=== PATIENT | male | born 1970 | race American Indian/Alaskan Native ===

== ENCOUNTER 2017-11-16 00:04 | Inpatient (IN) | payer OTHER ==
[2017-11-16 00:04] VITALS: BMI 21.4
[2017-11-16] MEDS ORDERED: Sodium Chloride 0.9% 1,000 ML IV STA ×2 (00:45→05:22)
--- NOTE | 2017-11-16 00:50 | ED PDOC ---
HPI: Abdomen Time Seen by Provider: 11/16/17 00:30 Chief Complaint (Nursing): Abdominal Pain Chief Complaint (Provider): Abdominal pain History Per: Patient History/Exam Limitations: no limitations Onset/Duration Of Symptoms: Hrs Outside of [place] travel?: No Current Symptoms Are (Timing): Still Present Location Of Pain/Discomfort: RLQ Quality Of Discomfort: "Pain" Associated Symptoms: Chills, Nausea, Vomiting. denies: Fever Additional History Per: Patient Additional Complaint(s): 47yo male with history of HIV, last CD4 count reported to be low, currently not on any HAART, presents to ED for evaluation of right lower quadrant abdominal pain, with associated nausea, vomiting and chills. Patient states pain started around 1800 last night and was initially testicular pain radiating to his abdomen. He states the testicular pain has now resolved and only the abdominal pain is present. Patient states he has not taken his HIV medications for the past couple months. He denies any other medical complaints. Past Medical History Reviewed: Historical Data, Nursing Documentation, Vital Signs Vital Signs: Last Vital Signs Temp 97.8 F 11/16/17 06:33 Pulse 83 11/16/17 06:33 Resp 16 11/16/17 06:33 BP 133/71 11/16/17 06:33 Pulse Ox 96 11/16/17 05:39 - Medical History PMH: Hepatitis, HIV, Migraine Denies: Chronic Kidney Disease - Surgical History Surgical History: No Surg Hx - Family History Family History: States: Unknown Family Hx - Home Medications Home Medications: Ambulatory Orders Medication Instructions Recorded No Known Home Med 11/16/17 - Allergies Allergies/Adverse Reactions: Allergies Allergy/AdvReac Type Severity Reaction Status Date / Time Sulfa (Sulfonamide Allergy NAUSEA Verified 12/02/15 20:35 Antibiotics) sulfamethoxazole Allergy NAUSEA Verified 12/02/15 20:35 [From Bactrim] trimethoprim [From Bactrim] Allergy NAUSEA Verified 12/02/15 20:35 Review of Systems ROS Statement: Except As Marked, All Systems Reviewed And Found Negative Constitutional: Positive for: Chills. Negative for: Fever Gastrointestinal: Positive for: Nausea, Vomiting, Abdominal Pain Physical Exam - Reviewed Nursing Documentation Reviewed: Yes Vital Signs Reviewed: Yes - Physical Exam Appears: Positive for: Uncomfortable Head Exam: Positive for: ATRAUMATIC, NORMAL INSPECTION, NORMOCEPHALIC Skin: Positive for: Normal Color Eye Exam: Positive for: Normal appearance Neck: Positive for: Supple Cardiovascular/Chest: Positive for: Regular Rate, Rhythm Respiratory: Positive for: Normal Breath Sounds. Negative for: Respiratory Distress Gastrointestinal/Abdominal: Positive for: Soft, Tenderness (right lower qadrant tenderness) Male Genital Exam: Positive for: normal genitalia. Negative for: testicular tenderness (R), testicular tenderness (L) Neurologic/Psych: Positive for: Alert, Oriented. Negative for: Motor/Sensory Deficits - Laboratory Results Result Diagrams: 11/16/17 01:39 11/16/17 01:39 - ECG O2 Sat by Pulse Oximetry: 96 (RA) Pulse Ox Interpretation: Normal Medical Decision Making Medical Decision Making: Impression: Appendicitis vs. colitis vs. diverticulitis Plan: -- Labs -- IV Fluids -- MOrphine 4mg IV -- Zofran 4mg IV -- CT AP w/ IV contrast Time: 0435 CT AP ABDOMEN: Liver: Unremarkable. No solid masses. Gallbladder and bile ducts: Unremarkable. No calcified stones. No ductal dilatation. Pancreas: Unremarkable. No mass. No ductal dilatation. Spleen: Unremarkable. No splenomegaly. Adrenals: Unremarkable. No mass. Kidneys and ureters: Moderate right hydronephrosis. 3 small stones (each 2-3.5 mm size) in the proximal right ureter (coronal image #45) (sag. image #68). Additional non-obstructing stones in each kidney. Stomach and bowel: Unremarkable. No bowel obstruction. No mucosal thickening. Appendix: No findings to suggest acute appendicitis. PELVIS: Bladder: Unremarkable. No mass nor stones. Reproductive: Unremarkable as visualized. ABDOMEN and PELVIS: Intraperitoneal space: Unremarkable. No free air. No significant fluid collection. Bones/joints: No acute fracture nor dislocation. Soft tissues: Unremarkable. Vasculature: Unremarkable. No abdominal aortic aneurysm. Lymph nodes: Unremarkable. No enlarged lymph nodes. IMPRESSION: Moderate right hydronephrosis. 3 small stones (each 2-3.5 mm size) in the proximal right ureter. Additional non-obstructing stones in each kidney. Time: 0525 Patient to be admitted to Med/Surg under Dr. Simmons due to infected kidney stone given that patient has poor compliance and last CD4 was <20. Patient at high risk of becoming septic. Scribe Attestation: Documented by Belkis Priest, acting as a scribe for Catrachito Morgan MD Provider Scribe Attestation: All medical record entries made by the Scribe were at my direction and personally dictated by me. I have reviewed the chart and agree that the record accurately reflects my personal performance of the history, physical exam, medical decision making, and the department course for this patient. I have also personally directed, reviewed, and agree with the discharge instructions and disposition. Disposition - Clinical Impression Clinical Impression: Kidney stone - Disposition Disposition Time: 06:48 Condition: STABLE
[2017-11-16] MEDS ORDERED: Morphine 4 MG/ML VIAL ONE ×2 (00:56→03:33)
[2017-11-16 01:42] LABS: EOS % 0.1 % (0.0-4.0); HEMOGLOBIN 9.3 g/dL (12.0-18.0); LYMPH # 0.7 K/uL (1.0-4.3); LYMPH % 5.1 % (20.0-40.0); MEAN CELL VOLUME 81.5 fl (80.0-94.0); MEAN CORPUSCULAR HEMOGLOBIN 27.1 pg (27.0-31.0); MEAN CORPUSCULAR HGB CONC 33.2 g/dL (33.0-37.0); MEAN PLATELET VOLUME 8.5 fl (7.2-11.7); MONO # 0.7 K/uL (0.0-0.8); MONO % 4.6 % (0.0-10.0); NEUT # 13.1 K/uL (1.8-7.0); NEUT % 90.2 % (50.0-75.0); PLATELET COUNT 337 K/uL (130-400); RBC 3.43 Mil/uL (4.40-5.90); RED CELL DISTRIBUTION WIDTH 14.8 % (11.5-14.5); WHITE BLOOD COUNT 14.5 K/uL (4.8-10.8)
[2017-11-16 01:51] LABS: ALB/GLOB RATIO 0.9 (1.0-2.1); ALBUMIN 4.6 g/dL (3.5-5.0); CALCIUM 9.1 mg/dL (8.4-10.2); GFR AFRICAN-AMERICAN > 60; GFR NON-AFRICAN AMERICAN 50; LIPASE 53 U/L (23-300)
[2017-11-16 02:01] LABS: ALT/SGPT 24 U/L (21-72); AST/SGOT 39 U/L (17-59); BLOOD UREA NITROGEN 14 mg/dl (9-20)
[2017-11-16] MEDS ORDERED: Iohexol 300 100 ML IJ ONE ×2 (02:50→20:57)
[2017-11-16] MEDS ORDERED: Sodium Chloride 0.9% 50 ML IV ONE (02:50)
[2017-11-16 04:44] LABS: BANDS 1 % (0-2); LYMPHOCYTE 6 % (20-50); MONOCYTE 8 % (0-10); NEUTROPHIL 85 % (42-75); PLATELET ESTIMATE NORMAL (NORMAL); TOTAL CELLS COUNTED 100
[2017-11-16 04:45] LABS: ANISOCYTOSIS SLIGHT; HYPOCHROMIC SLIGHT
[2017-11-16 04:51] LABS: SQUAMOUS EPITHIAL 1 /hpf (0-5); URINE BACTERIA MANY (<OCC); URINE BILIRUBIN NEGATIVE (NEGATIVE); URINE BLOOD NEGATIVE (NEGATIVE); URINE CALCIUM OXALATE CRYSTALS RARE /hpf (<OCC); URINE CLARITY CLOUDY (Clear); URINE COLOR YELLOW (YELLOW); URINE GLUCOSE (UA) NEG (Normal); URINE LEUKOCYTE ESTERASE TRACE Leu/uL (Negative); URINE NITRATE POSITIVE (NEGATIVE); URINE PROTEIN 30 mg/dL (NEGATIVE)
[2017-11-16] MEDS ORDERED: levoFLOXacin 750 mg in D5W 150 ML BAG IVPB STA (05:17)
[2017-11-16] MEDS ORDERED: levoFLOXacin 750 mg in D5W 750 MG/150 ML BAG IVPB ONE (05:38)
[2017-11-16] MEDS ORDERED: cefTRIAXone 2 GM in Sodium Chloride 0.9% 100 ML IVPB ONE (07:33)
--- NOTE | 2017-11-16 08:54 | CP.PCM.HP ---
History of Present Illness - History of Present Illness History of Present Illness: CC: RLQ and RIGHT testicular pain 47M p/w one day of sharp, constant pain that started in RIGHT testicle and then "moved up into my RL abdomen". Patient reports he was unable to get comfortable with position change. He says the pain has remained primarily in right lower abdomen. This was associated with subjective fevers/chills and needing to "push to urinate", but he denies any nausea, vomiting, diarrhea, rashes, neurological deficits, and no penile discharge/lesions. He also reports viral URI symptoms 1 week prior with dry cough and rhinitis. PMH: HIV/AIDS (CD4:25 not taking HAART or prophylaxis), Syphilis/Prostatitis treated SHx: Denies smoking or drugs, socially alcohol ALL: Bactrim ER COURSE EKG: Rate- 83, SR, borderline LVH CXR: No definitive acute cardiopulmonary disease or significant interval change identified compared to 12/02/2016. CT abd/pelvis: Rt-sided obstructive uropathy by 3 small stones with mild hydroureteronephrosis with perinephric reaction identified CBC: 14.5>9.3/28<337 CMP: WNL Lactate: 1.3 Urinalysis: Nitrates-positive, RBCs-36, Bacteria-Many 2L Saline bolus, Zofran, Flomax, Morphine, Levoquin, Toradol Present on Admission - Present on Admission Any Indicators Present on Admission: No Review of Systems - Review of Systems All systems: reviewed and no additional remarkable complaints except - Constitutional Constitutional: Chills, Fever (Subjective) - Genitourinary Genitourinary: Difficulty Urinating, Flank Pain, Hx Renal/Bladder Calculi Past Patient History - Past Medical History & Family History Past Medical History?: Yes - Past Social History Smoking Status: Never Smoked - CARDIAC Hx Cardiac Disorders: No - PULMONARY Hx Respiratory Disorders: No Other/Comment: hiv positive - NEUROLOGICAL Hx Migraine: Yes - HEENT Other/Comment: wear glasses - RENAL Hx Chronic Kidney Disease: No - ENDOCRINE/METABOLIC Hx Endocrine Disorders: No - HEMATOLOGICAL/ONCOLOGICAL Hx Human Immunodeficiency Virus (HIV): Yes - INTEGUMENTARY Hx Dermatological Problems: Yes (acne) - MUSCULOSKELETAL/RHEUMATOLOGICAL Hx Musculoskeletal Disorders: No Hx Falls: No - GASTROINTESTINAL Hx Gastrointestinal Disorders: No - GENITOURINARY/GYNECOLOGICAL Hx Genitourinary Disorders: No - PSYCHIATRIC Hx Psychophysiologic Disorder: No Hx Substance Use: No - SURGICAL HISTORY Hx Surgeries: No - ANESTHESIA Hx Anesthesia: Yes Hx Anesthesia Reactions: No Hx Malignant Hyperthermia: No Meds Allergies/Adverse Reactions: Allergies Allergy/AdvReac Type Severity Reaction Status Date / Time Sulfa (Sulfonamide Allergy NAUSEA Verified 12/02/15 20:35 Antibiotics) sulfamethoxazole Allergy NAUSEA Verified 12/02/15 20:35 [From Bactrim] trimethoprim [From Bactrim] Allergy NAUSEA Verified 12/02/15 20:35 Physical Exam - Constitutional Appears: Non-toxic, No Acute Distress - Head Exam Head Exam: ATRAUMATIC, NORMAL INSPECTION - Eye Exam Eye Exam: EOMI, Normal appearance - ENT Exam ENT Exam: Mucous Membranes Dry, Normal External Ear Exam - Neck Exam Neck exam: Positive for: Full Rom, Normal Inspection - Respiratory Exam Respiratory Exam: Clear to Auscultation Bilateral, Respiratory Distress, NORMAL BREATHING PATTERN. absent: Rales, Rhonchi, Wheezes - Cardiovascular Exam Cardiovascular Exam: REGULAR RHYTHM, +S1 - GI/Abdominal Exam GI & Abdominal Exam: Normal Bowel Sounds, Soft, Tenderness (very mild ttp at RLQ w/o rebound, NO hernia noted) - Rectal Exam Rectal Exam: Deferred - Exam Exam: NORMAL INSPECTION, Testicular Tenderness (RIGHT testicel only, along epididymis, no nodules noted, no hernia noted) - Extremities Exam Extremities exam: Positive for: full ROM, normal capillary refill, pedal pulses present - Back Exam Back exam: rash noted (Entire back: non-erythematous, papular with central dimpling, various stages of healing and some with pustules) - Neurological Exam Neurological exam: Alert, CN II-XII Intact, Oriented x3 - Psychiatric Exam Psychiatric exam: Normal Affect - Skin Skin Exam: Dry, Warm Results - Vital Signs Recent Vital Signs: Last Vital Signs Temp 36.8 C 11/16/17 07:56 Pulse 74 11/16/17 07:56 Resp 19 11/16/17 07:56 BP 103/62 11/16/17 07:56 Pulse Ox 99 11/16/17 07:56 - Labs Result Diagrams: 11/16/17 17:42 11/16/17 17:42 Labs: Laboratory Results - last 24 hr 11/16/17 11/16/17 11/16/17 01:39 01:39 04:19 WBC 14.5 H D RBC 3.43 L Hgb 9.3 L Hct 28.0 L MCV 81.5 D MCH 27.1 MCHC 33.2 RDW 14.8 H Plt Count 337 MPV 8.5 Neut % (Auto) 90.2 H Lymph % (Auto) 5.1 L [place] % (Auto) 4.6 Eos % (Auto) 0.1 Baso % (Auto) 0.0 Neut # 13.1 H Lymph # 0.7 L [place] # 0.7 Eos # 0.0 Baso # 0.0 Neutrophils % (Manual) 85 H Band Neutrophils % 1 Lymphocytes % (Manual) 6 L Monocytes % (Manual) 8 Platelet Estimate Normal Hypochromasia (manual) Slight Anisocytosis (manual) Slight Sodium 142 Potassium 4.5 Chloride 102 Carbon Dioxide 22 Anion Gap 23 H BUN 14 Creatinine 1.5 Est GFR ( Amer) > 60 Est GFR (Non-Af Amer) 50 Random Glucose 173 H Lactic Acid 1.3 Calcium 9.1 Total Bilirubin 0.9 AST 39 ALT 24 Alkaline Phosphatase 119 Total Protein 9.6 H Albumin 4.6 Globulin 5.0 H Albumin/Globulin Ratio 0.9 L Lipase 53 Urine Color Urine Clarity Urine pH Ur Specific [place] Urine Protein Urine Glucose (UA) Urine Ketones Urine Blood Urine Nitrate Urine Bilirubin Urine Urobilinogen Ur Leukocyte Esterase Urine RBC (Auto) Urine Microscopic WBC Ur Squamous Epith Cells Calcium Oxalate Crystal Urine Bacteria 11/16/17 04:20 WBC RBC Hgb Hct MCV MCH MCHC RDW Plt Count MPV Neut % (Auto) Lymph % (Auto) [place] % (Auto) Eos % (Auto) Baso % (Auto) Neut # Lymph # [place] # Eos # Baso # Neutrophils % (Manual) Band Neutrophils % Lymphocytes % (Manual) Monocytes % (Manual) Platelet Estimate Hypochromasia (manual) Anisocytosis (manual) Sodium Potassium Chloride Carbon Dioxide Anion Gap BUN Creatinine Est GFR ( Amer) Est GFR (Non-Af Amer) Random Glucose Lactic Acid Calcium Total Bilirubin AST ALT Alkaline Phosphatase Total Protein Albumin Globulin Albumin/Globulin Ratio Lipase Urine Color Yellow Urine Clarity Cloudy Urine pH 7.0 Ur Specific [place] 1.038 H Urine Protein 30 Urine Glucose (UA) Neg Urine Ketones Trace Urine Blood Negative Urine Nitrate Positive H Urine Bilirubin Negative Urine Urobilinogen 4.0 Ur Leukocyte Esterase Trace Urine RBC (Auto) 36 H Urine Microscopic WBC 7 H Ur Squamous Epith Cells 1 Calcium Oxalate Crystal Rare Urine Bacteria Many H Assessment & Plan (1) Kidney stone Assessment and Plan: Obstructive Uropathy noted with possibility of corresponding pyelonephritis. - Urology Consult (Dr Thao) appreciated: Plan for stent 11/17/17, NPO after 0700 , KUB to evaluate progression - Rocephin 2g then 1g Daily - NS 200cc/hr - FloMax - Strain urine - f/u UCx, BCx Status: Acute (2) AIDS Assessment and Plan: 47M with HIV, CD-4: 25, not taking medication or prophylaxis. - Started Mepron - Started Azithromycin - Repeat CD4/CD8, VL, Genotype - RPR, FT-ABS, GC/Chlamydia Status: Acute (3) Rash of back Assessment and Plan: Appears to be a molluscum species and according to literature common in AIDS patients and typically resolve with rise in CD4 count. - Symptomatic relief Status: Chronic (4) DVT prophylaxis Assessment and Plan: Lovenox 40mg, SC, HS Status: Acute
[2017-11-16] MEDS: Sodium Chloride 0.9% 1,000 ML IV SCH ×3 (09:21→19:45)
--- NOTE | 2017-11-16 09:42 | RAD ---
HISTORY: abd pain COMPARISON: Portable chest 12/02/2016. FINDINGS: Patient is rotated toward the left limit evaluation of the left hilar region. LUNGS: No active pulmonary disease. PLEURA: No significant pleural effusion identified, no pneumothorax apparent. CARDIOVASCULAR: Normal. OSSEOUS STRUCTURES: No significant abnormalities. VISUALIZED UPPER ABDOMEN: Normal. OTHER FINDINGS: None. IMPRESSION: No definitive acute cardiopulmonary disease or significant interval change identified compared to 12/02/2016 prior chest radiograph.
[2017-11-16] MEDS: Atovaquone 750 mg/5 ml Susp UD PO SCH (11:03)
[2017-11-16] MEDS: Enoxaparin 40 mg Syringe SC SCH (11:03)
--- NOTE | 2017-11-16 11:19 | CT ---
PROCEDURE: CT Abdomen and Pelvis with contrast HISTORY: hx of HIV, RLQ pain COMPARISON: None. TECHNIQUE: Contrast dose: Omnipaque 300, 90 cc Radiation dose: Total exam DLP = 355.47 mGy-cm. This CT exam was performed using one or more of the following dose reduction techniques: Automated exposure control, adjustment of the mA and/or kV according to patient size, and/or use of iterative reconstruction technique. FINDINGS: LOWER THORAX: Small hiatal hernia is identified. No pleural pericardial effusion noted. LIVER: Unremarkable. No gross lesion or ductal dilatation. GALLBLADDER AND BILE DUCTS: Unremarkable. PANCREAS: Unremarkable. No gross lesion or ductal dilatation. SPLEEN: Unremarkable. ADRENALS: Unremarkable. No mass. KIDNEYS AND URETERS: Multifocal punctate intrarenal calculi identified bilaterally with a few intrarenal calculi identified 6- 7 mm size including at the lower pole right kidney and midpole left kidney. Moderate right obstructive uropathy is appreciated including delayed right nephrogram and mild right hydroureteronephrosis. This is the result of 3 intraureteral calculi obstructing the mid right ureter at the L3-4 disc interspace level with the 3 calculi varying in size from 3-3.5 mm greatest dimension. The ureter distal to this finding is collapsed in the urinary bladder is unremarkable. No left-sided obstructive uropathy. No definite cyst or solid renal parenchymal mass bilaterally or perinephric fluid collection. A right perinephric reaction is appreciated as a function of obstructive uropathy. VASCULATURE: Unremarkable. No aortic aneurysm. BOWEL: Prior right cecal and terminal ileal ileal colitis appears to have resolved with remainder of the bowel unremarkable. The stomach is collapsed in general. Trace residual fluid is seen in the lumen. APPENDIX: Normal appendix. PERITONEUM: Unremarkable. No free fluid. No free air. LYMPH NODES: Unremarkable. No enlarged lymph nodes. BLADDER: Unremarkable. REPRODUCTIVE: Unremarkable. BONES: No acute fracture. OTHER FINDINGS: None. IMPRESSION: Right-sided obstructive uropathy is identified caused by 3 small intraureteral calculi obstructing the mid right ureter with mild right hydroureteronephrosis and limited right perinephric reaction identified. Mild delayed right nephrogram. Multiple small intrarenal calculi are nonobstructive at the bilateral kidneys varying in size from punctate size up to 7 mm. Please see details above. Concordant preliminary report from [facility], 11/16/2017
--- NOTE | 2017-11-16 11:58 | CP.PCM.PN ---
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 Suggest continue present mgmt strain all urine keep on ffull liquid diet and npo after breakfast. KUB now and at 7am to asses stone progression. Keesha Objective - Vital Signs/Intake and Output Vital Signs (last 24 hours): Temp Pulse Resp BP Pulse Ox 98.3 F 74 19 103/62 99 11/16/17 07:56 11/16/17 07:56 11/16/17 07:56 11/16/17 07:56 11/16/17 07:56 - Medications Medications: Current Medications Acetaminophen (Tylenol 325mg Tab) 650 mg PO Q6 PRN PRN Reason: Fever >100.4 F Atovaquone (Mepron) 1,500 mg PO DAILYWM [facility] Last Admin: 11/16/17 11:03 Dose: 1,500 mg Azithromycin (Zithromax) 1,200 mg PO QWK [facility] PRN Reason: Protocol Enoxaparin Sodium (Lovenox) 40 mg SC DAILY [facility] PRN Reason: Protocol Last Admin: 11/16/17 11:03 Dose: 40 mg Sodium Chloride (Sodium Chloride 0.9%) 1,000 mls @ 200 mls/hr IV .Q5H [facility] Stop: 11/17/17 08:55 Last Admin: 11/16/17 09:21 Dose: Not Given Ceftriaxone Sodium 1 gm/ (Sodium Chloride) 100 mls @ 100 mls/hr IVPB DAILY [facility] PRN Reason: Protocol Ketorolac Tromethamine (Toradol) 15 mg IVP Q6 PRN PRN Reason: Pain, moderate (4-7) Ondansetron HCl (Zofran Inj) 4 mg IVP Q6 PRN PRN Reason: Nausea/Vomiting Tamsulosin HCl (Flomax) 0.4 mg PO HS [facility] - Labs Labs: 11/16/17 01:39 11/16/17 01:39
--- NOTE | 2017-11-16 17:17 | CARD ---
APPROVED REPORT EKG Measurement Heart [id number] <Conclusion> Normal sinus rhythm Minimal voltage criteria for LVH, may be normal variant Nonspecific T wave abnormality Abnormal ECG
[2017-11-16] MEDS ORDERED: Lactated Ringer's 1,000 ML IV SCH ×4 (17:45→18:00)
[2017-11-16 17:47] LABS: BASO % 0.1 % (0.0-2.0); LYMPH # 0.4 K/uL (1.0-4.3); LYMPH % 1.9 % (20.0-40.0); MEAN CORPUSCULAR HEMOGLOBIN 27.2 pg (27.0-31.0); MEAN CORPUSCULAR HGB CONC 33.5 g/dL (33.0-37.0); MEAN PLATELET VOLUME 7.6 fl (7.2-11.7); MONO # 0.8 K/uL (0.0-0.8); MONO % 4.2 % (0.0-10.0); NEUT % 93.8 % (50.0-75.0); NRBC % 0.1 % (0.0-0.0); RBC 2.72 Mil/uL (4.40-5.90); RED CELL DISTRIBUTION WIDTH 14.4 % (11.5-14.5); WHITE BLOOD COUNT 19.2 K/uL (4.8-10.8)
[2017-11-16 18:00] LABS: MAGNESIUM 1.3 MG/DL (1.6-2.3)
[2017-11-16 18:04] LABS: ALB/GLOB RATIO 0.8 (1.0-2.1); ALBUMIN 3.1 g/dL (3.5-5.0); INR 1.5 (0.9-1.2); PARTIAL THROMBOPLASTIN TIME 37.5 Seconds (25.6-37.1); PROTHROMBIN TIME 17.3 Seconds (9.8-13.1)
[2017-11-16 18:09] LABS: HEMOGLOBIN 7.4 g/dL (12.0-18.0); PLATELET COUNT 233 K/uL (130-400)
--- NOTE | 2017-11-16 18:25 | PCM.RRT ---
<Mark Busch - Last Filed: 11/16/17 18:23> MARKER MACHINE ATTENDANT Nurse Assessment - Situation MARKER MACHINE ATTENDANT Responder Arrival Time: 17:55 Location: 6th Floor Room Number: [id number] MARKER MACHINE ATTENDANT Reason for Call: Hypotension MARKER MACHINE ATTENDANT Called By: RN - IV IV Inserted during MARKER MACHINE ATTENDANT?: Yes IV Fluids Initiated During MARKER MACHINE ATTENDANT?: Yes New IV Insertion Tolerance:: Good - Respiratory Oxygen Delivery Method: Room Air Received Nebulizer Treatments: No Was the Patient Ventilated with Bag/Mask 100% O2?: No - Diagnostic Test Ordered EKG: Yes Chest X-Ray: Yes - Stat Labs Ordered MARKER MACHINE ATTENDANT Stat Labs Ordered: CBC, BMP, PT/PTT, LACTIC ACID CPR started during MARKER MACHINE ATTENDANT?: No I.Reason for MARKER MACHINE ATTENDANT - A) Acute Change in Patient: (Select all that apply): Acute change in SBP below (80) Subjective: MARKER MACHINE ATTENDANT was called due to Hypotension (80/47) for 47 y/o male with PMH of HIV-AIDS ( Not on HAART), who is admitted to the floor for evaluation and treatment of Kidney stones. Upon arrival, patient is alert, awake, orientated and denies any pain or issues. Initial VS: 80/47, PP 99, Spo2 98% RA, RR 21, Tm 100.5. PE: CV, respiratory and neuroexam unremarkable. During MARKER MACHINE ATTENDANT, second IV inserted and second bag of LR started, Patient was given one dose of Vancomycin. CBC, CMP, Bcx, Ucx, Lactic acid, Coag, EKG and CXR ordered (Lactic acid 1.9, CXR negative for any changes). Blood pressure after 15 mins was noted to be 89/50, PP 99 with Tm of 100.5. Patient was transferred to the telemetry unit and ID will be informed for further evaluation and treatment. Case discussed with Dr. Ramirez - Neurological Status (Select all that apply): Alert, Responsive, Oriented, Verbal, Follows Commands - Respiratory Oxygen Delivery Method: Room Air - Constitutional Appears: No Acute Distress - Head Head Exam: ATRAUMATIC, NORMAL INSPECTION, NORMOCEPHALIC - Eyes Eye Exam: EOMI, Normal appearance - Respiratory Exam Respiratory Exam: Clear to Ausculation Bilateral, NORMAL BREATHING PATTERN - Cardiovascular Exam Cardiovascular Exam: REGULAR RHYTHM - GI/Abdominal Exam GI & Abdominal Exam: Soft, Normal Bowel Sounds - Neurological Exam Neurological Exam: Alert, Awake, Oriented x3 - Extremities Exam Extremities Exam: Full ROM, Normal Capillary Refill Plan - Assessment of Findings&Treatment Plan 47 y/o male with hypotension, Tm of 100.5 and kidney stones - Follow up Labs - Monitor BP - Continue IV Fluids - Transfer to telemetry unit - Call ID --- Mark Busch, PGY-1 <Perlita Ramirez - Last Filed: 11/16/17 19:08> MARKER MACHINE ATTENDANT Nurse Assessment - Vital Signs Vital Signs: Rapid Response Vital Sign Blood Pressure 80/47 Pulse Rate 98 Respiratory Rate 12 Temperature 100.5 F Oxygen Saturation 100 - Vital Signs at end of MARKER MACHINE ATTENDANT Vital Signs at end of MARKER MACHINE ATTENDANT: Rapid Response End Vital Sign Blood Pressure 88/49 Pulse Rate 93 Respiratory Rate 18 Temperature 100.5 F O2 Sat by Pulse Oximetry 99 Attending/Attestation - Attestation I have personally seen and examined this patient.: Yes I have fully participated in the care of the patient.: Yes I have reviewed all pertinent clinical information, including history, physical exam and plan: Yes Notes (Text): Hypotension prob sec to Sepsis sec to UTI in an immunocompromised pt Obstructive Uropathy Anemia , likely chronic , drop likely dilutional HIV MARILYNN Hypomagnesemia Hypophosphatemia - IVF bolus NS x 1 liter stat, cont IVF hydration -Pt received IV Ceftriaxone 2g and a dose of IV Levaquin in ED - Transfer pt to Telemetry for close monitoring - rpt labs CBC,CMP, Lactic acid - panculture - Discussed with resident - consult ID - pt may need a more broad spectrum abx given immunocompromised state - replace electrolytes, transfuse 1 unit PRBC
[2017-11-16 18:33] LABS: BANDS 20 % (0-2); LYMPHOCYTE 2 % (20-50); MONOCYTE 1 % (0-10); NEUTROPHIL 77 % (42-75); PLATELET ESTIMATE NORMAL (NORMAL); TOTAL CELLS COUNTED 100
[2017-11-16 18:34] LABS: ANISOCYTOSIS SLIGHT; HYPOCHROMIC SLIGHT; LARGE PLATELETS PRESENT; POIKILOCYTOSIS SLIGHT; TARGET CELLS SLIGHT; TEARDROP CELLS SLIGHT
--- NOTE | 2017-11-16 19:32 | CP.PCM.PN ---
Subjective - Date & Time of Evaluation Date of Evaluation: 11/16/17 Time of Evaluation: 19:29 - Subjective Subjective: Recieved call from resident pt spiked temp and dropped his pressure. 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.Keesha Objective - Vital Signs/Intake and Output Vital Signs (last 24 hours): Temp Pulse Resp BP Pulse Ox 99.3 F 93 H 18 97/59 L 100 11/16/17 19:24 11/16/17 19:24 11/16/17 19:24 11/16/17 19:24 11/16/17 19:24 - Medications Medications: Current Medications Acetaminophen (Tylenol 325mg Tab) 650 mg PO Q6 PRN PRN Reason: Fever >100.4 F Last Admin: 11/16/17 16:07 Dose: 650 mg Atovaquone (Mepron) 1,500 mg PO DAILYWM [facility] Last Admin: 11/16/17 11:03 Dose: 1,500 mg Azithromycin (Zithromax) 1,200 mg PO QWK [facility] PRN Reason: Protocol Last Admin: 11/16/17 15:21 Dose: 1,200 mg Enoxaparin Sodium (Lovenox) 40 mg SC DAILY [facility] PRN Reason: Protocol Last Admin: 11/16/17 11:03 Dose: 40 mg Sodium Chloride (Sodium Chloride 0.9%) 1,000 mls @ 200 mls/hr IV .Q5H [facility] Stop: 11/17/17 08:55 Last Admin: 11/16/17 14:06 Dose: 200 mls/hr Ceftriaxone Sodium 1 gm/ (Sodium Chloride) 100 mls @ 100 mls/hr IVPB DAILY [facility] PRN Reason: Protocol Ketorolac Tromethamine (Toradol) 15 mg IVP Q6 PRN PRN Reason: Pain, moderate (4-7) Ondansetron HCl (Zofran Inj) 4 mg IVP Q6 PRN PRN Reason: Nausea/Vomiting Tamsulosin HCl (Flomax) 0.4 mg PO HS [facility] - Labs Labs: 11/16/17 17:42 11/16/17 17:42 PT 17.3 Seconds (9.8-13.1) H 11/16/17 17:42 INR 1.5 (0.9-1.2) H 11/16/17 17:42 APTT 37.5 Seconds (25.6-37.1) H 11/16/17 17:42
[2017-11-16] MEDS ORDERED: Meropenem 1 GM in Sodium Chloride 0.9% 100 ML IVPB ONE (19:43)
[2017-11-16 19:47] LABS: RAPID PLASMA REAGIN REACTIVE (NONREACTIVE)
[2017-11-16] MEDS ORDERED: Lidocaine 2% Jelly (Uro-Jet) ONE (20:56)
[2017-11-16] MEDS ORDERED: Meropenem 1 GM in Sodium Chloride 0.9% 100 ML IVPB SCH (21:00)
[2017-11-16] MEDS ORDERED: Gentamicin 80mg/50ml NS 160 MG/100 ML BAG IVPB ONE (21:04)
[2017-11-16] MEDS ORDERED: ePHEDrine 50 mg/ml Inj ONE (21:09)
[2017-11-16] MEDS ORDERED: Phenylephrine 10 mg/ml Inj ONE (21:09)
[2017-11-16] MEDS ORDERED: Etomidate 20 mg/10ml Inj IV ONE (21:10)
[2017-11-16] MEDS ORDERED: Ketamine 50 mg/ml Inj (10 ml) ONE (21:10)
[2017-11-16] MEDS ORDERED: Lactated Ringer's 1,000 ML IV ONE (21:18)
[2017-11-16] MEDS ORDERED: Gentamicin IV 80mg/50ml NS(PREMIX) IVPB ONE (21:20)
[2017-11-16] MEDS ORDERED: Midazolam 2 MG/2 ML VIAL ONE (21:25)
[2017-11-16] MEDS ORDERED: Lidocaine 2% Jelly (Uro-Jet) TOP ONE (21:25)
--- NOTE | 2017-11-16 21:49 | PCM.SURG1 ---
Surgeon's Initial Post Op Note - Surgeon's Notes Surgeon: Keesha Make Up Arranger: BARBI Type of Anesthesia: IV Sedation Anesthesia Administered By: Dr Gonzalez Pre-Operative Diagnosis: UROSEPSIS Right HYDRO Right ureteral calculi Operative Findings: stone/hydro Post-Operative Diagnosis: ureteral calculi/hydro /sepsis Operation Performed: cysto insert stent right Specimen/Specimens Removed: na Estimated Blood Loss: EBL {In ML}: 0 Blood Products Given: N/A Drains Used: No Drains Post-Op Condition: Good Date of Surgery/Procedure: 11/16/17 Time of Surgery/Procedure: 21:50
[2017-11-16] MEDS ORDERED: Sodium Chloride 0.9% 1,000 ML IV ONE ×2 (21:55)
[2017-11-16] MEDS ORDERED: Potassium & Sodium Phosphate PO ONE (22:00)
[2017-11-16] MEDS ORDERED: Sodium Chloride 0.9% 500 ML IV SCH (22:00)
[2017-11-16] MEDS ORDERED: Lactated Ringer's 500 ML IV SCH (22:15)
--- NOTE | 2017-11-17 00:21 | CP.PCM.CON ---
History of Present Illness - History of Present Illness History of Present Illness: Infectious Disease Consultation Note- Asked to see this patient at the request of family practice team for fever, UTI , hydro in a HIV/AIDS male . HPI- Patient is a 47 year old amle with HIV/AIDS not complaint with HAART follows at [facility] ( last CD4-25) who was admitted with c/o pain and difficulty urinating and lower abd/pelvic pain and fever and in ED was found to have fever, high wbc and hypotensive and high lactate and positve UA and On imaging was found to have obstructive uropathy secondary to 3 stones in ureter and is s/p emergency stent placement by last night case was d/w family practice resident at length last night and advised to start pt. on IV meropenem (shelli ose) , and he had received 1 gram of IV vancomycin in ED as well. advised to check blood and urine cx as well. This morning patient is resting comfortably in bed and he states he feels much better compared to last night. He states he is able to urinate using the urinal but still has pressure and pain although much less than last night. denies any NORMAN , states he also has v=been having cough for past few days, no sob , denies any diarrhea, denies any n/v. denies any recent travel. He also states he has been having these boil/blister like lesions on his back chronically that occasionally open up on their own and fluid is discharged because he scartches it. PMH: HIV/AIDS (CD4:25 not taking HAART or prophylaxis), Syphilis/Prostatitis treated SHx: Denies smoking or drugs, socially alcohol ALL: Bactrim Review of Systems - Review of Systems Review of Systems: ROS- had fever and chills yesterday but no chills today, denies any NORMAN, + cough but not productive, denies any sob, denies any chest pain, had lower abd. pain but not now, dysurea still present but less than before, denies any diarrhea, denies any N/V. Past Patient History - Past Medical History & Family History Past Medical History?: Yes - Past Social History Smoking Status: Never Smoked Alcohol: None Drugs: Denies - CARDIAC Hx Cardiac Disorders: No - PULMONARY Hx Respiratory Disorders: No Other/Comment: hiv positive - NEUROLOGICAL Hx Migraine: Yes - HEENT Other/Comment: wear glasses - RENAL Hx Chronic Kidney Disease: No - ENDOCRINE/METABOLIC Hx Endocrine Disorders: No - HEMATOLOGICAL/ONCOLOGICAL Hx AIDS: Yes Hx Human Immunodeficiency Virus (HIV): Yes - INTEGUMENTARY Hx Dermatological Problems: Yes (acne) - MUSCULOSKELETAL/RHEUMATOLOGICAL Hx Musculoskeletal Disorders: No Hx Falls: No - GASTROINTESTINAL Hx Gastrointestinal Disorders: No - GENITOURINARY/GYNECOLOGICAL Hx Genitourinary Disorders: No - PSYCHIATRIC Hx Psychophysiologic Disorder: No Hx Substance Use: No - SURGICAL HISTORY Hx Surgeries: No - ANESTHESIA Hx Anesthesia: Yes Hx Anesthesia Reactions: No Hx Malignant Hyperthermia: No Meds Allergies/Adverse Reactions: Allergies Allergy/AdvReac Type Severity Reaction Status Date / Time Sulfa (Sulfonamide Allergy NAUSEA Verified 12/02/15 20:35 Antibiotics) sulfamethoxazole Allergy NAUSEA Verified 12/02/15 20:35 [From Bactrim] trimethoprim [From Bactrim] Allergy NAUSEA Verified 12/02/15 20:35 - Medications Medications: Current Medications Acetaminophen (Tylenol 325mg Tab) 650 mg PO Q6 PRN PRN Reason: Fever >100.4 F Last Admin: 11/16/17 16:07 Dose: 650 mg Atovaquone (Mepron) 1,500 mg PO DAILYWM [facility] Last Admin: 11/16/17 11:03 Dose: 1,500 mg Azithromycin (Zithromax) 1,200 mg PO QWK [facility] PRN Reason: Protocol Last Admin: 11/16/17 15:21 Dose: 1,200 mg Enoxaparin Sodium (Lovenox) 40 mg SC DAILY [facility] PRN Reason: Protocol Last Admin: 11/16/17 11:03 Dose: 40 mg Sodium Chloride (Sodium Chloride 0.9%) 1,000 mls @ 200 mls/hr IV .Q5H [facility] Stop: 11/17/17 08:55 Last Admin: 11/16/17 19:45 Dose: 200 mls/hr Ceftriaxone Sodium 1 gm/ (Sodium Chloride) 100 mls @ 100 mls/hr IVPB DAILY [facility] PRN Reason: Protocol Meropenem 1 gm/ Sodium (Chloride) 100 mls @ 100 mls/hr IVPB Q12@0800,2000 [facility] PRN Reason: Protocol Sodium Chloride (Sodium Chloride 0.9%) 500 mls @ 999 mls/hr IV .Q31M [facility] Lactated Ringer's (Lactated Ringer's) 500 mls @ 999 mls/hr IV .Q31M [facility] Ketorolac Tromethamine (Toradol) 15 mg IVP Q6 PRN PRN Reason: Pain, moderate (4-7) Magnesium Oxide (Mag-Ox) 400 mg PO BID [facility] Ondansetron HCl (Zofran Inj) 4 mg IVP Q6 PRN PRN Reason: Nausea/Vomiting Tamsulosin HCl (Flomax) 0.4 mg PO [facility] Last Admin: 11/16/17 23:15 Dose: 0.4 mg Physical Exam - Constitutional Appears: No Acute Distress - Head Exam Head Exam: ATRAUMATIC - Eye Exam Eye Exam: EOMI, PERRL - Neck Exam Neck exam: Positive for: Full Rom Additional comments: supple - Respiratory Exam Respiratory Exam: NORMAL BREATHING PATTERN Additional comments: No wheezing slightly decreased breath sounds at right base - Cardiovascular Exam Cardiovascular Exam: RRR, +S1, +S2 - GI/Abdominal Exam GI & Abdominal Exam: Normal Bowel Sounds, Soft Additional comments: NT, ND No guarding, no rebound No CVA tenderness B/l - Extremities Exam Extremities exam: Positive for: normal inspection - Neurological Exam Neurological exam: Alert, Oriented x3 - Skin Additional comments: multiple superficial open round wounds about 2 x 2 cm without any active dishcarge, no malodor no surrounding erythema Results - Vital Signs Recent Vital Signs: Last Vital Signs Temp 99 F 11/16/17 22:50 Pulse 85 11/16/17 22:50 Resp 18 11/16/17 22:50 BP 98/56 L 11/16/17 22:50 Pulse Ox 100 11/16/17 22:50 - Labs Result Diagrams: 11/17/17 05:35 11/17/17 05:35 Labs: Laboratory Results - last 24 hr 11/16/17 11/16/17 11/16/17 01:39 01:39 04:19 WBC 14.5 H D RBC 3.43 L Hgb 9.3 L Hct 28.0 L MCV 81.5 D MCH 27.1 MCHC 33.2 RDW 14.8 H Plt Count 337 MPV 8.5 Neut % (Auto) 90.2 H Lymph % (Auto) 5.1 L [place] % (Auto) 4.6 Eos % (Auto) 0.1 Baso % (Auto) 0.0 Neut # 13.1 H Lymph # 0.7 L [place] # 0.7 Eos # 0.0 Baso # 0.0 Neutrophils % (Manual) 85 H Band Neutrophils % 1 Lymphocytes % (Manual) 6 L Monocytes % (Manual) 8 Platelet Estimate Normal Large Platelets Hypochromasia (manual) Slight Poikilocytosis (manual Anisocytosis (manual) Slight Target Cells Tear Drop Cells PT INR APTT Sodium 142 Potassium 4.5 Chloride 102 Carbon Dioxide 22 Anion Gap 23 H BUN 14 Creatinine 1.5 Est GFR ( Amer) > 60 Est GFR (Non-Af Amer) 50 POC Glucose (mg/dL) Random Glucose 173 H Lactic Acid 1.3 Calcium 9.1 Phosphorus Magnesium Total Bilirubin 0.9 AST 39 ALT 24 Alkaline Phosphatase 119 Total Protein 9.6 H Albumin 4.6 Globulin 5.0 H Albumin/Globulin Ratio 0.9 L Lipase 53 Urine Color Urine Clarity Urine pH Ur Specific [place] Urine Protein Urine Glucose (UA) Urine Ketones Urine Blood Urine Nitrate Urine Bilirubin Urine Urobilinogen Ur Leukocyte Esterase Urine RBC (Auto) Urine Microscopic WBC Ur Squamous Epith Cells Calcium Oxalate Crystal Urine Bacteria RPR Titer RPR Blood Type Blood Type Confirm Antibody Screen Crossmatch BBK History Checked 11/16/17 11/16/17 11/16/17 04:20 07:45 17:42 WBC 19.2 H RBC 2.72 L Hgb 7.4 L Hct 22.0 L MCV 81.0 MCH 27.2 MCHC 33.5 RDW 14.4 Plt Count 233 D MPV 7.6 Neut % (Auto) 93.8 H Lymph % (Auto) 1.9 L [place] % (Auto) 4.2 Eos % (Auto) 0.0 Baso % (Auto) 0.1 Neut # 18.0 H Lymph # 0.4 L [place] # 0.8 Eos # 0.0 Baso # 0.0 Neutrophils % (Manual) 77 H Band Neutrophils % 20 H* Lymphocytes % (Manual) 2 L Monocytes % (Manual) 1 Platelet Estimate Normal Large Platelets Present Hypochromasia (manual) Slight Poikilocytosis (manual Slight Anisocytosis (manual) Slight Target Cells Slight Tear Drop Cells Slight PT INR APTT Sodium Potassium Chloride Carbon Dioxide Anion Gap BUN Creatinine Est GFR ( Amer) Est GFR (Non-Af Amer) POC Glucose (mg/dL) Random Glucose Lactic Acid Calcium Phosphorus Magnesium Total Bilirubin AST ALT Alkaline Phosphatase Total Protein Albumin Globulin Albumin/Globulin Ratio Lipase Urine Color Yellow Urine Clarity Cloudy Urine pH 7.0 Ur Specific [place] 1.038 H Urine Protein 30 Urine Glucose (UA) Neg Urine Ketones Trace Urine Blood Negative Urine Nitrate Positive H Urine Bilirubin Negative Urine Urobilinogen 4.0 Ur Leukocyte Esterase Trace Urine RBC (Auto) 36 H Urine Microscopic WBC 7 H Ur Squamous Epith Cells 1 Calcium Oxalate Crystal Rare Urine Bacteria Many H RPR Titer 1:4 H RPR Reactive H Blood Type Blood Type Confirm Antibody Screen Crossmatch BBK History Checked 11/16/17 11/16/17 11/16/17 17:42 17:42 17:42 WBC RBC Hgb Hct MCV MCH MCHC RDW Plt Count MPV Neut % (Auto) Lymph % (Auto) [place] % (Auto) Eos % (Auto) Baso % (Auto) Neut # Lymph # [place] # Eos # Baso # Neutrophils % (Manual) Band Neutrophils % Lymphocytes % (Manual) Monocytes % (Manual) Platelet Estimate Large Platelets Hypochromasia (manual) Poikilocytosis (manual Anisocytosis (manual) Target Cells Tear Drop Cells PT 17.3 H INR 1.5 H APTT 37.5 H Sodium 141 Potassium 3.7 Chloride 108 H Carbon Dioxide 20 L Anion Gap 17 BUN 16 Creatinine 2.3 H Est GFR ( Amer) 37 Est GFR (Non-Af Amer) 31 POC Glucose (mg/dL) Random Glucose 142 H Lactic Acid 1.9 Calcium 8.0 L Phosphorus Magnesium Total Bilirubin 0.7 AST 27 ALT 30 Alkaline Phosphatase 76 Total Protein 7.1 Albumin 3.1 L D Globulin 4.0 H Albumin/Globulin Ratio 0.8 L Lipase Urine Color Urine Clarity Urine pH Ur Specific [place] Urine Protein Urine Glucose (UA) Urine Ketones Urine Blood Urine Nitrate Urine Bilirubin Urine Urobilinogen Ur Leukocyte Esterase Urine RBC (Auto) Urine Microscopic WBC Ur Squamous Epith Cells Calcium Oxalate Crystal Urine Bacteria RPR Titer RPR Blood Type Blood Type Confirm Antibody Screen Crossmatch BBK History Checked 11/16/17 11/16/17 11/16/17 17:42 17:57 18:56 WBC RBC Hgb Hct MCV MCH MCHC RDW Plt Count MPV Neut % (Auto) Lymph % (Auto) [place] % (Auto) Eos % (Auto) Baso % (Auto) Neut # Lymph # [place] # Eos # Baso # Neutrophils % (Manual) Band Neutrophils % Lymphocytes % (Manual) Monocytes % (Manual) Platelet Estimate Large Platelets Hypochromasia (manual) Poikilocytosis (manual Anisocytosis (manual) Target Cells Tear Drop Cells PT INR APTT Sodium Potassium Chloride Carbon Dioxide Anion Gap BUN Creatinine Est GFR ( Amer) Est GFR (Non-Af Amer) POC Glucose (mg/dL) 143 H Random Glucose Lactic Acid Calcium Phosphorus 1.5 L Magnesium 1.3 L Total Bilirubin AST ALT Alkaline Phosphatase Total Protein Albumin Globulin Albumin/Globulin Ratio Lipase Urine Color Urine Clarity Urine pH Ur Specific [place] Urine Protein Urine Glucose (UA) Urine Ketones Urine Blood Urine Nitrate Urine Bilirubin Urine Urobilinogen Ur Leukocyte Esterase Urine RBC (Auto) Urine Microscopic WBC Ur Squamous Epith Cells Calcium Oxalate Crystal Urine Bacteria RPR Titer RPR Blood Type O POSITIVE Blood Type Confirm Antibody Screen Negative Crossmatch See Detail BBK History Checked No verified bt 11/16/17 20:30 WBC RBC Hgb Hct MCV MCH MCHC RDW Plt Count MPV Neut % (Auto) Lymph % (Auto) [place] % (Auto) Eos % (Auto) Baso % (Auto) Neut # Lymph # [place] # Eos # Baso # Neutrophils % (Manual) Band Neutrophils % Lymphocytes % (Manual) Monocytes % (Manual) Platelet Estimate Large Platelets Hypochromasia (manual) Poikilocytosis (manual Anisocytosis (manual) Target Cells Tear Drop Cells PT INR APTT Sodium Potassium Chloride Carbon Dioxide Anion Gap BUN Creatinine Est GFR ( Amer) Est GFR (Non-Af Amer) POC Glucose (mg/dL) Random Glucose Lactic Acid Calcium Phosphorus Magnesium Total Bilirubin AST ALT Alkaline Phosphatase Total Protein Albumin Globulin Albumin/Globulin Ratio Lipase Urine Color Urine Clarity Urine pH Ur Specific [place] Urine Protein Urine Glucose (UA) Urine Ketones Urine Blood Urine Nitrate Urine Bilirubin Urine Urobilinogen Ur Leukocyte Esterase Urine RBC (Auto) Urine Microscopic WBC Ur Squamous Epith Cells Calcium Oxalate Crystal Urine Bacteria RPR Titer RPR Blood Type Blood Type Confirm O POSITIVE Antibody Screen Crossmatch BBK History Checked Laboratory Results - last 72 hr 11/16/17 11/16/17 11/16/17 01:39 01:39 04:19 WBC 14.5 H D RBC 3.43 L Hgb 9.3 L Hct 28.0 L MCV 81.5 D MCH 27.1 MCHC 33.2 RDW 14.8 H Plt Count 337 MPV 8.5 Neut % (Auto) 90.2 H Lymph % (Auto) 5.1 L [place] % (Auto) 4.6 Eos % (Auto) 0.1 Baso % (Auto) 0.0 Neut # 13.1 H Lymph # 0.7 L [place] # 0.7 Eos # 0.0 Baso # 0.0 Neutrophils % (Manual) 85 H Band Neutrophils % 1 Lymphocytes % (Manual) 6 L Monocytes % (Manual) 8 Platelet Estimate Normal Large Platelets Hypochromasia (manual) Slight Poikilocytosis (manual Anisocytosis (manual) Slight Target Cells Tear Drop Cells PT INR APTT Sodium 142 Potassium 4.5 Chloride 102 Carbon Dioxide 22 Anion Gap 23 H BUN 14 Creatinine 1.5 Est GFR ( Amer) > 60 Est GFR (Non-Af Amer) 50 POC Glucose (mg/dL) Random Glucose 173 H Lactic Acid 1.3 Calcium 9.1 Phosphorus Magnesium Total Bilirubin 0.9 AST 39 ALT 24 Alkaline Phosphatase 119 Total Protein 9.6 H Albumin 4.6 Globulin 5.0 H Albumin/Globulin Ratio 0.9 L Lipase 53 Urine Color Urine Clarity Urine pH Ur Specific [place] Urine Protein Urine Glucose (UA) Urine Ketones Urine Blood Urine Nitrate Urine Bilirubin Urine Urobilinogen Ur Leukocyte Esterase Urine RBC (Auto) Urine Microscopic WBC Ur Squamous Epith Cells Calcium Oxalate Crystal Urine Bacteria RPR Titer RPR Blood Type Blood Type Confirm Antibody Screen Crossmatch BBK History Checked 11/16/17 11/16/17 11/16/17 04:20 05:35 07:45 WBC RBC Hgb Hct MCV MCH MCHC RDW Plt Count MPV Neut % (Auto) Lymph % (Auto) [place] % (Auto) Eos % (Auto) Baso % (Auto) Neut # Lymph # [place] # Eos # Baso # Neutrophils % (Manual) Band Neutrophils % Lymphocytes % (Manual) Monocytes % (Manual) Platelet Estimate Large Platelets Hypochromasia (manual) Poikilocytosis (manual Anisocytosis (manual) Target Cells Tear Drop Cells PT INR APTT Sodium Potassium Chloride Carbon Dioxide Anion Gap BUN Creatinine Est GFR ( Amer) Est GFR (Non-Af Amer) POC Glucose (mg/dL) Random Glucose Lactic Acid 0.8 Calcium Phosphorus Magnesium Total Bilirubin AST ALT Alkaline Phosphatase Total Protein Albumin Globulin Albumin/Globulin Ratio Lipase Urine Color Yellow Urine Clarity Cloudy Urine pH 7.0 Ur Specific [place] 1.038 H Urine Protein 30 Urine Glucose (UA) Neg Urine Ketones Trace Urine Blood Negative Urine Nitrate Positive H Urine Bilirubin Negative Urine Urobilinogen 4.0 Ur Leukocyte Esterase Trace Urine RBC (Auto) 36 H Urine Microscopic WBC 7 H Ur Squamous Epith Cells 1 Calcium Oxalate Crystal Rare Urine Bacteria Many H RPR Titer 1:4 H RPR Reactive H Blood Type Blood Type Confirm Antibody Screen Crossmatch BBK History Checked 11/16/17 11/16/17 11/16/17 17:42 17:42 17:42 WBC 19.2 H RBC 2.72 L Hgb 7.4 L Hct 22.0 L MCV 81.0 MCH 27.2 MCHC 33.5 RDW 14.4 Plt Count 233 D MPV 7.6 Neut % (Auto) 93.8 H Lymph % (Auto) 1.9 L [place] % (Auto) 4.2 Eos % (Auto) 0.0 Baso % (Auto) 0.1 Neut # 18.0 H Lymph # 0.4 L [place] # 0.8 Eos # 0.0 Baso # 0.0 Neutrophils % (Manual) 77 H Band Neutrophils % 20 H* Lymphocytes % (Manual) 2 L Monocytes % (Manual) 1 Platelet Estimate Normal Large Platelets Present Hypochromasia (manual) Slight Poikilocytosis (manual Slight Anisocytosis (manual) Slight Target Cells Slight Tear Drop Cells Slight PT INR APTT Sodium 141 Potassium 3.7 Chloride 108 H Carbon Dioxide 20 L Anion Gap 17 BUN 16 Creatinine 2.3 H Est GFR ( Amer) 37 Est GFR (Non-Af Amer) 31 POC Glucose (mg/dL) Random Glucose 142 H Lactic Acid 1.9 Calcium 8.0 L Phosphorus Magnesium Total Bilirubin 0.7 AST 27 ALT 30 Alkaline Phosphatase 76 Total Protein 7.1 Albumin 3.1 L D Globulin 4.0 H Albumin/Globulin Ratio 0.8 L Lipase Urine Color Urine Clarity Urine pH Ur Specific [place] Urine Protein Urine Glucose (UA) Urine Ketones Urine Blood Urine Nitrate Urine Bilirubin Urine Urobilinogen Ur Leukocyte Esterase Urine RBC (Auto) Urine Microscopic WBC Ur Squamous Epith Cells Calcium Oxalate Crystal Urine Bacteria RPR Titer RPR Blood Type Blood Type Confirm Antibody Screen Crossmatch BBK History Checked 11/16/17 11/16/17 11/16/17 17:42 17:42 17:57 WBC RBC Hgb Hct MCV MCH MCHC RDW Plt Count MPV Neut % (Auto) Lymph % (Auto) [place] % (Auto) Eos % (Auto) Baso % (Auto) Neut # Lymph # [place] # Eos # Baso # Neutrophils % (Manual) Band Neutrophils % Lymphocytes % (Manual) Monocytes % (Manual) Platelet Estimate Large Platelets Hypochromasia (manual) Poikilocytosis (manual Anisocytosis (manual) Target Cells Tear Drop Cells PT 17.3 H INR 1.5 H APTT 37.5 H Sodium Potassium Chloride Carbon Dioxide Anion Gap BUN Creatinine Est GFR ( Amer) Est GFR (Non-Af Amer) POC Glucose (mg/dL) 143 H Random Glucose Lactic Acid Calcium Phosphorus 1.5 L Magnesium 1.3 L Total Bilirubin AST ALT Alkaline Phosphatase Total Protein Albumin Globulin Albumin/Globulin Ratio Lipase Urine Color Urine Clarity Urine pH Ur Specific [place] Urine Protein Urine Glucose (UA) Urine Ketones Urine Blood Urine Nitrate Urine Bilirubin Urine Urobilinogen Ur Leukocyte Esterase Urine RBC (Auto) Urine Microscopic WBC Ur Squamous Epith Cells Calcium Oxalate Crystal Urine Bacteria RPR Titer RPR Blood Type Blood Type Confirm Antibody Screen Crossmatch BBK History Checked 11/16/17 11/16/17 11/17/17 18:56 20:30 00:54 WBC RBC Hgb Hct MCV MCH MCHC RDW Plt Count MPV Neut % (Auto) Lymph % (Auto) [place] % (Auto) Eos % (Auto) Baso % (Auto) Neut # Lymph # [place] # Eos # Baso # Neutrophils % (Manual) Band Neutrophils % Lymphocytes % (Manual) Monocytes % (Manual) Platelet Estimate Large Platelets Hypochromasia (manual) Poikilocytosis (manual Anisocytosis (manual) Target Cells Tear Drop Cells PT INR APTT Sodium Potassium Chloride Carbon Dioxide Anion Gap BUN Creatinine Est GFR ( Amer) Est GFR (Non-Af Amer) POC Glucose (mg/dL) 76 Random Glucose Lactic Acid Calcium Phosphorus Magnesium Total Bilirubin AST ALT Alkaline Phosphatase Total Protein Albumin Globulin Albumin/Globulin Ratio Lipase Urine Color Urine Clarity Urine pH Ur Specific [place] Urine Protein Urine Glucose (UA) Urine Ketones Urine Blood Urine Nitrate Urine Bilirubin Urine Urobilinogen Ur Leukocyte Esterase Urine RBC (Auto) Urine Microscopic WBC Ur Squamous Epith Cells Calcium Oxalate Crystal Urine Bacteria RPR Titer RPR Blood Type O POSITIVE Blood Type Confirm O POSITIVE Antibody Screen Negative Crossmatch See Detail BBK History Checked No verified bt 11/17/17 11/17/17 11/17/17 05:35 05:35 05:35 WBC 19.0 H RBC 3.24 L Hgb 8.9 L Hct 26.9 L MCV 83.0 D MCH 27.3 MCHC 32.9 L RDW 14.6 H Plt Count 212 MPV Neut % (Auto) Lymph % (Auto) [place] % (Auto) Eos % (Auto) Baso % (Auto) Neut # Lymph # [place] # Eos # Baso # Neutrophils % (Manual) Band Neutrophils % Lymphocytes % (Manual) Monocytes % (Manual) Platelet Estimate Large Platelets Hypochromasia (manual) Poikilocytosis (manual Anisocytosis (manual) Target Cells Tear Drop Cells PT 18.0 H INR 1.6 H APTT 36.7 Sodium 142 Potassium 3.7 Chloride 110 H Carbon Dioxide 21 L Anion Gap 15 BUN 15 Creatinine 1.8 H Est GFR ( Amer) 49 Est GFR (Non-Af Amer) 41 POC Glucose (mg/dL) Random Glucose 100 Lactic Acid Calcium 7.6 L Phosphorus Magnesium Total Bilirubin AST ALT Alkaline Phosphatase Total Protein Albumin Globulin Albumin/Globulin Ratio Lipase Urine Color Urine Clarity Urine pH Ur Specific [place] Urine Protein Urine Glucose (UA) Urine Ketones Urine Blood Urine Nitrate Urine Bilirubin Urine Urobilinogen Ur Leukocyte Esterase Urine RBC (Auto) Urine Microscopic WBC Ur Squamous Epith Cells Calcium Oxalate Crystal Urine Bacteria RPR Titer RPR Blood Type Blood Type Confirm Antibody Screen Crossmatch BBK History Checked Microbiology 11/16/17 01:35 Blood-Venous S.aureus & Coag-Neg Staph PNA FISH - Final 11/16/17 01:35 Blood-Venous Blood Culture - Preliminary Gram Positive Cocci 11/16/17 01:35 Blood-Venous Gram Stain - Final 11/16/17 04:20 Urine,Clean Catch Urine Culture - Preliminary Gram Positive Cocci Accession No. : [id number] Patient Name / ID : KING MARTY / [id number] Exam Date : 11/16/2017 02:50:13 ( Approved ) Study Comment : Sex / Age : M / 47Y Creator : Bi Prieto MD Dictator : Bi Prieto MD Air Sampling And Monitoring : Odd Job Worker : iB Prieto MD Approver2 : Report Date : 11/16/2017 11:16:46 My Comment : PROCEDURE: CT Abdomen and Pelvis with contrast HISTORY: hx of HIV, RLQ pain COMPARISON: None. TECHNIQUE: Contrast dose: Omnipaque 300, 90 cc Radiation dose: Total exam DLP = 355.47 mGy-cm. This CT exam was performed using one or more of the following dose reduction techniques: Automated exposure control, adjustment of the mA and/or kV according to patient size, and/or use of iterative reconstruction technique. FINDINGS: LOWER THORAX: Small hiatal hernia is identified. No pleural pericardial effusion noted. LIVER: Unremarkable. No gross lesion or ductal dilatation. GALLBLADDER AND BILE DUCTS: Unremarkable. PANCREAS: Unremarkable. No gross lesion or ductal dilatation. SPLEEN: Unremarkable. ADRENALS: Unremarkable. No mass. KIDNEYS AND URETERS: Multifocal punctate intrarenal calculi identified bilaterally with a few intrarenal calculi identified 6- 7 mm size including at the lower pole right kidney and midpole left kidney. Moderate right obstructive uropathy is appreciated including delayed right nephrogram and mild right hydroureteronephrosis. This is the result of 3 intraureteral calculi obstructing the mid right ureter at the L3-4 disc interspace level with the 3 calculi varying in size from 3-3.5 mm greatest dimension. The ureter distal to this finding is collapsed in the urinary bladder is unremarkable. No left-sided obstructive uropathy. No definite cyst or solid renal parenchymal mass bilaterally or perinephric fluid collection. A right perinephric reaction is appreciated as a function of obstructive uropathy. VASCULATURE: Unremarkable. No aortic aneurysm. BOWEL: Prior right cecal and terminal ileal ileal colitis appears to have resolved with remainder of the bowel unremarkable. The stomach is collapsed in general. Trace residual fluid is seen in the lumen. APPENDIX: Normal appendix. PERITONEUM: Unremarkable. No free fluid. No free air. LYMPH NODES: Unremarkable. No enlarged lymph nodes. BLADDER: Unremarkable. REPRODUCTIVE: Unremarkable. BONES: No acute fracture. OTHER FINDINGS: None. IMPRESSION: Right-sided obstructive uropathy is identified caused by 3 small intraureteral calculi obstructing the mid right ureter with mild right hydroureteronephrosis and limited right perinephric reaction identified. Mild delayed right nephrogram. Multiple small intrarenal calculi are nonobstructive at the bilateral kidneys varying in size from punctate size up to 7 mm. Please see details above. Concordant preliminary report from [facility], 11/16/2017 Accession No. : [id number] Patient Name / ID : KING MARTY / [id number] Exam Date : 11/16/2017 02:05:37 ( Approved ) Study Comment : Sex / Age : M / 47Y Creator : Bi Prieto MD Dictator : Bi Prieto MD Air Sampling And Monitoring : Odd Job Worker : Bi Prieto MD Approver2 : Report Date : 11/16/2017 09:41:13 My Comment : HISTORY: abd pain COMPARISON: Portable chest 12/02/2016. FINDINGS: Patient is rotated toward the left limit evaluation of the left hilar region. LUNGS: No active pulmonary disease. PLEURA: No significant pleural effusion identified, no pneumothorax apparent. CARDIOVASCULAR: Normal. OSSEOUS STRUCTURES: No significant abnormalities. VISUALIZED UPPER ABDOMEN: Normal. OTHER FINDINGS: None. IMPRESSION: No definitive acute cardiopulmonary disease or significant interval change identified compared to 12/02/2016 prior chest radiograph. Assessment & Plan (1) Kidney stone Status: Acute (2) Rash of back Status: Chronic (3) AIDS Status: Acute (4) Fever Status: Acute (5) Septic shock Status: Acute (6) Obstructive uropathy Status: Acute - Assessment and Plan (Free Text) Assessment: A/P- 47 year old male with hIV/AIDS admitted with lower abd pain and dysurea and difficulty urinating found to have obstructive uropathy due to ureteral stones . s/p emergent ureteral stent placement by last night. fevers are trending down. + UA. prelim urine cx- GPC prelim Blood cx- GPC abd Ct report noted. plan- advise to continue with IV meropenem ( renal dose) day #2 . f/u final urine and bloodcx results and sensitivities. advise to start vancomycin 750 mg daily for GPC bacteremia. check 2 more blood cx. check TTE r/o vegetations. keep vanco trough <20. source of bacteremia most likely the open lesions on upper back . advise to keep them clean and ry and apply mupiricin ointment to the open wounds. HAART meds to be decided upon as outpatient. 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 pt. should also be on PCP prophylaxis with mepron since he is sulfa allergic. All above d/w patient and the family practice team. Patient verbalizes full understanding of all above and agrees with above plan of care. Thank you for allowing me to take part in the care of this patient.
[2017-11-17] MEDS: Sodium Chloride 0.9% 1,000 ML IV SCH (00:54)
[2017-11-17 06:13] LABS: HEMOGLOBIN 8.9 g/dL (12.0-18.0); MEAN CORPUSCULAR HEMOGLOBIN 27.3 pg (27.0-31.0); MEAN CORPUSCULAR HGB CONC 32.9 g/dL (33.0-37.0); RBC 3.24 Mil/uL (4.40-5.90); RED CELL DISTRIBUTION WIDTH 14.6 % (11.5-14.5)
[2017-11-17 06:20] LABS: CALCIUM 7.6 mg/dL (8.4-10.2)
[2017-11-17 06:40] LABS: INR 1.6 (0.9-1.2); PARTIAL THROMBOPLASTIN TIME 36.7 Seconds (25.6-37.1)
--- NOTE | 2017-11-17 08:18 | RAD ---
HISTORY: Sepsis Patient COMPARISON: Portable chest radiograph 11/16/2017. FINDINGS: LUNGS: No active pulmonary disease. PLEURA: No significant pleural effusion identified, no pneumothorax apparent. CARDIOVASCULAR: Normal. OSSEOUS STRUCTURES: No significant abnormalities. VISUALIZED UPPER ABDOMEN: Normal. OTHER FINDINGS: None. IMPRESSION: No interval acute cardiopulmonary disease appreciated.
[2017-11-17] MEDS: Lactated Ringer's 1,000 ML IV SCH ×2 (08:45→19:03)
[2017-11-17] MEDS: Meropenem 1 GM in Sodium Chloride 0.9% 100 ML IVPB SCH ×2 (08:48→20:34)
[2017-11-17] MEDS: Atovaquone 750 mg/5 ml Susp UD PO SCH (08:49)
[2017-11-17] MEDS: Magnesium Oxide 400 mg Tab UD PO SCH ×2 (08:49→18:01)
--- NOTE | 2017-11-17 09:27 | CP.PCM.PN ---
Subjective - Date & Time of Evaluation Date of Evaluation: 11/17/17 Time of Evaluation: 07:10 - Subjective Subjective: Patient seen and examined bedside, reports feeling pain during urination, but denies burning. He reports has been urinating frequent and more clear. Urine dark yellow color. Febrile in the morning. He denies abdominal pain, n,v , chest pain, SOB, headache, dizziness. Patient has MANAGING PRINCIPAL yesterday for low BP. Iv fluids given. BP and HR normal today. s /p 1 unit RBC transfusion. Hgb8.9 today Objective - Vital Signs/Intake and Output Vital Signs (last 24 hours): Temp Pulse Resp BP Pulse Ox 98.7 F 86 18 114/70 100 11/17/17 08:18 11/17/17 08:18 11/17/17 08:18 11/17/17 08:18 11/17/17 08:18 Intake and Output: 11/17/17 11/17/17 06:59 18:59 Intake Total 950 Output Total 300 Balance 650 - Medications Medications: Current Medications Acetaminophen (Tylenol 325mg Tab) 650 mg PO Q6 PRN PRN Reason: Fever >100.4 F Last Admin: 11/17/17 05:14 Dose: 650 mg Atovaquone (Mepron) 1,500 mg PO DAILYWM [facility] Last Admin: 11/17/17 08:49 Dose: 1,500 mg Azithromycin (Zithromax) 1,200 mg PO QWK [facility] PRN Reason: Protocol Last Admin: 11/16/17 15:21 Dose: 1,200 mg Enoxaparin Sodium (Lovenox) 40 mg SC DAILY [facility] PRN Reason: Protocol Last Admin: 11/16/17 11:03 Dose: 40 mg Ceftriaxone Sodium 1 gm/ (Sodium Chloride) 100 mls @ 100 mls/hr IVPB DAILY [facility] PRN Reason: Protocol Last Admin: 11/17/17 08:47 Dose: 100 mls/hr Meropenem 1 gm/ Sodium (Chloride) 100 mls @ 100 mls/hr IVPB Q12@0800,2000 [facility] PRN Reason: Protocol Last Admin: 11/17/17 08:48 Dose: 100 mls/hr Sodium Chloride (Sodium Chloride 0.9%) 500 mls @ 999 mls/hr IV .Q31M [facility] Lactated Ringer's (Lactated Ringer's) 500 mls @ 999 mls/hr IV .Q31M [facility] Lactated Ringer's (Lactated Ringer's) 1,000 mls @ 200 mls/hr IV .Q5H [facility] Last Admin: 11/17/17 08:45 Dose: 200 mls/hr Ketorolac Tromethamine (Toradol) 15 mg IVP Q6 PRN PRN Reason: Pain, moderate (4-7) Last Admin: 11/17/17 08:58 Dose: 15 mg Magnesium Oxide (Mag-Ox) 400 mg PO BID [facility] Last Admin: 11/17/17 08:49 Dose: 400 mg Ondansetron HCl (Zofran Inj) 4 mg IVP Q6 PRN PRN Reason: Nausea/Vomiting Tamsulosin HCl (Flomax) 0.4 mg PO HS [facility] Last Admin: 11/16/17 23:15 Dose: 0.4 mg - Labs Labs: 11/17/17 05:35 11/17/17 05:35 PT 18.0 Seconds (9.8-13.1) H 11/17/17 05:35 INR 1.6 (0.9-1.2) H 11/17/17 05:35 APTT 36.7 Seconds (25.6-37.1) 11/17/17 05:35 - Constitutional Appears: No Acute Distress - Head Exam Head Exam: ATRAUMATIC, NORMOCEPHALIC - Eye Exam Eye Exam: Normal appearance - ENT Exam ENT Exam: Mucous Membranes Moist - Neck Exam Neck Exam: Normal Inspection - Respiratory Exam Respiratory Exam: Clear to Ausculation Bilateral. absent: Rales, Rhonchi, Wheezes - Cardiovascular Exam Cardiovascular Exam: REGULAR RHYTHM, +S1, +S2 - GI/Abdominal Exam GI & Abdominal Exam: Soft, Normal Bowel Sounds. absent: Tenderness - Extremities Exam Extremities Exam: Full ROM, Normal Inspection. absent: Pedal Edema - Back Exam Back Exam: NORMAL INSPECTION - Neurological Exam Neurological Exam: Alert, Awake, Oriented x3 - Psychiatric Exam Psychiatric exam: Normal Mood - Skin Skin Exam: Rash Additional comments: multiple scratch lesion over back, and 2 abrasion lesion 1cm secondary to scratch over upper back Assessment and Plan - Assessment and Plan (Free Text) Plan: 47 yo ,m, PMhx/o HIV/AIDS CD4:25 not taking HAART, Syphilis, Prostatitis, admitted for infected kidney stone Assessment & Plan (1) Kidney stone with associated Obstructive Uropathy - Urology Consult (Dr Thao) appreciated: s/p stent yesterday - s/p Rocephin 2g Ed and 1gtoday - s/p NS 200cc/hr -RL 200ml/h - FloMax 2) Sepsis -secondary to UTI and bacteremia -SIRS leukocytosis, fever, plus Urx gram+ cocci -s/p MANAGING PRINCIPAL yesterday for hypotension that is resolved. BP,HR normal today -IV fluids RL 200ml/h -f/u Echo 3) Complicated UTI -on HIV pt and with renal stone and hydroneprhosis -Urine cx gram + cocci -s/p levaquin, rocephin ED -c/w Meropenen, vanco -f/u final urine cx (4) AIDS - no compliance pt CD-4: 25, not taking medication or prophylaxis. - Mepron - Azithromycin q/week. last dose yesterday - f/ut CD4/CD8, VL, Genotype - RPR, FT-ABS, GC/Chlamydia Status: Acute 5) Anemia -secondary to HIV -s/p 1 unit transfusion -Hgb: 8.9 today 6) Hx/o Syphilis -s/p PCN benzathinic 2 dose 06/16 and 06/26/2017 RPR reactive RPR titer 1:4 (7) Rash of back Appears to be a molluscum species and according to literature common in AIDS patients and typically resolve with rise in CD4 count. (8) DVT prophylaxis Lovenox 40mg, SC
[2017-11-17] MEDS: Enoxaparin 40 mg Syringe SC SCH (12:05)
--- NOTE | 2017-11-17 12:47 | CP.PCM.PN ---
Subjective - Date & Time of Evaluation Date of Evaluation: 11/17/17 Time of Evaluation: 12:40 - Subjective Subjective: Pt has no pain afibrile now temp this am KUB confirms srent in good position. THE urine and blood c&s positive for Gram + cocci ID and sensitivites pending ( Enterococci ?) wbc and creatine trending downward. Suggest agressive Rx of sepsis with sensitive antibiotics, continued support with IV fluids, stent should remain in place and pt should re eval of stoneburden when med condition maximally improved. Keesha Objective - Vital Signs/Intake and Output Vital Signs (last 24 hours): Temp Pulse Resp BP Pulse Ox 98.7 F 75 18 114/70 100 11/17/17 08:18 11/17/17 10:00 11/17/17 08:18 11/17/17 08:18 11/17/17 08:18 Intake and Output: 11/17/17 11/17/17 06:59 18:59 Intake Total 950 Output Total 300 Balance 650 - Medications Medications: Current Medications Acetaminophen (Tylenol 325mg Tab) 650 mg PO Q6 PRN PRN Reason: Fever >100.4 F Last Admin: 11/17/17 05:14 Dose: 650 mg Atovaquone (Mepron) 1,500 mg PO DAILYWM [facility] Last Admin: 11/17/17 08:49 Dose: 1,500 mg Azithromycin (Zithromax) 1,200 mg PO QWK [facility] PRN Reason: Protocol Last Admin: 11/16/17 15:21 Dose: 1,200 mg Enoxaparin Sodium (Lovenox) 40 mg SC DAILY [facility] PRN Reason: Protocol Last Admin: 11/16/17 11:03 Dose: 40 mg Meropenem 1 gm/ Sodium (Chloride) 100 mls @ 100 mls/hr IVPB Q12@0800,2000 [facility] PRN Reason: Protocol Last Admin: 11/17/17 08:48 Dose: 100 mls/hr Lactated Ringer's (Lactated Ringer's) 500 mls @ 999 mls/hr IV .Q31M [facility] Lactated Ringer's (Lactated Ringer's) 1,000 mls @ 200 mls/hr IV .Q5H [facility] Last Admin: 11/17/17 08:45 Dose: 200 mls/hr Vancomycin HCl 750 mg/ Sodium (Chloride) 250 mls @ 166.667 mls/hr IVPB DAILY [facility] PRN Reason: Protocol Ketorolac Tromethamine (Toradol) 15 mg IVP Q6 PRN PRN Reason: Pain, moderate (4-7) Last Admin: 11/17/17 08:58 Dose: 15 mg Magnesium Oxide (Mag-Ox) 400 mg PO BID [facility] Last Admin: 11/17/17 08:49 Dose: 400 mg Ondansetron HCl (Zofran Inj) 4 mg IVP Q6 PRN PRN Reason: Nausea/Vomiting Tamsulosin HCl (Flomax) 0.4 mg PO HS [facility] Last Admin: 11/16/17 23:15 Dose: 0.4 mg - Labs Labs: 11/17/17 05:35 11/17/17 05:35 PT 18.0 Seconds (9.8-13.1) H 11/17/17 05:35 INR 1.6 (0.9-1.2) H 11/17/17 05:35 APTT 36.7 Seconds (25.6-37.1) 11/17/17 05:35
--- NOTE | 2017-11-17 16:49 | RAD ---
HISTORY: renal stone progression COMPARISON: November 16, 2017. CT abdomen and pelvis FINDINGS: BOWEL: Normal. No obstruction. No free air. BONES: Normal. OTHER FINDINGS: Right renal calculus identified on the CT scan not apparent on the current study. Contrast noted in the bladder related to prior administration of intravenous contrast. IMPRESSION: No acute findings related to/accounting for the clinical presentation.
--- NOTE | 2017-11-17 16:50 | RAD ---
PROCEDURE: Intraoperative Fluoroscopy. HISTORY: CYSTO FINDINGS: Fluoroscopic assistance was provided for retrograde and stent placement. Please refer to the operative report from
--- NOTE | 2017-11-17 16:53 | RAD ---
HISTORY: Right renal stone progression COMPARISON: November 16, 2017. FINDINGS: BOWEL: Normal. No obstruction. No free air. BONES: Normal. OTHER FINDINGS: Multi stent identified on the right. Renal calculi are not identified. IMPRESSION: No visible renal calculus disease. Position of the double J stent catheter(s): Satisfactory
--- NOTE | 2017-11-17 18:27 | CARD ---
APPROVED REPORT EKG Measurement Heart [id number] PA [id number] [id number] <Conclusion> Normal sinus rhythm Nonspecific T wave abnormality Abnormal ECG
[2017-11-18] MEDS: Lactated Ringer's 1,000 ML IV SCH ×4 (00:02→14:03)
[2017-11-18 06:20] LABS: ALB/GLOB RATIO 0.7 (1.0-2.1); ALBUMIN 2.7 g/dL (3.5-5.0); ALT/SGPT 23 U/L (21-72); AST/SGOT 29 U/L (17-59); BLOOD UREA NITROGEN 15 mg/dl (9-20); CALCIUM 7.9 mg/dL (8.4-10.2); GFR AFRICAN-AMERICAN > 60; GFR NON-AFRICAN AMERICAN 55
[2017-11-18 06:25] LABS: BASO # 0.1 K/uL (0.0-0.2); BASO % 0.6 % (0.0-2.0); EOS # 0.3 K/uL (0.0-0.7); EOS % 1.8 % (0.0-4.0); HEMOGLOBIN 9.1 g/dL (12.0-18.0); LYMPH # 1.8 K/uL (1.0-4.3); LYMPH % 12.1 % (20.0-40.0); MEAN CELL VOLUME 82.8 fl (80.0-94.0); MEAN CORPUSCULAR HGB CONC 33.9 g/dL (33.0-37.0); MEAN PLATELET VOLUME 8.9 fl (7.2-11.7); MONO # 0.3 K/uL (0.0-0.8); MONO % 2.3 % (0.0-10.0); NEUT # 12.2 K/uL (1.8-7.0); NEUT % 83.2 % (50.0-75.0); RBC 3.24 Mil/uL (4.40-5.90); RED CELL DISTRIBUTION WIDTH 14.8 % (11.5-14.5); WHITE BLOOD COUNT 14.7 K/uL (4.8-10.8)
--- NOTE | 2017-11-18 08:18 | CP.PCM.PN ---
Subjective - Date & Time of Evaluation Date of Evaluation: 11/18/17 Time of Evaluation: 07:15 - Subjective Subjective: Patient seen and examined bedside. Reports still in pain during urination, but not dysuria, low appetite but able to tolerated liquids and solids. Urine color more clear compared with yesterday. He denies n,v,abd pain, chest pain, SOB. Patient reports feeling sad, quilty about not taking his medications, anhedonia, sleep problems. Patient agree to have psyq consult. will contact manager case of his clinic to evaluate pt. Objective - Vital Signs/Intake and Output Vital Signs (last 24 hours): Temp Pulse Resp BP Pulse Ox 97.6 F 92 H 18 130/77 98 11/18/17 07:45 11/18/17 07:45 11/18/17 07:45 11/18/17 07:45 11/18/17 07:45 - Medications Medications: Current Medications Acetaminophen (Tylenol 325mg Tab) 650 mg PO Q6 PRN PRN Reason: Fever >100.4 F Last Admin: 11/17/17 05:14 Dose: 650 mg Atovaquone (Mepron) 1,500 mg PO DAILYWM [facility] Last Admin: 11/17/17 08:49 Dose: 1,500 mg Azithromycin (Zithromax) 1,200 mg PO QWK [facility] PRN Reason: Protocol Last Admin: 11/16/17 15:21 Dose: 1,200 mg Enoxaparin Sodium (Lovenox) 40 mg SC DAILY [facility] PRN Reason: Protocol Last Admin: 11/17/17 12:05 Dose: 40 mg Meropenem 1 gm/ Sodium (Chloride) 100 mls @ 100 mls/hr IVPB Q12@0800,2000 [facility] PRN Reason: Protocol Last Admin: 11/17/17 20:34 Dose: 100 mls/hr Lactated Ringer's (Lactated Ringer's) 500 mls @ 999 mls/hr IV .Q31M [facility] Lactated Ringer's (Lactated Ringer's) 1,000 mls @ 200 mls/hr IV .Q5H [facility] Last Admin: 11/18/17 05:00 Dose: 200 mls/hr Vancomycin HCl 750 mg/ Sodium (Chloride) 250 mls @ 166.667 mls/hr IVPB DAILY [facility] PRN Reason: Protocol Last Admin: 11/17/17 14:18 Dose: 166.667 mls/hr Ketorolac Tromethamine (Toradol) 15 mg IVP Q6 PRN PRN Reason: Pain, moderate (4-7) Last Admin: 11/17/17 19:02 Dose: 15 mg Magnesium Oxide (Mag-Ox) 400 mg PO BID [facility] Last Admin: 11/17/17 18:01 Dose: 400 mg Ondansetron HCl (Zofran Inj) 4 mg IVP Q6 PRN PRN Reason: Nausea/Vomiting Tamsulosin HCl (Flomax) 0.4 mg PO HS [facility] Last Admin: 11/17/17 21:49 Dose: 0.4 mg - Labs Labs: 11/18/17 04:25 11/18/17 04:25 PT 18.0 Seconds (9.8-13.1) H 11/17/17 05:35 INR 1.6 (0.9-1.2) H 11/17/17 05:35 APTT 36.7 Seconds (25.6-37.1) 11/17/17 05:35 - Constitutional Appears: No Acute Distress - Head Exam Head Exam: ATRAUMATIC, NORMOCEPHALIC - Eye Exam Eye Exam: Normal appearance - Respiratory Exam Respiratory Exam: Decreased Breath Sounds. absent: Rales, Rhonchi, Wheezes Additional comments: left lung base diminished breath sound but not rales noted. - Cardiovascular Exam Cardiovascular Exam: REGULAR RHYTHM, +S1, +S2 - GI/Abdominal Exam GI & Abdominal Exam: Soft, Normal Bowel Sounds. absent: Tenderness - Extremities Exam Extremities Exam: Normal Inspection. absent: Pedal Edema - Neurological Exam Neurological Exam: Alert, Awake, Oriented x3 - Psychiatric Exam Psychiatric exam: Flat Affect - Skin Additional comments: scoriation ponce noted over back, 2 abrasion lesions less than 1 cm. no discarge. Assessment and Plan - Assessment and Plan (Free Text) Plan: 47 yo ,m, PMhx/o HIV/AIDS CD4:25 not taking HAART, Syphilis, Prostatitis, admitted for infected kidney stone Assessment & Plan (1) Kidney stone with associated Obstructive Uropathy -improving renal function Bun/CR 15/1.4 - Urology Consult (Dr Thao) appreciated: s/p stent - s/p Rocephin 2g Ed and 1g today -RL 200ml/h -Toradol 15 mg for mod pain -Toradol 30 mg for sev pain - c/w FloMax 2) Severe Sepsis -secondary to UTI and bacteremia -SIRS leukocytosis, fever, plus Urx gram+ cocci -procalcitonin 26. f/u procalcitonin -afebrile since yesterday morning 101 -VS normal -IV fluids RL 200ml/h -ID consult appreciated: Meropenen day #2, Vancomycin day #2 -f/u vanco through -Blood cx repeated today -f/u cbc, cmp daily -Echo: reports pending 3) Complicated UTI -on HIV pt and with renal stone and hydroneprhosis -Urine cx gram + cocci -s/p levaquin, rocephin ED -c/w Meropenen day 2, vanco day 2 -f/u final urine cx (4) AIDS - no compliance pt CD-4: 25, not taking medication or prophylaxis. - Mepron - Azithromycin q/week. last dose yesterday - f/ut CD4/CD8, VL, Genotype - f/u GC/Chlamydia.pt no sexually active 5) Anemia -secondary to HIV -s/p 1 unit transfusion -Hgb: 8.9 today 6) Hx/o Syphilis -s/p PCN benzathinic 2 dose 06/16 and 06/26/2017 RPR reactive, FT-ABS reactive RPR titer 1:4 -patient no sexually active and had treatment in 05/2017.discussed with Dr Colon -will repeat titers in 3 months. (7) Rash of back -appears tp be secondary to healed lesions fo secondary syphilis. -2 new abrasions les than 1 cm upper back -Mupirocin cream apply BID 8) Adjustment disorder with depression -admit to be sad, anhedonia, sleep problem, concentration -pt accepts to have psyq consult. -will contact patient's manager case of [facility] to evaluate him. (9) DVT prophylaxis Lovenox 40mg, SC
--- NOTE | 2017-11-18 08:49 | OP ---
PROCEDURE DATE: 11/16/2017 PREOPERATIVE DIAGNOSES: Right ureteral calculi and right renal calculi with urosepsis. POSTOPERATIVE DIAGNOSES: Right ureteral calculi and right renal calculi with urosepsis. PROCEDURE: Cystoscopy and insertion of the stent. DESCRIPTION OF PROCEDURE: Prior to the procedure, the patient was reexamined and a decision was made to proceed with surgery. A detailed informed consent was obtained from the patient. He is aware of the risks and complications of surgery, especially in HIV positive patients with sepsis. He signed the consent, was willing to accept the risks and was brought into the room and draped and prepped in the usual manner. He was cystoscoped with a #21 Storz panendoscope. The right ureteral orifice showed no efflux. It was cannulized with an 0.038 guidewire which was passed up into the renal pelvis. A stent was deployed over it and passed up into the renal pelvis also, and then deployed completely by removing the wire using the pusher device. Once the wire was removed, the stent curled properly in the bladder. Patient tolerated this procedure well, was sent to the Recovery room in good condition. Garth Thao MD
--- NOTE | 2017-11-18 08:53 | CON ---
DATE: 11/16/2017 TIME: At approximately 11:00 a.m. in the morning. CHIEF COMPLAINT: Kidney stones. HISTORY OF PRESENT ILLNESS: The patient was admitted through the emergency room because of multiple renal and several small ureteral calculi. The patient had pain, which has now subsided since he has been given Flomax. He denies nauseousness or vomiting now. He has no history of fever or chills at home. He does have a history of being HIV positive and has been negligent in his HIV care. 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 He neither smokes nor drinks. FAMILY HISTORY: Noncontributory. SOCIAL HISTORY: Noncontributory. REVIEW OF SYSTEMS: RESPIRATORY: The patient has no shortness of breath or wheezing. CARDIAC: The patient has no chest pain or palpitations. GASTROINTESTINAL: The patient has no abdominal pain, no nauseousness, no vomiting. Says he has very little appetite. ORTHOPEDIC: The patient has a negative orthopedic history. HEMATOLOGICAL: The patient is HIV positive. PHYSICAL EXAMINATION: GENERAL: The patient is alert, oriented, and awake. VITAL SIGNS: The patient is afebrile. Vital signs are within normal limits. HEAD, EARS, EYES, NOSE AND THROAT: Within normal limits. NECK: Supple. There are no bruits, nodes, or masses. CHEST: Clear bilaterally with no rales or rhonchi. HEART: Normal sinus rhythm with no masses or organomegaly. ABDOMEN: There is no CVA tenderness. There is no anterior abdominal tenderness, guarding, or rebound. The patient has normal bowel sounds. There are no hernias. Testicles, epididymis, and cord are normal. EXTREMITIES: Normal. RECTAL: Shows a 2+ non-nodular prostate. IMPRESSION: Two 3 mm calculi in the mid to lower ureter. PLAN: Since the patient is quite comfortable now, the patient should be kept on IV fluids and Flomax. Since he has already eaten breakfast, no procedures are contemplated today. If the patient begins having more problems, he may need stent insertion if he fails to pass the calculi, in addition of which his vital signs should be monitored closely. HIV status makes the probability of a probable medical infection more real. The patient is aware of the risks and wishes to observe. Garth Thao MD [facility] # [id number]
[2017-11-18] MEDS ORDERED: Mupirocin 2% Cream TOP SCH (09:30)
[2017-11-18] MEDS: Enoxaparin 40 mg Syringe SC SCH (09:38)
[2017-11-18] MEDS: Magnesium Oxide 400 mg Tab UD PO SCH ×2 (09:39→16:52)
[2017-11-18] MEDS: Atovaquone 750 mg/5 ml Susp UD PO SCH (09:39)
[2017-11-18] MEDS: Meropenem 1 GM in Sodium Chloride 0.9% 100 ML IVPB SCH (09:44)
--- NOTE | 2017-11-18 11:39 | CP.PCM.PN ---
Subjective - Date & Time of Evaluation Date of Evaluation: 11/18/17 Time of Evaluation: 14:00 - Subjective Subjective: Patient seen and examined today. patient states he feels much better and is urinating much easier now with much less pressure. He denies any fever or chills. Objective - Vital Signs/Intake and Output Vital Signs (last 24 hours): Temp Pulse Resp BP Pulse Ox 97.6 F 92 H 18 130/77 98 11/18/17 07:45 11/18/17 07:45 11/18/17 07:45 11/18/17 07:45 11/18/17 07:45 - Medications Medications: Current Medications Acetaminophen (Tylenol 325mg Tab) 650 mg PO Q6 PRN PRN Reason: Fever >100.4 F Last Admin: 11/17/17 05:14 Dose: 650 mg Atovaquone (Mepron) 1,500 mg PO DAILYWM [facility] Last Admin: 11/18/17 09:39 Dose: 1,500 mg Azithromycin (Zithromax) 1,200 mg PO QWK [facility] PRN Reason: Protocol Last Admin: 11/16/17 15:21 Dose: 1,200 mg Docusate Sodium (Colace) 200 mg PO DAILY [facility] Enoxaparin Sodium (Lovenox) 40 mg SC DAILY [facility] PRN Reason: Protocol Last Admin: 11/18/17 09:38 Dose: 40 mg Meropenem 1 gm/ Sodium (Chloride) 100 mls @ 100 mls/hr IVPB Q12@0800,2000 [facility] PRN Reason: Protocol Last Admin: 11/18/17 09:44 Dose: 100 mls/hr Lactated Ringer's (Lactated Ringer's) 500 mls @ 999 mls/hr IV .Q31M [facility] Lactated Ringer's (Lactated Ringer's) 1,000 mls @ 200 mls/hr IV .Q5H [facility] Last Admin: 11/18/17 10:37 Dose: 200 mls/hr Vancomycin HCl 750 mg/ Sodium (Chloride) 250 mls @ 166.667 mls/hr IVPB DAILY [facility] PRN Reason: Protocol Last Admin: 11/18/17 09:45 Dose: 166.667 mls/hr Ketorolac Tromethamine (Toradol) 15 mg IVP Q6 PRN PRN Reason: Pain, moderate (4-7) Last Admin: 11/17/17 19:02 Dose: 15 mg Ketorolac Tromethamine (Toradol) 30 mg IVP Q6H PRN PRN Reason: Pain, severe (8-10) Last Admin: 11/18/17 10:37 Dose: 30 mg Magnesium Oxide (Mag-Ox) 400 mg PO BID [facility] Last Admin: 11/18/17 09:39 Dose: 400 mg Mupirocin (Bactroban Ointment) 1 applic TOP BID [facility] Ondansetron HCl (Zofran Inj) 4 mg IVP Q6 PRN PRN Reason: Nausea/Vomiting Promethazine HCl/Codeine (Phenergan/Codeine Oral Syrup) 5 ml PO Q6 [facility] Tamsulosin HCl (Flomax) 0.4 mg PO HS [facility] Last Admin: 11/17/17 21:49 Dose: 0.4 mg - Labs Labs: 11/18/17 04:25 11/18/17 04:25 PT 18.0 Seconds (9.8-13.1) H 11/17/17 05:35 INR 1.6 (0.9-1.2) H 11/17/17 05:35 APTT 36.7 Seconds (25.6-37.1) 11/17/17 05:35 Microbiology 11/16/17 20:30 Blood Blood Culture - Final Staphylococcus Aureus 11/16/17 20:30 Blood Gram Stain - Final 11/16/17 17:42 Blood Blood Culture - Final Staphylococcus Aureus 11/16/17 17:42 Blood Gram Stain - Final 11/16/17 01:35 Blood-Venous S.aureus & Coag-Neg Staph PNA FISH - Final 11/16/17 01:35 Blood-Venous Blood Culture - Final Staphylococcus Aureus 11/16/17 01:35 Blood-Venous Gram Stain - Final 11/18/17 04:25 Blood S.aureus & Coag-Neg Staph PNA FISH - Final TEST NOT PERFORMED 11/18/17 04:25 Blood Blood Culture - Preliminary Gram Positive Cocci 11/18/17 04:25 Blood Gram Stain - Final 11/16/17 04:20 Urine,Clean Catch Urine Culture - Final Staphylococcus Aureus Assessment and Plan (1) Kidney stone Status: Acute (2) Rash of back Status: Chronic (3) AIDS Status: Acute (4) Fever Status: Acute (5) Septic shock Status: Acute (6) Obstructive uropathy Status: Acute - Assessment and Plan (Free Text) Assessment: A/P- 47 year old male with hIV/AIDS admitted with lower abd pain and dysurea and difficulty urinating found to have obstructive uropathy due to ureteral stones . s/p emergent ureteral stent placement by last night. clinically better. afebrile Leukocytosis trending down + UA. prelim urine cx- MSSA Blood cx- MSSA x 3 TTE- no vegetations as pe report read by gang drill press operator. plan- advise to d/c Iv meropenem at this time since the i=urine cx is MSSA. advise to increase vancomycin dose to 1 gram q12 for MSSA bacteremia. keep vanco trough <20. source of bacteremia most likely the UTI and obstructive uropathy as well as the lesions on his back that basd on med records from previous admission were also staph. advise to keep them clean and dry and apply mupiricin ointment to the open wounds. 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 also cotinue with mepron for PCP prophylaxis. await genotype result prior to starting HAART as pt. has been on multiple different regimens in past and has been noncompliant and hence r/o resistance . if on higher dose of iv vancomycin blood cx remain positive then he would need KEVIN and perhaps CT of his back and spine to r/o abscess/ paraspinal abscess . check 2 more blood cx. All above d/w family practice team and Dr.Pierre Adams at length. All above d/w patient and the family practice team. Patient verbalizes full understanding of all above and agrees with above plan of care. Thank you for allowing me to take part in the care of this patient.
--- NOTE | 2017-11-18 13:38 | CARD ---
APPROVED REPORT EXAM: Two-dimensional and M-mode echocardiogram with Doppler and color Doppler. Other Information Quality : AverageRhythm : NSR INDICATION Infection: 2D DIMENSIONS IVSd1.00 (0.7-1.1cm)LVDd4.30 (3.9-5.9cm) LVOT Diameter1.82 (1.8-2.4cm)PWd0.92 (0.7-1.1cm) IVSs1.23 (0.8-1.2cm)LVDs3.14 (2.5-4.0cm) FS (%) 27.0 %PWs1.14 (0.8-1.2cm) M-Mode DIMENSIONS Left Atrium (MM)3.44 (2.5-4.0cm)IVSd0.79 (0.7-1.1cm) Aortic Root2.76 (2.2-3.7cm)LVDd6.03 (4.0-5.6cm) Aortic Cusp Exc.1.68 (1.5-2.0cm)PWd0.79 (0.7-1.1cm) IVSs1.47 cmFS (%) 46 % LVDs3.26 (2.0-3.8cm)PWs1.24 cm Mitral Valve E/A ratio0.0 TDI E/Lateral E'0.0E/Medial E'0.0 Pulmonary Valve PV Peak Supjqtsu60.3cm/s Tricuspid Valve TR Peak [id number]/[id number] [id number] Peak Gr.23mmHg [id number] LEFT VENTRICLE The left ventricle is normal size. There is normal left ventricular wall thickness. The left ventricular function is normal. The left ventricular ejection fraction is 60% There is normal LV segmental wall motion. The left ventricular diastolic function is normal. No left ventricle thrombus noted on this study. There is no ventricular septal defect visualized. There is no left ventricular aneurysm. There is no mass noted in the left ventricle. RIGHT VENTRICLE The right ventricle is normal size. There is normal right ventricular wall thickness. The right ventricular systolic function is normal. ATRIA The left atrium size is normal. The right atrium size is normal. The interatrial septum is intact with no evidence for an atrial septal defect. AORTIC VALVE The aortic valve is normal in structure. No aortic regurgitation is present. There is no aortic valvular stenosis. There is no aortic valvular vegetation. MITRAL VALVE The mitral valve is normal in structure. There is no evidence of mitral valve prolapse. There is no mitral valve stenosis. There is no mitral valve regurgitation noted. TRICUSPID VALVE The tricuspid valve is normal in structure. There is no tricuspid valve regurgitation noted. There is no tricuspid valve prolapse or vegetation. There is no tricuspid valve stenosis. PULMONIC VALVE The pulmonary valve is normal in structure. There is no pulmonic valvular regurgitation. There is no pulmonic valvular stenosis. GREAT VESSELS The aortic root is normal in size. The ascending aorta is normal in size. The IVC is normal in size and collapses >50% with inspiration. PERICARDIAL EFFUSION The pericardium appears normal. There is no pleural effusion. <Conclusion> Normal Echocardiogram
[2017-11-18] MEDS ORDERED: Promethazine/Cod 6.25mg-10mg/5ml Syr UD PO PRN (16:00)
[2017-11-19 06:15] LABS: BASO # 0.1 K/uL (0.0-0.2); BASO % 1.4 % (0.0-2.0); EOS # 0.3 K/uL (0.0-0.7); EOS % 4.5 % (0.0-4.0); HEMOGLOBIN 9.1 g/dL (12.0-18.0); LYMPH % 14.7 % (20.0-40.0); MEAN CELL VOLUME 83.2 fl (80.0-94.0); MEAN CORPUSCULAR HGB CONC 33.6 g/dL (33.0-37.0); MEAN PLATELET VOLUME 8.6 fl (7.2-11.7); MONO # 0.3 K/uL (0.0-0.8); NEUT # 5.1 K/uL (1.8-7.0); NEUT % 74.4 % (50.0-75.0); NRBC % 0.1 % (0.0-0.0); RBC 3.25 Mil/uL (4.40-5.90); RED CELL DISTRIBUTION WIDTH 15.3 % (11.5-14.5); WHITE BLOOD COUNT 6.8 K/uL (4.8-10.8)
[2017-11-19 06:34] LABS: ALBUMIN 2.6 g/dL (3.5-5.0); ALT/SGPT 21 U/L (21-72); AST/SGOT 30 U/L (17-59); BLOOD UREA NITROGEN 13 mg/dl (9-20); CALCIUM 7.9 mg/dL (8.4-10.2); GFR AFRICAN-AMERICAN > 60; GFR NON-AFRICAN AMERICAN 59
[2017-11-19 06:38] LABS: ALB/GLOB RATIO 0.7 (1.0-2.1)
--- NOTE | 2017-11-19 06:57 | CP.PCM.PN ---
Subjective - Date & Time of Evaluation Date of Evaluation: 11/19/17 Time of Evaluation: 07:20 - Subjective Subjective: Patient seen and examined bedside. patient reports feeling better today, urinating more frequent and big amount last night( urine more clear). Reports less pain when urinating controlled with medications, and better appetite. clinically better today. will be transferred to [facility]. Objective - Vital Signs/Intake and Output Vital Signs (last 24 hours): Temp Pulse Resp BP Pulse Ox 98.9 F 65 18 127/70 100 11/19/17 05:30 11/19/17 05:30 11/19/17 05:30 11/19/17 05:30 11/19/17 05:30 - Medications Medications: Current Medications Acetaminophen (Tylenol 325mg Tab) 650 mg PO Q6 PRN PRN Reason: Fever >100.4 F Last Admin: 11/17/17 05:14 Dose: 650 mg Atovaquone (Mepron) 1,500 mg PO DAILYWM [facility] Last Admin: 11/18/17 09:39 Dose: 1,500 mg Azithromycin (Zithromax) 1,200 mg PO QWK [facility] PRN Reason: Protocol Last Admin: 11/16/17 15:21 Dose: 1,200 mg Docusate Sodium (Colace) 200 mg PO DAILY [facility] Last Admin: 11/18/17 14:04 Dose: Not Given Enoxaparin Sodium (Lovenox) 40 mg SC DAILY [facility] PRN Reason: Protocol Last Admin: 11/18/17 09:38 Dose: 40 mg Meropenem 1 gm/ Sodium (Chloride) 100 mls @ 100 mls/hr IVPB Q12@0800,2000 [facility] PRN Reason: Protocol Last Admin: 11/18/17 09:44 Dose: 100 mls/hr Lactated Ringer's (Lactated Ringer's) 500 mls @ 999 mls/hr IV .Q31M [facility] Lactated Ringer's (Lactated Ringer's) 1,000 mls @ 200 mls/hr IV .Q5H [facility] Last Admin: 11/18/17 14:03 Dose: 200 mls/hr Vancomycin HCl 750 mg/ Sodium (Chloride) 250 mls @ 166.667 mls/hr IVPB DAILY [facility] PRN Reason: Protocol Last Admin: 11/18/17 09:45 Dose: 166.667 mls/hr Ketorolac Tromethamine (Toradol) 15 mg IVP Q6 PRN PRN Reason: Pain, moderate (4-7) Last Admin: 11/17/17 19:02 Dose: 15 mg Ketorolac Tromethamine (Toradol) 30 mg IVP Q6H PRN PRN Reason: Pain, severe (8-10) Last Admin: 11/18/17 16:51 Dose: 30 mg Lidocaine (Lidoderm) 1 ea TD DAILY [facility] Magnesium Oxide (Mag-Ox) 400 mg PO BID [facility] Last Admin: 11/18/17 16:52 Dose: 400 mg Mupirocin (Bactroban Ointment) 1 applic TOP BID [facility] Last Admin: 11/18/17 16:52 Dose: 1 applic Ondansetron HCl (Zofran Inj) 4 mg IVP Q6 PRN PRN Reason: Nausea/Vomiting Promethazine HCl/Codeine (Phenergan/Codeine Oral Syrup) 5 ml PO Q6 PRN PRN Reason: Cough Last Admin: 11/18/17 16:51 Dose: 5 ml Tamsulosin HCl (Flomax) 0.4 mg PO HS [facility] Last Admin: 11/17/17 21:49 Dose: 0.4 mg - Labs Labs: 11/19/17 05:53 11/19/17 05:53 PT 18.0 Seconds (9.8-13.1) H 11/17/17 05:35 INR 1.6 (0.9-1.2) H 11/17/17 05:35 APTT 36.7 Seconds (25.6-37.1) 11/17/17 05:35 - Constitutional Appears: No Acute Distress - Head Exam Head Exam: ATRAUMATIC, NORMOCEPHALIC - Eye Exam Eye Exam: Normal appearance - ENT Exam ENT Exam: Mucous Membranes Moist - Neck Exam Neck Exam: Normal Inspection - Respiratory Exam Respiratory Exam: Clear to Ausculation Bilateral. absent: Rales, Rhonchi, Wheezes - Cardiovascular Exam Cardiovascular Exam: REGULAR RHYTHM, +S1, +S2 - GI/Abdominal Exam GI & Abdominal Exam: Soft, Normal Bowel Sounds. absent: Tenderness - Extremities Exam Extremities Exam: absent: Pedal Edema - Neurological Exam Neurological Exam: Alert, Awake, Oriented x3 - Psychiatric Exam Psychiatric exam: Normal Affect - Skin Additional comments: scoriation ponce noted over back, 2 abrasion lesions less than 1 cm. no discharge. Assessment and Plan - Assessment and Plan (Free Text) Plan: 47 yo ,m, PMhx/o HIV/AIDS CD4:25 not taking HAART, Syphilis, Prostatitis, admitted for infected kidney stone. Will be transferred to [facility] Assessment & Plan (1) Kidney stone with associated Obstructive Uropathy -improving renal function Bun/CR 13/1.3 - Urology Consult (Dr Thao) appreciated: s/p stent - s/p Rocephin 2g ED -IV fluids DC -Toradol 15 mg for mod pain -Toradol 30 mg for sev pain - c/w FloMax 2) Severe Sepsis -secondary to UTI and bacteremia -SIRS leukocytosis, fever, plus Urx gram+ cocci -procalcitonin trending down 26-16. f/u procalcitonin tomorrow Blood cx stap aureus 11/16/17. f/u blood cx 11/18/17 posit cocci -ID consult appreciated: -Meropenen day #3, Vancomycin day #3 -f/u vanco through tomorrow -f/u cbc, cmp, procalcitonin -Echo: normal 3) Complicated UTI -on HIV pt and with renal stone and hydroneprhosis -Urine cx staph aurus 11/16/17 -s/p levaquin, rocephin ED -c/w Meropenen day 3, vanco day 3 -f/u final urine cx (4) AIDS - no compliance pt CD-4: 25, not taking medication or prophylaxis. - Mepron - Azithromycin q/week - f/u CD4/CD8. 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 (7) Rash of back -appears tp be secondary to scar healed lesions for secondary syphilis. -2 new abrasions les than 1 cm upper back -c/wMupirocin cream apply BID 8) Adjustment disorder with depression -resolving -admit to be sad, anhedonia, sleep problem, concentration -will contact patient's caser shoe parts of [facility] to evaluate him. (9) DVT prophylaxis Lovenox 40mg, SC
[2017-11-19] MEDS: Meropenem 1 GM in Sodium Chloride 0.9% 100 ML IVPB SCH (09:27)
[2017-11-19] MEDS: Atovaquone 750 mg/5 ml Susp UD PO SCH (09:28)
[2017-11-19] MEDS: Magnesium Oxide 400 mg Tab UD PO SCH ×2 (09:29→18:51)
[2017-11-19] MEDS: Enoxaparin 40 mg Syringe SC SCH (09:29)
[2017-11-19] MEDS: Lidocaine 5% Patch TD SCH (09:31)
[2017-11-19 12:19] LABS: % CD4 (T HELPER CELL) 1 Percent (30-61); % CD8 (SUPPRESSOR T CELL) 41 Percent (12-42); ABSOLUTE CD4 CELLS <20 Cells/mcL (490-1740); ABSOLUTE CD8 CELLS 216 Cells/mcL (180-1170); ABSOLUTE LYMPHOCYTES 526 Cells/mcL (850-3900); HELPER/SUPPRESSOR RATIO 0.02 Ratio (0.86-5.00)
[2017-11-20 07:03] LABS: ALB/GLOB RATIO 0.7 (1.0-2.1); ALBUMIN 2.9 g/dL (3.5-5.0); ALT/SGPT 28 U/L (21-72); AST/SGOT 46 U/L (17-59); BLOOD UREA NITROGEN 11 mg/dl (9-20); CALCIUM 8.1 mg/dL (8.4-10.2); GFR AFRICAN-AMERICAN > 60; GFR NON-AFRICAN AMERICAN > 60
[2017-11-20] MEDS: Lidocaine 5% Patch TD SCH ×2 (08:47→09:01)
[2017-11-20] MEDS: Enoxaparin 40 mg Syringe SC SCH ×2 (08:50→09:01)
[2017-11-20] MEDS: Magnesium Oxide 400 mg Tab UD PO SCH ×2 (08:51→16:27)
[2017-11-20] MEDS: Atovaquone 750 mg/5 ml Susp UD PO SCH (08:51)
--- NOTE | 2017-11-20 10:53 | CP.PCM.PN ---
Subjective - Date & Time of Evaluation Date of Evaluation: 11/20/17 Time of Evaluation: 07:20 - Subjective Subjective: Patient seen and examined bedside reports feeling better. Reports less pain during urination and better appetite. afebrile. Denies sore throat, cough, chest pain, SOB. Patient was transferred yesterday to med/surg Objective - Vital Signs/Intake and Output Vital Signs (last 24 hours): Temp Pulse Resp BP Pulse Ox 98.2 F 62 20 110/71 100 11/20/17 08:10 11/20/17 08:10 11/20/17 08:10 11/20/17 08:10 11/20/17 08:10 - Medications Medications: Current Medications Acetaminophen (Tylenol 325mg Tab) 650 mg PO Q6 PRN PRN Reason: Fever >100.4 F Last Admin: 11/17/17 05:14 Dose: 650 mg Atovaquone (Mepron) 1,500 mg PO DAILY[facility] Last Admin: 11/20/17 08:51 Dose: 1,500 mg Azithromycin (Zithromax) 1,200 mg PO QWK [facility] PRN Reason: Protocol Last Admin: 11/16/17 15:21 Dose: 1,200 mg Docusate Sodium (Colace) 200 mg PO DAILY [facility] Last Admin: 11/20/17 09:00 Dose: Not Given Enoxaparin Sodium (Lovenox) 40 mg SC DAILY [facility] PRN Reason: Protocol Last Admin: 11/20/17 09:01 Dose: Not Given Vancomycin HCl 1 gm/ Sodium (Chloride) 250 mls @ 166.667 mls/hr IVPB Q12 [facility] PRN Reason: Protocol Last Admin: 11/20/17 08:52 Dose: 166.667 mls/hr Ketorolac Tromethamine (Toradol) 15 mg IVP Q6 PRN PRN Reason: Pain, moderate (4-7) Last Admin: 11/19/17 09:30 Dose: 15 mg Ketorolac Tromethamine (Toradol) 30 mg IVP Q6H PRN PRN Reason: Pain, severe (8-10) Last Admin: 11/18/17 16:51 Dose: 30 mg Lidocaine (Lidoderm) 1 ea TD DAILY [facility] Last Admin: 11/20/17 09:01 Dose: Not Given Magnesium Oxide (Mag-Ox) 400 mg PO BID [facility] Last Admin: 11/20/17 08:51 Dose: 400 mg Mupirocin (Bactroban Ointment) 1 applic TOP BID [facility] Last Admin: 11/20/17 08:50 Dose: 1 applic Ondansetron HCl (Zofran Inj) 4 mg IVP Q6 PRN PRN Reason: Nausea/Vomiting Promethazine HCl/Codeine (Phenergan/Codeine Oral Syrup) 5 ml PO Q6 PRN PRN Reason: Cough Last Admin: 11/18/17 16:51 Dose: 5 ml Tamsulosin HCl (Flomax) 0.4 mg PO HS [facility] Last Admin: 11/19/17 21:14 Dose: 0.4 mg - Labs Labs: 11/19/17 05:53 11/20/17 06:00 PT 18.0 Seconds (9.8-13.1) H 11/17/17 05:35 INR 1.6 (0.9-1.2) H 11/17/17 05:35 APTT 36.7 Seconds (25.6-37.1) 11/17/17 05:35 - Constitutional Appears: Non-toxic, No Acute Distress - Head Exam Head Exam: ATRAUMATIC, NORMOCEPHALIC - Eye Exam Eye Exam: Normal appearance - ENT Exam ENT Exam: Mucous Membranes Moist - Neck Exam Neck Exam: Normal Inspection - Respiratory Exam Respiratory Exam: Clear to Ausculation Bilateral. absent: Rales, Rhonchi, Wheezes - Cardiovascular Exam Cardiovascular Exam: REGULAR RHYTHM, +S1, +S2 - GI/Abdominal Exam GI & Abdominal Exam: Soft, Normal Bowel Sounds. absent: Tenderness - Neurological Exam Neurological Exam: Alert, Awake, Oriented x3 - Psychiatric Exam Psychiatric exam: Normal Mood - Skin Additional comments: scoriation ponce noted over back, 2 abrasion lesions less than 1 cm. no discharge. Assessment and Plan - Assessment and Plan (Free Text) Plan: 47 yo ,m, PMhx/o HIV/AIDS CD4:25 not taking HAART, Syphilis, Prostatitis, admitted for infected kidney stone. Assessment & Plan (1) Kidney stone with associated Obstructive Uropathy -improving renal function Bun/CR 11/1.2 - Urology Consult (Dr Thao) appreciated: s/p stent - s/p Rocephin 2g ED -IV fluids DC -Toradol 15 mg for mod pain -Toradol 30 mg for sev pain - c/w FloMax 2) Severe Sepsis -secondary to UTI and bacteremia -SIRS leukocytosis, fever, plus Urx gram+ cocci -procalcitonin trending down 26-16. f/u procalcitonin Blood cx staph aureus 11/16/17. f/u blood cx 11/18/17 posit cocci.Blood cx 11/19: no growth in 24 h. -ID consult appreciated: Dc Meropenen. Vancomycin increased to 1g BID day # 4 -f/u vanco through today -f/u cbc, cmp, procalcitonin -Echo: normal 3) Complicated UTI -on HIV pt and with renal stone and hydroneprhosis -Urine cx staph aurus 11/16/17 -s/p levaquin, rocephin ED -c/w vanco day 4 (4) AIDS - no compliance pt CD-4: 25, not taking medication or prophylaxis. - Mepron - Azithromycin q/week - CD4/CD8. <20/216 -VL 4.64 -ID consult appreciated: Suggest to wait for Genotype result to start ART -Blood cx neg 24h. if persistent 2 blood cx + to consider KEVIN and CT Spine to r/ o abscess. 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 (7) Rash of back -appears tp be secondary to scar healed lesions for secondary syphilis. -2 new abrasions les than 1 cm upper back -c/wMupirocin cream apply BID 8) Adjustment disorder with depression -resolving -admit to be sad, anhedonia, sleep problem, concentration -will contact patient's immigration case manager of [facility] to evaluate him. (9) DVT prophylaxis Lovenox 40mg SC
--- NOTE | 2017-11-20 16:05 | CP.PCM.PN ---
Subjective - Date & Time of Evaluation Date of Evaluation: 11/20/17 Time of Evaluation: 16:04 - Subjective Subjective: ID Note- Pt. seen and examined today. He sattes he feels much better overall and able to urinate much easier. Objective - Vital Signs/Intake and Output Vital Signs (last 24 hours): Temp Pulse Resp BP Pulse Ox 98.2 F 62 20 110/71 100 11/20/17 08:10 11/20/17 08:10 11/20/17 08:10 11/20/17 08:10 11/20/17 08:10 - Medications Medications: Current Medications Acetaminophen (Tylenol 325mg Tab) 650 mg PO Q6 PRN PRN Reason: Fever >100.4 F Last Admin: 11/17/17 05:14 Dose: 650 mg Atovaquone (Mepron) 1,500 mg PO DAILYWM [facility] Last Admin: 11/20/17 08:51 Dose: 1,500 mg Azithromycin (Zithromax) 1,200 mg PO QWK [facility] PRN Reason: Protocol Last Admin: 11/16/17 15:21 Dose: 1,200 mg Docusate Sodium (Colace) 200 mg PO DAILY [facility] Last Admin: 11/20/17 09:00 Dose: Not Given Enoxaparin Sodium (Lovenox) 40 mg SC DAILY [facility] PRN Reason: Protocol Last Admin: 11/20/17 09:01 Dose: Not Given Vancomycin HCl 1 gm/ Sodium (Chloride) 250 mls @ 166.667 mls/hr IVPB Q12 [facility] PRN Reason: Protocol Last Admin: 11/20/17 08:52 Dose: 166.667 mls/hr Ketorolac Tromethamine (Toradol) 15 mg IVP Q6 PRN PRN Reason: Pain, moderate (4-7) Last Admin: 11/19/17 09:30 Dose: 15 mg Ketorolac Tromethamine (Toradol) 30 mg IVP Q6H PRN PRN Reason: Pain, severe (8-10) Last Admin: 11/18/17 16:51 Dose: 30 mg Lidocaine (Lidoderm) 1 ea TD DAILY [facility] Last Admin: 11/20/17 09:01 Dose: Not Given Magnesium Oxide (Mag-Ox) 400 mg PO BID [facility] Last Admin: 11/20/17 08:51 Dose: 400 mg Mupirocin (Bactroban Ointment) 1 applic TOP BID [facility] Last Admin: 11/20/17 08:50 Dose: 1 applic Ondansetron HCl (Zofran Inj) 4 mg IVP Q6 PRN PRN Reason: Nausea/Vomiting Promethazine HCl/Codeine (Phenergan/Codeine Oral Syrup) 5 ml PO Q6 PRN PRN Reason: Cough Last Admin: 11/18/17 16:51 Dose: 5 ml Tamsulosin HCl (Flomax) 0.4 mg PO HS [facility] Last Admin: 11/19/17 21:14 Dose: 0.4 mg - Labs Labs: - Additional Findings Additional findings: - Constitutional Appears: No Acute Distress - Head Exam Head Exam: ATRAUMATIC - Eye Exam Eye Exam: EOMI, PERRL - Neck Exam Neck exam: Positive for: Full Rom Additional comments: supple - Respiratory Exam Respiratory Exam: NORMAL BREATHING PATTERN Additional comments: No wheezing slightly decreased breath sounds at right base - Cardiovascular Exam Cardiovascular Exam: RRR, +S1, +S2 - GI/Abdominal Exam GI & Abdominal Exam: Normal Bowel Sounds, Soft Additional comments: NT, ND No guarding, no rebound No CVA tenderness B/l - Extremities Exam Extremities exam: Positive for: normal inspection - Neurological Exam Neurological exam: Alert, Oriented x 3 - Skin Additional comments: multiple superficial open round wounds about 2 x 2 cm without any active discharge, no malodor no surrounding erythema Laboratory Results - last 72 hr 11/16/17 11/16/17 11/16/17 07:00 07:45 07:45 WBC RBC Hgb Hct MCV MCH MCHC RDW Plt Count MPV Neut % (Auto) Lymph % (Auto) [place] % (Auto) Eos % (Auto) Baso % (Auto) Neut # Lymph # [place] # Eos # Baso # Sodium Potassium Chloride Carbon Dioxide Anion Gap BUN Creatinine Est GFR ( Amer) Est GFR (Non-Af Amer) Random Glucose Lactic Acid Calcium Total Bilirubin AST ALT Alkaline Phosphatase Total Protein Albumin Globulin Albumin/Globulin Ratio Procalcitonin Vancomycin Trough Absolute Lymphs (Flow) 526 L % CD4 Cells 1 L Absolute CD4 Count <20 L T-Help/Suppress Ratio 0.02 L % CD8 Cells 41 Absolute CD8 Count 216 T-Lymph Analys Comment See note C.trachomatis RNA (TMA) Not detected HIV-1 RNA Qnt (RT-PCR) 4.64 H N.gonorrhoeae RNA (TMA) Not detected 11/18/17 11/18/17 11/18/17 04:25 04:25 04:25 WBC 14.7 H RBC 3.24 L Hgb 9.1 L Hct 26.8 L MCV 82.8 MCH 28.0 MCHC 33.9 RDW 14.8 H Plt Count 221 MPV 8.9 Neut % (Auto) 83.2 H Lymph % (Auto) 12.1 L [place] % (Auto) 2.3 Eos % (Auto) 1.8 Baso % (Auto) 0.6 Neut # 12.2 H Lymph # 1.8 [place] # 0.3 Eos # 0.3 Baso # 0.1 Sodium 142 Potassium 3.7 Chloride 109 H Carbon Dioxide 22 Anion Gap 15 BUN 15 Creatinine 1.4 Est GFR ( Amer) > 60 Est GFR (Non-Af Amer) 55 Random Glucose 68 L Lactic Acid 0.9 Calcium 7.9 L Total Bilirubin 0.8 AST 29 ALT 23 Alkaline Phosphatase 76 Total Protein 6.6 Albumin 2.7 L Globulin 3.8 Albumin/Globulin Ratio 0.7 L Procalcitonin Vancomycin Trough Absolute Lymphs (Flow) % CD4 Cells Absolute CD4 Count T-Help/Suppress Ratio % CD8 Cells Absolute CD8 Count T-Lymph Analys Comment C.trachomatis RNA (TMA) HIV-1 RNA Qnt (RT-PCR) N.gonorrhoeae RNA (TMA) 11/18/17 11/19/17 11/19/17 10:32 05:53 05:53 WBC 6.8 D RBC 3.25 L Hgb 9.1 L Hct 27.1 L MCV 83.2 MCH 28.0 MCHC 33.6 RDW 15.3 H Plt Count 230 MPV 8.6 Neut % (Auto) 74.4 Lymph % (Auto) 14.7 L [place] % (Auto) 5.0 Eos % (Auto) 4.5 H Baso % (Auto) 1.4 Neut # 5.1 Lymph # 1.0 [place] # 0.3 Eos # 0.3 Baso # 0.1 Sodium 141 Potassium 3.7 Chloride 106 Carbon Dioxide 25 Anion Gap 14 BUN 13 Creatinine 1.3 Est GFR ( Amer) > 60 Est GFR (Non-Af Amer) 59 Random Glucose 66 L Lactic Acid Calcium 7.9 L Total Bilirubin 0.8 AST 30 ALT 21 Alkaline Phosphatase 78 Total Protein 6.4 Albumin 2.6 L Globulin 3.8 Albumin/Globulin Ratio 0.7 L Procalcitonin 16.00 H Vancomycin Trough Absolute Lymphs (Flow) % CD4 Cells Absolute CD4 Count T-Help/Suppress Ratio % CD8 Cells Absolute CD8 Count T-Lymph Analys Comment C.trachomatis RNA (TMA) HIV-1 RNA Qnt (RT-PCR) N.gonorrhoeae RNA (TMA) 11/20/17 11/20/17 11/20/17 06:00 06:00 12:45 WBC RBC Hgb Hct MCV MCH MCHC RDW Plt Count MPV Neut % (Auto) Lymph % (Auto) [place] % (Auto) Eos % (Auto) Baso % (Auto) Neut # Lymph # [place] # Eos # Baso # Sodium 144 Potassium 3.9 Chloride 107 Carbon Dioxide 29 Anion Gap 12 BUN 11 Creatinine 1.2 Est GFR ( Amer) > 60 Est GFR (Non-Af Amer) > 60 Random Glucose 92 Lactic Acid Calcium 8.1 L Total Bilirubin 0.7 AST 46 ALT 28 Alkaline Phosphatase 66 Total Protein 6.9 Albumin 2.9 L Globulin 4.1 H Albumin/Globulin Ratio 0.7 L Procalcitonin 3.52 H Vancomycin Trough 25.2 H Absolute Lymphs (Flow) % CD4 Cells Absolute CD4 Count T-Help/Suppress Ratio % CD8 Cells Absolute CD8 Count T-Lymph Analys Comment C.trachomatis RNA (TMA) HIV-1 RNA Qnt (RT-PCR) N.gonorrhoeae RNA (TMA) Microbiology 11/18/17 04:25 Blood S.aureus & Coag-Neg Staph PNA FISH - Final 11/18/17 04:25 Blood Blood Culture - Final Staphylococcus Aureus 11/18/17 04:25 Blood Gram Stain - Final 11/19/17 05:53 Blood-Venous Blood Culture - Preliminary NO GROWTH AFTER 24 HOURS 11/16/17 20:30 Blood Blood Culture - Final Staphylococcus Aureus 11/16/17 20:30 Blood Gram Stain - Final 11/16/17 17:42 Blood Blood Culture - Final Staphylococcus Aureus 11/16/17 17:42 Blood Gram Stain - Final 11/16/17 01:35 Blood-Venous S.aureus & Coag-Neg Staph PNA FISH - Final 11/16/17 01:35 Blood-Venous Blood Culture - Final Staphylococcus Aureus 11/16/17 01:35 Blood-Venous Gram Stain - Final 11/16/17 04:20 Urine,Clean Catch Urine Culture - Final Staphylococcus Aureus Assessment and Plan (1) Kidney stone Status: Acute (2) Rash of back Status: Chronic (3) AIDS Status: Acute (4) Fever Status: Acute (5) Septic shock Status: Acute (6) Obstructive uropathy Status: Acute - Assessment and Plan (Free Text) Assessment: A/P- 47 year old male with hIV/AIDS admitted with lower abd pain and dysurea and difficulty urinating found to have obstructive uropathy due to ureteral stones . s/p emergent ureteral stent placement by last night. clinically better. afebrile Leukocytosis has resolved. + UA. prelim urine cx- MSSA Blood cx- MSSA x 3 repeat blood cx from 11/19/2017- neg so far x 1 TTE- no vegetations as pe report read by radar engineering teacher. plan- completed course of IV meropnem. advise to continue with IV vancomycin 1 gram q12 for MSSA bacteremia. keep vanco trough <20. source of bacteremia most likely the UTI and obstructive uropathy as well as the lesions on his back that basd on med records from previous admission were also staph. Length of ureteral stent as per . advise to keep them clean and dry and apply mupiricin ointment to the open wounds. 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 also cotinue with mepron for PCP prophylaxis. await genotype result prior to starting HAART as pt. has been on multiple different regimens in past and has been noncompliant and hence r/o resistance . if on higher dose of iv vancomycin blood cx remain positive then he would need KEVIN and perhaps CT of his back and spine to r/o abscess/ paraspinal abscess . check 2 more blood cx. Patient verbalizes full understanding of all above .
--- NOTE | 2017-11-20 16:55 | CP.PCM.PCO ---
Addendum Addendum: 11/20/17 16:54 Vancomycin trough 25.2 today does not reflect the really trough because Vancomycin dose was increased to 1g BID
--- NOTE | 2017-11-21 08:03 | CP.PCM.PN ---
Subjective - Date & Time of Evaluation Date of Evaluation: 11/21/17 Time of Evaluation: 07:20 - Subjective Subjective: Patient seen and examined bedside. Patient report feeling better, eating with more appetite and reports less pain during urination. Reports 2 nonbloddy diarrea yesterday and 1 diarrhea today. (not Reported by nurse). He denies fever , n,v,abd pain, flank pain. Objective - Vital Signs/Intake and Output Vital Signs (last 24 hours): Temp Pulse Resp BP Pulse Ox 98.3 F 57 L 18 117/86 99 11/20/17 23:43 11/20/17 23:43 11/20/17 23:43 11/20/17 23:43 11/20/17 23:43 - Medications Medications: Current Medications Acetaminophen (Tylenol 325mg Tab) 650 mg PO Q6 PRN PRN Reason: Fever >100.4 F Last Admin: 11/17/17 05:14 Dose: 650 mg Atovaquone (Mepron) 1,500 mg PO DAILYWM [facility] Last Admin: 11/20/17 08:51 Dose: 1,500 mg Azithromycin (Zithromax) 1,200 mg PO QWK [facility] PRN Reason: Protocol Last Admin: 11/16/17 15:21 Dose: 1,200 mg Docusate Sodium (Colace) 200 mg PO DAILY [facility] Last Admin: 11/20/17 09:00 Dose: Not Given Enoxaparin Sodium (Lovenox) 40 mg SC DAILY [facility] PRN Reason: Protocol Last Admin: 11/20/17 09:01 Dose: Not Given Vancomycin HCl 1 gm/ Sodium (Chloride) 250 mls @ 166.667 mls/hr IVPB Q12 [facility] PRN Reason: Protocol Last Admin: 11/20/17 21:12 Dose: 166.667 mls/hr Ketorolac Tromethamine (Toradol) 15 mg IVP Q6 PRN PRN Reason: Pain, moderate (4-7) Last Admin: 11/19/17 09:30 Dose: 15 mg Ketorolac Tromethamine (Toradol) 30 mg IVP Q6H PRN PRN Reason: Pain, severe (8-10) Last Admin: 11/18/17 16:51 Dose: 30 mg Lidocaine (Lidoderm) 1 ea TD DAILY [facility] Last Admin: 11/20/17 09:01 Dose: Not Given Magnesium Oxide (Mag-Ox) 400 mg PO BID [facility] Last Admin: 11/20/17 16:27 Dose: 400 mg Mupirocin (Bactroban Ointment) 1 applic TOP BID [facility] Last Admin: 11/20/17 16:26 Dose: 1 applic Ondansetron HCl (Zofran Inj) 4 mg IVP Q6 PRN PRN Reason: Nausea/Vomiting Promethazine HCl/Codeine (Phenergan/Codeine Oral Syrup) 5 ml PO Q6 PRN PRN Reason: Cough Last Admin: 11/18/17 16:51 Dose: 5 ml Tamsulosin HCl (Flomax) 0.4 mg PO HS [facility] Last Admin: 11/20/17 21:12 Dose: 0.4 mg - Labs Labs: 11/19/17 05:53 11/20/17 06:00 PT 18.0 Seconds (9.8-13.1) H 11/17/17 05:35 INR 1.6 (0.9-1.2) H 11/17/17 05:35 APTT 36.7 Seconds (25.6-37.1) 11/17/17 05:35 - Constitutional Appears: Non-toxic, No Acute Distress - Head Exam Head Exam: ATRAUMATIC, NORMOCEPHALIC - Eye Exam Eye Exam: Normal appearance - ENT Exam ENT Exam: Mucous Membranes Moist - Neck Exam Neck Exam: Normal Inspection - Respiratory Exam Respiratory Exam: Clear to Ausculation Bilateral. absent: Rales, Rhonchi, Wheezes - Cardiovascular Exam Cardiovascular Exam: REGULAR RHYTHM, +S1, +S2 - GI/Abdominal Exam GI & Abdominal Exam: Soft, Normal Bowel Sounds. absent: Tenderness - Extremities Exam Extremities Exam: Normal Inspection. absent: Pedal Edema - Neurological Exam Neurological Exam: Alert, Awake, Oriented x3 - Psychiatric Exam Psychiatric exam: Normal Affect, Normal Mood - Skin Additional comments: scoriation ponce noted over back, 2 abrasion lesions less than 1 cm. no discharge. Assessment and Plan - Assessment and Plan (Free Text) Plan: 47 yo ,m, PMhx/o HIV/AIDS CD4:25 not taking HAART, Syphilis, Prostatitis, admitted for infected kidney stone. Assessment & Plan (1) Kidney stone with associated Obstructive Uropathy -improving renal function Bun/CR 11/1.2 - Urology Consult (Dr Thao) appreciated: s/p stent - s/p Rocephin 2g ED -Toradol 15 mg for mod pain -Toradol 30 mg for sev pain - c/w FloMax -f/u uric acid, PTH tomorrow 2) Severe Sepsis -resolving -secondary to UTI and bacteremia -procalcitonin trending down 26-16-3.5. Blood cx staph aureus 11/16/17. f/u blood cx 11/18/17 posit cocci.Blood cx 11/19: no growth in 48h. -ID consult appreciated: Dc Meropenen. Vancomycin increased to 1g BID day # 5 -if persistent 2 blood cx + to consider KEVIN and CT Spine to r/o abscess. -vanco through .2 ( no real due to pt had increased dose to 1g BID -f/u cbc, cmp, procalcitonin -Echo: normal. no vegetation 3) Complicated UTI -on HIV pt and with renal stone and hydroneprhosis -Urine cx staph aurus MSSA 11/16/17 -s/p levaquin, rocephin ED -c/w vanco day 5 (4) AIDS - no compliance pt CD-4: 25, not taking medication or prophylaxis. - Mepron - Azithromycin q/week - CD4/CD8. <20/216 -VL 4.64 -ID consult appreciated: Suggest to wait for Genotype result to start ART -last Blood cx neg x 48h. if persistent 2 blood cx + to consider KEVIN and CT Spine to r/o abscess. 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 7) Diarrhea -secondary to med docusate and Mg PO -DC docusate and Mg -if persist diarrhea consider ova,parasites, leukocyte 8) Rash of back -appears tp be secondary to scar healed lesions for secondary syphilis. -2 new abrasions les than 1 cm upper back -c/w Mupirocin cream apply BID 9) Adjustment disorder with depression -resolved -Pt visited by storage center manager [facility] -Pt agree to continue in clinic after discharge and to be adherent to medications. 10) DVT prophylaxis Lovenox 40mg SC
[2017-11-21] MEDS: Atovaquone 750 mg/5 ml Susp UD PO SCH (09:03)
[2017-11-21] MEDS: Magnesium Oxide 400 mg Tab UD PO SCH (09:05)
[2017-11-21] MEDS: Enoxaparin 40 mg Syringe SC SCH (09:05)
[2017-11-21] MEDS: Lidocaine 5% Patch TD SCH (09:07)
[2017-11-22 08:08] LABS: BLOOD UREA NITROGEN 12 mg/dl (9-20); CALCIUM 8.4 mg/dL (8.4-10.2); GFR AFRICAN-AMERICAN > 60; GFR NON-AFRICAN AMERICAN > 60; URIC ACID 5.5 mg/Dl (3.5-8.5)
--- NOTE | 2017-11-22 08:42 | CP.PCM.PN ---
Subjective - Date & Time of Evaluation Date of Evaluation: 11/22/17 Time of Evaluation: 07:20 - Subjective Subjective: Patient seen and examined bedside. Reports feeling better today. Reports less pain during urination. Denies fever, cough, chest pain, SOB, sore throat, diarrhea Will have PICC line on friday to c/w Abx. Objective - Vital Signs/Intake and Output Vital Signs (last 24 hours): Temp Pulse Resp BP Pulse Ox 97.8 F 67 20 102/64 100 11/22/17 08:34 11/22/17 08:34 11/22/17 08:34 11/22/17 08:34 11/22/17 08:34 - Medications Medications: Current Medications Acetaminophen (Tylenol 325mg Tab) 650 mg PO Q6 PRN PRN Reason: Fever >100.4 F Last Admin: 11/17/17 05:14 Dose: 650 mg Atovaquone (Mepron) 1,500 mg PO DAILYWM [facility] Last Admin: 11/21/17 09:03 Dose: 1,500 mg Azithromycin (Zithromax) 1,200 mg PO QWK [facility] PRN Reason: Protocol Last Admin: 11/16/17 15:21 Dose: 1,200 mg Enoxaparin Sodium (Lovenox) 40 mg SC DAILY [facility] PRN Reason: Protocol Last Admin: 11/21/17 09:05 Dose: Not Given Vancomycin HCl 1 gm/ Sodium (Chloride) 250 mls @ 166.667 mls/hr IVPB Q12 [facility] PRN Reason: Protocol Last Admin: 11/21/17 21:18 Dose: 166.667 mls/hr Ketorolac Tromethamine (Toradol) 15 mg IVP Q6 PRN PRN Reason: Pain, moderate (4-7) Last Admin: 11/19/17 09:30 Dose: 15 mg Ketorolac Tromethamine (Toradol) 30 mg IVP Q6H PRN PRN Reason: Pain, severe (8-10) Last Admin: 11/18/17 16:51 Dose: 30 mg Lidocaine (Lidoderm) 1 ea TD DAILY [facility] Last Admin: 11/21/17 09:07 Dose: Not Given Mupirocin (Bactroban Ointment) 1 applic TOP BID [facility] Last Admin: 11/21/17 16:33 Dose: 1 applic Ondansetron HCl (Zofran Inj) 4 mg IVP Q6 PRN PRN Reason: Nausea/Vomiting Promethazine HCl/Codeine (Phenergan/Codeine Oral Syrup) 5 ml PO Q6 PRN PRN Reason: Cough Last Admin: 11/18/17 16:51 Dose: 5 ml Tamsulosin HCl (Flomax) 0.4 mg PO HS [facility] Last Admin: 11/21/17 21:18 Dose: 0.4 mg - Labs Labs: 11/19/17 05:53 11/22/17 05:25 PT 18.0 Seconds (9.8-13.1) H 11/17/17 05:35 INR 1.6 (0.9-1.2) H 11/17/17 05:35 APTT 36.7 Seconds (25.6-37.1) 11/17/17 05:35 - Constitutional Appears: Non-toxic, No Acute Distress - Head Exam Head Exam: ATRAUMATIC, NORMOCEPHALIC - Eye Exam Eye Exam: Normal appearance - ENT Exam ENT Exam: Mucous Membranes Moist - Neck Exam Neck Exam: Normal Inspection - Respiratory Exam Respiratory Exam: Clear to Ausculation Bilateral. absent: Rales, Rhonchi, Wheezes - Cardiovascular Exam Cardiovascular Exam: REGULAR RHYTHM, +S1, +S2 - GI/Abdominal Exam GI & Abdominal Exam: Soft, Normal Bowel Sounds. absent: Tenderness - Extremities Exam Extremities Exam: Normal Inspection. absent: Pedal Edema - Back Exam Back Exam: NORMAL INSPECTION. absent: CVA tenderness (L), CVA tenderness (R) - Neurological Exam Neurological Exam: Alert, Awake, Oriented x3 - Psychiatric Exam Psychiatric exam: Normal Affect, Normal Mood - Skin Skin Exam: absent: Petechiae, Urticaria Additional comments: scoriation ponce noted over back, 2 abrasion lesions less than 1 cm. no discharge. Assessment and Plan - Assessment and Plan (Free Text) Plan: 47 yo ,m, PMhx/o HIV/AIDS CD4:25 not taking HAART, Syphilis, Prostatitis, admitted for infected kidney stone. Assessment & Plan (1) Kidney stone with associated Obstructive Uropathy -improving renal function Bun/CR 11/1.2 - Urology Consult (Dr Thao) appreciated: s/p stent, keep stent and f/u outpatient - s/p Rocephin 2g ED -Toradol 15 mg for mod pain -Toradol 30 mg for sev pain - c/w FloMax -f/u uric acid, PTH 2) Severe Sepsis with bacteremia -resolving -secondary to UTI and bacteremia -procalcitonin trending down 26-16-3.5. will repeat procalcitonin next friday Blood cx staph aureus 11/16/17. f/u blood cx 11/18/17 posit cocci.Blood cx 11/19: no growth in 48h. blood cx 11/21 no growth after 24 hours -ID consult appreciated: recommends picc line and vanco x 21 days. - Dc Meropenen. -Vancomycin increased to 1g BID. Started 11/19/17 at 21:14 day # 3 tonight. Will need PICC line for friday to c/w Vanco x 21 days. will finish 21 days 12/11/17 at night time 21:14. -vanco through 25.2 ( no real due to pt had increased dose to 1g BID. last vanco trough 15.3.keep it <20 -To do CBC, BMP, Procalcitonin for friday -Echo: normal. no vegetation 3) Complicated UTI -on HIV pt and with renal stone and hydroneprhosis -Urine cx staph aurus MSSA 11/16/17 -s/p levaquin, rocephin ED -c/w vanco day 3 tonight(1gm BID) (4) AIDS - no compliance pt CD-4: 25, not taking medication or prophylaxis. - Mepron - Azithromycin q/week - CD4/CD8. <20/216 -VL 4.64 -ID consult appreciated: Suggest to wait for Genotype result to start ART 5) Anemia -secondary to HIV -s/p 1 unit transfusion -Hgb: 9.1 6) Hx/o Syphilis -s/p PCN benzathinic 2 dose 06/16 and 06/26/2017 RPR reactive, FT-ABS reactive RPR titer 1:4 -patient no sexually active and had treatment in 05/2017.discussed with Dr Colon -will repeat titers in 3 months. 7) Diarrhea -resolved after meds dc -secondary to med docusate and Mg PO -DC docusate and Mg 8) Rash of back -appears tp be secondary to scar healed lesions for secondary syphilis. -2 new abrasions les than 1 cm upper back -c/w Mupirocin cream apply BID 9) Adjustment disorder with depression -resolved -Pt visited by behavioral health case manager [facility] -Pt agree to continue in clinic after discharge and to be adherent to medications. 10) DVT prophylaxis Lovenox 40mg SC
[2017-11-22] MEDS: Enoxaparin 40 mg Syringe SC SCH (09:18)
[2017-11-22] MEDS: Atovaquone 750 mg/5 ml Susp UD PO SCH (09:19)
[2017-11-22] MEDS: Lidocaine 5% Patch TD SCH (09:20)
[2017-11-23] MEDS: Atovaquone 750 mg/5 ml Susp UD PO SCH (08:45)
[2017-11-23] MEDS: Enoxaparin 40 mg Syringe SC SCH (08:46)
[2017-11-23] MEDS: Lidocaine 5% Patch TD SCH (08:46)
--- NOTE | 2017-11-23 08:51 | CP.PCM.PN ---
Subjective - Date & Time of Evaluation Date of Evaluation: 11/23/17 Time of Evaluation: 08:51 - Subjective Subjective: Pt seen and examined at bedside with attending 47M POD #7 s/p emergent renal calculi removal by Dr Thao. He denies SOB, chest pain, and denies any further episodes of diarrhea after discontinuation of Colace and Mg oxide. He reports a healthy appetite and is aware of plans for PICC placement tomorrow for 21 days of antibiotic therapy. Objective - Vital Signs/Intake and Output Vital Signs (last 24 hours): Temp Pulse Resp BP Pulse Ox 36.8 C 68 18 101/60 100 11/23/17 08:08 11/23/17 08:08 11/23/17 08:08 11/23/17 08:08 11/23/17 08:08 - Medications Medications: Current Medications Acetaminophen (Tylenol 325mg Tab) 650 mg PO Q6 PRN PRN Reason: Fever >100.4 F Last Admin: 11/17/17 05:14 Dose: 650 mg Atovaquone (Mepron) 1,500 mg PO DAILYWM [facility] Last Admin: 11/23/17 08:45 Dose: 1,500 mg Azithromycin (Zithromax) 1,200 mg PO QWK [facility] PRN Reason: Protocol Last Admin: 11/16/17 15:21 Dose: 1,200 mg Enoxaparin Sodium (Lovenox) 40 mg SC DAILY [facility] PRN Reason: Protocol Last Admin: 11/23/17 08:46 Dose: Not Given Vancomycin HCl 1 gm/ Sodium (Chloride) 250 mls @ 166.667 mls/hr IVPB Q12 [facility] PRN Reason: Protocol Last Admin: 11/23/17 08:45 Dose: 166.667 mls/hr Ketorolac Tromethamine (Toradol) 15 mg IVP Q6 PRN PRN Reason: Pain, moderate (4-7) Last Admin: 11/19/17 09:30 Dose: 15 mg Ketorolac Tromethamine (Toradol) 30 mg IVP Q6H PRN PRN Reason: Pain, severe (8-10) Last Admin: 11/18/17 16:51 Dose: 30 mg Lidocaine (Lidoderm) 1 ea TD DAILY [facility] Last Admin: 11/23/17 08:46 Dose: Not Given Mupirocin (Bactroban Ointment) 1 applic TOP BID [facility] Last Admin: 11/23/17 08:50 Dose: 1 applic Ondansetron HCl (Zofran Inj) 4 mg IVP Q6 PRN PRN Reason: Nausea/Vomiting Promethazine HCl/Codeine (Phenergan/Codeine Oral Syrup) 5 ml PO Q6 PRN PRN Reason: Cough Last Admin: 11/18/17 16:51 Dose: 5 ml Tamsulosin HCl (Flomax) 0.4 mg PO [facility] Last Admin: 11/22/17 21:20 Dose: 0.4 mg - Labs Labs: 11/19/17 05:53 11/22/17 05:25 PT 18.0 Seconds (9.8-13.1) H 11/17/17 05:35 INR 1.6 (0.9-1.2) H 11/17/17 05:35 APTT 36.7 Seconds (25.6-37.1) 11/17/17 05:35 - Constitutional Appears: Well, Non-toxic, No Acute Distress - Head Exam Head Exam: ATRAUMATIC, NORMAL INSPECTION - Eye Exam Eye Exam: EOMI, Normal appearance - ENT Exam ENT Exam: Mucous Membranes Moist, Normal Exam - Neck Exam Neck Exam: Full ROM, Normal Inspection - Respiratory Exam Respiratory Exam: Clear to Ausculation Bilateral, NORMAL BREATHING PATTERN. absent: Rales, Wheezes - Cardiovascular Exam Cardiovascular Exam: REGULAR RHYTHM, +S1, +S2 - GI/Abdominal Exam GI & Abdominal Exam: Soft, Normal Bowel Sounds. absent: Tenderness - Extremities Exam Extremities Exam: Full ROM, Normal Capillary Refill, Normal Inspection. absent : Pedal Edema - Neurological Exam Neurological Exam: Alert, Awake, Oriented x3 - Psychiatric Exam Psychiatric exam: Normal Affect, Normal Mood - Skin Skin Exam: Dry, Warm Assessment and Plan (1) Kidney stone Assessment & Plan: After renal calculi removed patient has continued to improve. No stones noted on last imaging, urinating well. BCx x2 without growth thus far. - ID Consult (Dr Arechiga) appreciated: 21 days of Vancomycin for bacteremic MSSA, murpiricin for back - Urology Consult (Dr Thao) appreciated: Lithotripsy as outpatient as indicated , Right ureteral stent in place Status: Acute (2) AIDS Assessment & Plan: Pt with CD4<20, discussed with patient's primary provider (Dr Colon) who is a specialist in HIV and recommended a regimen that is consistent with his current genotype (obtained on medication) and condition. We would love to coordinate timing of initiation with ID so that patient avoids the possibility of developing IRIS after being discharged to home. Although RPR and FT-ABS did not make improvement expected after treatment in May, decision by primary provider is that patient will be treated after discharge. - c/w Azithromycin - c/w Mepron Status: Acute (3) Rash of back Assessment & Plan: Stable, according to literature will likely improve after CD4 cells begin to increase. - management as per ID Status: Chronic (4) DVT prophylaxis Assessment & Plan: Lovenox 40mg, SC, HS Status: Acute
[2017-11-24 06:54] LABS: HEMOGLOBIN 9.5 g/dL (12.0-18.0); MEAN CORPUSCULAR HEMOGLOBIN 28.4 pg (27.0-31.0); MEAN CORPUSCULAR HGB CONC 34.2 g/dL (33.0-37.0); RBC 3.35 Mil/uL (4.40-5.90); RED CELL DISTRIBUTION WIDTH 15.7 % (11.5-14.5); WHITE BLOOD COUNT 3.8 K/uL (4.8-10.8)
[2017-11-24 07:10] LABS: BLOOD UREA NITROGEN 11 mg/dl (9-20); CALCIUM 8.6 mg/dL (8.4-10.2); GFR AFRICAN-AMERICAN > 60; GFR NON-AFRICAN AMERICAN > 60
[2017-11-24] MEDS: Atovaquone 750 mg/5 ml Susp UD PO SCH (09:09)
[2017-11-24] MEDS: Lidocaine 5% Patch TD SCH (09:10)
[2017-11-24] MEDS: Enoxaparin 40 mg Syringe SC SCH (09:10)
--- NOTE | 2017-11-24 10:07 | CP.PCM.PN ---
Subjective - Date & Time of Evaluation Date of Evaluation: 11/24/17 Time of Evaluation: 07:05 - Subjective Subjective: Patient seen and examined bedside, reports feeling better, not good appetite but eating and drinking. Reports less dysuria. Denies fever, n,v,abd pain, diarrhea. Will have Picc line today to c/w Vancomycin for 21 days Possible discharge tomorrow Objective - Vital Signs/Intake and Output Vital Signs (last 24 hours): Temp Pulse Resp BP Pulse Ox 98.2 F 90 18 98/65 L 98 11/24/17 08:42 11/24/17 08:42 11/24/17 08:42 11/24/17 08:42 11/24/17 08:42 - Medications Medications: Current Medications Acetaminophen (Tylenol 325mg Tab) 650 mg PO Q6 PRN PRN Reason: Fever >100.4 F Last Admin: 11/17/17 05:14 Dose: 650 mg Atovaquone (Mepron) 1,500 mg PO DAILYWM [facility] Last Admin: 11/24/17 09:09 Dose: 1,500 mg Azithromycin (Zithromax) 1,200 mg PO QWK [facility] PRN Reason: Protocol Last Admin: 11/16/17 15:21 Dose: 1,200 mg Enoxaparin Sodium (Lovenox) 40 mg SC DAILY [facility] PRN Reason: Protocol Last Admin: 11/24/17 09:10 Dose: Not Given Vancomycin HCl 1 gm/ Sodium (Chloride) 250 mls @ 166.667 mls/hr IVPB Q12 [facility] PRN Reason: Protocol Last Admin: 11/24/17 09:10 Dose: 166.667 mls/hr Lidocaine (Lidoderm) 1 ea TD DAILY [facility] Last Admin: 11/24/17 09:10 Dose: Not Given Mupirocin (Bactroban Ointment) 1 applic TOP BID [facility] Last Admin: 11/24/17 09:10 Dose: 1 applic Tamsulosin HCl (Flomax) 0.4 mg PO HS [facility] Last Admin: 11/23/17 22:16 Dose: 0.4 mg - Labs Labs: 11/24/17 06:20 11/24/17 06:20 PT 18.0 Seconds (9.8-13.1) H 11/17/17 05:35 INR 1.6 (0.9-1.2) H 11/17/17 05:35 APTT 36.7 Seconds (25.6-37.1) 11/17/17 05:35 - Constitutional Appears: Non-toxic, No Acute Distress - Head Exam Head Exam: ATRAUMATIC, NORMOCEPHALIC - Eye Exam Eye Exam: Normal appearance - ENT Exam ENT Exam: Mucous Membranes Moist - Respiratory Exam Respiratory Exam: absent: Rales, Rhonchi, Wheezes - Cardiovascular Exam Cardiovascular Exam: REGULAR RHYTHM, +S1, +S2 - GI/Abdominal Exam GI & Abdominal Exam: Soft, Normal Bowel Sounds. absent: Tenderness - Extremities Exam Extremities Exam: absent: Calf Tenderness, Pedal Edema - Neurological Exam Neurological Exam: Alert, Awake, Oriented x3 - Psychiatric Exam Psychiatric exam: Normal Affect - Skin Skin Exam: absent: Rash, Vesicles Additional comments: skin lesion with scab formation, dry , no discharge, no cellulitis Assessment and Plan - Assessment and Plan (Free Text) Plan: 47 yo ,m, PMhx/o HIV/AIDS CD4:25 not taking HAART, Syphilis, Prostatitis, admitted for infected kidney stone. Assessment & Plan (1) Kidney stone with associated Obstructive Uropathy resolved -improving renal function Bun/CR 08/27.1 -Urology Consult (Dr Thao) appreciated: s/p stent day 8, keep stent and f/u outpatient.Lithotripsy as outpatient as indicated -XR ABd 11/17 no renal stone present - s/p Rocephin 2g ED -Toradol 15 mg for mod pain -Toradol 30 mg for sev pain - c/w FloMax -Uric acid 5.5 -f/u PTH 2) Severe Sepsis with bacteremia -resolved -secondary to UTI and bacteremia -procalcitonin trending down 26-16-3.5. will repeat procalcitonin today Blood cx staph aureus 11/18/17 posit cocci(staph aurus).Last 2 Blood cx 11/21 and 11/22 no growth so far -ID consult appreciated: for picc line today afternoon and vanco x 21 days. -Vancomycin increased to 1g BID. Started 11/19/17 at 21:14 day # 5 tonight. Vanco x 21 days. will finish 21 days 12/10/17 at night time 21:14. -vanco through 25.2 ( no real due to pt had increased dose to 1g BID. last vanco trough 15.3.keep it <20 -f/u Procalcitonin -Echo: normal. no vegetation 3) Complicated UTI -resolving -on HIV pt and with renal stone and hydroneprhosis -Urine cx staph aurus MSSA 11/16/17 -s/p levaquin, rocephin ED -c/w vanco day 5 today and to c/w vanco for bacteremia 4) AIDS - no compliance pt CD-4: 25, not taking medication or prophylaxis. - Mepron and Azithromycin q/week - CD4/CD8. <20/216 -VL 4.64 -genotype pending -ID consult appreciated: Suggest to wait for Genotype result to start ART -Discussed with patient's primary provider (Dr Colon) who is a specialist in HIV and recommended a regimen that is consistent with his current genotype ( obtained on medication) and condition. We would love to coordinate timing of initiation with ID so that patient avoids the possibility of developing IRIS after being discharged to home 5) Anemia -secondary to chronic disease HIV -s/p 1 unit transfusion -Hgb: 9.5 6) Hx/o Syphilis -s/p PCN benzathinic 2 dose 06/16 and 06/26/2017 RPR reactive, FT-ABS reactive RPR titer 1:4 -patient no sexually active and had treatment in 05/2017.discussed with Dr Colon -will repeat titers in 3 months. 7) Rash of back -appears tp be secondary to scar healed lesions for secondary syphilis. -2 new abrasions les than 1 cm upper back -c/w Mupirocin cream apply BID 8) DVT prophylaxis Lovenox 40mg SC Dispo: Possible discharge tomorrow. pt will come to hospital to get IV Vancomycin Will be seen by Dr Medrano 11/27/17 1PM
[2017-11-24] MEDS ORDERED: Lidocaine 1% Inj (20ml) ONE (12:27)
--- NOTE | 2017-11-24 12:58 | PCM.SURG1 ---
Surgeon's Initial Post Op Note - Surgeon's Notes Surgeon: Vel Amador MD Dopster: None Type of Anesthesia: Local Pre-Operative Diagnosis: infection Operative Findings: patent left basilic vein. catheter length: 42 cm. catheter tip: cavoatrial junction Post-Operative Diagnosis: same Operation Performed: LUE PICC Insertion Specimen/Specimens Removed: n/a Estimated Blood Loss: EBL {In ML}: 0 Date of Surgery/Procedure: 11/24/17 Time of Surgery/Procedure: 12:45
--- NOTE | 2017-11-24 16:36 | VASCULAR ---
PROCEDURE: PERIPHERALLY INSERTED CENTRAL VENOUS CATHETER INSERTION CLINICAL HISTORY: 47-year-old male requiring terminal gauger intravenous antibiotics is referred to Interventional Radiology for PICC insertion. COMPARISON: None. PROCEDURE: 1. Focused ultrasound of the left upper extremity vasculature. 2. Ultrasound-guided access. 3. Insertion of peripherally inserted central venous catheter. 4. Fluoroscopic localization of catheter tip. PRE-PROCEDURE FINDINGS: 1. Patent left basilic vein. POST-PROCEDURE FINDINGS: 1. Placement of 4 [place] single-lumen PICC. 2. Catheter length: 42 cm. 3. Catheter tip at cavoatrial junction. INTERVENTIONAL RADIOLOGIST: Vel Amador M.D. (the attending was present for the entire procedure) ANESTHESIA: None. MEDICATION: Lidocaine 1% for local subcutaneous analgesia. COMPLICATIONS: None. RADIATION DOSE: Fluoroscopy Time: 26.7 seconds Cumulative Dose: 2.96 mGy PROCEDURE DESCRIPTION AND FINDINGS: The risks, benefits, alternatives and possible complications of the procedure were fully discussed; all questions were answered and informed consent was obtained. The patient was brought into the interventional suite and a pre-procedure 'time-out' was performed. The patient was placed on the fluoroscopy table in the supine position. The left upper extremity was prepped and draped in the usual sterile fashion. Maximum sterile barrier precautions were maintained throughout the entire procedure. Preliminary ultrasound images of the left upper extremity vasculature demonstrate patency of the left basilic vein. Following subcutaneous infiltration of 1% lidocaine for local analgesia, under ultrasound guidance, a 21-gauge needle was advanced into the left basilic vein with real-time visualization of needle entry. The ultrasound images were permanently recorded and submitted to the PACS. A 0.018 guidewire was advanced centrally to the cavoatrial junction. A 4.5 [place] peel-away sheath was advanced over the guidewire. After obtaining length measurement, a 4 [place] single-lumen PICC was placed with the tip of the catheter at the cavoatrial junction. The total length of the catheter is 42 cm. The hub of the PICC was secured to the skin using a sterile adhesive bandage. The patient tolerated the procedure well without immediate post-procedure complications and was transferred back to the floor in stable condition. IMPRESSION: SUCCESSFUL INSERTION OF LEFT UPPER EXTREMITY PICC. PICC OK TO USE.
[2017-11-24 23:58] VITALS: O2SAT 99
--- NOTE | 2017-11-25 08:06 | CP.PCM.DIS ---
Provider - Provider Date of Admission: 11/16/17 05:25 Attending physician: Mariajose Simmons MD Consults: ID Dr Arechiga Urologist: Dr Thao Time Spent in preparation of Discharge (in minutes): 30 Hospital Course - Lab Results Lab Results: Micro Results 11/22/17 05:25 Blood Blood Culture - Preliminary NO GROWTH AFTER 3 DAYS 11/21/17 08:40 Blood Blood Culture - Preliminary NO GROWTH AFTER 3 DAYS 11/19/17 05:53 Blood-Venous Blood Culture - Final NO GROWTH AFTER 5 DAYS 11/19/17 05:53 Blood-Venous Gram Stain - Final TEST NOT PERFORMED 11/18/17 04:25 Blood S.aureus & Coag-Neg Staph PNA FISH - Final 11/18/17 04:25 Blood Blood Culture - Final Staphylococcus Aureus 11/18/17 04:25 Blood Gram Stain - Final 11/16/17 20:30 Blood Blood Culture - Final Staphylococcus Aureus 11/16/17 20:30 Blood Gram Stain - Final 11/16/17 17:42 Blood Blood Culture - Final Staphylococcus Aureus 11/16/17 17:42 Blood Gram Stain - Final 11/16/17 01:35 Blood-Venous S.aureus & Coag-Neg Staph PNA FISH - Final 11/16/17 01:35 Blood-Venous Blood Culture - Final Staphylococcus Aureus 11/16/17 01:35 Blood-Venous Gram Stain - Final 11/16/17 04:20 Urine,Clean Catch Urine Culture - Final Staphylococcus Aureus Most Recent Lab Values WBC 3.8 K/uL (4.8-10.8) L 11/24/17 06:20 RBC 3.35 Mil/uL (4.40-5.90) L 11/24/17 06:20 Hgb 9.5 g/dL (12.0-18.0) L 11/24/17 06:20 Hct 27.8 % (35.0-51.0) L 11/24/17 06:20 MCV 83.0 fl (80.0-94.0) 11/24/17 06:20 MCH 28.4 pg (27.0-31.0) 11/24/17 06:20 MCHC 34.2 g/dL (33.0-37.0) 11/24/17 06:20 RDW 15.7 % (11.5-14.5) H 11/24/17 06:20 Plt Count 275 K/uL (130-400) 11/24/17 06:20 MPV 8.6 fl (7.2-11.7) 11/19/17 05:53 Neut % (Auto) 74.4 % (50.0-75.0) 11/19/17 05:53 Lymph % (Auto) 14.7 % (20.0-40.0) L 11/19/17 05:53 [place] % (Auto) 5.0 % (0.0-10.0) 11/19/17 05:53 Eos % (Auto) 4.5 % (0.0-4.0) H 11/19/17 05:53 Baso % (Auto) 1.4 % (0.0-2.0) 11/19/17 05:53 Neut # 5.1 K/uL (1.8-7.0) 11/19/17 05:53 Lymph # 1.0 K/uL (1.0-4.3) 11/19/17 05:53 [place] # 0.3 K/uL (0.0-0.8) 11/19/17 05:53 Eos # 0.3 K/uL (0.0-0.7) 11/19/17 05:53 Baso # 0.1 K/uL (0.0-0.2) 11/19/17 05:53 Neutrophils % (Manual) 77 % (42-75) H 11/16/17 17:42 Band Neutrophils % 20 % (0-2) H* 11/16/17 17:42 Lymphocytes % (Manual) 2 % (20-50) L 11/16/17 17:42 Monocytes % (Manual) 1 % (0-10) 11/16/17 17:42 Platelet Estimate Normal (NORMAL) 11/16/17 17:42 Large Platelets Present 11/16/17 17:42 Hypochromasia (manual) Slight 11/16/17 17:42 Poikilocytosis (manual Slight 11/16/17 17:42 Anisocytosis (manual) Slight 11/16/17 17:42 Target Cells Slight 11/16/17 17:42 Tear Drop Cells Slight 11/16/17 17:42 PT 18.0 Seconds (9.8-13.1) H 11/17/17 05:35 INR 1.6 (0.9-1.2) H 11/17/17 05:35 APTT 36.7 Seconds (25.6-37.1) 11/17/17 05:35 Sodium 142 mmol/l (132-148) 11/24/17 06:20 Potassium 3.8 MMOL/L (3.6-5.0) 11/24/17 06:20 Chloride 108 mmol/L (98-107) H 11/24/17 06:20 Carbon Dioxide 25 mmol/L (22-30) 11/24/17 06:20 Anion Gap 13 (10-20) 11/24/17 06:20 BUN 11 mg/dl (9-20) 11/24/17 06:20 Creatinine 1.1 mg/dl (0.8-1.5) 11/24/17 06:20 Est GFR ( Amer) > 60 11/24/17 06:20 Est GFR (Non-Af Amer) > 60 11/24/17 06:20 POC Glucose (mg/dL) 76 mg/dL (65-110) 11/17/17 00:54 Random Glucose 88 mg/dL (75-110) 11/24/17 06:20 Lactic Acid 0.9 MMOL/L (0.7-2.1) 11/18/17 04:25 Uric Acid 5.5 mg/Dl (3.5-8.5) 11/22/17 05:25 Calcium 8.6 mg/dL (8.4-10.2) 11/24/17 06:20 Phosphorus 1.5 mg/dl (2.5-4.5) L 11/16/17 17:42 Magnesium 1.3 MG/DL (1.6-2.3) L 11/16/17 17:42 Total Bilirubin 0.7 mg/dl (0.2-1.3) 11/20/17 06:00 AST 46 U/L (17-59) 11/20/17 06:00 ALT 28 U/L (21-72) 11/20/17 06:00 Alkaline Phosphatase 66 U/L (38-126) 11/20/17 06:00 Total Protein 6.9 G/DL (6.3-8.2) 11/20/17 06:00 Albumin 2.9 g/dL (3.5-5.0) L 11/20/17 06:00 Globulin 4.1 gm/dL (2.2-3.9) H 11/20/17 06:00 Albumin/Globulin Ratio 0.7 (1.0-2.1) L 11/20/17 06:00 Lipase 53 U/L (23-300) 11/16/17 01:39 Procalcitonin 0.18 NG/ML (0.19-0.49) L 11/24/17 06:20 PTH Intact Whole Molec 40 pg/mL (14-64) 11/22/17 05:25 Urine Color Yellow (YELLOW) 11/16/17 04:20 Urine Clarity Cloudy (Clear) 11/16/17 04:20 Urine pH 7.0 (5.0-8.0) 11/16/17 04:20 Ur Specific [place] 1.038 (1.003-1.030) H 11/16/17 04:20 Urine Protein 30 mg/dL (NEGATIVE) 11/16/17 04:20 Urine Glucose (UA) Neg mg/dL (Normal) 11/16/17 04:20 Urine Ketones Trace mg/dL (NEGATIVE) 11/16/17 04:20 Urine Blood Negative (NEGATIVE) 11/16/17 04:20 Urine Nitrate Positive (NEGATIVE) H 11/16/17 04:20 Urine Bilirubin Negative (NEGATIVE) 11/16/17 04:20 Urine Urobilinogen 4.0 mg/dL (0.2-1.0) 11/16/17 04:20 Ur Leukocyte Esterase Trace Cher/uL (Negative) 11/16/17 04:20 Urine RBC (Auto) 36 /hpf (0-3) H 11/16/17 04:20 Urine Microscopic WBC 7 /hpf (0-5) H 11/16/17 04:20 Ur Squamous Epith Cells 1 /hpf (0-5) 11/16/17 04:20 Calcium Oxalate Crystal Rare /hpf (<OCC) 11/16/17 04:20 Urine Bacteria Many (<OCC) H 11/16/17 04:20 Vancomycin Trough 15.3 ug/mL (5.0-10.0) H 11/21/17 08:40 Absolute Lymphs (Flow) 526 Cells/mcL (850-3900) L 11/16/17 07:45 % CD4 Cells 1 Percent (30-61) L 11/16/17 07:45 Absolute CD4 Count <20 Cells/mcL (490-1740) L 11/16/17 07:45 T-Help/Suppress Ratio 0.02 Ratio (0.86-5.00) L 11/16/17 07:45 % CD8 Cells 41 Percent (12-42) 11/16/17 07:45 Absolute CD8 Count 216 Cells/mcL (180-1170) 11/16/17 07:45 T-Lymph Analys Comment See note 11/16/17 07:45 RPR Titer 1:4 (NONREACTIVE) H 11/16/17 07:45 RPR Reactive (NONREACTIVE) H 11/16/17 07:45 T.pallidum Ab (FTA-ABS) Reactive minimal (Nonreactive) H 11/16/17 07:59 C.trachomatis RNA (TMA) Not detected (Not Detected) 11/16/17 07:00 HIV-1 RNA Qnt (RT-PCR) 4.64 (<1.30) H 11/16/17 07:45 N.gonorrhoeae RNA (TMA) Not detected (Not Detected) 11/16/17 07:00 Blood Type O POSITIVE 11/16/17 18:56 Blood Type Confirm O POSITIVE 11/16/17 20:30 Antibody Screen Negative 11/16/17 18:56 Crossmatch See Detail 11/16/17 18:56 BBK History Checked No verified bt 11/16/17 18:56 - Hospital Course Hospital Course: 47 yo ,m, PMhx/o HIV/AIDS CD4:25 not taking HAART, Syphilis, Prostatitis, admitted for infected kidney stone.(obstructive uropathy ) and secondary pyelonephrits needing emergent stent by Urologist Dr Thao. During hospitalization patient had severe sepsis, bacteremia ( staph aureus) , [employer] called for hypotension that resolved with fluids. Urine cx showed Staph aureus MSSA. Procalcitonin levels trending down 26-16-3.5-0.1 (normalized). Echo normal no vegetations. ID Consulted: Patient treated with Vancomycin, Meropenen. Meropenen was discontinued. Recommended c/w Vancomycin for 21 days by ID recomendations. Pt will have treatment outpatient for 15 days( 1500 mg daily). Will finish treatment 12/10/17 - CD4/CD8. <20/216 VL 4.64. HIV prophylaxis started during hospitalization with Mepron(allergy to sulfas) daily and Azithromycin q/week(2 doses given). Meds eprescribed Genotype repeated during hospitalization.Pending final report. Patient will restart Antiretroviral therapy outpatient. -Urology Consult (Dr Thao) appreciated: s/p stent day 9, keep stent and f/u outpatient. Urologist will need medical clearance before patient go for f/u to decide removal of stent. Patient had significant improvement during hospitalization, dysuria improved, afebrile, hemodynamically stable, leukocytosis resolved. Pt cleared for discharge. Pt visited by supply chain design manager [facility]. Patient was agree to have follow up in clinic and to be adherent to antiretroviral medications. Will have follow up with Dr Medrano 11/27/17 at 1:30 pm. Patient explained all recomendations upon discharged, is agree and verbalized understanding Diagnosis (1) Kidney stone with associated Obstructive Uropathy resolved - c/w FloMax 2) Severe Sepsis with bacteremia -resolved -secondary to UTI and bacteremia -last 3 blood cx negative 3) Complicated UTI -resolved 4) AIDS - no compliance pt CD-4: 25, not taking medication or prophylaxis. - Mepron and Azithromycin q/week - CD4/CD8. <20/216 -VL 4.64 -genotype pending -ID consult appreciated: Suggest to wait for Genotype result to start ART -Discussed with patient's primary provider (Dr Colon) who is a specialist in HIV and recommended a regimen that is consistent with his current genotype ( obtained on medication) and condition. We would love to coordinate timing of initiation with ID so that patient avoids the possibility of developing IRIS after being discharged to home 5) Anemia -s/p 1 unit transfusion -Hgb: 9.5 6) Hx/o Syphilis -s/p PCN benzathinic 2 dose 06/16 and 06/26/2017 RPR reactive, FT-ABS reactive RPR titer 1:4 -patient no sexually active and had treatment in 05/2017.discussed [address] Colon -will repeat titers in 3 months. 7) Rash of back -resolved Discharge Exam - Head Exam Head Exam: ATRAUMATIC, NORMOCEPHALIC - Eye Exam Eye Exam: Normal appearance - ENT Exam ENT Exam: Mucous Membranes Moist - Respiratory Exam Respiratory Exam: Clear to PA & Lateral. absent: Rales, Rhonchi, Wheezes - Cardiovascular Exam Cardiovascular Exam: REGULAR RHYTHM, +S1, +S2 - GI/Abdominal Exam GI & Abdominal Exam: Normal Bowel Sounds, Soft. absent: Guarding - Extremities Exam Extremities exam: normal inspection - Neurological Exam Neurological exam: Alert, Oriented x3 - Psychiatric Exam Psychiatric exam: Normal Affect, Normal Mood - Skin Skin Exam: Intact Discharge Plan - Discharge Medications Prescriptions: Atovaquone [Mepron] 1,500 mg PO DAILYWM 30 Days #30 packet Azithromycin [Zithromax] 1,200 mg PO QWK #8 tab Tamsulosin [Flomax] 0.4 mg PO HS 30 Days #30 cap - Follow Up Plan Condition: STABLE Disposition: HOME/ ROUTINE Instructions: Kidney Stones (DC), Cystoscopy (DC), Peripherally Inserted Central Catheters and Midline Catheters (DC) Additional Instructions: -Follow up [facility] 11/27/17 at 1:[address] Medrano -Follow up Dr Keesha Liang Urologist 2-3 weeks for stent evaluation. Spoke to urologist prior discharge and suggests Medical clearance before going to his office in order to decide stent removal -Script given Vancomycin 1500 mg IV for 15 days by picc line. (to complete 21 days) -Script given BMP and Vanco trough 8:30 Am 11/27/17 -Will Eprescribe to Continue Azithromycin 1200 mg qweek every Friday and Mepron 1500 mg PO daily -IF flank pain,fever, blood in urine come to ED. [facility] [phone] Referrals: Garth Thao Jr., MD [Staff Provider] - Ambar Medrano MD [Medical Doctor] -
[2017-11-25 08:08] VITALS: BP 95/52; PULSE 75; RESP 20; TEMP 98.1
[2017-11-25] MEDS ORDERED: Vancomycin 1.2 GM in Sodium Chloride 0.9% 250 ML IVPB SCH (09:00)
[2017-11-25] MEDS: Atovaquone 750 mg/5 ml Susp UD PO SCH (09:29)
[2017-11-25] MEDS: Lidocaine 5% Patch TD SCH (09:29)
[2017-11-25] MEDS: Enoxaparin 40 mg Syringe SC SCH (09:29)
== END 2017-11-25 14:07 | disposition home or self-care (01) | DRG 969 ==
LOC: H.ER 00:04 → H.ERHOLD 05:25 → H.MEDSURG1 06:55 → H.TEL 18:26 → H.MEDSURG1 11-19 14:43
PROVIDERS: ADMIT Family Medicine; ATTEND Family Medicine
PROC: 0T7B8DZ Dilation of Bladder with Intraluminal Device, Via Natural or Artificial Opening Endoscopic (ICD-10-PCS; principal; 2017-11-16 21:00)
PROC: 30233N1 Transfusion of Nonautologous Red Blood Cells into Peripheral Vein, Percutaneous Approach (ICD-10-PCS; 2017-11-17)
PROC: 02HV33Z Insertion of Infusion Device into Superior Vena Cava, Percutaneous Approach (ICD-10-PCS; 2017-11-24)
PROC: B518ZZA Fluoroscopy of Superior Vena Cava, Guidance (ICD-10-PCS; 2017-11-24)
PROC: 3E04329 Introduction of Other Anti-infective into Central Vein, Percutaneous Approach (ICD-10-PCS; 2017-11-24)
DX: A41.01 Sepsis due to Methicillin susceptible Staphylococcus aureus (principal); B20 Human immunodeficiency virus [HIV] disease; R65.21 Severe sepsis with septic shock; N13.2 Hydronephrosis with renal and ureteral calculous obstruction; N39.0 Urinary tract infection, site not specified; N50.811 Right testicular pain; D64.9 Anemia, unspecified; Z86.19 Personal history of other infectious and parasitic diseases

== ENCOUNTER 2017-12-04 15:26 | Inpatient (IN) | payer OTHER ==
[2017-12-04 15:27] VITALS: BMI 21.4
--- NOTE | 2017-12-04 16:47 | RAD ---
HISTORY: SOB COMPARISON: Chest radiograph dated 11/16/2017. FINDINGS: LUNGS: No active pulmonary disease. PLEURA: No significant pleural effusion identified, no pneumothorax apparent. CARDIOVASCULAR: Normal. OSSEOUS STRUCTURES: Unchanged. VISUALIZED UPPER ABDOMEN: Partially imaged right double-J ureteral stent. OTHER FINDINGS: Left upper extremity PICC with catheter tip in the SVC. IMPRESSION: No active disease.
[2017-12-04 17:42] LABS: BASO # 0.1 K/uL (0.0-0.2); BASO % 1.3 % (0.0-2.0); EOS # 0.5 K/uL (0.0-0.7); EOS % 8.1 % (0.0-4.0); HEMOGLOBIN 7.4 g/dL (12.0-18.0); LYMPH # 0.5 K/uL (1.0-4.3); LYMPH % 7.9 % (20.0-40.0); MEAN CELL VOLUME 81.6 fl (80.0-94.0); MEAN CORPUSCULAR HEMOGLOBIN 27.1 pg (27.0-31.0); MEAN CORPUSCULAR HGB CONC 33.2 g/dL (33.0-37.0); MEAN PLATELET VOLUME 8.7 fl (7.2-11.7); MONO # 0.5 K/uL (0.0-0.8); MONO % 8.9 % (0.0-10.0); NEUT # 4.2 K/uL (1.8-7.0); NEUT % 73.8 % (50.0-75.0); NRBC % 0.1 % (0.0-0.0); PLATELET COUNT 206 K/uL (130-400); RBC 2.74 Mil/uL (4.40-5.90); RED CELL DISTRIBUTION WIDTH 16.5 % (11.5-14.5); WHITE BLOOD COUNT 5.7 K/uL (4.8-10.8)
--- NOTE | 2017-12-04 17:50 | ED PDOC ---
HPI: General Adult Time Seen by Provider: 12/04/17 16:10 Chief Complaint (Nursing): Male Genitourinary Chief Complaint (Provider): abnormal labs History Per: Patient History/Exam Limitations: other (labs unavailable in ED) Recently: Hospitalized Additional Complaint(s): 47yo male recent hospitalized for sepsis/ renal colic had ureteral stent placed , presents today on rec of PMD after abnormal labs obtained as outpatient- told his renal function was abnormal. Pt c/o nausea and anxiety but denies fever, weakness or urinary symptoms. Has [facility] to [facility], recd antibiotics this morning. Past Medical History Reviewed: Historical Data, Nursing Documentation, Vital Signs Vital Signs: Last Vital Signs Temp 97.7 F 12/04/17 15:36 Pulse 98 H 12/04/17 15:36 Resp 16 12/04/17 15:36 BP 110/55 L 12/04/17 15:36 Pulse Ox 99 12/04/17 17:50 - Medical History PMH: Hepatitis, HIV, Kidney Stones, Migraine (Pt denies), Chronic Kidney Disease - Family History Family History: States: Unknown Family Hx - Social History Drugs: Denies - Home Medications Home Medications: Ambulatory Orders Medication Instructions Recorded Atovaquone [Mepron] 1,500 mg PO DAILYWM 30 Days #30 11/25/17 packet Azithromycin [Zithromax] 1,200 mg PO QWK #8 tab 11/25/17 Tamsulosin [Flomax] 0.4 mg PO HS 30 Days #30 cap 11/25/17 Abacavir [Ziagen] 300 mg PO BID 12/04/17 Darunavir Ethanolate [Prezista] 600 mg PO BID 12/04/17 Ritonavir [Norvir] 100 mg PO BID 12/04/17 Vancomycin HCl in Dextrose 5 % 1,500 mg IV DAILY 12/04/17 [Vancomycin 1.5 Gram/250 ml-D5w] lamiVUDine [Epivir] 150 mg PO DAILY 12/04/17 - Allergies Allergies/Adverse Reactions: Allergies Allergy/AdvReac Type Severity Reaction Status Date / Time Sulfa (Sulfonamide Allergy NAUSEA Verified 12/02/15 20:35 Antibiotics) sulfamethoxazole Allergy NAUSEA Verified 12/02/15 20:35 [From Bactrim] trimethoprim [From Bactrim] Allergy NAUSEA Verified 12/02/15 20:35 Review of Systems Constitutional: Positive for: Weakness, Malaise ENT: Negative for: Throat Pain Respiratory: Negative for: Cough Gastrointestinal: Positive for: Nausea. Negative for: Vomiting Genitourinary Male: Negative for: Dysuria, Hematuria Musculoskeletal: Positive for: Back Pain. Negative for: Neck Pain, Leg Pain Skin: Negative for: Rash, Lesions, Jaundice Neurological: Positive for: Dizziness. Negative for: Weakness, Numbness Psych: Negative for: Suicidal ideation Physical Exam - Reviewed Nursing Documentation Reviewed: Yes Vital Signs Reviewed: Yes - Physical Exam Appears: Positive for: Well, Non-toxic, No Acute Distress Head Exam: Positive for: ATRAUMATIC, NORMAL INSPECTION, NORMOCEPHALIC Skin: Positive for: Normal Color, Warm, DRY Eye Exam: Positive for: EOMI, Normal appearance, PERRL ENT: Positive for: Normal ENT Inspection Neck: Positive for: Normal, Painless ROM Cardiovascular/Chest: Positive for: Regular Rate, Rhythm Respiratory: Positive for: CNT, Normal Breath Sounds Gastrointestinal/Abdominal: Positive for: Bowel Sounds, Soft. Negative for: Tenderness, Guarding Back: Positive for: Normal Inspection Extremity: Positive for: Normal ROM, Other (LUE PICC). Negative for: Tenderness Neurologic/Psych: Positive for: Alert, Oriented - Laboratory Results Result Diagrams: 12/04/17 17:16 12/04/17 17:16 - ECG O2 Sat by Pulse Oximetry: 99 Pulse Ox Interpretation: Normal - Radiology X-Ray: Interpreted by Me X-Ray Interpretation: No Acute Disease Medical Decision Making Medical Decision Making: workup intiated w bloodwork, d/w residents to ascertain abnormal lab values outpt labs reveal new anemia Hgb 7.4 and elevated Senior Account Manager 1.7 UA reveals persistent UTI but he is on IV vanco Admitted to FP service, resident to obtain consent for PRBC transfusion Disposition - Clinical Impression Clinical Impression: Anemia, HIV (human immunodeficiency virus infection), Acute renal failure - Disposition Disposition Time: 18:45 Condition: FAIR - Pt Status Changed To: Hospital Disposition Of: Inpatient - Admit Certification Admit to Inpatient:: After my assessment, the patient will require hospitalization for at least two midnights. This is because of the severity of symptoms shown, intensity of services needed, and/or the medical risk in this patient being treated as an outpatient. - POA Present On Arrival: Cath Associated UTI (prior UTI')
[2017-12-04] MEDS ORDERED: Sodium Chloride 0.9% 1,000 ML IV STA (17:59)
[2017-12-04 18:11] LABS: ALB/GLOB RATIO 0.9 (1.0-2.1); ALBUMIN 3.8 g/dL (3.5-5.0); ALT/SGPT 102 U/L (21-72); AST/SGOT 119 U/L (17-59); BLOOD UREA NITROGEN 19 mg/dl (9-20); CALCIUM 8.6 mg/dL (8.4-10.2); GFR AFRICAN-AMERICAN 53; GFR NON-AFRICAN AMERICAN 44
[2017-12-04 18:45] LABS: SQUAMOUS EPITHIAL 2 /hpf (0-5); URINE AMORPHOUS SEDIMENT MODERATE /ul (<OCC); URINE BACTERIA MOD (<OCC); URINE BILIRUBIN NEGATIVE (NEGATIVE); URINE BLOOD LARGE (NEGATIVE); URINE CLARITY TURBID (Clear); URINE COLOR AMBER (YELLOW); URINE GLUCOSE (UA) NEG (Normal); URINE LEUKOCYTE ESTERASE MOD Leu/uL (Negative); URINE NITRATE NEGATIVE (NEGATIVE); URINE PROTEIN 100 mg/dL (NEGATIVE); WBC CLUMPS FEW /hpf
[2017-12-04 19:00] LABS: ANISOCYTOSIS MODERATE; BANDS 5 % (0-2); BASOPHIL 1 % (0-2); EOSINOPHIL 7 % (0-7); HYPOCHROMIC SLIGHT; LYMPHOCYTE 12 % (20-50); MICROCYTOSIS SLIGHT; MONOCYTE 10 % (0-10); NEUTROPHIL 64 % (42-75); PLATELET ESTIMATE NORMAL (NORMAL); POIKILOCYTOSIS SLIGHT; REACTIVE LYMPHOCYTES 1 % (0-0); TOTAL CELLS COUNTED 100
[2017-12-04 19:01] LABS: OVALOCYTES SLIGHT; TEARDROP CELLS SLIGHT
--- NOTE | 2017-12-04 20:02 | CP.PCM.HP ---
History of Present Illness - History of Present Illness History of Present Illness: 47 yo, m, PMhx/o HIV/AIDS CD4 <20 not taking HAART, Syphilis, Prostatitis, recent hospitalized for sepsis/bacteremia/ renal colic, had ureteral stent placed, presented to ED as recommendation of PMD Dr Medraon after abnormal labs obtained as outpatient. Patient was told his renal function was abnormal. Patient reports has been feeling tired and during the last 2 days has had low oral intake, heartburn and he skipped one day of Vancomycin and he felt better. He still reports pain during urination during the last 2 days and has been urinating less often since yesterday. He denies fever, nausea, vomiting, diarrhea, abdominal pain, flank pain, chest pain, palpitation, SOB, dizziness, headache. Patient reports that he was prescribed new treatment of antiretrovirals but did not start it because he was called back to say that he had abnormal renal function. Patient states he has been taking mepron, but not azithromycin. PMD: [facility] Medrano. Last visit PMH: HIV/AIDS (CD4:25 not taking HAART or prophylaxis), Syphilis/Prostatitis treated ALL: Bactrim Meds: Mepron, Vancomycin 1500 mg IV at home by Picc line. No taking azithromycin. SHx: Denies smoking or drugs, socially alcohol ED Course VS: normal Labs: CBC: 5.7>7.4<206 CMP: GFR: 53 Cr: 1.7 AST: 119 ALT 102 Ua: hematuria, leukocyturia, Bact mod, leukocyte sterase positive Imaging: CXR:no active disease Meds: Iv fluids NS 125ml/h Patient status: Full code Present on Admission - Present on Admission Any Indicators Present on Admission: No History of DVT/PE: No History of Uncontrolled Diabetes: No Review of Systems - Constitutional Constitutional: As Per HPI - Cardiovascular Cardiovascular: As Per HPI - Respiratory Respiratory: As Per HPI - Gastrointestinal Gastrointestinal: As Per HPI - Genitourinary Genitourinary: As Per HPI, Dysuria Past Patient History - Infectious Disease Hx of Infectious Diseases: None - Past Medical History & Family History Past Medical History?: Yes - Past Social History Drugs: Denies - CARDIAC Hx Cardiac Disorders: No - PULMONARY Hx Respiratory Disorders: No Other/Comment: hiv positive - NEUROLOGICAL Hx Migraine: Yes (Pt denies) - HEENT Other/Comment: wear glasses - RENAL Hx Chronic Kidney Disease: Yes Hx Kidney Stones: Yes - ENDOCRINE/METABOLIC Hx Endocrine Disorders: No - HEMATOLOGICAL/ONCOLOGICAL Hx Human Immunodeficiency Virus (HIV): Yes - INTEGUMENTARY Hx Dermatological Problems: Yes (acne) - MUSCULOSKELETAL/RHEUMATOLOGICAL Hx Musculoskeletal Disorders: No Hx Falls: No - GASTROINTESTINAL Hx Gastrointestinal Disorders: No - GENITOURINARY/GYNECOLOGICAL Hx Genitourinary Disorders: No - PSYCHIATRIC Hx Psychophysiologic Disorder: No Hx Substance Use: No - SURGICAL HISTORY Hx Surgeries: No Other/Comment: PICC LINE - ANESTHESIA Hx Anesthesia: Yes Hx Anesthesia Reactions: No Hx Malignant Hyperthermia: No Meds Allergies/Adverse Reactions: Allergies Allergy/AdvReac Type Severity Reaction Status Date / Time Sulfa (Sulfonamide Allergy NAUSEA Verified 12/02/15 20:35 Antibiotics) sulfamethoxazole Allergy NAUSEA Verified 12/02/15 20:35 [From Bactrim] trimethoprim [From Bactrim] Allergy NAUSEA Verified 12/02/15 20:35 Physical Exam - Constitutional Appears: Non-toxic, No Acute Distress - Head Exam Head Exam: ATRAUMATIC, NORMOCEPHALIC - Eye Exam Eye Exam: Normal appearance - ENT Exam ENT Exam: Mucous Membranes Moist - Neck Exam Neck exam: Positive for: Normal Inspection - Respiratory Exam Respiratory Exam: Clear to Auscultation Bilateral. absent: Decreased Breath Sounds, Rales, Rhonchi, Wheezes - Cardiovascular Exam Cardiovascular Exam: REGULAR RHYTHM, +S1, +S2 - GI/Abdominal Exam GI & Abdominal Exam: Normal Bowel Sounds, Soft. absent: Tenderness - Extremities Exam Extremities exam: Positive for: normal inspection. Negative for: pedal edema - Back Exam Back exam: NORMAL INSPECTION - Neurological Exam Neurological exam: Alert, Oriented x3 - Psychiatric Exam Psychiatric exam: Normal Affect, Normal Mood - Skin Skin Exam: Intact Results - Vital Signs Recent Vital Signs: Last Vital Signs Temp 97.7 F 12/04/17 15:36 Pulse 98 H 12/04/17 15:36 Resp 16 12/04/17 15:36 BP 110/55 L 12/04/17 15:36 Pulse Ox 99 12/04/17 19:21 - Labs Result Diagrams: 12/04/17 17:16 12/04/17 17:16 Labs: Laboratory Results - last 24 hr 12/04/17 12/04/17 12/04/17 17:16 17:16 18:15 WBC 5.7 RBC 2.74 L Hgb 7.4 L D Hct 22.3 L MCV 81.6 MCH 27.1 MCHC 33.2 RDW 16.5 H Plt Count 206 MPV 8.7 Neut % (Auto) 73.8 Lymph % (Auto) 7.[address] % (Auto) 8.9 Eos % (Auto) 8.1 H Baso % (Auto) 1.3 Neut # (Auto) 4.2 Lymph # (Auto) 0.[address] # (Auto) 0.5 Eos # (Auto) 0.5 Baso # (Auto) 0.1 Neutrophils % (Manual) 64 Band Neutrophils % 5 H Lymphocytes % (Manual) 12 L Reactive Lymphs % 1 H Monocytes % (Manual) 10 Eosinophils % (Manual) 7 Basophils % (Manual) 1 Platelet Estimate Normal Hypochromasia (manual) Slight Poikilocytosis (manual Slight Anisocytosis (manual) Moderate Microcytosis (manual) Slight Tear Drop Cells Slight Ovalocytes Slight Sodium 141 Potassium 3.9 Chloride 107 Carbon Dioxide 23 Anion Gap 15 BUN 19 Creatinine 1.7 H Est GFR ( Amer) 53 Est GFR (Non-Af Amer) 44 Random Glucose 106 Calcium 8.6 Total Bilirubin 1.3 AST 119 H D ALT 102 H D Alkaline Phosphatase 116 Troponin I < 0.0120 Total Protein 8.2 Albumin 3.8 Globulin 4.4 H Albumin/Globulin Ratio 0.9 L Urine Color [place]udelka Urine Clarity Turbid Urine pH 6.0 Ur Specific [place] 1.019 Urine Protein 100 Urine Glucose (UA) Neg Urine Ketones Negative Urine Blood Large Urine Nitrate Negative Urine Bilirubin Negative Urine Urobilinogen 4.0 Ur Leukocyte Esterase Mod Urine RBC (Auto) 1313 H Urine WBC Clumps (Auto) Few H Urine Microscopic WBC 95 H Ur Squamous Epith Cells 2 Amorphous Sediment Moderate H Urine Bacteria Mod H Blood Type Antibody Screen 12/04/17 18:15 WBC RBC Hgb Hct MCV MCH MCHC RDW Plt Count MPV Neut % (Auto) Lymph % (Auto) Lane % (Auto) Eos % (Auto) Baso % (Auto) Neut # (Auto) Lymph # (Auto) Lane # (Auto) Eos # (Auto) Baso # (Auto) Neutrophils % (Manual) Band Neutrophils % Lymphocytes % (Manual) Reactive Lymphs % Monocytes % (Manual) Eosinophils % (Manual) Basophils % (Manual) Platelet Estimate Hypochromasia (manual) Poikilocytosis (manual Anisocytosis (manual) Microcytosis (manual) Tear Drop Cells Ovalocytes Sodium Potassium Chloride Carbon Dioxide Anion Gap BUN Creatinine Est GFR ( Amer) Est GFR (Non-Af Amer) Random Glucose Calcium Total Bilirubin AST ALT Alkaline Phosphatase Troponin I Total Protein Albumin Globulin Albumin/Globulin Ratio Urine Color Urine Clarity Urine pH Ur Specific [place] Urine Protein Urine Glucose (UA) Urine Ketones Urine Blood Urine Nitrate Urine Bilirubin Urine Urobilinogen Ur Leukocyte Esterase Urine RBC (Auto) Urine WBC Clumps (Auto) Urine Microscopic WBC Ur Squamous Epith Cells Amorphous Sediment Urine Bacteria Blood Type O POSITIVE Antibody Screen Negative Assessment & Plan - Assessment and Plan (Free Text) Plan: 47 yo, m, PMhx/o HIV/AIDS CD4:25 not taking HAART, Syphilis, Prostatitis, admitted for Anemia, Renal failure, HIV Assessment/Plan 1) AIDS -recent visit after discharge 11/27/17 dr Medrano in clinic. -Reports was prescribed antiretroviral, but he was ordered not to take it Because he had altered renal function. -Pt continued outpatient Mepron, but did not continued Azythromycin -Ordered Mepron, azithromycin. -recent CD4/CD* <20/216, viral load 46717 2) Anemia -secondary to chronic disease, use abx Vancomycin or new UTI -hgb 7.4 -Transfuse 3 U prbc -f/u CBC, CMP 3) Acute Renal Failure - may be secondary to vancomycin medication -Recent discharged for complicated UTI secondary to obstructive uropathy -urology consult suggested: Pt has apt for Urologist 12/09/17 -IV fluids 125 ml/h -GFR 53 BUN 19 Cr: 1.7 -Component Prep Operator consult suggested -Urologyst consult suggested 4) UTI -persistent -recent hospitalization for obstructive uropathy -s/p emergent ureteral stent last hospitalization -on Vancomycin x 21d to finish as outpatient. will finish 21 days 12/10/17 -c/w Vancomycin -UA: hematuria, leukocyturia, bact mod, leukocyte mod, nitrate neg -Id Consult suggested to discuss vanco treatment. -f/u urine cx 5) Transaminitis -may reactive secondary to medications an AIDS -AST:119 ALT: 102 6) Hx/o Syphilis -s/p PCN benzathinic 2 dose 06/16 and 06/26/2017 RPR reactive, FT-ABS reactive RPR titer 1:4 -patient no sexually active and had treatment in 05/2017.discussed [address] Colon -will repeat titers in 3 months. 7) DVT Prophylaxis -Lovenox 40 mg sc daily -
--- NOTE | 2017-12-05 07:49 | CP.PCM.PN ---
<Omid Unger - Last Filed: 12/05/17 17:31> Subjective - Date & Time of Evaluation Date of Evaluation: 12/05/17 Time of Evaluation: 07:30 - Subjective Subjective: Pt was seen and examined at bedside. Currently receiving his 3rd PRBC. Able to tolerate PO solids. Denies CP/SOB/N/V. Objective - Vital Signs/Intake and Output Vital Signs (last 24 hours): Temp Pulse Resp BP Pulse Ox 98.2 F 63 20 94/54 L 100 12/05/17 05:47 12/05/17 05:47 12/05/17 05:47 12/05/17 05:47 12/05/17 05:47 - Medications Medications: Current Medications Acetaminophen (Tylenol 325mg Tab) 650 mg PO Q6 PRN PRN Reason: Fever >100.4 F Atovaquone (Mepron) 1,500 mg PO DAILYWM [facility] Azithromycin (Zithromax) 1,200 mg PO QWK [facility] PRN Reason: Protocol Enoxaparin Sodium (Lovenox) 40 mg SC DAILY [facility] PRN Reason: Protocol Vancomycin HCl 1,500 mg/ (Sodium Chloride) 500 mls @ 250 mls/hr IVPB DAILY [facility] Ondansetron HCl (Zofran Inj) 4 mg IVP Q6 PRN PRN Reason: Nausea/Vomiting Tamsulosin HCl (Flomax) 0.4 mg PO HS [facility] - Labs Labs: 12/04/17 17:16 12/04/17 17:16 - Constitutional Appears: No Acute Distress - Eye Exam Eye Exam: EOMI, Normal appearance - Neck Exam Neck Exam: Full ROM - Respiratory Exam Respiratory Exam: Clear to Ausculation Bilateral, NORMAL BREATHING PATTERN. absent: Wheezes - Cardiovascular Exam Cardiovascular Exam: REGULAR RHYTHM, +S1, +S2 - GI/Abdominal Exam GI & Abdominal Exam: Soft, Normal Bowel Sounds. absent: Tenderness - Extremities Exam Extremities Exam: Full ROM, Normal Capillary Refill - Neurological Exam Neurological Exam: Alert, Awake, CN II-XII Intact, Oriented x3 - Psychiatric Exam Psychiatric exam: Normal Affect, Normal Mood Assessment and Plan - Assessment and Plan (Free Text) Plan: 47 yo, m, PMhx/o HIV/AIDS CD4:25 not taking HAART, Syphilis, Prostatitis, admitted for Anemia, Renal failure, HIV~ Assessment/Plan 1) Acute Renal Failure - may be secondary to vancomycin medication, pyelonephritis, or antiretroviral medication -Recent discharged for complicated UTI secondary to obstructive uropathy -IV fluids 125 ml/h-GFR 53~ BUN 19~ Cr: 1.7 -Correctional Substance Abuse Counselor consult on board: Dr. Amari Johnson -ID: [email or web address] on board -Urologist on board: Dr. Thao Pt has apt for Urologist Dr. Thao 12/09/17 for stent removal; 2) AIDS -worsening CD4 count <20 - viral load [id number] on 10/2017-recent pyelo requiring stent and fci vanco iv via picc; cd4 count extremely low; ability to mount a fever response unknown -recent visit after discharge 11/27/17 dr Medrano in clinic. -Reports was prescribed antiretroviral, but he was ordered not to take it 2/2 altered renal function. -Pt continued outpatient Mepron, but did not continued Azythromycin -Ordered Mepron, azithromycin.-recent 3) Anemia -secondary to chronic disease, use abx Vancomycin or new UTI -hgb 7.4-heme/onc and GI consulted for blood loss -Transfuse 3 U prbc-h/h 12/05/2017: 12.4/37.3 s/p blood transfusions -f/u CBC, CMP 4) UTI -persistent -recent hospitalization for obstructive uropathy -s/p emergent ureteral stent last hospitalization; dc on 12/09/2017 -on Vancomycin x 21d to finish as outpatient. will finish 21 days 12/10/17 -c/w Vancomycin-UA: hematuria, leukocyturia, bact mod, leukocyte mod, nitrate neg -Id Consult suggested to discuss vanco treatment. -f/u urine cx 5) Transaminitis -may reactive secondary to medications and AIDS -AST:119~ ALT: 102 6) Hx/o Syphilis -s/p PCN benzathinic 2 dose 06/16 and 06/26/2017 RPR reactive, FT-ABS reactive RPR titer 1:4-patient no sexually active and had treatment in 05/2017. discussed with Dr Colon-will repeat titers in 3 months. 7) DVT Prophylaxis -Lovenox 40 mg sc daily <Alena Marte - Last Filed: 12/07/17 09:06> Objective - Vital Signs/Intake and Output Vital Signs (last 24 hours): Temp Pulse Resp BP Pulse Ox 98.1 F 63 20 106/67 100 12/07/17 08:00 12/07/17 08:00 12/07/17 08:00 12/07/17 08:00 12/07/17 08:00 - Medications Medications: Current Medications Acetaminophen (Tylenol 325mg Tab) 650 mg PO Q6 PRN PRN Reason: Fever >100.4 F Azithromycin (Zithromax) 1,200 mg PO QWK [facility] PRN Reason: Protocol Enoxaparin Sodium (Lovenox) 40 mg SC DAILY [facility] PRN Reason: Protocol Last Admin: 12/06/17 12:29 Dose: Not Given Home Med (Patient's Own Medication) 10 unit PO DAILYWM [facility] Last Admin: 12/06/17 09:10 Dose: 10 unit Vancomycin HCl 750 mg/ Sodium (Chloride) 250 mls @ 166.667 mls/hr IVPB Q12 [facility] PRN Reason: Protocol Last Admin: 12/06/17 09:10 Dose: 166.667 mls/hr Sodium Chloride (Sodium Chloride 0.9%) 1,000 mls @ 84 mls/hr IV .[id number] [facility] Stop: 12/07/17 12:14 Last Admin: 12/07/17 01:00 Dose: Not Given Ondansetron HCl (Zofran Inj) 4 mg IVP Q6 PRN PRN Reason: Nausea/Vomiting Tamsulosin HCl (Flomax) 0.4 mg PO HS [facility] Last Admin: 12/06/17 22:15 Dose: 0.4 mg - Labs Labs: 12/07/17 07:00 12/07/17 07:00 Attending/Attestation - Attestation I have personally seen and examined this patient.: Yes I have fully participated in the care of the patient.: Yes I have reviewed all pertinent clinical information, including history, physical exam and plan: Yes Notes (Text): 12/07/17 09:05 ATTENDING NOTE -ATTESTATION PATIENT SEEN AND EXAMINED. CASE DISCUSSED WITH RESIDENT. AGREE WITH FINDINGS AND PLAN.
[2017-12-05] MEDS ORDERED: Atovaquone 750 mg/5 ml Susp UD PO SCH (08:00)
[2017-12-05] MEDS: Enoxaparin 40 mg Syringe SC SCH (08:56)
[2017-12-05] MEDS ORDERED: DEXTROSE IV SCH (09:00)
[2017-12-05] MEDS ORDERED: VANCOMYCIN IV SCH (09:00)
[2017-12-05] MEDS ORDERED: [UNRECOGNIZED DRUG - OTHER] IV SCH (09:00)
--- NOTE | 2017-12-05 11:37 | CP.PCM.PN ---
Subjective - Date & Time of Evaluation Date of Evaluation: 12/05/17 Time of Evaluation: 11:37 - Subjective Subjective: 47 year olblk male admitted to [facility] pt has a stent in place after he was admitted w renal colic in oct. Pt is hiv+. Suggest refer pt to our office with yasmeen paula and we will schedule stent removal. Thanks Objective - Vital Signs/Intake and Output Vital Signs (last 24 hours): Temp Pulse Resp BP Pulse Ox 98.2 F 63 18 95/59 L 100 12/05/17 09:00 12/05/17 09:00 12/05/17 09:00 12/05/17 09:00 12/05/17 09:00 - Medications Medications: Current Medications Acetaminophen (Tylenol 325mg Tab) 650 mg PO Q6 PRN PRN Reason: Fever >100.4 F Atovaquone (Mepron) 1,500 mg PO DAILYWM [facility] Azithromycin (Zithromax) 1,200 mg PO QWK [facility] PRN Reason: Protocol Enoxaparin Sodium (Lovenox) 40 mg SC DAILY [facility] PRN Reason: Protocol Last Admin: 12/05/17 08:56 Dose: Not Given Vancomycin HCl 1,500 mg/ (Sodium Chloride) 500 mls @ 250 mls/hr IVPB DAILY [facility] Ondansetron HCl (Zofran Inj) 4 mg IVP Q6 PRN PRN Reason: Nausea/Vomiting Tamsulosin HCl (Flomax) 0.4 mg PO HS [facility] - Labs Labs: 12/04/17 17:16 12/04/17 17:16
[2017-12-05] MEDS ORDERED: ATOVAQUONE 750 MG/5 ML PO SCH ×2 (13:00→13:15)
[2017-12-05 13:02] LABS: HEMOGLOBIN 12.4 g/dL (12.0-18.0); MEAN CORPUSCULAR HEMOGLOBIN 27.6 pg (27.0-31.0); MEAN CORPUSCULAR HGB CONC 33.3 g/dL (33.0-37.0); RBC 4.49 Mil/uL (4.40-5.90); RED CELL DISTRIBUTION WIDTH 16.1 % (11.5-14.5); WHITE BLOOD COUNT 4.2 K/uL (4.8-10.8)
[2017-12-05 13:03] LABS: ALB/GLOB RATIO 0.8 (1.0-2.1); ALBUMIN 3.8 g/dL (3.5-5.0); CALCIUM 8.7 mg/dL (8.4-10.2)
--- NOTE | 2017-12-05 13:36 | CP.PCM.CON ---
History of Present Illness - History of Present Illness History of Present Illness: Infectious Disease Consultation Note- asked to see this patient at the request of family practice team for antibiotic management. HPI- Patietn known to me from his last admission for UTI and urinary retention s/p ureteral stent placment by and then found to have staph UTi and staph bacteremia and was started on IV vancomycin to be completed for total of 21 days. Pt. also has HIV not compliant with me snad his last CD4 was <20. pt. was advised at length during last admission to f/u with his PMD at [facility] and initated HAARt based on his genotype and also to f/u with for stent removal. Pt. states he was being seen by home infusion nurse and having blood drawn every few days and he was told by his PMD that his kidney function level had worsened and to go to hospital for this and that is why he is here. He denies any fever or chills or any dysurea. He denies any flank or back pain, denies any nausea or vomiting. denied any tinnitus or hearing difficulty. denies any diarrhea. PMD: [facility]. Dr Medrano. Last visit PMH: HIV/AIDS (CD4:25 not taking HAART or prophylaxis), Syphilis/Prostatitis treated ALL: Bactrim Meds: Mepron, Vancomycin 1500 mg IV at home by Picc line. No taking azithromycin. SHx: Denies smoking or drugs, socially alcohol Review of Systems - Review of Systems Review of Systems: He denies any fever or chills or any dysurea. He denies any flank or back pain, denies any nausea or vomiting. denied any tinnitus or hearing difficulty. denies any diarrhea. Past Patient History - Infectious Disease Hx of Infectious Diseases: None - Past Medical History & Family History Past Medical History?: Yes - Past Social History Smoking Status: Never Smoked - CARDIAC Hx Cardiac Disorders: No - PULMONARY Hx Respiratory Disorders: No - NEUROLOGICAL Hx Migraine: Yes (Pt denies) - HEENT Other/Comment: wear glasses - RENAL Hx Chronic Kidney Disease: Yes Hx Kidney Stones: Yes - ENDOCRINE/METABOLIC Hx Endocrine Disorders: No - HEMATOLOGICAL/ONCOLOGICAL Hx AIDS: Yes Hx Human Immunodeficiency Virus (HIV): Yes - INTEGUMENTARY Hx Dermatological Problems: Yes (acne) - MUSCULOSKELETAL/RHEUMATOLOGICAL Hx Falls: No - GASTROINTESTINAL Hx Gastrointestinal Disorders: No - GENITOURINARY/GYNECOLOGICAL Hx Genitourinary Disorders: No - PSYCHIATRIC Hx Substance Use: No - SURGICAL HISTORY Hx Surgeries: No Other/Comment: PICC LINE - ANESTHESIA Hx Anesthesia: Yes Hx Anesthesia Reactions: No Hx Malignant Hyperthermia: No Meds Allergies/Adverse Reactions: Allergies Allergy/AdvReac Type Severity Reaction Status Date / Time Sulfa (Sulfonamide Allergy NAUSEA Verified 12/02/15 20:35 Antibiotics) sulfamethoxazole Allergy NAUSEA Verified 12/02/15 20:35 [From Bactrim] trimethoprim [From Bactrim] Allergy NAUSEA Verified 12/02/15 20:35 - Medications Medications: Current Medications Acetaminophen (Tylenol 325mg Tab) 650 mg PO Q6 PRN PRN Reason: Fever >100.4 F Azithromycin (Zithromax) 1,200 mg PO QWK [facility] PRN Reason: Protocol Enoxaparin Sodium (Lovenox) 40 mg SC DAILY [facility] PRN Reason: Protocol Last Admin: 12/05/17 08:56 Dose: Not Given Home Med (Patient's Own Medication) 10 unit PO DAILYWM [facility] Vancomycin HCl 1,500 mg/ (Sodium Chloride) 500 mls @ 250 mls/hr IVPB DAILY [facility] Last Admin: 12/05/17 12:31 Dose: 250 mls/hr Ondansetron HCl (Zofran Inj) 4 mg IVP Q6 PRN PRN Reason: Nausea/Vomiting Tamsulosin HCl (Flomax) 0.4 mg PO HS [facility] Physical Exam - Constitutional Appears: No Acute Distress - Head Exam Head Exam: ATRAUMATIC - Eye Exam Eye Exam: EOMI, PERRL - ENT Exam ENT Exam: Normal Oropharynx - Neck Exam Neck exam: Positive for: Full Rom - Respiratory Exam Respiratory Exam: Clear to Auscultation Bilateral, NORMAL BREATHING PATTERN - Cardiovascular Exam Cardiovascular Exam: RRR, +S1, +S2 - GI/Abdominal Exam GI & Abdominal Exam: Normal Bowel Sounds, Soft Additional comments: NT, ND No CVA tenderness B/l - Extremities Exam Extremities exam: Positive for: normal inspection - Neurological Exam Neurological exam: Alert, Oriented x3 Results - Vital Signs Recent Vital Signs: Last Vital Signs Temp 98.5 F 12/05/17 12:00 Pulse 66 12/05/17 12:00 Resp 18 02/09/18 12:00 BP 111/69 12/05/17 12:00 Pulse Ox 100 12/05/17 12:00 - Labs Result Diagrams: 12/05/17 12:30 12/05/17 12:30 Labs: Laboratory Results - last 24 hr 12/04/17 12/04/17 12/04/17 17:16 17:16 18:15 WBC 5.7 RBC 2.74 L Hgb 7.4 L D Hct 22.3 L MCV 81.6 MCH 27.1 MCHC 33.2 RDW 16.5 H Plt Count 206 MPV 8.7 Neut % (Auto) 73.8 Lymph % (Auto) 7.9 L [place] % (Auto) 8.9 Eos % (Auto) 8.1 H Baso % (Auto) 1.3 Neut # (Auto) 4.2 Lymph # (Auto) 0.5 L [place] # (Auto) 0.5 Eos # (Auto) 0.5 Baso # (Auto) 0.1 Neutrophils % (Manual) 64 Band Neutrophils % 5 H Lymphocytes % (Manual) 12 L Reactive Lymphs % 1 H Monocytes % (Manual) 10 Eosinophils % (Manual) 7 Basophils % (Manual) 1 Platelet Estimate Normal Hypochromasia (manual) Slight Poikilocytosis (manual Slight Anisocytosis (manual) Moderate Microcytosis (manual) Slight Tear Drop Cells Slight Ovalocytes Slight Sodium 141 Potassium 3.9 Chloride 107 Carbon Dioxide 23 Anion Gap 15 BUN 19 Creatinine 1.7 H Est GFR ( Amer) 53 Est GFR (Non-Af Amer) 44 Random Glucose 106 Calcium 8.6 Total Bilirubin 1.3 AST 119 H D ALT 102 H D Alkaline Phosphatase 116 Troponin I < 0.0120 Total Protein 8.2 Albumin 3.8 Globulin 4.4 H Albumin/Globulin Ratio 0.9 L Urine Color Yudelka Urine Clarity Turbid Urine pH 6.0 Ur Specific Universal 1.019 Urine Protein 100 Urine Glucose (UA) Neg Urine Ketones Negative Urine Blood Large Urine Nitrate Negative Urine Bilirubin Negative Urine Urobilinogen 4.0 Ur Leukocyte Esterase Mod Urine RBC (Auto) 1313 H Urine WBC Clumps (Auto) Few H Urine Microscopic WBC 95 H Ur Squamous Epith Cells 2 Amorphous Sediment Moderate H Urine Bacteria Mod H Vancomycin Trough Blood Type Antibody Screen Crossmatch BBK History Checked 12/04/17 12/05/17 12/05/17 18:15 12:30 12:30 WBC 4.2 L RBC 4.49 Hgb 12.4 D Hct 37.3 MCV 83.0 MCH 27.6 MCHC 33.3 RDW 16.1 H Plt Count 173 MPV Neut % (Auto) Lymph % (Auto) [place] % (Auto) Eos % (Auto) Baso % (Auto) Neut # (Auto) Lymph # (Auto) [place] # (Auto) Eos # (Auto) Baso # (Auto) Neutrophils % (Manual) Band Neutrophils % Lymphocytes % (Manual) Reactive Lymphs % Monocytes % (Manual) Eosinophils % (Manual) Basophils % (Manual) Platelet Estimate Hypochromasia (manual) Poikilocytosis (manual Anisocytosis (manual) Microcytosis (manual) Tear Drop Cells Ovalocytes Sodium 143 Potassium 3.9 Chloride 111 H Carbon Dioxide 18 L Anion Gap 18 BUN 15 Creatinine 1.6 H Est GFR ( Amer) 57 Est GFR (Non-Af Amer) 47 Random Glucose 90 Calcium 8.7 Total Bilirubin 1.4 H AST 72 H D ALT 91 H Alkaline Phosphatase 121 Troponin I Total Protein 8.5 H Albumin 3.8 Globulin 4.6 H Albumin/Globulin Ratio 0.8 L Urine Color Urine Clarity Urine pH Ur Specific Universal Urine Protein Urine Glucose (UA) Urine Ketones Urine Blood Urine Nitrate Urine Bilirubin Urine Urobilinogen Ur Leukocyte Esterase Urine RBC (Auto) Urine WBC Clumps (Auto) Urine Microscopic WBC Ur Squamous Epith Cells Amorphous Sediment Urine Bacteria Vancomycin Trough Blood Type O POSITIVE Antibody Screen Negative Crossmatch See Detail BBK History Checked Patient has bt 12/05/17 12:30 WBC RBC Hgb Hct MCV MCH MCHC RDW Plt Count MPV Neut % (Auto) Lymph % (Auto) [place] % (Auto) Eos % (Auto) Baso % (Auto) Neut # (Auto) Lymph # (Auto) [place] # (Auto) Eos # (Auto) Baso # (Auto) Neutrophils % (Manual) Band Neutrophils % Lymphocytes % (Manual) Reactive Lymphs % Monocytes % (Manual) Eosinophils % (Manual) Basophils % (Manual) Platelet Estimate Hypochromasia (manual) Poikilocytosis (manual Anisocytosis (manual) Microcytosis (manual) Tear Drop Cells Ovalocytes Sodium Potassium Chloride Carbon Dioxide Anion Gap BUN Creatinine Est GFR ( Amer) Est GFR (Non-Af Amer) Random Glucose Calcium Total Bilirubin AST ALT Alkaline Phosphatase Troponin I Total Protein Albumin Globulin Albumin/Globulin Ratio Urine Color Urine Clarity Urine pH Ur Specific Universal Urine Protein Urine Glucose (UA) Urine Ketones Urine Blood Urine Nitrate Urine Bilirubin Urine Urobilinogen Ur Leukocyte Esterase Urine RBC (Auto) Urine WBC Clumps (Auto) Urine Microscopic WBC Ur Squamous Epith Cells Amorphous Sediment Urine Bacteria Vancomycin Trough 13.9 H Blood Type Antibody Screen Crossmatch BBK History Checked Laboratory Results - last 72 hr 12/04/17 12/04/17 12/04/17 17:16 17:16 18:15 WBC 5.7 RBC 2.74 L Hgb 7.4 L D Hct 22.3 L MCV 81.6 MCH 27.1 MCHC 33.2 RDW 16.5 H Plt Count 206 MPV 8.7 Neut % (Auto) 73.8 Lymph % (Auto) 7.9 L [place] % (Auto) 8.9 Eos % (Auto) 8.1 H Baso % (Auto) 1.3 Neut # (Auto) 4.2 Lymph # (Auto) 0.5 L [place] # (Auto) 0.5 Eos # (Auto) 0.5 Baso # (Auto) 0.1 Neutrophils % (Manual) 64 Band Neutrophils % 5 H Lymphocytes % (Manual) 12 L Reactive Lymphs % 1 H Monocytes % (Manual) 10 Eosinophils % (Manual) 7 Basophils % (Manual) 1 Platelet Estimate Normal Hypochromasia (manual) Slight Poikilocytosis (manual Slight Anisocytosis (manual) Moderate Microcytosis (manual) Slight Tear Drop Cells Slight Ovalocytes Slight Sodium 141 Potassium 3.9 Chloride 107 Carbon Dioxide 23 Anion Gap 15 BUN 19 Creatinine 1.7 H Est GFR ( Amer) 53 Est GFR (Non-Af Amer) 44 Random Glucose 106 Calcium 8.6 Total Bilirubin 1.3 AST 119 H D ALT 102 H D Alkaline Phosphatase 116 Troponin I < 0.0120 Total Protein 8.2 Albumin 3.8 Globulin 4.4 H Albumin/Globulin Ratio 0.9 L Urine Color Yudelka Urine Clarity Turbid Urine pH 6.0 Ur Specific Universal 1.019 Urine Protein 100 Urine Glucose (UA) Neg Urine Ketones Negative Urine Blood Large Urine Nitrate Negative Urine Bilirubin Negative Urine Urobilinogen 4.0 Ur Leukocyte Esterase Mod Urine RBC (Auto) 1313 H Urine WBC Clumps (Auto) Few H Urine Microscopic WBC 95 H Ur Squamous Epith Cells 2 Amorphous Sediment Moderate H Urine Bacteria Mod H Vancomycin Trough Blood Type Antibody Screen Crossmatch BBK History Checked 12/04/17 12/05/17 12/05/17 18:15 12:30 12:30 WBC 4.2 L RBC 4.49 Hgb 12.4 D Hct 37.3 MCV 83.0 MCH 27.6 MCHC 33.3 RDW 16.1 H Plt Count 173 MPV Neut % (Auto) Lymph % (Auto) [place] % (Auto) Eos % (Auto) Baso % (Auto) Neut # (Auto) Lymph # (Auto) [place] # (Auto) Eos # (Auto) Baso # (Auto) Neutrophils % (Manual) Band Neutrophils % Lymphocytes % (Manual) Reactive Lymphs % Monocytes % (Manual) Eosinophils % (Manual) Basophils % (Manual) Platelet Estimate Hypochromasia (manual) Poikilocytosis (manual Anisocytosis (manual) Microcytosis (manual) Tear Drop Cells Ovalocytes Sodium 143 Potassium 3.9 Chloride 111 H Carbon Dioxide 18 L Anion Gap 18 BUN 15 Creatinine 1.6 H Est GFR ( Amer) 57 Est GFR (Non-Af Amer) 47 Random Glucose 90 Calcium 8.7 Total Bilirubin 1.4 H AST 72 H D ALT 91 H Alkaline Phosphatase 121 Troponin I Total Protein 8.5 H Albumin 3.8 Globulin 4.6 H Albumin/Globulin Ratio 0.8 L Urine Color Urine Clarity Urine pH Ur Specific Universal Urine Protein Urine Glucose (UA) Urine Ketones Urine Blood Urine Nitrate Urine Bilirubin Urine Urobilinogen Ur Leukocyte Esterase Urine RBC (Auto) Urine WBC Clumps (Auto) Urine Microscopic WBC Ur Squamous Epith Cells Amorphous Sediment Urine Bacteria Vancomycin Trough Blood Type O POSITIVE Antibody Screen Negative Crossmatch See Detail BBK History Checked Patient has bt 12/05/17 12:30 WBC RBC Hgb Hct MCV MCH MCHC RDW Plt Count MPV Neut % (Auto) Lymph % (Auto) [place] % (Auto) Eos % (Auto) Baso % (Auto) Neut # (Auto) Lymph # (Auto) [place] # (Auto) Eos # (Auto) Baso # (Auto) Neutrophils % (Manual) Band Neutrophils % Lymphocytes % (Manual) Reactive Lymphs % Monocytes % (Manual) Eosinophils % (Manual) Basophils % (Manual) Platelet Estimate Hypochromasia (manual) Poikilocytosis (manual Anisocytosis (manual) Microcytosis (manual) Tear Drop Cells Ovalocytes Sodium Potassium Chloride Carbon Dioxide Anion Gap BUN Creatinine Est GFR ( Amer) Est GFR (Non-Af Amer) Random Glucose Calcium Total Bilirubin AST ALT Alkaline Phosphatase Troponin I Total Protein Albumin Globulin Albumin/Globulin Ratio Urine Color Urine Clarity Urine pH Ur Specific Universal Urine Protein Urine Glucose (UA) Urine Ketones Urine Blood Urine Nitrate Urine Bilirubin Urine Urobilinogen Ur Leukocyte Esterase Urine RBC (Auto) Urine WBC Clumps (Auto) Urine Microscopic WBC Ur Squamous Epith Cells Amorphous Sediment Urine Bacteria Vancomycin Trough 13.9 H Blood Type Antibody Screen Crossmatch BBK History Checked Microbiology 11/22/17 05:25 Blood Blood Culture - Final 11/22/17 05:25 Blood Gram Stain - Final NO GROWTH AFTER 5 DAYS TEST NOT PERFORMED 11/21/17 08:40 Blood Blood Culture - Final 11/21/17 08:40 Blood Gram Stain - Final NO GROWTH AFTER 5 DAYS TEST NOT PERFORMED 11/19/17 05:53 Blood-Venous Blood Culture - Final 11/19/17 05:53 Blood-Venous Gram Stain - Final NO GROWTH AFTER 5 DAYS TEST NOT PERFORMED 11/18/17 04:25 Blood S.aureus & Coag-Neg Staph PNA FISH - Final 11/18/17 04:25 Blood Gram Stain - Final Staphylococcus Aureus 11/16/17 20:30 Blood Blood Culture - Final 11/16/17 20:30 Blood Gram Stain - Final Staphylococcus Aureus 11/16/17 17:42 Blood Blood Culture - Final 11/16/17 17:42 Blood Gram Stain - Final Staphylococcus Aureus 11/16/17 04:20 Urine,Clean Catch Urine Culture - Final Staphylococcus Aureus 11/16/17 01:35 Blood-Venous S.aureus & Coag-Neg Staph PNA FISH - Final 11/16/17 01:35 Blood-Venous Gram Stain - Final Staphylococcus Aureus Accession No. : [id number] Patient Name / ID : KING MARTY Ryan / [id number] Exam Date : 12/04/2017 16:20:07 ( Approved ) Study Comment : Sex / Age : M / 47Y Creator : Vel Manuel MD Dictator : Vel Manuel MD Senior Data Developer : Furniture Cleaner : Vel Manuel MD Approver2 : Report Date : 12/04/2017 16:45:19 My Comment : HISTORY: SOB COMPARISON: Chest radiograph dated 11/16/2017. FINDINGS: LUNGS: No active pulmonary disease. PLEURA: No significant pleural effusion identified, no pneumothorax apparent. CARDIOVASCULAR: Normal. OSSEOUS STRUCTURES: Unchanged. VISUALIZED UPPER ABDOMEN: Partially imaged right double-J ureteral stent. OTHER FINDINGS: Left upper extremity PICC with catheter tip in the SVC. IMPRESSION: No active disease. Assessment & Plan (1) HIV (human immunodeficiency virus infection) Status: Acute (2) AIDS Status: Acute (3) Acute renal failure Status: Acute (4) Bacteremia Status: Acute (5) Obstructive uropathy Status: Acute - Assessment and Plan (Free Text) Assessment: A/P- 47 year old male with hIV/AIDS admitted bc he was called by his PMD that his creatinine is higher. pt. was admitted last month with obstructive uropahty secondary to renal stone s /p ureteral stent and had staph aureus UTI and bacteremia last admission and was started on IV vancomycin to which he repsoned very well and repeat blood cx were negative x 3 and was advised to complete total of 21 days of IV vanco. keep trough <20 and monitor creatinine also once a week by home infusion nurse and his PMD. afebrile normal wbc count. + UA. last admission urine cx- MSSA last admission Blood cx- MSSA x 3 repeat blood cx from 11/19/2017- neg x 3 TTE- no vegetations as pe report read by dianetic counselor. ELIANA plan- completed course of IV meropnem last admission. advise to decrease his vanco dose for now to 750 mg q2 hours pending vanco trough tomm am and monitor creatinine level closely. today is day #18 of his IV vancomycin therapy. needs 3 more days. also pt. needs to have the ureteral stent removed as it can also cause UTI and pt. has many bacteria and WBC in current UA. await urine cx. all above d/w patient and with family practice team at length. Thank you for allowing met o take part in the care of this patient.
--- NOTE | 2017-12-05 14:30 | CP.PCM.CON ---
History of Present Illness - History of Present Illness History of Present Illness: Ditated MARILYNN suggest vanco. level stat and hold vanco till level available. Past Patient History - Infectious Disease Hx of Infectious Diseases: None - Past Medical History & Family History Past Medical History?: Yes - Past Social History Smoking Status: Never Smoked - CARDIAC Hx Cardiac Disorders: No - PULMONARY Hx Respiratory Disorders: No - NEUROLOGICAL Hx Migraine: Yes (Pt denies) - HEENT Other/Comment: wear glasses - RENAL Hx Chronic Kidney Disease: Yes Hx Kidney Stones: Yes - ENDOCRINE/METABOLIC Hx Endocrine Disorders: No - HEMATOLOGICAL/ONCOLOGICAL Hx Human Immunodeficiency Virus (HIV): Yes - INTEGUMENTARY Hx Dermatological Problems: Yes (acne) - MUSCULOSKELETAL/RHEUMATOLOGICAL Hx Falls: No - GASTROINTESTINAL Hx Gastrointestinal Disorders: No - GENITOURINARY/GYNECOLOGICAL Hx Genitourinary Disorders: No - PSYCHIATRIC Hx Substance Use: No - SURGICAL HISTORY Hx Surgeries: No Other/Comment: PICC LINE - ANESTHESIA Hx Anesthesia: Yes Hx Anesthesia Reactions: No Hx Malignant Hyperthermia: No Meds Allergies/Adverse Reactions: Allergies Allergy/AdvReac Type Severity Reaction Status Date / Time Sulfa (Sulfonamide Allergy NAUSEA Verified 12/02/15 20:35 Antibiotics) sulfamethoxazole Allergy NAUSEA Verified 12/02/15 20:35 [From Bactrim] trimethoprim [From Bactrim] Allergy NAUSEA Verified 12/02/15 20:35 - Medications Medications: Current Medications Acetaminophen (Tylenol 325mg Tab) 650 mg PO Q6 PRN PRN Reason: Fever >100.4 F Azithromycin (Zithromax) 1,200 mg PO QWK [facility] PRN Reason: Protocol Enoxaparin Sodium (Lovenox) 40 mg SC DAILY [facility] PRN Reason: Protocol Last Admin: 12/05/17 08:56 Dose: Not Given Home Med (Patient's Own Medication) 10 unit PO DAILYWM [facility] Last Admin: 12/05/17 13:46 Dose: 10 unit Vancomycin HCl 1,500 mg/ (Sodium Chloride) 500 mls @ 250 mls/hr IVPB DAILY [facility] Last Admin: 12/05/17 12:31 Dose: 250 mls/hr Ondansetron HCl (Zofran Inj) 4 mg IVP Q6 PRN PRN Reason: Nausea/Vomiting Tamsulosin HCl (Flomax) 0.4 mg PO HS [facility] Results - Vital Signs Recent Vital Signs: Last Vital Signs Temp 98.5 F 12/05/17 13:00 Pulse 66 12/05/17 13:00 Resp 18 12/05/17 13:00 BP 111/69 12/05/17 13:00 Pulse Ox 100 12/05/17 13:00 - Labs Result Diagrams: 12/05/17 12:30 12/05/17 12:30 Labs: Laboratory Results - last 24 hr 12/04/17 12/04/17 12/04/17 17:16 17:16 18:15 WBC 5.7 RBC 2.74 L Hgb 7.4 L D Hct 22.3 L MCV 81.6 MCH 27.1 MCHC 33.2 RDW 16.5 H Plt Count 206 MPV 8.7 Neut % (Auto) 73.8 Lymph % (Auto) 7.9 L [place]y % (Auto) 8.9 Eos % (Auto) 8.1 H Baso % (Auto) 1.3 Neut # (Auto) 4.2 Lymph # (Auto) 0.5 L [place]y # (Auto) 0.5 Eos # (Auto) 0.5 Baso # (Auto) 0.1 Neutrophils % (Manual) 64 Band Neutrophils % 5 H Lymphocytes % (Manual) 12 L Reactive Lymphs % 1 H Monocytes % (Manual) 10 Eosinophils % (Manual) 7 Basophils % (Manual) 1 Platelet Estimate Normal Hypochromasia (manual) Slight Poikilocytosis (manual Slight Anisocytosis (manual) Moderate Microcytosis (manual) Slight Tear Drop Cells Slight Ovalocytes Slight Sodium 141 Potassium 3.9 Chloride 107 Carbon Dioxide 23 Anion Gap 15 BUN 19 Creatinine 1.7 H Est GFR ( Amer) 53 Est GFR (Non-Af Amer) 44 Random Glucose 106 Calcium 8.6 Total Bilirubin 1.3 AST 119 H D ALT 102 H D Alkaline Phosphatase 116 Troponin I < 0.0120 Total Protein 8.2 Albumin 3.8 Globulin 4.4 H Albumin/Globulin Ratio 0.9 L Urine Color Yudelka Urine Clarity Turbid Urine pH 6.0 Ur Specific [place] 1.019 Urine Protein 100 Urine Glucose (UA) Neg Urine Ketones Negative Urine Blood Large Urine Nitrate Negative Urine Bilirubin Negative Urine Urobilinogen 4.0 Ur Leukocyte Esterase Mod Urine RBC (Auto) 1313 H Urine WBC Clumps (Auto) Few H Urine Microscopic WBC 95 H Ur Squamous Epith Cells 2 Amorphous Sediment Moderate H Urine Bacteria Mod H Vancomycin Trough Blood Type Antibody Screen Crossmatch BBK History Checked 12/04/17 12/05/17 12/05/17 18:15 12:30 12:30 WBC 4.2 L RBC 4.49 Hgb 12.4 D Hct 37.3 MCV 83.0 MCH 27.6 MCHC 33.3 RDW 16.1 H Plt Count 173 MPV Neut % (Auto) Lymph % (Auto) [place] % (Auto) Eos % (Auto) Baso % (Auto) Neut # (Auto) Lymph # (Auto) [place]y # (Auto) Eos # (Auto) Baso # (Auto) Neutrophils % (Manual) Band Neutrophils % Lymphocytes % (Manual) Reactive Lymphs % Monocytes % (Manual) Eosinophils % (Manual) Basophils % (Manual) Platelet Estimate Hypochromasia (manual) Poikilocytosis (manual Anisocytosis (manual) Microcytosis (manual) Tear Drop Cells Ovalocytes Sodium 143 Potassium 3.9 Chloride 111 H Carbon Dioxide 18 L Anion Gap 18 BUN 15 Creatinine 1.6 H Est GFR ( Amer) 57 Est GFR (Non-Af Amer) 47 Random Glucose 90 Calcium 8.7 Total Bilirubin 1.4 H AST 72 H D ALT 91 H Alkaline Phosphatase 121 Troponin I Total Protein 8.5 H Albumin 3.8 Globulin 4.6 H Albumin/Globulin Ratio 0.8 L Urine Color Urine Clarity Urine pH Ur Specific [place] Urine Protein Urine Glucose (UA) Urine Ketones Urine Blood Urine Nitrate Urine Bilirubin Urine Urobilinogen Ur Leukocyte Esterase Urine RBC (Auto) Urine WBC Clumps (Auto) Urine Microscopic WBC Ur Squamous Epith Cells Amorphous Sediment Urine Bacteria Vancomycin Trough Blood Type O POSITIVE Antibody Screen Negative Crossmatch See Detail BBK History Checked Patient has bt 12/05/17 12:30 WBC RBC Hgb Hct MCV MCH MCHC RDW Plt Count MPV Neut % (Auto) Lymph % (Auto) Emery % (Auto) Eos % (Auto) Baso % (Auto) Neut # (Auto) Lymph # (Auto) [place] # (Auto) Eos # (Auto) Baso # (Auto) Neutrophils % (Manual) Band Neutrophils % Lymphocytes % (Manual) Reactive Lymphs % Monocytes % (Manual) Eosinophils % (Manual) Basophils % (Manual) Platelet Estimate Hypochromasia (manual) Poikilocytosis (manual Anisocytosis (manual) Microcytosis (manual) Tear Drop Cells Ovalocytes Sodium Potassium Chloride Carbon Dioxide Anion Gap BUN Creatinine Est GFR ( Amer) Est GFR (Non-Af Amer) Random Glucose Calcium Total Bilirubin AST ALT Alkaline Phosphatase Troponin I Total Protein Albumin Globulin Albumin/Globulin Ratio Urine Color Urine Clarity Urine pH Ur Specific [place] Urine Protein Urine Glucose (UA) Urine Ketones Urine Blood Urine Nitrate Urine Bilirubin Urine Urobilinogen Ur Leukocyte Esterase Urine RBC (Auto) Urine WBC Clumps (Auto) Urine Microscopic WBC Ur Squamous Epith Cells Amorphous Sediment Urine Bacteria Vancomycin Trough 13.9 H Blood Type Antibody Screen Crossmatch BBK History Checked
[2017-12-06 07:52] LABS: CALCIUM 8.3 mg/dL (8.4-10.2)
[2017-12-06 07:59] LABS: HEMOGLOBIN 11.6 g/dL (12.0-18.0); MEAN CORPUSCULAR HEMOGLOBIN 27.4 pg (27.0-31.0); RBC 4.24 Mil/uL (4.40-5.90); RED CELL DISTRIBUTION WIDTH 16.7 % (11.5-14.5); WHITE BLOOD COUNT 5.6 K/uL (4.8-10.8)
--- NOTE | 2017-12-06 08:04 | CP.PCM.PN ---
<Karri Donaldson T - Last Filed: 12/06/17 12:09> Subjective - Date & Time of Evaluation Date of Evaluation: 12/06/17 Time of Evaluation: 08:15 - Subjective Subjective: Pt seen and examined at bedside. Pt denies any overnight complaints, problems, or issues. Additionally, he denies fevers/chills, n/v/d, chest pain, SOB, dyspnea, cough, lower back pain, or dysuria. Objective - Vital Signs/Intake and Output Vital Signs (last 24 hours): Temp Pulse Resp BP Pulse Ox 98.5 F 73 18 102/64 99 12/06/17 07:56 12/06/17 07:56 12/06/17 07:56 12/06/17 07:56 12/06/17 07:56 - Medications Medications: Current Medications Acetaminophen (Tylenol 325mg Tab) 650 mg PO Q6 PRN PRN Reason: Fever >100.4 F Azithromycin (Zithromax) 1,200 mg PO QWK [facility] PRN Reason: Protocol Enoxaparin Sodium (Lovenox) 40 mg SC DAILY [facility] PRN Reason: Protocol Last Admin: 12/05/17 08:56 Dose: Not Given Home Med (Patient's Own Medication) 10 unit PO DAILYWM [facility] Vancomycin HCl 750 mg/ Sodium (Chloride) 250 mls @ 166.667 mls/hr IVPB Q12 [facility] PRN Reason: Protocol Last Admin: 12/05/17 20:07 Dose: Not Given Ondansetron HCl (Zofran Inj) 4 mg IVP Q6 PRN PRN Reason: Nausea/Vomiting Tamsulosin HCl (Flomax) 0.4 mg PO [facility] Last Admin: 12/05/17 21:03 Dose: 0.4 mg - Labs Labs: 12/05/17 12:30 12/06/17 06:47 - Additional Findings Additional findings: - Constitutional Appears: No Acute Distress - Eye Exam Eye Exam: EOMI, Normal appearance - Neck Exam Neck Exam: Full ROM - Respiratory Exam Respiratory Exam: Clear to Ausculation Bilateral, NORMAL BREATHING PATTERN. absent: Wheezes - Cardiovascular Exam Cardiovascular Exam: REGULAR RHYTHM, +S1, +S2 - GI/Abdominal Exam GI & Abdominal Exam: Soft, Normal Bowel Sounds. absent: Tenderness - Extremities Exam Extremities Exam: Full ROM, Normal Capillary Refill - Neurological Exam Neurological Exam: Alert, Awake, CN II-XII Intact, Oriented x3 - Psychiatric Exam Psychiatric exam: Normal Affect, Normal Mood Assessment and Plan - Assessment and Plan (Free Text) Plan: 47 yo M PMHx of AIDS, chronic anemia, and prostatitis admitted for acute kidney injury and low H/H 1) Acute Kidney Injury -secondary to Vancomycin VS Antiretroviral medication VS Ureteral Stent Placement -Recently discharged for complicated UTI secondary to obstructive uropathy -Vanco Trough 21.1; Will HOLD next vanco dose -NS @ 84 mL/hr -ID Onboard -Nephro Onboard -Urology Onboard: appt w Dr. Thao 12/09/17 for stent removal -f/u BMP -f/u Nephro 2) Anemia -Unknown etiology -Improved, but needs follow up to assure no consistent loss --following 3u pRBCs; 7.4 -> (12/05) 12.4 -> (12/06) 11.6 -f/u H/H tomorrow AM -f/u FOBT tomorrow AM 3) UTI -persistent care/therapy due to current placement of ureteral stent -recent hospitalization for obstructive uropathy due to infected renal stone -s/p emergent ureteral stent last hospitalization -Vancomycin Day 19 --HELD currently due to elevated vanco trough -f/u UCx -f/u Vanco trough 4) AIDS -CD4 count <20 -Azithromycin Prophylaxis 5) Transaminitis -may reactive secondary to medications and AIDS -AST:119~ ALT: 102 6) h/o Syphilis -has previously received therapy 7) DVT Prophylaxis -Lovenox 40 mg sc daily <Alena Marte - Last Filed: 12/07/17 08:43> Objective - Vital Signs/Intake and Output Vital Signs (last 24 hours): Temp Pulse Resp BP Pulse Ox 98.5 F 61 18 100/58 L 100 12/07/17 05:20 12/07/17 05:20 12/07/17 05:20 12/07/17 05:20 12/07/17 05:20 - Medications Medications: Current Medications Acetaminophen (Tylenol 325mg Tab) 650 mg PO Q6 PRN PRN Reason: Fever >100.4 F Azithromycin (Zithromax) 1,200 mg PO QWK [facility] PRN Reason: Protocol Enoxaparin Sodium (Lovenox) 40 mg SC DAILY [facility] PRN Reason: Protocol Last Admin: 12/06/17 12:29 Dose: Not Given Home Med (Patient's Own Medication) 10 unit PO DAILYWM [facility] Last Admin: 12/06/17 09:10 Dose: 10 unit Vancomycin HCl 750 mg/ Sodium (Chloride) 250 mls @ 166.667 mls/hr IVPB Q12 [facility] PRN Reason: Protocol Last Admin: 12/06/17 09:10 Dose: 166.667 mls/hr Sodium Chloride (Sodium Chloride 0.9%) 1,000 mls @ 84 mls/hr IV .[id number] [facility] Stop: 12/07/17 12:14 Last Admin: 12/07/17 01:00 Dose: Not Given Ondansetron HCl (Zofran Inj) 4 mg IVP Q6 PRN PRN Reason: Nausea/Vomiting Tamsulosin HCl (Flomax) 0.4 mg PO HS [facility] Last Admin: 12/06/17 22:15 Dose: 0.4 mg - Labs Labs: 12/07/17 07:00 12/07/17 07:00 Attending/Attestation - Attestation I have personally seen and examined this patient.: Yes I have fully participated in the care of the patient.: Yes I have reviewed all pertinent clinical information, including history, physical exam and plan: Yes Notes (Text): 12/07/17 08:42 ATTENDING NOTE ATTESTATION PATIENT SEEN AND EXAMINED. CASE DISCUSSED WITH RESIDENT. ID CONSULTED BY RESIDENT TO DISCUSS AND MANAGE VANCOMYCIN DOSAGE. AGREE WITH FINDINGS AND PLAN.
[2017-12-06] MEDS: ATOVAQUONE 750 MG/5 ML PO SCH (09:10)
--- NOTE | 2017-12-06 10:56 | CP.PCM.PN ---
Subjective - Date & Time of Evaluation Date of Evaluation: 12/06/17 Time of Evaluation: 10:56 - Subjective Subjective: RENAL FOLLOW UP S: seen and examined no acute events o/n vss gen: nad sclera: anicteric op: clear neck: supple cv: +s1+s2 lungs: cta b/l abd: soft ext: no edema neuro: a+ox3 psych: nml affect skin: no rash imp: arf /hiv/ anemia / nephrolithiasis/bacteremia plan: MARILYNN etiology not clear yet - perhaps related to the vanco. Doubt hivan though possible recc check urine protein and urine creatinine. Recc renal us to make sure stent that was placed patent and no hydronephrosis present. also recc repeat ua and ucx - last ua w/ bacteria and leukocytes course of vanco close to complete per id note, please monitor levels Objective - Vital Signs/Intake and Output Vital Signs (last 24 hours): Temp Pulse Resp BP Pulse Ox 98.5 F 73 18 102/64 99 12/06/17 07:56 12/06/17 07:56 12/06/17 07:56 12/06/17 07:56 12/06/17 07:56 - Medications Medications: Current Medications Acetaminophen (Tylenol 325mg Tab) 650 mg PO Q6 PRN PRN Reason: Fever >100.4 F Azithromycin (Zithromax) 1,200 mg PO QWK [facility] PRN Reason: Protocol Enoxaparin Sodium (Lovenox) 40 mg SC DAILY [facility] PRN Reason: Protocol Last Admin: 12/05/17 08:56 Dose: Not Given Home Med (Patient's Own Medication) [facility] Last Admin: 12/06/17 09:10 Dose: 10 unit Vancomycin HCl 750 mg/ Sodium (Chloride) 250 mls @ 166.667 mls/hr IVPB Q12 [facility] PRN Reason: Protocol Last Admin: 12/06/17 09:10 Dose: 166.667 mls/hr Ondansetron HCl (Zofran Inj) 4 mg IVP Q6 [facility] PRN Reason: Nausea/Vomiting Tamsulosin HCl (Flomax) 0.4 mg PO HS [facility] Last Admin: 12/05/17 21:03 Dose: 0.4 mg - Labs Labs: 12/06/17 06:47 12/06/17 06:47
[2017-12-06 11:04] LABS: ALB/GLOB RATIO 0.8 (1.0-2.1); ALBUMIN 3.5 g/dL (3.5-5.0); BILIRUBIN,DIRECT 0.6 mg/ml (0.0-0.4)
[2017-12-06] MEDS: Enoxaparin 40 mg Syringe SC SCH (12:29)
[2017-12-06] MEDS: Sodium Chloride 0.9% 1,000 ML IV SCH (12:29)
[2017-12-07] MEDS: Sodium Chloride 0.9% 1,000 ML IV SCH (01:00)
[2017-12-07 08:05] LABS: HEMOGLOBIN 12.2 g/dL (12.0-18.0)
[2017-12-07 08:08] LABS: BLOOD UREA NITROGEN 13 mg/dl (9-20); CALCIUM 8.4 mg/dL (8.4-10.2); GFR AFRICAN-AMERICAN > 60; GFR NON-AFRICAN AMERICAN 50
[2017-12-07 08:43] VITALS: RESP 20
[2017-12-07] MEDS: Enoxaparin 40 mg Syringe SC SCH (09:25)
[2017-12-07] MEDS: ATOVAQUONE 750 MG/5 ML PO SCH (09:26)
--- NOTE | 2017-12-07 10:58 | CP.PCM.DIS ---
<Omid Unger - Last Filed: 12/07/17 12:27> Provider - Provider Date of Admission: 12/04/17 17:58 Attending physician: Xochilt Villeda MD Time Spent in preparation of Discharge (in minutes): 25 Hospital Course - Lab Results Lab Results: Micro Results 12/05/17 19:00 Urine Urine Culture - Final No Growth (<1,000 CFU/ML) Most Recent Lab Values WBC 5.6 K/uL (4.8-10.8) 12/06/17 06:47 RBC 4.24 Mil/uL (4.40-5.90) L 12/06/17 06:47 Hgb 12.2 g/dL (12.0-18.0) 12/07/17 07:00 Hct 36.7 % (35.0-51.0) 12/07/17 07:00 MCV 83.0 fl (80.0-94.0) 12/06/17 06:47 MCH 27.4 pg (27.0-31.0) 12/06/17 06:47 MCHC 33.0 g/dL (33.0-37.0) 12/06/17 06:47 RDW 16.7 % (11.5-14.5) H 12/06/17 06:47 Plt Count 184 K/uL (130-400) 12/06/17 06:47 MPV 8.7 fl (7.2-11.7) 12/04/17 17:16 Neut % (Auto) 73.8 % (50.0-75.0) 12/04/17 17:16 Lymph % (Auto) 7.9 % (20.0-40.0) L 12/04/17 17:16 [place] % (Auto) 8.9 % (0.0-10.0) 12/04/17 17:16 Eos % (Auto) 8.1 % (0.0-4.0) H 12/04/17 17:16 Baso % (Auto) 1.3 % (0.0-2.0) 12/04/17 17:16 Neut # (Auto) 4.2 K/uL (1.8-7.0) 12/04/17 17:16 Lymph # (Auto) 0.5 K/uL (1.0-4.3) L 12/04/17 17:16 [place] # (Auto) 0.5 K/uL (0.0-0.8) 12/04/17 17:16 Eos # (Auto) 0.5 K/uL (0.0-0.7) 12/04/17 17:16 Baso # (Auto) 0.1 K/uL (0.0-0.2) 12/04/17 17:16 Neutrophils % (Manual) 64 % (42-75) 12/04/17 17:16 Band Neutrophils % 5 % (0-2) H 12/04/17 17:16 Lymphocytes % (Manual) 12 % (20-50) L 12/04/17 17:16 Reactive Lymphs % 1 % (0-0) H 12/04/17 17:16 Monocytes % (Manual) 10 % (0-10) 12/04/17 17:16 Eosinophils % (Manual) 7 % (0-7) 12/04/17 17:16 Basophils % (Manual) 1 % (0-2) 12/04/17 17:16 Platelet Estimate Normal (NORMAL) 12/04/17 17:16 Hypochromasia (manual) Slight 12/04/17 17:16 Poikilocytosis (manual Slight 12/04/17 17:16 Anisocytosis (manual) Moderate 12/04/17 17:16 Microcytosis (manual) Slight 12/04/17 17:16 Tear Drop Cells Slight 12/04/17 17:16 Ovalocytes Slight 12/04/17 17:16 Sodium 144 mmol/l (132-148) 12/07/17 07:00 Potassium 4.4 MMOL/L (3.6-5.0) 12/07/17 07:00 Chloride 111 mmol/L (98-107) H 12/07/17 07:00 Carbon Dioxide 21 mmol/L (22-30) L 12/07/17 07:00 Anion Gap 16 (10-20) 12/07/17 07:00 BUN 13 mg/dl (9-20) 12/07/17 07:00 Creatinine 1.5 mg/dl (0.8-1.5) 12/07/17 07:00 Est GFR ( Amer) > 60 12/07/17 07:00 Est GFR (Non-Af Amer) 50 12/07/17 07:00 Random Glucose 82 mg/dL (75-110) 12/07/17 07:00 Calcium 8.4 mg/dL (8.4-10.2) 12/07/17 07:00 Total Bilirubin 1.0 mg/dl (0.2-1.3) 12/06/17 09:01 Direct Bilirubin 0.6 mg/ml (0.0-0.4) H 12/06/17 09:01 AST 76 U/L (17-59) H 12/06/17 09:01 ALT 69 U/L (21-72) 12/06/17 09:01 Alkaline Phosphatase 117 U/L (38-126) 12/06/17 09:01 Troponin I < 0.0120 ng/mL (0.00-0.120) 12/04/17 17:16 Total Protein 7.7 G/DL (6.3-8.2) 12/06/17 09:01 Albumin 3.5 g/dL (3.5-5.0) 12/06/17 09:01 Globulin 4.2 gm/dL (2.2-3.9) H 12/06/17 09:01 Albumin/Globulin Ratio 0.8 (1.0-2.1) L 12/06/17 09:01 Urine Color Y[place] (YELLOW) 12/04/17 18:15 Urine Clarity Turbid (Clear) 12/04/17 18:15 Urine pH 6.0 (5.0-8.0) 12/04/17 18:15 Ur Specific [place] 1.019 (1.003-1.030) 12/04/17 18:15 Urine Protein 100 mg/dL (NEGATIVE) 12/04/17 18:15 Urine Glucose (UA) Neg mg/dL (Normal) 12/04/17 18:15 Urine Ketones Negative mg/dL (NEGATIVE) 12/04/17 18:15 Urine Blood Large (NEGATIVE) 12/04/17 18:15 Urine Nitrate Negative (NEGATIVE) 12/04/17 18:15 Urine Bilirubin Negative (NEGATIVE) 12/04/17 18:15 Urine Urobilinogen 4.0 mg/dL (0.2-1.0) 12/04/17 18:15 Ur Leukocyte Esterase Mod Cher/uL (Negative) 12/04/17 18:15 Urine RBC (Auto) 1313 /hpf (0-3) H 12/04/17 18:15 Urine WBC Clumps (Auto) Few /hpf (NONE) H 12/04/17 18:15 Urine Microscopic WBC 95 /hpf (0-5) H 18 18:15 Ur Squamous Epith Cells 2 /hpf (0-5) 12/04/17 18:15 Amorphous Sediment Moderate /ul (<OCC) H 12/04/17 18:15 Urine Bacteria Mod (<OCC) H 12/04/17 18:15 Vancomycin Trough 15.7 ug/mL (5.0-10.0) H 12/07/17 07:00 Blood Type O POSITIVE 12/04/17 18:15 Antibody Screen Negative 12/04/17 18:15 Crossmatch See Detail 12/04/17 18:15 BBK History Checked Patient has bt 12/04/17 18:15 - Hospital Course Hospital Course: 47 yo M PMHx of AIDS, chronic anemia, and prostatitis admitted for acute kidney injury and low H/H. s/p transfusion x3 units of PRBC, IVF, and vanc. Vanc trough done today at 15.7. Vanc decreased per ID. MARILYNN resolved. Pt to f/u with Dr. Medrano in clinic tomorrow. Discharge Exam - Head Exam Head Exam: ATRAUMATIC Discharge Plan - Discharge Medications Prescriptions: Atovaquone [Mepron] 1,500 mg PO DAILYWM 30 Days #30 packet Azithromycin [Zithromax] 1,200 mg PO QWK #8 tab Tamsulosin [Flomax] 0.4 mg PO HS 30 Days #30 cap Vancomycin HCl in Dextrose 5 % [Vancomycin 1.5 Gram/250 ml-D5w] 1,500 mg IV DAILY #3 plast..bag - Follow Up Plan Condition: FAIR Disposition: HOME/ ROUTINE Instructions: Anemia (DC) Additional Instructions: Pt to be discharged home with picc line to continue vanc treatment <Alena Marte - Last Filed: 12/08/17 10:22> Provider - Provider Date of Admission: 12/04/17 17:58 Attending physician: Xochilt Villeda MD Hospital Course - Lab Results Lab Results: Micro Results 12/05/17 19:00 Urine Urine Culture - Final No Growth (<1,000 CFU/ML) Most Recent Lab Values WBC 5.6 K/uL (4.8-10.8) 12/06/17 06:47 RBC 4.24 Mil/uL (4.40-5.90) L 12/06/17 06:47 Hgb 12.2 g/dL (12.0-18.0) 12/07/17 07:00 Hct 36.7 % (35.0-51.0) 12/07/17 07:00 MCV 83.0 fl (80.0-94.0) 12/06/17 06:47 MCH 27.4 pg (27.0-31.0) 12/06/17 06:47 MCHC 33.0 g/dL (33.0-37.0) 12/06/17 06:47 RDW 16.7 % (11.5-14.5) H 12/06/17 06:47 Plt Count 184 K/uL (130-400) 12/06/17 06:47 MPV 8.7 fl (7.2-11.7) 12/04/17 17:16 Neut % (Auto) 73.8 % (50.0-75.0) 12/04/17 17:16 Lymph % (Auto) 7.9 % (20.0-40.0) L 12/04/17 17:16 [place] % (Auto) 8.9 % (0.0-10.0) 12/04/17 17:16 Eos % (Auto) 8.1 % (0.0-4.0) H 12/04/17 17:16 Baso % (Auto) 1.3 % (0.0-2.0) 12/04/17 17:16 Neut # (Auto) 4.2 K/uL (1.8-7.0) 12/04/17 17:16 Lymph # (Auto) 0.5 K/uL (1.0-4.3) L 12/04/17 17:16 [place] # (Auto) 0.5 K/uL (0.0-0.8) 12/04/17 17:16 Eos # (Auto) 0.5 K/uL (0.0-0.7) 12/04/17 17:16 Baso # (Auto) 0.1 K/uL (0.0-0.2) 12/04/17 17:16 Neutrophils % (Manual) 64 % (42-75) 12/04/17 17:16 Band Neutrophils % 5 % (0-2) H 12/04/17 17:16 Lymphocytes % (Manual) 12 % (20-50) L 12/04/17 17:16 Reactive Lymphs % 1 % (0-0) H 12/04/17 17:16 Monocytes % (Manual) 10 % (0-10) 12/04/17 17:16 Eosinophils % (Manual) 7 % (0-7) 12/04/17 17:16 Basophils % (Manual) 1 % (0-2) 12/04/17 17:16 Platelet Estimate Normal (NORMAL) 12/04/17 17:16 Hypochromasia (manual) Slight 12/04/17 17:16 Poikilocytosis (manual Slight 12/04/17 17:16 Anisocytosis (manual) Moderate 12/04/17 17:16 Microcytosis (manual) Slight 12/04/17 17:16 Tear Drop Cells Slight 12/04/17 17:16 Ovalocytes Slight 12/04/17 17:16 Sodium 144 mmol/l (132-148) 12/07/17 07:00 Potassium 4.4 MMOL/L (3.6-5.0) 12/07/17 07:00 Chloride 111 mmol/L (98-107) H 12/07/17 07:00 Carbon Dioxide 21 mmol/L (22-30) L 12/07/17 07:00 Anion Gap 16 (10-20) 12/07/17 07:00 BUN 13 mg/dl (9-20) 12/07/17 07:00 Creatinine 1.5 mg/dl (0.8-1.5) 12/07/17 07:00 Est GFR ( Amer) > 60 12/07/17 07:00 Est GFR (Non-Af Amer) 50 12/07/17 07:00 Random Glucose 82 mg/dL (75-110) 12/07/17 07:00 Calcium 8.4 mg/dL (8.4-10.2) 12/07/17 07:00 Total Bilirubin 1.0 mg/dl (0.2-1.3) 12/06/17 09:01 Direct Bilirubin 0.6 mg/ml (0.0-0.4) H 12/06/17 09:01 AST 76 U/L (17-59) H 12/06/17 09:01 ALT 69 U/L (21-72) 12/06/17 09:01 Alkaline Phosphatase 117 U/L (38-126) 12/06/17 09:01 Troponin I < 0.0120 ng/mL (0.00-0.120) 12/04/17 17:16 Total Protein 7.7 G/DL (6.3-8.2) 12/06/17 09:01 Albumin 3.5 g/dL (3.5-5.0) 12/06/17 09:01 Globulin 4.2 gm/dL (2.2-3.9) H 12/06/17 09:01 Albumin/Globulin Ratio 0.8 (1.0-2.1) L 12/06/17 09:01 Urine Color Yellow (YELLOW) 12/07/17 15:43 Urine Clarity Slighty-cloudy (Clear) 12/07/17 15:43 Urine pH 6.0 (5.0-8.0) 12/07/17 15:43 Ur Specific [place] 1.013 (1.003-1.030) 12/07/17 15:43 Urine Protein 30 mg/dL (NEGATIVE) 12/07/17 15:43 Urine Glucose (UA) Neg mg/dL (Normal) 12/07/17 15:43 Urine Ketones Negative mg/dL (NEGATIVE) 12/07/17 15:43 Urine Blood Large (NEGATIVE) 12/07/17 15:43 Urine Nitrate Negative (NEGATIVE) 12/07/17 15:43 Urine Bilirubin Negative (NEGATIVE) 12/07/17 15:43 Urine Urobilinogen 2.0 mg/dL (0.2-1.0) 12/07/17 15:43 Ur Leukocyte Esterase Small Cher/uL (Negative) 12/07/17 15:43 Urine RBC (Auto) 285 /hpf (0-3) H 12/07/17 15:43 Urine WBC Clumps (Auto) Few /hpf (NONE) H 12/04/17 18:15 Urine Microscopic WBC 13 /hpf (0-5) H 12/07/17 15:43 Ur Squamous Epith Cells 1 /hpf (0-5) 12/07/17 15:43 Amorphous Sediment Moderate /ul (<OCC) H 12/04/17 18:15 Urine Bacteria Mod (<OCC) H 12/04/17 18:15 Vancomycin Trough 15.7 ug/mL (5.0-10.0) H 12/07/17 07:00 Blood Type O POSITIVE 12/04/17 18:15 Antibody Screen Negative 12/04/17 18:15 Crossmatch See Detail 12/04/17 18:15 BBK History Checked Patient has bt 12/04/17 18:15 Attending/Attestation - Attestation I have personally seen and examined this patient.: Yes I have fully participated in the care of the patient.: Yes I have reviewed all pertinent clinical information, including history, physical exam and plan: Yes Notes (Text): 12/08/17 10:21 ATTENDING NOTE - ATTESTATION PATIENT SEEN AND EXAMINED. HE REPORTS HE FEELS WELL AND IS READY TO GO HOME AND FOLLOW OUTPATIENT. HE REPORTS HE HAS AN APPOINTMENT WITH DR JACKSON 10/13. CASE DISCUSSED WITH RESIDENT. AGREE WITH PLAN.
[2017-12-07 13:00] VITALS: BP 97/60; PULSE 65; TEMP 98.5; O2SAT 99
[2017-12-07 17:05] LABS: SQUAMOUS EPITHIAL 1 /hpf (0-5); URINE BILIRUBIN NEGATIVE (NEGATIVE); URINE BLOOD LARGE (NEGATIVE); URINE CLARITY SLIGHTY-CLOUDY (Clear); URINE COLOR YELLOW (YELLOW); URINE GLUCOSE (UA) NEG (Normal); URINE LEUKOCYTE ESTERASE SMALL Leu/uL (Negative); URINE NITRATE NEGATIVE (NEGATIVE); URINE PROTEIN 30 mg/dL (NEGATIVE)
--- NOTE | 2017-12-08 07:21 | CON ---
DATE: REQUESTING PHYSICIAN: Xochilt Villeda MD HISTORY OF PRESENT ILLNESS: The patient is a 47-year-old male. I was called and consulted to see him for rising BUN and creatinine. This gentleman has history in the past couple of weeks of renal colic and he was here about less than 2 weeks ago or so. He has stent inserted in the right side of the ureter apparently for right kidney stone and then he came back with fever, abdominal pain what appeared to be urosepsis and he has been started on vancomycin. Apparently, they must have been cultured and reported that vancomycin was given as an outpatient. 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 SOCIAL HISTORY: Not contributory. REVIEW OF SYSTEMS: The patient no more abdominal pain, no more dysuria, no more nocturia. The pain appeared to be subsided since he was admitted and no nausea, no vomiting. The rest of the 15-system reviewed and unremarkable except what I mentioned above. PHYSICAL EXAMINATION GENERAL: The patient is conscious and not in any acute distress. VITAL SIGNS: Blood pressure 111/69 and temperature 98.5. NECK: Supple. CHEST: Clear. HEART: No rubs. ABDOMEN: Soft. EXTREMITIES: No edema. LABORATORY DATA: Noted. The patient was given apparently blood transfusion, hemoglobin 7.4 has gone up to 12.4. The bilirubin 1.3 and the latest 1.4. The creatinine is 1.7 and the latest 1.6. The rest of the electrolyte unremarkable. Normal potassium and sodium. Chloride elevated 111 and CO2 went down to 18. Urinalysis has loaded with RBC, has some WBC and moderate bacteria. IMPRESSION: The patient appeared to have acute kidney injury probably related to urosepsis and possibly antibiotics? RECOMMENDATIONS: My recommendation to do vancomycin level stat and to adjust the vancomycin dose to the renal doses, I believe 1500 mg may be high at this presence, since the BUN and creatinine is rising. Therefore, I suggest to hold that until you get the level and get Infectious Disease involved. Already consultation in place. Jakob Johnson MD [facility] # [id number]
== END 2017-12-07 13:25 | disposition home or self-care (01) | DRG 682 ==
LOC: H.ER 15:26 → H.ERHOLD 17:58 → H.TEL 12-05 00:05
PROVIDERS: ADMIT Family Medicine Geriatric Medicine; ATTEND Family Medicine Geriatric Medicine
PROC: 30233N1 Transfusion of Nonautologous Red Blood Cells into Peripheral Vein, Percutaneous Approach (ICD-10-PCS; principal; 2017-12-05)
DX: N17.9 Acute kidney failure, unspecified (principal); B20 Human immunodeficiency virus [HIV] disease; N39.0 Urinary tract infection, site not specified; N13.9 Obstructive and reflux uropathy, unspecified; N18.9 Chronic kidney disease, unspecified; N20.0 Calculus of kidney; Z87.442 Personal history of urinary calculi; Z86.19 Personal history of other infectious and parasitic diseases; N41.9 Inflammatory disease of prostate, unspecified; R74.0 Nonspecific elevation of levels of transaminase and lactic acid dehydrogenase [LDH]; D64.9 Anemia, unspecified; F41.9 Anxiety disorder, unspecified

== ENCOUNTER 2017-12-25 20:07 | Inpatient (IN) | payer OTHER ==
[2017-12-25 20:07] VITALS: BMI 21.4
--- NOTE | 2017-12-25 22:11 | ED PDOC ---
HPI: General Adult Time Seen by Provider: 12/25/17 21:29 Chief Complaint (Nursing): Abnormal Skin Integrity History Per: Patient Additional Complaint(s): Pt. states for the past week he's had open wounds on his scalp and on his lower back. He was seen by Dr. Medrano today who instructed him to come to ED. Pt. was also told by Dr. Medrano that he had CD4 < 25. States he has only started taking his HIV meds in the past month once again. Pt. does not want to elaborate as to why he has not been on his HIV medications. Further states that he was on Azithromycin x 21 days and after he was taken off of it he developed a scaling rash throughout his body which is mildly pruritic. Denies fever, sore throat, trauma. Past Medical History Reviewed: Historical Data, Nursing Documentation, Vital Signs Vital Signs: Last Vital Signs Temp 98.1 F 12/25/17 21:25 Pulse 92 H 12/25/17 21:25 Resp 16 12/25/17 21:25 BP 109/64 12/25/17 21:25 Pulse Ox 100 12/26/17 00:07 - Medical History PMH: Hepatitis, HIV, Kidney Stones - Family History Family History: States: No Known Family Hx - Home Medications Home Medications: Ambulatory Orders Medication Instructions Recorded Atovaquone [Mepron] 1,500 mg PO DAILYWM 30 Days #30 12/07/17 packet - Allergies Allergies/Adverse Reactions: Allergies Allergy/AdvReac Type Severity Reaction Status Date / Time azithromycin [From Zithromax] Allergy RASH Verified 12/25/17 21:25 Sulfa (Sulfonamide Allergy NAUSEA Verified 12/25/17 21:25 Antibiotics) sulfamethoxazole Allergy NAUSEA Verified 12/25/17 21:25 [From Bactrim] trimethoprim [From Bactrim] Allergy NAUSEA Verified 12/25/17 21:25 Review of Systems ROS Statement: Except As Marked, All Systems Reviewed And Found Negative Skin: Positive for: Rash Physical Exam - Physical Exam Appears: Positive for: Well, Non-toxic, No Acute Distress Head Exam: Positive for: ATRAUMATIC, NORMOCEPHALIC. Negative for: NORMAL INSPECTION (2 open wounds with yellow discharge noted; indurated erythematous mass behind L ear with mild scaling; no mastoid tenderness b/l) Skin: Positive for: Normal Color, Warm, DRY Eye Exam: Positive for: EOMI, Normal appearance, PERRL ENT: Positive for: Normal ENT Inspection, Other (no oropharygeanl lesions) Neck: Positive for: Normal, Painless ROM Cardiovascular/Chest: Positive for: Regular Rate, Rhythm Respiratory: Positive for: CNT, Normal Breath Sounds Gastrointestinal/Abdominal: Positive for: Normal Exam, Soft. Negative for: Tenderness Back: Negative for: Normal Inspection (1 sacral open sacral wound with yellow discharge; 1 open wound with yellow discharge on R paralumbar area), L CVA Tenderness, R CVA Tenderness Extremity: Positive for: Normal ROM Neurologic/Psych: Positive for: Alert, Oriented. Negative for: Aphasia, Facial Droop - Laboratory Results Result Diagrams: 12/25/17 23:50 12/25/17 23:50 - ECG O2 Sat by Pulse Oximetry: 100 - Radiology X-Ray: Interpreted by Me (CXR) X-Ray Interpretation: No Acute Disease - Progress ED Course And Treament: Patient evaluated by Dr. Westfall who recommends blood work, isolation, and vancomycin IV. Labs ordered. Vancomycin IV ordered. Disposition - Clinical Impression Clinical Impression: Abscess, AIDS - Patient ED Disposition Is Patient to be Admitted: Transfer of Care (Signed out to Edwin MEJIA pending lab results and final disposition.) - Disposition Disposition Time: 00:00 Condition: STABLE Forms: [employer] ([place])
[2017-12-25 23:54] LABS: BASO # 0.1 K/uL (0.0-0.2); BASO % 1.7 % (0.0-2.0); EOS # 0.2 K/uL (0.0-0.7); EOS % 4.7 % (0.0-4.0); HEMOGLOBIN 11.8 g/dL (12.0-18.0); LYMPH # 0.6 K/uL (1.0-4.3); LYMPH % 15.1 % (20.0-40.0); MEAN CELL VOLUME 81.5 fl (80.0-94.0); MEAN CORPUSCULAR HEMOGLOBIN 27.4 pg (27.0-31.0); MEAN CORPUSCULAR HGB CONC 33.6 g/dL (33.0-37.0); MEAN PLATELET VOLUME 8.9 fl (7.2-11.7); MONO # 0.4 K/uL (0.0-0.8); MONO % 10.1 % (0.0-10.0); NEUT # 2.9 K/uL (1.8-7.0); NEUT % 68.4 % (50.0-75.0); NRBC % 0.8 % (0.0-0.0); RBC 4.32 Mil/uL (4.40-5.90); RED CELL DISTRIBUTION WIDTH 16.8 % (11.5-14.5); WHITE BLOOD COUNT 4.2 K/uL (4.8-10.8)
[2017-12-26 00:08] LABS: ALB/GLOB RATIO 0.8 (1.0-2.1); ALBUMIN 3.8 g/dL (3.5-5.0); CALCIUM 8.4 mg/dL (8.4-10.2)
--- NOTE | 2017-12-26 00:08 | ED PDOC ---
- Laboratory Results Result Diagrams: 12/25/17 23:50 12/25/17 23:50 - ECG O2 Sat by Pulse Oximetry: 100 Pulse Ox Interpretation: Normal Medical Decision Making Medical Decision Making: Case was signed to handbook writer from [facility] pending labs. Family practice resident, Dr. Haq to admit patient patient. Patient is aware and agrees with admission. Disposition - Clinical Impression Clinical Impression: AIDS, Immunocompromised patient, Seborrheic dermatitis, unspecified, Cellulitis - POA Present On Arrival: None - Disposition Disposition: Admitted as In-Patient Disposition Time: 00:54 Condition: FAIR Results - Lab Results Lab Results: 12/25/17 12/25/17 23:50 23:50 WBC 4.2 L RBC 4.32 L Hgb 11.8 L Hct 35.2 MCV 81.5 MCH 27.4 MCHC 33.6 RDW 16.8 H Plt Count 188 MPV 8.9 Neut % (Auto) 68.4 Lymph % (Auto) 15.1 L [place] % (Auto) 10.1 H Eos % (Auto) 4.7 H Baso % (Auto) 1.7 Neut # (Auto) 2.9 Lymph # (Auto) 0.6 L [place] # (Auto) 0.4 Eos # (Auto) 0.2 Baso # (Auto) 0.1 Sodium 141 Potassium 3.6 Chloride 105 Carbon Dioxide 23 Anion Gap 17 BUN 19 Creatinine 1.6 H Est GFR ( Amer) 57 Est GFR (Non-Af Amer) 47 Random Glucose 98 Calcium 8.4 Total Bilirubin 1.1 AST 39 ALT 31 Alkaline Phosphatase 108 Total Protein 8.5 H Albumin 3.8 Globulin 4.7 H Albumin/Globulin Ratio 0.8 L
[2017-12-26 01:14] LABS: VENOUS BLOOD GAS PCO2 43 mmHg (40-60); VENOUS BLOOD GAS PO2 35 mm/Hg (30-55); VENOUS BLOOD PH 7.38 (7.32-7.43)
--- NOTE | 2017-12-26 01:14 | CP.PCM.HP ---
Addendum entered and electronically signed by Yaima Johnson MD 12/26/17 17:46: No acute overnight events. Pt seen and examined at the bedside this am. Pt reports that he is comfortable. Denies any worsening skin lesions, pruritis, sores. Denies cough, sob, abdominal pain, n/v/d, dysuria, fever, chills. Vitals stable. PE- unchanged from admission. ID consulted- Dr. Gregg, started pt on Acyclovir IV Punch skin biopsy of left upper back and posterior scalp completed the bedside. Skin scrapings sent to lab. F/U results. Original Note: History of Present Illness - History of Present Illness History of Present Illness: "i have a rash and these lesions on my back, so my doctor sent me to the ER" 47 y/o male with a PMHx remarkable for AIDS (CD4 ~25), not taking HAART and only on Mepron for prophylaxis presents complaining of generalized rash and lower back lesions. Pt reports generalized rash started 1 week ago, unknown triggering event, started as "bumpy itchy rash" and then developed into dry skin with profuse peeling. The rash is located on his arms, legs, chest, and back. He also has some scalp involvement with a lesion overlying his occiptal region. He has been using OTC moisturizers and Aloe cream with little/no improvement. He also reports he has several ulcer like lesions on his lower back and in his gluteal cleft, which started appearing approx 3 weeks ago. Originally, pt denied prolonged periods in bed w/o ambulation but then reported that he has been also feeling "defeated and exhausted" the past several weeks as well, causing him to lay in bed all day. When asked about why hes not taking any prophylaxis he reports he keeps getting allergic reactions to the medications or remains silent. He denies any fever/chills, night sweats, weight loss, loss of appetite, cough, SOB/CP/NAILS/palpitations, N/V/D/C, urinary symptoms, numbness/tingling. PMD: [facility] dun[facility]. Dr Medrano. Last visit 12/25/2017 PMH: HIV/AIDS (CD4:25 not taking HAART or prophylaxis), Syphilis/Prostatitis treated ALL: Bactrim, azithromycin Meds: Atorvaquone (Mepron) SocialHx: Denies smoking or drugs, socially alcohol FamilyHx: unknown Code state: full code Next of kin: pt unsure of next of kin or emergency contact Present on Admission - Present on Admission Any Indicators Present on Admission: Yes History of DVT/PE: No History of Uncontrolled Diabetes: No Urinary Catheter: No Decubitus Ulcer Present: Yes Decubitus Ulcer Location: (8 lesions) within sacrum, gluteal cleft Decubitus Ulcer Stage: I Review of Systems - Constitutional Constitutional: Anorexia, Fatigue. absent: Chills, Daytime Sleepiness, Lethargy , Night Sweats, Weight Loss - EENT Eyes: absent: As Per HPI, Blind Spots, Blurred Vision, Change in Vision, Decreased Night Vision, Diplopia, Discharge, Dry Eye, Exophthalmos, Floaters, Irritation, Itchy Eyes, Loss of Peripheral Vision, Pain, Photophobia, Requires Corrective Lenses, Sees Flashes, Spots in Vision, Tunnel Vision, Other Visual Disturbances, Loss of Vision, Other Ears: absent: As Per HPI, Decreased Hearing, Ear Discharge, Ear Pain, Tinnitus, Abnormal Hearing, Disequilibrium, Dizziness, Other Nose/Mouth/Throat: absent: As Per HPI, Epistaxis, Nasal Congestion, Nasal Discharge, Nasal Obstruction, Nasal Trauma, Nose Pain, Post Nasal Drip, Sinus Pain, Sinus Pressure, Bleeding Gums, Change in Voice, Dental Pain, Dry Mouth, Dysphagia, Halitosis, Hoarsness, Lip Swelling, Mouth Lesions, Mouth Pain, Odynophagia, Sore Throat, Throat Swelling, Tongue Swelling, Facial Pain, Neck Pain, Neck Mass, Other - Cardiovascular Cardiovascular: absent: As Per HPI, Acrocyanosis, Chest Pain, Chest Pain at Rest , Chest Pain with Activity, Claudication, Diaphoresis, Dyspnea, Dyspnea on Exertion, Edema, Irregular Heart Rhythm, Pain Radiating to Arm/Neck/Jaw, Leg Edema, Leg Ulcers, Lightheadedness, Orthopnea, Palpitations, Paroxysmal Nocturnal Dyspnea, Pedal Edema, Radiating Pain, Rapid Heart Rate, Slow Heart Rate, Syncope, Other - Respiratory Respiratory: absent: As Per HPI, Cough, Dyspnea, Hemoptysis, Dyspnea on Exertion , Wheezing, Snoring, Stridor, Pain on Inspiration, Chest Congestion, Excessive Mucous Production, Change in Mucous Color, Pain with Coughing, Other - Gastrointestinal Gastrointestinal: absent: As Per HPI, Abdominal Pain, Belching, Bloating, Change in Bowel Habits, Change in Stool Character, Coffee Ground Emesis, Constipation, Cramping, Diarrhea, Dyspepsia, Dysphagia, Early Satiety, Excessive Flatus, Fecal Incontinence, Heartburn, Hematemesis, Hematochezia, Loose Stools, Melena, Nausea, Odynophagia, Temesmus, Vomiting, Other - Musculoskeletal Musculoskeletal: absent: As Per HPI, Abnormal Gait, Arthralgias, Atrophy, Back Pain, Deformity, Joint Swelling, Limited Range of Motion, Loss of Height, Muscle Cramps, Muscle Weakness, Myalgias, Neck Pain, Numbness, Radiating Pain into Limb, Stiffness, Tingling, Other - Integumentary Integumentary: As Per HPI, Changing Lesions, Dry Skin, Lesions, New Lesions, Non -Healing Lesions, Rash, Skin Ulcer, Sores - Neurological Neurological: absent: As Per HPI, Abnormal Gait, Abnormal Hearing, Abnormal Movements, Abnormal Speech, Behavioral Changes, Burning Sensations, Confusion, Convulsions, Disequilibrium, Dizziness, Numbness, Focal Weakness, Frequent Falls , Headaches, Lack of Coordination, Loss of Vision, Memory Loss, Paresthesias, Radicular Pain, Restless Legs, Sensory Deficit, Syncope, Tingling, Tremor, Vertigo, Weakness, Other Visual Disturbances, Other - Psychiatric Psychiatric: absent: As Per HPI, Abnormal Sleep Pattern, Anhedonia, Anxiety, Auditory Hallucinations, Behavioral Changes, Change in Appetite, Change in Libido, Confusion, Depression, Difficulty Concentrating, Hallucinations, Homicidal Ideation, Hopelessness, Irritability, Memory Loss, Mood Swings, Panic Attacks, Paranoia, Suicidal Ideation, Visual Hallucinations, Tactile Hallucinations, Other Past Patient History - Infectious Disease Hx of Infectious Diseases: None - Past Medical History & Family History Past Medical History?: Yes - Past Social History Smoking Status: Never Smoked - CARDIAC Hx Cardiac Disorders: No - PULMONARY Hx Respiratory Disorders: No - HEENT Hx HEENT Problems: No - RENAL Hx Kidney Stones: Yes - ENDOCRINE/METABOLIC Hx Endocrine Disorders: No - HEMATOLOGICAL/ONCOLOGICAL Hx Human Immunodeficiency Virus (HIV): Yes - INTEGUMENTARY Hx Dermatological Problems: Yes (acne) Other/Comment: dry skin - MUSCULOSKELETAL/RHEUMATOLOGICAL Hx Musculoskeletal Disorders: No Hx Falls: No - GASTROINTESTINAL Hx Gastrointestinal Disorders: No - GENITOURINARY/GYNECOLOGICAL Hx Genitourinary Disorders: Yes (dysuria) - PSYCHIATRIC Hx Psychophysiologic Disorder: No Hx Substance Use: No - SURGICAL HISTORY Hx Surgeries: Yes Other/Comment: PICC LINE cystoscopy stent insertion - ANESTHESIA Hx Anesthesia: Yes Hx Anesthesia Reactions: No Hx Malignant Hyperthermia: No Meds Allergies/Adverse Reactions: Allergies Allergy/AdvReac Type Severity Reaction Status Date / Time azithromycin [From Zithromax] Allergy RASH Verified 12/25/17 21:25 Sulfa (Sulfonamide Allergy NAUSEA Verified 12/25/17 21:25 Antibiotics) sulfamethoxazole Allergy NAUSEA Verified 12/25/17 21:25 [From Bactrim] trimethoprim [From Bactrim] Allergy NAUSEA Verified 12/25/17 21:25 Physical Exam - Constitutional Appears: Non-toxic, No Acute Distress - Head Exam Head Exam: ATRAUMATIC, NORMOCEPHALIC - Eye Exam Eye Exam: EOMI, PERRL. absent: Conjunctival injection, Scleral icterus Pupil Exam: NORMAL ACCOMODATION - ENT Exam ENT Exam: Mucous Membranes Moist. absent: Normal Exam Additional comments: white/yellowish plaques overlying tongue - Neck Exam Neck exam: Positive for: Full Rom. Negative for: Lymphadenopathy, Meningismus, Tenderness - Respiratory Exam Respiratory Exam: Clear to Auscultation Bilateral, NORMAL BREATHING PATTERN. absent: Rales, Rhonchi, Wheezes - Cardiovascular Exam Cardiovascular Exam: REGULAR RHYTHM, RRR, +S1, +S2. absent: Bradycardia, Tachycardia, JVD, Rubs, Systolic Murmur - GI/Abdominal Exam GI & Abdominal Exam: Normal Bowel Sounds, Soft. absent: Tenderness - Extremities Exam Extremities exam: Positive for: normal capillary refill, normal inspection, pedal pulses present. Negative for: calf tenderness, pedal edema - Back Exam Back exam: NORMAL INSPECTION. absent: CVA tenderness (L), CVA tenderness (R) - Neurological Exam Neurological exam: Alert, CN II-XII Intact, Oriented x3, Reflexes Normal - Psychiatric Exam Psychiatric exam: Normal Affect, Normal Mood - Skin Skin Exam: Rash (diffuse hyperkeratotic rash. Located on arms/legs, trunk. No palmar/plantar effect. No discharge. Dry peeling skin diffusely. 8 sacral/ gluteal ulcerations. Fleshy, no discharge.) Results - Vital Signs Recent Vital Signs: Last Vital Signs Temp 98.1 F 12/25/17 21:25 Pulse 92 H 12/25/17 21:25 Resp 16 12/25/17 21:25 BP 109/64 12/25/17 21:25 Pulse Ox 100 12/26/17 01:00 - Labs Result Diagrams: 12/25/17 23:50 12/25/17 23:50 Labs: Laboratory Results - last 24 hr 12/25/17 12/25/17 12/25/17 01:00 23:50 23:50 WBC 4.2 L RBC 4.32 L Hgb 11.8 L Hct 35.2 MCV 81.5 MCH 27.4 MCHC 33.6 RDW 16.8 H Plt Count 188 MPV 8.9 Neut % (Auto) 68.4 Lymph % (Auto) 15.1 L [place] % (Auto) 10.1 H Eos % (Auto) 4.7 H Baso % (Auto) 1.7 Neut # (Auto) 2.9 Lymph # (Auto) 0.6 L [place] # (Auto) 0.4 Eos # (Auto) 0.2 Baso # (Auto) 0.1 pO2 35 VBG pH 7.38 VBG pCO2 43 VBG HCO3 24.1 VBG Total CO2 26.7 VBG O2 Sat (Calc) 73.1 H VBG Base Excess 0.0 VBG Potassium 3.7 Sodium 137.0 141 Chloride 109.0 H 105 Glucose 92 Lactate 1.4 FiO2 21.0 Potassium 3.6 Carbon Dioxide 23 Anion Gap 17 BUN 19 Creatinine 1.6 H Est GFR ( Amer) 57 Est GFR (Non-Af Amer) 47 Random Glucose 98 Calcium 8.4 Total Bilirubin 1.1 AST 39 ALT 31 Alkaline Phosphatase 108 Total Protein 8.5 H Albumin 3.8 Globulin 4.7 H Albumin/Globulin Ratio 0.8 L Venous Blood Potassium 3.7 Assessment & Plan - Assessment and Plan (Free Text) Assessment: 47 y/o male with AIDs, Stage 2 renal disease, Nephrolithiasis, admitted for diffuse hyperkeratotic rash and lesions of unknown etiology. Plan: 1) Diffuse Hyperkeratotic Rash -likely diffuse seborrheic dermatitis -solumedrol 125mg IVP -Hydrocortisone 1% ointment TID 2) Sacral/Gluteal Ulcerations -likely decubital etiology based on history -wound care ordered -wound culture/stain obtained 3) AIDS -Hx of nonadherence to medications -CD4 <20, 1% as of 12/25 -c/w Mepron -as of 12/25 visit, pt to be started on Prezista, Descovy, Norvir -was also to be started on azithromycin for prophylaxis, however there are inconsistencies in EMRs on whether or not pt is allergic to these medications. Upon interviewing, pt himself cannot give definitive answer. 4) Stage 2 Chronic Renal Disease -chronic/stable -Cr: 1.6, GFR: 57 -baseline levels as compared to prior values 5) Urinary Tract Infection -asymptomatic -hx of nephrolithiasis, complicated with infection, was to be seen by urology -UA today shows hematuria, mod Leuk esterase and high WBCs -Rocephin 1gm 6) Diet -Regular Diet 7) Prophylaxis Ambulation/SCDs 8) Code Status -full code
[2017-12-26 04:23] LABS: SQUAMOUS EPITHIAL 1 /hpf (0-5); URINE BILIRUBIN NEGATIVE (NEGATIVE); URINE BLOOD LARGE (NEGATIVE); URINE CLARITY CLOUDY (Clear); URINE COLOR AMBER (YELLOW); URINE GLUCOSE (UA) NEG (Normal); URINE LEUKOCYTE ESTERASE MOD Leu/uL (Negative); URINE PROTEIN 100 mg/dL (NEGATIVE)
[2017-12-26] MEDS ORDERED: cefTRIAXone (Rocephin) 1 gm Inj IM ONE (05:03)
[2017-12-26 05:24] VITALS: RESP 20
--- NOTE | 2017-12-26 09:00 | RAD ---
HISTORY: clearance COMPARISON: Chest radiograph dated 12/04/2017. FINDINGS: LUNGS: No active pulmonary disease. PLEURA: No significant pleural effusion identified, no pneumothorax apparent. CARDIOVASCULAR: Normal. OSSEOUS STRUCTURES: No significant abnormalities. VISUALIZED UPPER ABDOMEN: Normal. OTHER FINDINGS: None. IMPRESSION: No active disease.
[2017-12-26] MEDS: Hydrocortisone 1% Oint TOP SCH ×2 (09:17→17:37)
[2017-12-26] MEDS: Atovaquone 750 mg/5 ml Susp UD PO SCH (09:17)
--- NOTE | 2017-12-26 12:11 | CP.PCM.CON ---
History of Present Illness - History of Present Illness History of Present Illness: 47 y/o male with a PMHx remarkable for AIDS (CD4 ~25), not taking HAART and only on Mepron for prophylaxis presents complaining of generalized rash and lower back lesions. Pt reports generalized rash started 1 week ago after taking ? antibiotic for UTI ?? The rash is located on his arms, legs, chest, and back. He also has some scalp involvement with a lesion overlying his occiptal region. He has been using OTC moisturizers and Aloe cream with little/no improvement. He also reports he has several ulcer like lesions on his lower back and in his gluteal cleft, which started appearing approx 3 weeks ago. ID consulted for this PMH: HIV/AIDS (CD4:25 not taking HAART or prophylaxis), Syphilis/Prostatitis treated ALL: Bactrim, azithromycin Meds: Atorvaquone (Mepron) SocialHx: Denies smoking or drugs, socially alcohol FamilyHx: unknown Review of Systems - Constitutional Constitutional: As Per HPI - EENT Eyes: absent: As Per HPI, Blind Spots, Blurred Vision, Change in Vision, Decreased Night Vision, Diplopia, Discharge, Dry Eye, Exophthalmos, Floaters, Irritation, Itchy Eyes, Loss of Peripheral Vision, Pain, Photophobia, Requires Corrective Lenses, Sees Flashes, Spots in Vision, Tunnel Vision, Other Visual Disturbances, Loss of Vision, Other Ears: absent: As Per HPI, Decreased Hearing, Ear Discharge, Ear Pain, Tinnitus, Abnormal Hearing, Disequilibrium, Dizziness, Other Nose/Mouth/Throat: absent: As Per HPI, Epistaxis, Nasal Congestion, Nasal Discharge, Nasal Obstruction, Nasal Trauma, Nose Pain, Post Nasal Drip, Sinus Pain, Sinus Pressure, Bleeding Gums, Change in Voice, Dental Pain, Dry Mouth, Dysphagia, Halitosis, Hoarsness, Lip Swelling, Mouth Lesions, Mouth Pain, Odynophagia, Sore Throat, Throat Swelling, Tongue Swelling, Facial Pain, Neck Pain, Neck Mass, Other - Cardiovascular Cardiovascular: absent: As Per HPI, Acrocyanosis, Chest Pain, Chest Pain at Rest , Chest Pain with Activity, Claudication, Diaphoresis, Dyspnea, Dyspnea on Exertion, Edema, Irregular Heart Rhythm, Pain Radiating to Arm/Neck/Jaw, Leg Edema, Leg Ulcers, Lightheadedness, Orthopnea, Palpitations, Paroxysmal Nocturnal Dyspnea, Pedal Edema, Radiating Pain, Rapid Heart Rate, Slow Heart Rate, Syncope, Other - Respiratory Respiratory: absent: As Per HPI, Cough, Dyspnea, Hemoptysis, Dyspnea on Exertion , Wheezing, Snoring, Stridor, Pain on Inspiration, Chest Congestion, Excessive Mucous Production, Change in Mucous Color, Pain with Coughing, Other - Gastrointestinal Gastrointestinal: absent: As Per HPI, Abdominal Pain, Belching, Bloating, Change in Bowel Habits, Change in Stool Character, Coffee Ground Emesis, Constipation, Cramping, Diarrhea, Dyspepsia, Dysphagia, Early Satiety, Excessive Flatus, Fecal Incontinence, Heartburn, Hematemesis, Hematochezia, Loose Stools, Melena, Nausea, Odynophagia, Temesmus, Vomiting, Other - Genitourinary Genitourinary: absent: As Per HPI, Change in Urinary Stream, Difficulty Urinating, Dysuria, Flank Pain, Hematuria, Pyuria, Nocturia, Urinary Incontinence, Urinary Frequency, Urinary Hesitance, Urinary Urgency, Voiding Freq/Small Amts, Freq UTI, Hx Renal/Bladder Calculi, Hx /Renal Surgery, Bladder Distension, Other - Musculoskeletal Musculoskeletal: As Per HPI - Integumentary Integumentary: As Per HPI - Neurological Neurological: absent: As Per HPI, Abnormal Gait, Abnormal Hearing, Abnormal Movements, Abnormal Speech, Behavioral Changes, Burning Sensations, Confusion, Convulsions, Disequilibrium, Dizziness, Numbness, Focal Weakness, Frequent Falls , Headaches, Lack of Coordination, Loss of Vision, Memory Loss, Paresthesias, Radicular Pain, Restless Legs, Sensory Deficit, Syncope, Tingling, Tremor, Vertigo, Weakness, Other Visual Disturbances, Other - Psychiatric Psychiatric: absent: As Per HPI, Abnormal Sleep Pattern, Anhedonia, Anxiety, Auditory Hallucinations, Behavioral Changes, Change in Appetite, Change in Libido, Confusion, Depression, Difficulty Concentrating, Hallucinations, Homicidal Ideation, Hopelessness, Irritability, Memory Loss, Mood Swings, Panic Attacks, Paranoia, Suicidal Ideation, Visual Hallucinations, Tactile Hallucinations, Other - Endocrine Endocrine: absent: As Per HPI, Change in Body Appearance, Change in Libido, Cold Intolorance, Deepening of Voice, Excessive Sweating, Fatigue, Flushing, Heat Intolorance, Increase in Ring/Shoe/Hat Size, Palpitations, Polydipsia, Polyphagia, Polyuria, Other - Hematologic/Lymphatic Hematologic: absent: As Per HPI, Easy Bleeding, Easy Bruising, Lymphadenopathy, Other Past Patient History - Infectious Disease Hx of Infectious Diseases: None - Past Medical History & Family History Past Medical History?: Yes - Past Social History Smoking Status: Never Smoked - CARDIAC Hx Cardiac Disorders: No - PULMONARY Hx Respiratory Disorders: No - HEENT Hx HEENT Problems: No - RENAL Hx Kidney Stones: Yes - ENDOCRINE/METABOLIC Hx Endocrine Disorders: No - HEMATOLOGICAL/ONCOLOGICAL Hx Human Immunodeficiency Virus (HIV): Yes - INTEGUMENTARY Hx Dermatological Problems: Yes (acne) Other/Comment: dry skin - MUSCULOSKELETAL/RHEUMATOLOGICAL Hx Musculoskeletal Disorders: No Hx Falls: No - GASTROINTESTINAL Hx Gastrointestinal Disorders: No - GENITOURINARY/GYNECOLOGICAL Hx Genitourinary Disorders: Yes (dysuria) - PSYCHIATRIC Hx Psychophysiologic Disorder: No Hx Substance Use: No - SURGICAL HISTORY Hx Surgeries: Yes Other/Comment: PICC LINE cystoscopy stent insertion - ANESTHESIA Hx Anesthesia: Yes Hx Anesthesia Reactions: No Hx Malignant Hyperthermia: No Meds Allergies/Adverse Reactions: Allergies Allergy/AdvReac Type Severity Reaction Status Date / Time azithromycin [From Zithromax] Allergy RASH Verified 12/25/17 21:25 Sulfa (Sulfonamide Allergy NAUSEA Verified 12/25/17 21:25 Antibiotics) sulfamethoxazole Allergy NAUSEA Verified 12/25/17 21:25 [From Bactrim] trimethoprim [From Bactrim] Allergy NAUSEA Verified 12/25/17 21:25 - Medications Medications: Current Medications Acetaminophen (Tylenol 325mg Tab) 650 mg PO Q6 PRN PRN Reason: Pain, Mild (1-3) Atovaquone (Mepron) 1,500 mg PO DAILYWM [facility] Last Admin: 12/26/17 09:17 Dose: 1,500 mg Hydrocortisone (Cortizone 1% Oint) 1 applic TOP BID [facility] Last Admin: 12/26/17 09:17 Dose: 1 applic Ceftriaxone Sodium 1 gm/ (Sodium Chloride) 100 mls @ 100 mls/hr IVPB DAILY [facility] PRN Reason: Protocol Last Admin: 12/26/17 12:07 Dose: 100 mls/hr Physical Exam - Constitutional Appears: Non-toxic, Cachectic, Chronically Ill - Head Exam Head Exam: ATRAUMATIC, NORMAL INSPECTION, NORMOCEPHALIC - Eye Exam Eye Exam: EOMI, PERRL. absent: Nystagmus, Scleral icterus - ENT Exam ENT Exam: Mucous Membranes Dry - Neck Exam Neck exam: Negative for: Lymphadenopathy, Thyromegaly - Respiratory Exam Respiratory Exam: Decreased Breath Sounds, Clear to Auscultation Bilateral - Cardiovascular Exam Cardiovascular Exam: REGULAR RHYTHM, +S1, +S2 - GI/Abdominal Exam GI & Abdominal Exam: Diminished Bowel Sounds, Soft. absent: Tenderness - Rectal Exam Rectal Exam: Deferred - Exam Exam: NORMAL INSPECTION - Extremities Exam Extremities exam: Positive for: pedal pulses present. Negative for: calf tenderness, pedal edema, tenderness - Back Exam Back exam: absent: CVA tenderness (L), CVA tenderness (R) - Neurological Exam Neurological exam: Alert, CN II-XII Intact, Oriented x3, Reflexes Normal - Psychiatric Exam Psychiatric exam: Depressed - Skin Skin Exam: Dry Additional comments: dry flaky skin over torso and extremities nodular lesion over left mastoid area denuded superficial ulcers over lower back and gluteal cleft area Results - Vital Signs Recent Vital Signs: Last Vital Signs Temp 97.8 F 12/26/17 08:08 Pulse 70 12/26/17 08:08 Resp 20 12/26/17 08:08 BP 115/74 12/26/17 08:08 Pulse Ox 99 12/26/17 08:08 - Labs Result Diagrams: 12/25/17 23:50 12/25/17 23:50 Labs: Laboratory Results - last 24 hr 12/25/17 12/25/17 12/25/17 01:00 23:50 23:50 WBC 4.2 L RBC 4.32 L Hgb 11.8 L Hct 35.2 MCV 81.5 MCH 27.4 MCHC 33.6 RDW 16.8 H Plt Count 188 MPV 8.9 Neut % (Auto) 68.4 Lymph % (Auto) 15.1 L Isabella % (Auto) 10.1 H Eos % (Auto) 4.7 H Baso % (Auto) 1.7 Neut # (Auto) 2.9 Lymph # (Auto) 0.6 L [place] # (Auto) 0.4 Eos # (Auto) 0.2 Baso # (Auto) 0.1 pO2 35 VBG pH 7.38 VBG pCO2 43 VBG HCO3 24.1 VBG Total CO2 26.7 VBG O2 Sat (Calc) 73.1 H VBG Base Excess 0.0 VBG Potassium 3.7 Sodium 137.0 141 Chloride 109.0 H 105 Glucose 92 Lactate 1.4 FiO2 21.0 Potassium 3.6 Carbon Dioxide 23 Anion Gap 17 BUN 19 Creatinine 1.6 H Est GFR ( Amer) 57 Est GFR (Non-Af Amer) 47 Random Glucose 98 Calcium 8.4 Total Bilirubin 1.1 AST 39 ALT 31 Alkaline Phosphatase 108 Total Protein 8.5 H Albumin 3.8 Globulin 4.7 H Albumin/Globulin Ratio 0.8 L Venous Blood Potassium 3.7 Urine Color Urine Clarity Urine pH Ur Specific [place] Urine Protein Urine Glucose (UA) Urine Ketones Urine Blood Urine Nitrate Urine Bilirubin Urine Urobilinogen Ur Leukocyte Esterase Urine RBC (Auto) Urine Microscopic WBC Ur Squamous Epith Cells 12/26/17 03:57 WBC RBC Hgb Hct MCV MCH MCHC RDW Plt Count MPV Neut % (Auto) Lymph % (Auto) [place] % (Auto) Eos % (Auto) Baso % (Auto) Neut # (Auto) Lymph # (Auto) Isabella # (Auto) Eos # (Auto) Baso # (Auto) pO2 VBG pH VBG pCO2 VBG HCO3 VBG Total CO2 VBG O2 Sat (Calc) VBG Base Excess VBG Potassium Sodium Chloride Glucose Lactate FiO2 Potassium Carbon Dioxide Anion Gap BUN Creatinine Est GFR ( Amer) Est GFR (Non-Af Amer) Random Glucose Calcium Total Bilirubin AST ALT Alkaline Phosphatase Total Protein Albumin Globulin Albumin/Globulin Ratio Venous Blood Potassium Urine Color [place] Urine Clarity Cloudy Urine pH 6.0 Ur Specific [place] 1.024 Urine Protein 100 Urine Glucose (UA) Neg Urine Ketones Negative Urine Blood Large Urine Nitrate Negative Urine Bilirubin Negative Urine Urobilinogen 4.0 Ur Leukocyte Esterase Mod Urine RBC (Auto) 1725 H Urine Microscopic WBC 74 H Ur Squamous Epith Cells 1 Assessment & Plan (1) AIDS Status: Acute (2) Cellulitis Status: Acute (3) Immunocompromised patient Status: Acute (4) Acute renal failure Status: Acute (5) Anemia Status: Acute - Assessment and Plan (Free Text) Assessment: 47 yo male with advanced AIDS and desquamating rash likely from sulfa allergy ? 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
[2017-12-26] MEDS ORDERED: Lidocaine/Epi 1% 1:100000 20 ML IJ ONE (14:47)
[2017-12-26] MEDS: Nystatin 100,000 Units/ml Oral Susp 5 ml UD PO SCH (21:40)
[2017-12-27] MEDS: Nystatin 100,000 Units/ml Oral Susp 5 ml UD PO SCH ×3 (09:36→16:11)
[2017-12-27] MEDS: Atovaquone 750 mg/5 ml Susp UD PO SCH (09:36)
[2017-12-27] MEDS: Hydrocortisone 1% Oint TOP SCH ×2 (09:37→16:11)
--- NOTE | 2017-12-27 13:43 | CP.PCM.DIS ---
Provider - Provider Date of Admission: 12/26/17 00:07 Attending physician: Xochilt Villeda MD Consults: Infectious Disease, Dr. Gregg Time Spent in preparation of Discharge (in minutes): 45 Diagnosis - Discharge Diagnosis (1) Rash of back Status: Acute Comment: Will need to follow up labs: Skin Biopsy, Skin scrapings, and Wound culture. Will also need to f/u with Dermatology and General Surgery to biopsy mastoid lesion. (2) AIDS Status: Chronic (3) HIV (human immunodeficiency virus infection) Status: Chronic Hospital Course - Lab Results Lab Results: Micro Results 12/25/17 23:55 Blood-Venous Blood Culture - Preliminary NO GROWTH AFTER 24 HOURS 12/25/17 23:55 Blood-Venous Blood Culture - Preliminary NO GROWTH AFTER 24 HOURS 12/26/17 06:15 Head Gram Stain - Final 12/26/17 06:15 Sacral Gram Stain - Final Most Recent Lab Values WBC 4.2 K/uL (4.8-10.8) L 12/25/17 23:50 RBC 4.32 Mil/uL (4.40-5.90) L 12/25/17 23:50 Hgb 11.8 g/dL (12.0-18.0) L 12/25/17 23:50 Hct 35.2 % (35.0-51.0) 12/25/17 23:50 MCV 81.5 fl (80.0-94.0) 12/25/17 23:50 MCH 27.4 pg (27.0-31.0) 12/25/17 23:50 MCHC 33.6 g/dL (33.0-37.0) 12/25/17 23:50 RDW 16.8 % (11.5-14.5) H 12/25/17 23:50 Plt Count 188 K/uL (130-400) 12/25/17 23:50 MPV 8.9 fl (7.2-11.7) 12/25/17 23:50 Neut % (Auto) 68.4 % (50.0-75.0) 12/25/17 23:50 Lymph % (Auto) 15.1 % (20.0-40.0) L 12/25/17 23:50 [place] % (Auto) 10.1 % (0.0-10.0) H 12/25/17 23:50 Eos % (Auto) 4.7 % (0.0-4.0) H 12/25/17 23:50 Baso % (Auto) 1.7 % (0.0-2.0) 12/25/17 23:50 Neut # (Auto) 2.9 K/uL (1.8-7.0) 12/25/17 23:50 Lymph # (Auto) 0.6 K/uL (1.0-4.3) L 12/25/17 23:50 [place] # (Auto) 0.4 K/uL (0.0-0.8) 12/25/17 23:50 Eos # (Auto) 0.2 K/uL (0.0-0.7) 12/25/17 23:50 Baso # (Auto) 0.1 K/uL (0.0-0.2) 12/25/17 23:50 pO2 35 mm/Hg (30-55) 12/25/17 01:00 VBG pH 7.38 (7.32-7.43) 12/25/17 01:00 VBG pCO2 43 mmHg (40-60) 12/25/17 01:00 VBG HCO3 24.1 mmol/L 12/25/17 01:00 VBG Total CO2 26.7 mmol/L (22-28) 12/25/17 01:00 VBG O2 Sat (Calc) 73.1 % (40-65) H 12/25/17 01:00 VBG Base Excess 0.0 mmol/L (0.0-2.0) 12/25/17 01:00 VBG Potassium 3.7 mmol/L (3.6-5.2) 12/25/17 01:00 Sodium 137.0 mmol/L (132-148) 12/25/17 01:00 Chloride 109.0 mmol/L (98-107) H 12/25/17 01:00 Glucose 92 mg/dL (75-110) 12/25/17 01:00 Lactate 1.4 mmol/L (0.7-2.1) 12/25/17 01:00 FiO2 21.0 % 12/25/17 01:00 Sodium 141 mmol/l (132-148) 12/25/17 23:50 Potassium 3.6 MMOL/L (3.6-5.0) 12/25/17 23:50 Chloride 105 mmol/L (98-107) 12/25/17 23:50 Carbon Dioxide 23 mmol/L (22-30) 12/25/17 23:50 Anion Gap 17 (10-20) 12/25/17 23:50 BUN 19 mg/dl (9-20) 12/25/17 23:50 Creatinine 1.6 mg/dl (0.8-1.5) H 12/25/17 23:50 Est GFR ( Amer) 57 12/25/17 23:50 Est GFR (Non-Af Amer) 47 12/25/17 23:50 Random Glucose 98 mg/dL (75-110) 12/25/17 23:50 Calcium 8.4 mg/dL (8.4-10.2) 12/25/17 23:50 Total Bilirubin 1.1 mg/dl (0.2-1.3) 12/25/17 23:50 AST 39 U/L (17-59) 12/25/17 23:50 ALT 31 U/L (21-72) 12/25/17 23:50 Alkaline Phosphatase 108 U/L (38-126) 12/25/17 23:50 Total Protein 8.5 G/DL (6.3-8.2) H 12/25/17 23:50 Albumin 3.8 g/dL (3.5-5.0) 12/25/17 23:50 Globulin 4.7 gm/dL (2.2-3.9) H 12/25/17 23:50 Albumin/Globulin Ratio 0.8 (1.0-2.1) L 12/25/17 23:50 Venous Blood Potassium 3.7 mmol/L (3.6-5.2) 12/25/17 01:00 Urine Color Yudel[place] (YELLOW) 12/26/17 03:57 Urine Clarity Cloudy (Clear) 12/26/17 03:57 Urine pH 6.0 (5.0-8.0) 12/26/17 03:57 Ur Specific [place] 1.024 (1.003-1.030) 12/26/17 03:57 Urine Protein 100 mg/dL (NEGATIVE) 12/26/17 03:57 Urine Glucose (UA) Neg mg/dL (Normal) 12/26/17 03:57 Urine Ketones Negative mg/dL (NEGATIVE) 12/26/17 03:57 Urine Blood Large (NEGATIVE) 12/26/17 03:57 Urine Nitrate Negative (NEGATIVE) 12/26/17 03:57 Urine Bilirubin Negative (NEGATIVE) 12/26/17 03:57 Urine Urobilinogen 4.0 mg/dL (0.2-1.0) 12/26/17 03:57 Ur Leukocyte Esterase Mod Cher/uL (Negative) 12/26/17 03:57 Urine RBC (Auto) 1725 /hpf (0-3) H 12/26/17 03:57 Urine Microscopic WBC 74 /hpf (0-5) H 12/26/17 03:57 Ur Squamous Epith Cells 1 /hpf (0-5) 12/26/17 03:57 - Hospital Course Hospital Course: Hospital Course: 47 y/o male with a PMHx remarkable for AIDS (CD4 ~25), not taking HAART and only on Mepron for prophylaxis presents complaining of generalized rash and lower back lesions present for the past month. Pt was evaluated by Infectious Disease MD, Dr. Gregg, and started on IV Acyclovir for posible HSV etiology. Pt had punch biopsy of skin lesion during his admission. Discharge Medications: Acyclovir 400mg PO TID Flucanazole 100mg PO daily Nystatin 5ml oral suspension Mupirocin 2% ointment one applic topc BID Condition upon discharge: Fair Activity: Ambulating without assistance Discharge Instructions: F/u with Dr. Medrano in [facility] (appt to be determined), General surgery clinic, and dermatology clinic with Dr. Bridges. Discharge Exam - Head Exam Head Exam: ATRAUMATIC, NORMAL INSPECTION, NORMOCEPHALIC - ENT Exam ENT Exam: Mucous Membranes Moist - Respiratory Exam Respiratory Exam: absent: Wheezes, Respiratory Distress - Cardiovascular Exam Cardiovascular Exam: REGULAR RHYTHM, +S1, +S2. absent: Systolic Murmur - GI/Abdominal Exam GI & Abdominal Exam: Normal Bowel Sounds, Soft. absent: Tenderness - Neurological Exam Neurological exam: Alert, Oriented x3 - Skin Skin Exam: Rash (Diffuse lichenified rash spread over all extremities, back , trunk and scalp. Open sacral sores, scalp sores, left mastoid nodule. ) Discharge Plan - Discharge Medications Prescriptions: Acyclovir 400 mg PO TID #21 tablet Fluconazole 100 mg PO ONCE #7 tablet Mupirocin 2% Ointment [Bactroban Ointment] 1 appl TP BID #1 tube Nystatin [Nystatin Oral Susp] 5 ml PO QID #[id number] units - Follow Up Plan Condition: FAIR Disposition: HOME/ ROUTINE Instructions: Cellulitis (DC) Referrals: Ambar Medrano MD [Medical Doctor] -
[2017-12-27 16:16] VITALS: BP 98/62; PULSE 77; TEMP 98.1; O2SAT 97
== END 2017-12-27 16:50 | disposition home or self-care (01) | DRG 975 ==
LOC: H.ER 20:07 → H.ERHOLD 12-26 00:07 → H.MEDSURG1 12-26 04:37
PROVIDERS: ADMIT Family Medicine Geriatric Medicine; ATTEND Family Medicine Geriatric Medicine
PROC: 0HB6XZX Excision of Back Skin, External Approach, Diagnostic (ICD-10-PCS; principal; 2017-12-27)
PROC: 0HB0XZX Excision of Scalp Skin, External Approach, Diagnostic (ICD-10-PCS; 2017-12-27)
DX: B00.9 Herpesviral infection, unspecified (principal); B20 Human immunodeficiency virus [HIV] disease; L03.90 Cellulitis, unspecified; L89.159 Pressure ulcer of sacral region, unspecified stage; K75.9 Inflammatory liver disease, unspecified; N39.0 Urinary tract infection, site not specified; L21.9 Seborrheic dermatitis, unspecified; N20.0 Calculus of kidney; Z87.442 Personal history of urinary calculi; N41.9 Inflammatory disease of prostate, unspecified; N18.2 Chronic kidney disease, stage 2 (mild); R31.9 Hematuria, unspecified; Z88.2 Allergy status to sulfonamides

== ENCOUNTER 2018-04-30 09:10 | Inpatient (IN) | payer OTHER ==
[2018-04-30 09:10] VITALS: BMI 21.4
[2018-04-30] MEDS ORDERED: Sodium Chloride 0.9% 1,000 ML IV STA ×3 (09:22→14:54)
--- NOTE | 2018-04-30 09:36 | ED PDOC ---
HPI: Abdomen Time Seen by Provider: 04/30/18 09:13 Chief Complaint (Nursing): Shortness Of Breath Chief Complaint (Provider): abdominal pain History Per: Patient History/Exam Limitations: no limitations Onset/Duration Of Symptoms: Hrs (x4) Current Symptoms Are (Timing): Still Present Associated Symptoms: Nausea, Diarrhea (non bloody), Other (SOB). denies: Fever , Chills, Vomiting, Back Pain, Chest Pain, Urinary Symptoms Additional Complaint(s): Filemon Arteaga is a 47 year old male, with a past medical history of AIDS, who presents to the emergency department for evaluation of abdominal pain onset since 05:00 associated with x1 episode of non bloody diarrhea. Patient reports abdominal pain is causing him to have shortness of breath. Patient states he stopped taking his HIV medications a month ago and is not currently taking any medication. He denies similar pain in the past. Patient also reports nausea but denies any fever, chills, vomiting, chest pain, back pain or urinary symptoms. No further medical complaints. PMD: Michael Colon Past Medical History Reviewed: Historical Data, Nursing Documentation, Vital Signs Vital Signs: Last Vital Signs Temp 98.4 F 05/01/18 08:33 Pulse 91 H 05/01/18 08:33 Resp 18 05/01/18 08:33 BP 102/64 05/01/18 08:33 Pulse Ox 97 05/01/18 08:33 - Medical History PMH: Hepatitis, HIV (On meds), Kidney Stones, Chronic Kidney Disease - Surgical History Surgical History: No Surg Hx - Family History Family History: States: Unknown Family Hx - Home Medications Home Medications: Ambulatory Orders Medication Instructions Recorded Dolutegravir Sodium [Tivicay] 50 mg PO DAILY 04/30/18 Emtricitabine/Tenofov Alafenam 1 tab PO DAILY 04/30/18 [Descovy 200-25 mg Tablet] - Allergies Allergies/Adverse Reactions: Allergies Allergy/AdvReac Type Severity Reaction Status Date / Time azithromycin [From Zithromax] Allergy RASH Verified 12/25/17 21:25 Sulfa (Sulfonamide Allergy NAUSEA Verified 12/25/17 21:25 Antibiotics) sulfamethoxazole Allergy NAUSEA Verified 12/25/17 21:25 [From Bactrim] trimethoprim [From Bactrim] Allergy NAUSEA Verified 12/25/17 21:25 Review of Systems ROS Statement: Except As Marked, All Systems Reviewed And Found Negative Constitutional: Negative for: Fever, Chills Cardiovascular: Negative for: Chest Pain Respiratory: Positive for: Shortness of Breath Gastrointestinal: Positive for: Nausea, Abdominal Pain, Diarrhea (non-bloody). Negative for: Vomiting Genitourinary Male: Negative for: Dysuria, Frequency Musculoskeletal: Negative for: Back Pain Physical Exam - Reviewed Nursing Documentation Reviewed: Yes Vital Signs Reviewed: Yes - Physical Exam Appears: Positive for: Non-toxic, In Acute Distress (moderate painful ) Head Exam: Positive for: ATRAUMATIC, NORMAL INSPECTION, NORMOCEPHALIC Skin: Positive for: Normal Color, Warm, Dry Eye Exam: Positive for: Normal appearance, EOMI, PERRL Neck: Positive for: Painless ROM, Supple Cardiovascular/Chest: Positive for: Regular Rate, Rhythm. Negative for: Murmur Respiratory: Positive for: Normal Breath Sounds, Other (speaking full sentences) . Negative for: Respiratory Distress Gastrointestinal/Abdominal: Positive for: Tenderness (LUQ & LLQ). Negative for : Guarding, Rebound Back: Positive for: Normal Inspection. Negative for: L CVA Tenderness, R CVA Tenderness, Vertebral Tenderness Extremity: Positive for: Normal ROM (upper and lower extremities). Negative for : Deformity, Swelling Neurologic/Psych: Positive for: Alert, Oriented. Negative for: Motor/Sensory Deficits - Laboratory Results Result Diagrams: 05/01/18 05:55 05/01/18 05:55 - Critical Care Total Time (In Min): 45 Medical Decision Making Medical Decision Making: Time: 09:13 Initial Plan: Abdominal pain Initial Plan: --Abd & Pelvis IV Contrast [CT] --EKG --CMP --Urine dipstick --CBC w/ differential --PTT --PT --Chest two views (PA/LAT) [RAD] --Morphine 2mg IV --Sodium Chloride 1,000 ml IV 1,000 mls/hr --Glucose, blood POC --Urinalysis --Reevaluation 12:13 CXR FINDINGS: LUNGS: No active pulmonary disease. PLEURA: No significant pleural effusion identified. No pneumothorax apparent. CARDIOVASCULAR: Normal. OSSEOUS STRUCTURES: No significant abnormalities. VISUALIZED UPPER ABDOMEN: Normal. OTHER FINDINGS: None. IMPRESSION: No active disease. 14:40 Abdomen/Pelvis CT FINDINGS: LOWER THORAX: Scattered ground-glass opacities in the right middle lobe, medial right lower lobe and posterior left lower lobe. LIVER: Mild hepatic steatosis. No gross lesion or ductal dilatation. GALLBLADDER AND BILE DUCTS: Unremarkable. PANCREAS: Unremarkable. No gross lesion or ductal dilatation. SPLEEN: Unremarkable. ADRENALS: Unremarkable. No mass. KIDNEYS AND URETERS: Obstructive 4 x 3 mm proximal left ureteral calculus causing mild hydroureteronephrosis, mild nephromegaly with perinephric stranding. Additional bilateral nonobstructive nephrolithiasis, the largest calculus on the right is in the lower pole and measures 8 x 4 mm. No hydronephrosis. No solid mass. VASCULATURE: Unremarkable. No aortic aneurysm. BOWEL: Small hiatal hernia. No obstruction. No gross mural thickening. APPENDIX: Unremarkable. Normal appendix. PERITONEUM: Unremarkable. No free fluid. No free air. LYMPH NODES: Unremarkable. No enlarged lymph nodes. BLADDER: Unremarkable. REPRODUCTIVE: Unremarkable. BONES: No acute fracture. OTHER FINDINGS: None. IMPRESSION: Obstructive 4 x 3 mm proximal left ureteral calculus causing mild hydroureteronephrosis, mild nephromegaly and perinephric stranding. Additional bilateral nonobstructive nephrolithiasis as described above. Scattered patchy ground-glass opacities is in the right middle lobe, medial right lower lobe and posterior left lower lobe which may be infectious/ inflammatory in etiology. ----- Scribe Attestation: Documented by Ermias Steven, acting as a scribe for Le Guerrero MD. Provider Scribe Attestation: All medical record entries made by the Scribe were at my direction and personally dictated by me. I have reviewed the chart and agree that the record accurately reflects my personal performance of the history, physical exam, medical decision making, and the department course for this patient. I have also personally directed, reviewed, and agree with the discharge instructions and disposition. Disposition - Clinical Impression Clinical Impression: Ureteral stone, Pyelonephritis, AIDS, Fever, PCP (pneumocystis carinii pneumonia), SIRS (systemic inflammatory response syndrome), Renal insufficiency - Disposition Disposition Time: 14:54 Condition: GUARDED - Pt Status Changed To: Hospital Disposition Of: Inpatient - Admit Certification Admit to Inpatient:: After my assessment, the patient will require hospitalization for at least two midnights. This is because of the severity of symptoms shown, intensity of services needed, and/or the medical risk in this patient being treated as an outpatient. - POA Present On Arrival: None
--- NOTE | 2018-04-30 10:49 | CARD ---
APPROVED REPORT EKG Measurement Heart [id number] MD [id number] <Conclusion> Normal sinus rhythm Normal ECG
--- NOTE | 2018-04-30 12:14 | RAD ---
HISTORY: Abd pain COMPARISON: 12/25/2017 TECHNIQUE: Chest PA and lateral FINDINGS: LUNGS: No active pulmonary disease. PLEURA: No significant pleural effusion identified. No pneumothorax apparent. CARDIOVASCULAR: Normal. OSSEOUS STRUCTURES: No significant abnormalities. VISUALIZED UPPER ABDOMEN: Normal. OTHER FINDINGS: None. IMPRESSION: No active disease.
[2018-04-30 12:49] LABS: BASO % 0.1 % (0.0-2.0); HEMOGLOBIN 9.6 g/dL (12.0-18.0); LYMPH # 0.6 K/uL (1.0-4.3); LYMPH % 4.9 % (20.0-40.0); MEAN CELL VOLUME 84.8 fl (80.0-94.0); MEAN CORPUSCULAR HEMOGLOBIN 28.8 pg (27.0-31.0); MEAN CORPUSCULAR HGB CONC 33.9 g/dL (33.0-37.0); MEAN PLATELET VOLUME 7.9 fl (7.2-11.7); MONO # 0.4 K/uL (0.0-0.8); MONO % 3.4 % (0.0-10.0); NEUT # 11.3 K/uL (1.8-7.0); NEUT % 91.6 % (50.0-75.0); PLATELET COUNT 229 K/uL (130-400); RBC 3.32 Mil/uL (4.40-5.90); RED CELL DISTRIBUTION WIDTH 13.8 % (11.5-14.5); WHITE BLOOD COUNT 12.4 K/uL (4.8-10.8)
[2018-04-30 12:59] LABS: INR 1.1 (0.9-1.2); PARTIAL THROMBOPLASTIN TIME 27.4 Seconds (25.6-37.1); PROTHROMBIN TIME 12.7 Seconds (9.8-13.1)
[2018-04-30 13:01] LABS: ALB/GLOB RATIO 0.8 (1.0-2.1); ALBUMIN 4.2 g/dL (3.5-5.0); CALCIUM 8.6 mg/dL (8.4-10.2)
[2018-04-30 14:03] LABS: BANDS 4 % (0-2); LYMPHOCYTE 8 % (20-50); MONOCYTE 7 % (0-10); NEUTROPHIL 81 % (42-75); PLATELET ESTIMATE NORMAL (NORMAL); TOTAL CELLS COUNTED 100
[2018-04-30 14:04] LABS: HYPOCHROMIC SLIGHT
--- NOTE | 2018-04-30 14:43 | CT ---
PROCEDURE: CT Abdomen and Pelvis without intravenous contrast HISTORY: Abd pain COMPARISON: CT scan of the abdomen and pelvis dated 11/16/2017. TECHNIQUE: Contiguous images were obtained from the domes of the diaphragms to the upper thighs without the administration of intravenous contrast. Oral contrast was not administered. Radiation dose: Total exam DLP = 333.8 mGy-cm. This CT exam was performed using one or more of the following dose reduction techniques: Automated exposure control, adjustment of the mA and/or kV according to patient size, and/or use of iterative reconstruction technique. FINDINGS: LOWER THORAX: Scattered ground-glass opacities in the right middle lobe, medial right lower lobe and posterior left lower lobe. LIVER: Mild hepatic steatosis. No gross lesion or ductal dilatation. GALLBLADDER AND BILE DUCTS: Unremarkable. PANCREAS: Unremarkable. No gross lesion or ductal dilatation. SPLEEN: Unremarkable. ADRENALS: Unremarkable. No mass. KIDNEYS AND URETERS: Obstructive 4 x 3 mm proximal left ureteral calculus causing mild hydroureteronephrosis, mild nephromegaly with perinephric stranding. Additional bilateral nonobstructive nephrolithiasis, the largest calculus on the right is in the lower pole and measures 8 x 4 mm. No hydronephrosis. No solid mass. VASCULATURE: Unremarkable. No aortic aneurysm. BOWEL: Small hiatal hernia. No obstruction. No gross mural thickening. APPENDIX: Unremarkable. Normal appendix. PERITONEUM: Unremarkable. No free fluid. No free air. LYMPH NODES: Unremarkable. No enlarged lymph nodes. BLADDER: Unremarkable. REPRODUCTIVE: Unremarkable. BONES: No acute fracture. OTHER FINDINGS: None. IMPRESSION: Obstructive 4 x 3 mm proximal left ureteral calculus causing mild hydroureteronephrosis, mild nephromegaly and perinephric stranding. Additional bilateral nonobstructive nephrolithiasis as described above. Scattered patchy ground-glass opacities is in the right middle lobe, medial right lower lobe and posterior left lower lobe which may be infectious/inflammatory in etiology.
[2018-04-30 15:05] LABS: ABG ALLEN TEST YES; ARTERIAL BLOOD GAS HCO3 21.4 mmol/L (21-28); ARTERIAL BLOOD GAS O2 SAT 98.1 % (95-98); ARTERIAL BLOOD GAS PCO2 30 mm/Hg (35-45); ARTERIAL BLOOD GAS PH 7.41 (7.35-7.45); ARTERIAL BLOOD GAS PO2 77 mm/Hg (80-100); ARTERIAL BLOOD GAS TCO2 19.9 mmol/L (22-28)
[2018-04-30] MEDS ORDERED: SULFAMETHOXAZOLE IVPB STA (15:07)
[2018-04-30] MEDS ORDERED: DEXTROSE 5% IVPB STA (15:07)
[2018-04-30] MEDS ORDERED: TRIMETHOPRIM IVPB STA (15:07)
[2018-04-30] MEDS ORDERED: WATER IVPB STA (15:07)
[2018-04-30 15:19] LABS: SQUAMOUS EPITHIAL 1 /hpf (0-5); URINE BILIRUBIN NEGATIVE (NEGATIVE); URINE BLOOD SMALL (NEGATIVE); URINE CLARITY SLIGHTY-CLOUDY (Clear); URINE COLOR YELLOW (YELLOW); URINE GLUCOSE (UA) NEG (Normal); URINE LEUKOCYTE ESTERASE TRACE Leu/uL (Negative); URINE PROTEIN 100 mg/dL (NEGATIVE)
[2018-04-30] MEDS ORDERED: Atovaquone 750 mg/5 ml Susp UD PO ONE (15:45)
--- NOTE | 2018-04-30 16:08 | CP.PCM.HP ---
History of Present Illness - History of Present Illness History of Present Illness: "My stomach hurt and I felt lightheaded and short of breath this morning.' 47 y/o male w/ pmh significant for AIDs who drove himself to [facility] today 04/30/18 c /o sharp left lower sided abdominal pain, diarrhea X1, nausea, shortness of breath, sweats, and dry heaving. He was found laying down on the floor on the parking bridge at [facility], an [employer] was called and he was taken to the ER for evaluation. He denies denies fever, cough, bloody stool, vomiting, and chest pain. He is non-adhering to HIV rx and states that he has difficulty obtaining refills. PMD: Dr. Medrano PMHx: HIV+, Kidney stones, UTIs, hx of RPR+, CKD stage II Surgical hx: cystoscopy stent insertion 12/2017 PHos hx: multiple inpatient visits w/ multiple complaints Social hx: non-smoker, etoh x1/wk. Denies recreational drug use. Lives in [facility]. Family hx: mother and father are . Denies sign. fam hx. Home Meds: none Allergies: Azithromycin, Sulfas, Sulfamethoxazole, trimethoprim Next of Kin: None Code status: patient states that he is full code. However, he states that he does not want further intervention if initial resuscitation measures are futile ED Course: VS: T 103.2, HR 105, BP 134/89, RR 20, O2 Sat 98 Labs: CMP. BMP, ABGs (WBC 12.4 Hgb 9.6, Cr 2.0, ABG pH 7.41 pCO2 30, Po2 77 Imaging: Abdominal and pelvic CT w/ contrast: Lungs: ground glass opacities in right middle lobe, medial right lower lobe and posterior left lower lobe. Kidneys: obstructive 4x3 mm proximal left ureteral calculus causing hydroureteronephrosis. Mild nephromegaly w/ perinephric stranding & bilateral nonobstructive nephrolithiasis w/ 8X4 mm calculi on the right lower pole being the largest. no hydronephrosis. no solid masses. CXR PA/LAT no signs of active disease. EKG: normal. HR 71 normal sinus rhythm U/A: pH 6.0, urine WBC 27, RBC 5, trace leukocyte esterase NaCl- 0.9% 3L bolus + 150mL/hr maintenance Morphine for pain Acetaminophen 650 mg PO Ibuprofen 600 mg PO Zofran 4 mg iVP Q6 PRN Flomax 0.4mg PO Lovenox 40 mg SC Present on Admission - Present on Admission Any Indicators Present on Admission: No History of DVT/PE: No History of Uncontrolled Diabetes: No Urinary Catheter: No Decubitus Ulcer Present: No History Surgical Site Infection Following: None Review of Systems - Constitutional Constitutional: Chills, Fatigue. absent: Night Sweats, Weight Loss - EENT Eyes: absent: Blurred Vision, Change in Vision, Diplopia, Pain Ears: absent: Decreased Hearing, Ear Pain Nose/Mouth/Throat: absent: Epistaxis, Dysphagia, Mouth Pain, Sore Throat, Facial Pain, Neck Pain - Cardiovascular Cardiovascular: Diaphoresis. absent: Chest Pain, Chest Pain at Rest, Chest Pain with Activity, Edema, Leg Edema, Palpitations, Pedal Edema - Respiratory Respiratory: Dyspnea. absent: Cough, Hemoptysis, Wheezing, Pain on Inspiration - Gastrointestinal Gastrointestinal: Abdominal Pain, Diarrhea, Nausea. absent: Bloating, Constipation, Dysphagia, Heartburn, Hematemesis, Hematochezia Additional comments: nonbloody, X1 - Genitourinary Genitourinary: absent: Difficulty Urinating, Dysuria, Flank Pain, Hematuria, Urinary Incontinence, Urinary Frequency, Urinary Urgency - Musculoskeletal Musculoskeletal: absent: Joint Swelling, Muscle Weakness, Myalgias, Numbness - Integumentary Integumentary: absent: Unusual Bruising - Neurological Neurological: absent: Confusion, Numbness, Headaches, Loss of Vision, Memory Loss - Endocrine Endocrine: absent: Palpitations - Hematologic/Lymphatic Hematologic: absent: Easy Bleeding, Easy Bruising Past Patient History - Past Medical History & Family History Past Medical History?: Yes - Past Social History Smoking Status: Never Smoked - CARDIAC Hx Cardiac Disorders: No - PULMONARY Hx Respiratory Disorders: No - NEUROLOGICAL Hx Neurological Disorder: No - HEENT Hx HEENT Problems: No - RENAL Hx Chronic Kidney Disease: Yes Hx Dialysis: No Hx Kidney Stones: Yes - ENDOCRINE/METABOLIC Hx Endocrine Disorders: No - HEMATOLOGICAL/ONCOLOGICAL Hx Human Immunodeficiency Virus (HIV): Yes (On meds) - INTEGUMENTARY Hx Dermatological Problems: Yes (acne) Other/Comment: dry skin - MUSCULOSKELETAL/RHEUMATOLOGICAL Hx Musculoskeletal Disorders: No Hx Falls: No - GASTROINTESTINAL Hx Gastrointestinal Disorders: No - GENITOURINARY/GYNECOLOGICAL Hx Genitourinary Disorders: Yes (dysuria) Hx Bladder Stone: Yes Hx Sexually Transmitted Disorders: Yes - PSYCHIATRIC Hx Psychophysiologic Disorder: No Hx Substance Use: No - SURGICAL HISTORY Other/Comment: PICC LINE cystoscopy stent insertion - ANESTHESIA Hx Anesthesia: Yes Hx Anesthesia Reactions: No Hx Malignant Hyperthermia: No Meds Allergies/Adverse Reactions: Allergies Allergy/AdvReac Type Severity Reaction Status Date / Time azithromycin [From Zithromax] Allergy RASH Verified 12/25/17 21:25 Sulfa (Sulfonamide Allergy NAUSEA Verified 12/25/17 21:25 Antibiotics) sulfamethoxazole Allergy NAUSEA Verified 12/25/17 21:25 [From Bactrim] trimethoprim [From Bactrim] Allergy NAUSEA Verified 12/25/17 21:25 Physical Exam - Constitutional Appears: No Acute Distress Additional comments: In pain - Head Exam Head Exam: ATRAUMATIC, NORMAL INSPECTION - Eye Exam Eye Exam: Normal appearance, PERRL - ENT Exam ENT Exam: Mucous Membranes Moist - Neck Exam Neck exam: Positive for: Normal Inspection. Negative for: Lymphadenopathy, Tenderness - Respiratory Exam Respiratory Exam: Wheezes, NORMAL BREATHING PATTERN - Cardiovascular Exam Cardiovascular Exam: REGULAR RHYTHM, +S1, +S2 - GI/Abdominal Exam GI & Abdominal Exam: Normal Bowel Sounds, Soft, Tenderness - Extremities Exam Extremities exam: Positive for: normal inspection. Negative for: pedal edema - Back Exam Back exam: NORMAL INSPECTION - Neurological Exam Neurological exam: Alert, Oriented x3 - Psychiatric Exam Psychiatric exam: Normal Affect - Skin Skin Exam: Dry, Intact, Warm Results - Vital Signs Recent Vital Signs: Last Vital Signs Temp 103.2 F H 04/30/18 15:32 Pulse 105 H 04/30/18 14:48 Resp 22 04/30/18 14:48 BP 134/81 04/30/18 14:48 Pulse Ox 98 04/30/18 14:48 - Labs Result Diagrams: 04/30/18 12:44 04/30/18 12:44 Labs: Laboratory Results - last 24 hr 04/30/18 04/30/18 04/30/18 02:54 09:24 12:44 WBC 12.4 H D RBC 3.32 L Hgb 9.6 L D Hct 28.2 L MCV 84.8 D MCH 28.8 MCHC 33.9 RDW 13.8 Plt Count 229 MPV 7.9 Neut % (Auto) 91.6 H Lymph % (Auto) 4.9 L Hendricks % (Auto) 3.4 Eos % (Auto) 0.0 Baso % (Auto) 0.1 Neut # (Auto) 11.3 H Lymph # (Auto) 0.6 L Hendricks # (Auto) 0.4 Eos # (Auto) 0.0 Baso # (Auto) 0.0 Neutrophils % (Manual) 81 H Band Neutrophils % 4 H Lymphocytes % (Manual) 8 L Monocytes % (Manual) 7 Platelet Estimate Normal Hypochromasia (manual) Slight PT INR APTT pCO2 30 L pO2 77 L HCO3 21.4 ABG pH 7.41 ABG Total CO2 19.9 L ABG O2 Saturation 98.1 H ABG Base Excess -4.5 L Paolo Test Yes ABG Potassium 3.6 A-a O2 Difference 35.0 Sodium 142.0 Chloride 113.0 H Glucose 125 H Lactate 1.1 FiO2 21.0 Potassium Carbon Dioxide Anion Gap BUN Creatinine Est GFR ( Amer) Est GFR (Non-Af Amer) POC Glucose (mg/dL) 78 Random Glucose Calcium Total Bilirubin AST ALT Alkaline Phosphatase Total Protein Albumin Globulin Albumin/Globulin Ratio Arterial Blood Potassium 3.6 Urine Color Urine Clarity Urine pH Ur Specific [place] Urine Protein Urine Glucose (UA) Urine Ketones Urine Blood Urine Nitrate Urine Bilirubin Urine Urobilinogen Ur Leukocyte Esterase Urine RBC (Auto) Urine Microscopic WBC Ur Squamous Epith Cells 04/30/18 04/30/18 04/30/18 12:44 12:44 14:09 WBC RBC Hgb Hct MCV MCH MCHC RDW Plt Count MPV Neut % (Auto) Lymph % (Auto) Hendricks % (Auto) Eos % (Auto) Baso % (Auto) Neut # (Auto) Lymph # (Auto) Hendricks # (Auto) Eos # (Auto) Baso # (Auto) Neutrophils % (Manual) Band Neutrophils % Lymphocytes % (Manual) Monocytes % (Manual) Platelet Estimate Hypochromasia (manual) PT 12.7 INR 1.1 APTT 27.4 pCO2 pO2 HCO3 ABG pH ABG Total CO2 ABG O2 Saturation ABG Base Excess Paolo Test ABG Potassium A-a O2 Difference Sodium 144 Chloride 111 H Glucose Lactate FiO2 Potassium 3.8 Carbon Dioxide 18 L Anion Gap 19 BUN 30 H Creatinine 2.0 H Est GFR ( Amer) 44 Est GFR (Non-Af Amer) 36 POC Glucose (mg/dL) Random Glucose 124 H Calcium 8.6 Total Bilirubin 0.9 AST 29 ALT 18 L D Alkaline Phosphatase 95 Total Protein 9.1 H Albumin 4.2 Globulin 5.0 H Albumin/Globulin Ratio 0.8 L Arterial Blood Potassium Urine Color Yellow Urine Clarity Slighty-cloudy Urine pH 6.0 Ur Specific [place] 1.021 Urine Protein 100 Urine Glucose (UA) Neg Urine Ketones 20 Urine Blood Small Urine Nitrate Negative Urine Bilirubin Negative Urine Urobilinogen 4.0 Ur Leukocyte Esterase Trace Urine RBC (Auto) 4 H Urine Microscopic WBC 27 H Ur Squamous Epith Cells 1 Assessment & Plan - Assessment and Plan (Free Text) Assessment: 47 y/o male w/ pmh significant for AIDs admitted for suspected PCP and complicated UTI 1. Shortness of breath -denies chest pain, EKG normal -CXR PA/LAT: no signs of active disease -Abdominal/pelvic CT showed lung ground glass opacities -r/o PCP -Start Mepron 2. Abdominal Pain -probably 2/2 nephrolithiasis -Abdominal/pelvic CT shows obstructive 4X3 mm proximal left uretral calculus -hx of nephrolithiasis, complicated with infection -UA today shows hematuria RBC 4, WBC 27, trace Leuk esterase -Zofran PRN for nausea 3. Complicated UTI -hx of complicated UTI in the past -UA today shows hematuria RBC 4, WBC 27, trace Leuk esterase -Rocephin 1gm QD -f/u urine culture and sensitivity -f/u blood cultures -adjust antibiotic coverage accordingly 4. MARILYNN on chronic kidney disease -likely 2/2 nephrolithiasis -hx of Stage 2 Chronic Renal Disease -Cr: 2.0 today -avoid nephrotoxic agents - aggressive fluid hydration, s/p 3L bolus NS in the ER -maintenance 150 mL NS -follow up BUN and Cr next day 5. Leuokocytosis -likely secondary to complicated UTI -WBC 12.4 -febrile 103.2 -Acetaminophen 650 mg PO 6. Anemia -likely secondary 2/2 AIDs suppression 7. Symptomatic AIDS -Hx of non-adherence w/ ART -CD4 pending (02/19 level: 135) -on Mepron 8. Diet -Liquid, advance as tolerated 9. Prophylaxis -Ambulation/SCDs -Lovenox 40 mg SC 10. Code Status -full code - Date & Time Date: 04/30/18 Time: 17:23
[2018-04-30] MEDS ORDERED: cefTRIAXone (Rocephin) 1 gm Inj ONE (17:04)
[2018-04-30] MEDS: Sodium Chloride 0.9% 1,000 ML IV SCH (17:07)
[2018-05-01] MEDS: Sodium Chloride 0.9% 1,000 ML IV SCH ×3 (01:24→14:25)
[2018-05-01 06:27] LABS: HEMOGLOBIN 9.2 g/dL (12.0-18.0); MEAN CELL VOLUME 86.3 fl (80.0-94.0); MEAN CORPUSCULAR HEMOGLOBIN 28.9 pg (27.0-31.0); MEAN CORPUSCULAR HGB CONC 33.5 g/dL (33.0-37.0); RBC 3.2 Mil/uL (4.40-5.90); RED CELL DISTRIBUTION WIDTH 13.7 % (11.5-14.5); WHITE BLOOD COUNT 16.3 K/uL (4.8-10.8)
[2018-05-01 07:59] LABS: ALB/GLOB RATIO 0.9 (1.0-2.1); ALBUMIN 3.4 g/dL (3.5-5.0); CALCIUM 7.5 mg/dL (8.4-10.2)
--- NOTE | 2018-05-01 08:52 | CP.PCM.PN ---
Subjective - Date & Time of Evaluation Date of Evaluation: 05/01/18 Time of Evaluation: 08:50 - Subjective Subjective: 47 y/o male w/ pmh significant for AIDs admitted for suspected PCP and complicated UTI. Patient seen and examined at bedside. Abdominal pain and shortness of breath improved. Denies nausea, vomiting, chest pain. Patient states that he's feeling "down". Denies sleep disturbances, appetite changes, and suicidal ideation. No acute events overnight. Objective - Vital Signs/Intake and Output Vital Signs (last 24 hours): Temp Pulse Resp BP Pulse Ox 98.4 F 91 H 18 102/64 97 05/01/18 08:33 05/01/18 08:33 05/01/18 08:33 05/01/18 08:33 05/01/18 08:33 - Medications Medications: Current Medications Acetaminophen (Tylenol 325mg Tab) 650 mg PO Q6 PRN PRN Reason: Fever >100.4 F Last Admin: 04/30/18 21:17 Dose: 650 mg Enoxaparin Sodium (Lovenox) 40 mg SC DAILY ELIZABETH PRN Reason: Protocol Sodium Chloride (Sodium Chloride 0.9%) 1,000 mls @ 150 mls/hr IV .Q6H40M ELIZABETH Stop: 05/01/18 16:32 Last Admin: 05/01/18 01:24 Dose: 150 mls/hr Ceftriaxone Sodium 1 gm/ (Sodium Chloride) 100 mls @ 100 mls/hr IVPB DAILY ELIZABETH PRN Reason: Protocol Ondansetron HCl (Zofran Inj) 4 mg IVP Q6 PRN PRN Reason: Nausea/Vomiting - Labs Labs: 05/01/18 05:55 05/01/18 05:55 PT 12.7 Seconds (9.8-13.1) 04/30/18 12:44 INR 1.1 (0.9-1.2) 04/30/18 12:44 APTT 27.4 Seconds (25.6-37.1) 04/30/18 12:44 - Constitutional Appears: Well, No Acute Distress - ENT Exam ENT Exam: Mucous Membranes Moist - Respiratory Exam Respiratory Exam: Wheezes, NORMAL BREATHING PATTERN - Cardiovascular Exam Cardiovascular Exam: REGULAR RHYTHM, +S1, +S2 - GI/Abdominal Exam GI & Abdominal Exam: Soft, Normal Bowel Sounds. absent: Tenderness - Extremities Exam Extremities Exam: absent: Pedal Edema - Neurological Exam Neurological Exam: Alert, Awake, Oriented x3 - Psychiatric Exam Psychiatric exam: Depressed. absent: Agitated, Anxious, Suicidal Ideation - Skin Skin Exam: Dry, Intact, Warm Assessment and Plan - Assessment and Plan (Free Text) Assessment: 47 y/o male w/ pmh significant for AIDs admitted for suspected PCP and complicated UTI 1. Bacteraemia -blood cultures + for staph -will repeat blood cultures -on Zosyn - will check echo 2. Shortness of breath -improved -Abdominal/pelvic CT showed lung ground glass opacities -denies chest pain, EKG normal -CXR PA/LAT: no signs of active disease -r/o PCP -LDH 523, a-a gradient 35, PaO2 98.1 -On Mepron 3. Abdominal Pain -probably 2/2 nephrolithiasis -Abdominal/pelvic CT shows obstructive 4X3 mm proximal left uretral calculus -Tramadol 50 mg for pain mgmt -hx of nephrolithiasis, complicated with infection -UA: hematuria RBC 4, WBC 27, trace Leuk esterase -Zofran PRN for nausea -Urology consulted, appreciate recs 4. Complicated UTI -hx of complicated UTI in the past -UA today shows hematuria RBC 4, WBC 27, trace Leuk esterase -started on Zosyn -Rocephin d/c -urine and blood cultures positive for staph -ID, Dr. Arechiga is following; appreciate recs 5. MARILYNN on chronic kidney disease -likely 2/2 nephrolithiasis -hx of Stage 2 Chronic Renal Disease -Cr: 2.3 -avoid nephrotoxic agents and renally dose meds - aggressive fluid hydration, s/p 3L bolus NS in the ER -maintenance 150 mL NS -follow up BUN and Cr next day -will consult [employer] 6. Leuokocytosis -likely secondary to complicated UTI -WBC 16.3 today -febrile on admission, resolved -Acetaminophen 650 mg PO 7. Anemia -likely secondary 2/2 AIDs suppression 8. Symptomatic AIDS -Hx of non-adherence w/ ART -CD4 pending (02/19 level: 135) -on Mepron 9. Diet -Liquid, advance as tolerated 10. Prophylaxis -Ambulation/SCDs -Lovenox 40 mg SC 11. Code Status -full code
[2018-05-01] MEDS: Enoxaparin 40 mg Syringe SC SCH (09:55)
--- NOTE | 2018-05-01 12:32 | CP.PCM.CON ---
History of Present Illness - History of Present Illness History of Present Illness: Infectious disease Consultation Note- asked to see this patient at the request of family practice team . HPI- Patient known to me from his previous admission . Patient is a 47 year old male with HIV/AIDS not complaint with his HAART meds who came to [facility] with c/o left lower abdominal pain that had started a day before and nausea and some sob. He states she was fine until a day ago when these symptoms started and he drove himself to the hospital but as he parked in the garage he tried walking to the bridge to h=get inside the hospital but becamse sob and was found on the garage floor and [employer]E [employer]IPPER was aldo and he was taken to ED from there. He denies any fever or chills and denies any cough and denies any NORMAN. pt. states on 29 of april he had some salmon salad adn he is not sure if that did not agree with him. pt. has h/o kidney stones,hydronpehrosis and UTI and bacteremia in last admission in 11/2017 with MSSA from MSSA UTI. pt. states his ureteral stent was removed since and has not had any further bladder issues. he also explains that he was taking his HAART meds as per his HIV doctor at [facility] for one full month ( maximo) but states he could not obtain refills and he did not f/u adn has been off his STEWART for past 2 months. He also states he was on mepron for pcp prophyalxis bec he developed rash with bactrim in 12/2017 ( was seen by that visit). He states he feels better today and denies any sob today. denies any dysurea today. states he still ahs mild left lower abd pain. denies any diarrhea. denies any NORMAN , denies any fever or chills. denies any nausea today. denies any diarrhea. PMD: Dr. Medrano PMHx: HIV+, Kidney stones, UTIs, hx of RPR+, CKD stage II Surgical hx: cystoscopy stent insertion in past and per pt. was removed in 2017 PHos hx: multiple inpatient visits w/ multiple complaints Social hx: non-smoker, etoh x1/wk. Denies recreational drug use. Lives in [place] alone. Family hx: mother and father are . Denies sign. fam hx. Home Meds: none Allergies: Azithromycin, Sulfas, Sulfamethoxazole, trimethoprim ED Course: VS: T 103.2, HR 105, BP 134/89, RR 20, O2 Sat 98 Labs: CMP. BMP, ABGs (WBC 12.4 Hgb 9.6, Cr 2.0, ABG pH 7.41 pCO2 30, Po2 77 Imaging: Abdominal and pelvic CT w/ contrast: Lungs: ground glass opacities in right middle lobe, medial right lower lobe and posterior left lower lobe. Kidneys: obstructive 4x3 mm proximal left ureteral calculus causing hydroureteronephrosis. Mild nephromegaly w/ perinephric stranding & bilateral nonobstructive nephrolithiasis w/ 8X4 mm calculi on the right lower pole being the largest. no hydronephrosis. no solid masses. Review of Systems - Review of Systems Review of Systems: ROS- as stated in HPI. Past Patient History - Infectious Disease Hx of Infectious Diseases: None - Past Medical History & Family History Past Medical History?: Yes - Past Social History Smoking Status: Never Smoked - CARDIAC Hx Cardiac Disorders: No - PULMONARY Hx Respiratory Disorders: No - NEUROLOGICAL Hx Neurological Disorder: No - HEENT Hx HEENT Problems: No - RENAL Hx Chronic Kidney Disease: Yes Hx Dialysis: No Hx Kidney Stones: Yes - ENDOCRINE/METABOLIC Hx Endocrine Disorders: No - HEMATOLOGICAL/ONCOLOGICAL Hx AIDS: Yes Hx Human Immunodeficiency Virus (HIV): Yes - INTEGUMENTARY Hx Dermatological Problems: Yes (acne) Other/Comment: dry skin - MUSCULOSKELETAL/RHEUMATOLOGICAL Hx Falls: No - GASTROINTESTINAL Hx Gastrointestinal Disorders: No - GENITOURINARY/GYNECOLOGICAL Hx Genitourinary Disorders: Yes (dysuria) Hx Bladder Stone: Yes Hx Sexually Transmitted Disorders: Yes - PSYCHIATRIC Hx Substance Use: No - SURGICAL HISTORY Other/Comment: PICC LINE cystoscopy stent insertion - ANESTHESIA Hx Anesthesia: Yes Hx Anesthesia Reactions: No Hx Malignant Hyperthermia: No Meds Allergies/Adverse Reactions: Allergies Allergy/AdvReac Type Severity Reaction Status Date / Time azithromycin [From Zithromax] Allergy RASH Verified 12/25/17 21:25 Sulfa (Sulfonamide Allergy NAUSEA Verified 12/25/17 21:25 Antibiotics) sulfamethoxazole Allergy NAUSEA Verified 12/25/17 21:25 [From Bactrim] trimethoprim [From Bactrim] Allergy NAUSEA Verified 12/25/17 21:25 - Medications Medications: Current Medications Acetaminophen (Tylenol 325mg Tab) 650 mg PO Q6 PRN PRN Reason: Fever >100.4 F Last Admin: 04/30/18 21:17 Dose: 650 mg Atovaquone (Mepron) 750 mg PO BIDWM [facility] PRN Reason: Protocol Enoxaparin Sodium (Lovenox) 40 mg SC DAILY [facility] PRN Reason: Protocol Last Admin: 05/01/18 09:55 Dose: Not Given Sodium Chloride (Sodium Chloride 0.9%) 1,000 mls @ 150 mls/hr IV .Q6H40M [facility] Stop: 05/01/18 16:32 Last Admin: 05/01/18 11:27 Dose: 150 mls/hr Ceftriaxone Sodium 1 gm/ (Sodium Chloride) 100 mls @ 100 mls/hr IVPB DAILY [facility] PRN Reason: Protocol Last Admin: 05/01/18 11:36 Dose: 100 mls/hr Ondansetron HCl (Zofran Inj) 4 mg IVP Q6 PRN PRN Reason: Nausea/Vomiting Last Admin: 05/01/18 11:36 Dose: 4 mg Physical Exam - Constitutional Appears: No Acute Distress - Head Exam Head Exam: ATRAUMATIC - Eye Exam Eye Exam: EOMI, PERRL - Neck Exam Neck exam: Positive for: Full Rom Additional comments: supple - Respiratory Exam Respiratory Exam: NORMAL BREATHING PATTERN Additional comments: no wheezing slightly decreased breath sounds at bases - Cardiovascular Exam Cardiovascular Exam: RRR, +S1, +S2 - GI/Abdominal Exam GI & Abdominal Exam: Normal Bowel Sounds, Soft Additional comments: no distention mild left lower abdominal pain with palpation No CVA tenderness B/L - Extremities Exam Extremities exam: Positive for: normal inspection - Neurological Exam Neurological exam: Alert, Oriented x3 Results - Vital Signs Recent Vital Signs: Last Vital Signs Temp 98.4 F 05/01/18 08:33 Pulse 91 H 05/01/18 08:33 Resp 18 05/01/18 08:33 BP 102/64 05/01/18 08:33 Pulse Ox 97 05/01/18 08:33 - Labs Result Diagrams: 05/01/18 05:55 05/01/18 05:55 Labs: Laboratory Results - last 24 hr 04/30/18 04/30/18 04/30/18 02:54 12:44 12:44 WBC 12.4 H D RBC 3.32 L Hgb 9.6 L D Hct 28.2 L MCV 84.8 D MCH 28.8 MCHC 33.9 RDW 13.8 Plt Count 229 MPV 7.9 Neut % (Auto) 91.6 H Lymph % (Auto) 4.9 L Kern % (Auto) 3.4 Eos % (Auto) 0.0 Baso % (Auto) 0.1 Neut # (Auto) 11.3 H Lymph # (Auto) 0.6 L Kern # (Auto) 0.4 Eos # (Auto) 0.0 Baso # (Auto) 0.0 Neutrophils % (Manual) 81 H Band Neutrophils % 4 H Lymphocytes % (Manual) 8 L Monocytes % (Manual) 7 Platelet Estimate Normal Hypochromasia (manual) Slight PT INR APTT pCO2 30 L pO2 77 L HCO3 21.4 ABG pH 7.41 ABG Total CO2 19.9 L ABG O2 Saturation 98.1 H ABG Base Excess -4.5 L Paolo Test Yes ABG Potassium 3.6 A-a O2 Difference 35.0 Sodium 142.0 144 Chloride 113.0 H 111 H Glucose 125 H Lactate 1.1 FiO2 21.0 Potassium 3.8 Carbon Dioxide 18 L Anion Gap 19 BUN 30 H Creatinine 2.0 H Est GFR ( Amer) 44 Est GFR (Non-Af Amer) 36 Random Glucose 124 H Calcium 8.6 Total Bilirubin 0.9 AST 29 ALT 18 L D Alkaline Phosphatase 95 Lactate Dehydrogenase Total Protein 9.1 H Albumin 4.2 Globulin 5.0 H Albumin/Globulin Ratio 0.8 L Arterial Blood Potassium 3.6 Urine Color Urine Clarity Urine pH Ur Specific [place] Urine Protein Urine Glucose (UA) Urine Ketones Urine Blood Urine Nitrate Urine Bilirubin Urine Urobilinogen Ur Leukocyte Esterase Urine RBC (Auto) Urine Microscopic WBC Ur Squamous Epith Cells 04/30/18 04/30/18 04/30/18 12:44 14:09 15:38 WBC RBC Hgb Hct MCV MCH MCHC RDW Plt Count MPV Neut % (Auto) Lymph % (Auto) Kern % (Auto) Eos % (Auto) Baso % (Auto) Neut # (Auto) Lymph # (Auto) Kern # (Auto) Eos # (Auto) Baso # (Auto) Neutrophils % (Manual) Band Neutrophils % Lymphocytes % (Manual) Monocytes % (Manual) Platelet Estimate Hypochromasia (manual) PT 12.7 INR 1.1 APTT 27.4 pCO2 pO2 HCO3 ABG pH ABG Total CO2 ABG O2 Saturation ABG Base Excess Paolo Test ABG Potassium A-a O2 Difference Sodium Chloride Glucose Lactate FiO2 Potassium Carbon Dioxide Anion Gap BUN Creatinine Est GFR ( Amer) Est GFR (Non-Af Amer) Random Glucose Calcium Total Bilirubin AST ALT Alkaline Phosphatase Lactate Dehydrogenase 523 Total Protein Albumin Globulin Albumin/Globulin Ratio Arterial Blood Potassium Urine Color Yellow Urine Clarity Slighty-cloudy Urine pH 6.0 Ur Specific [place] 1.021 Urine Protein 100 Urine Glucose (UA) Neg Urine Ketones 20 Urine Blood Small Urine Nitrate Negative Urine Bilirubin Negative Urine Urobilinogen 4.0 Ur Leukocyte Esterase Trace Urine RBC (Auto) 4 H Urine Microscopic WBC 27 H Ur Squamous Epith Cells 1 05/01/18 05/01/18 05:55 05:55 WBC 16.3 H RBC 3.20 L Hgb 9.2 L Hct 27.6 L MCV 86.3 MCH 28.9 MCHC 33.5 RDW 13.7 Plt Count 195 MPV Neut % (Auto) Lymph % (Auto) Kern % (Auto) Eos % (Auto) Baso % (Auto) Neut # (Auto) Lymph # (Auto) Kern # (Auto) Eos # (Auto) Baso # (Auto) Neutrophils % (Manual) Band Neutrophils % Lymphocytes % (Manual) Monocytes % (Manual) Platelet Estimate Hypochromasia (manual) PT INR APTT pCO2 pO2 HCO3 ABG pH ABG Total CO2 ABG O2 Saturation ABG Base Excess Paolo Test ABG Potassium A-a O2 Difference Sodium 144 Chloride 115 H Glucose Lactate FiO2 Potassium 3.6 Carbon Dioxide 16 L Anion Gap 17 BUN 26 H Creatinine 2.3 H Est GFR ( Amer) 37 Est GFR (Non-Af Amer) 31 Random Glucose 92 Calcium 7.5 L Total Bilirubin 0.9 AST 27 ALT 19 L Alkaline Phosphatase 74 Lactate Dehydrogenase Total Protein 7.2 Albumin 3.4 L Globulin 3.9 Albumin/Globulin Ratio 0.9 L Arterial Blood Potassium Urine Color Urine Clarity Urine pH Ur Specific [place] Urine Protein Urine Glucose (UA) Urine Ketones Urine Blood Urine Nitrate Urine Bilirubin Urine Urobilinogen Ur Leukocyte Esterase Urine RBC (Auto) Urine Microscopic WBC Ur Squamous Epith Cells Laboratory Results - last 72 hr 04/30/18 04/30/18 04/30/18 02:54 09:24 12:44 WBC 12.4 H D RBC 3.32 L Hgb 9.6 L D Hct 28.2 L MCV 84.8 D MCH 28.8 MCHC 33.9 RDW 13.8 Plt Count 229 MPV 7.9 Neut % (Auto) 91.6 H Lymph % (Auto) 4.9 L Kern % (Auto) 3.4 Eos % (Auto) 0.0 Baso % (Auto) 0.1 Neut # (Auto) 11.3 H Lymph # (Auto) 0.6 L Kern # (Auto) 0.4 Eos # (Auto) 0.0 Baso # (Auto) 0.0 Neutrophils % (Manual) 81 H Band Neutrophils % 4 H Lymphocytes % (Manual) 8 L Monocytes % (Manual) 7 Platelet Estimate Normal Hypochromasia (manual) Slight PT INR APTT pCO2 30 L pO2 77 L HCO3 21.4 ABG pH 7.41 ABG Total CO2 19.9 L ABG O2 Saturation 98.1 H ABG Base Excess -4.5 L Paolo Test Yes ABG Potassium 3.6 A-a O2 Difference 35.0 Sodium 142.0 Chloride 113.0 H Glucose 125 H Lactate 1.1 FiO2 21.0 Potassium Carbon Dioxide Anion Gap BUN Creatinine Est GFR ( Amer) Est GFR (Non-Af Amer) POC Glucose (mg/dL) 78 Random Glucose Calcium Total Bilirubin AST ALT Alkaline Phosphatase Lactate Dehydrogenase Total Protein Albumin Globulin Albumin/Globulin Ratio Arterial Blood Potassium 3.6 Urine Color Urine Clarity Urine pH Ur Specific [place] Urine Protein Urine Glucose (UA) Urine Ketones Urine Blood Urine Nitrate Urine Bilirubin Urine Urobilinogen Ur Leukocyte Esterase Urine RBC (Auto) Urine Microscopic WBC Ur Squamous Epith Cells 04/30/18 04/30/18 04/30/18 12:44 12:44 14:09 WBC RBC Hgb Hct MCV MCH MCHC RDW Plt Count MPV Neut % (Auto) Lymph % (Auto) Kern % (Auto) Eos % (Auto) Baso % (Auto) Neut # (Auto) Lymph # (Auto) Kern # (Auto) Eos # (Auto) Baso # (Auto) Neutrophils % (Manual) Band Neutrophils % Lymphocytes % (Manual) Monocytes % (Manual) Platelet Estimate Hypochromasia (manual) PT 12.7 INR 1.1 APTT 27.4 pCO2 pO2 HCO3 ABG pH ABG Total CO2 ABG O2 Saturation ABG Base Excess Paolo Test ABG Potassium A-a O2 Difference Sodium 144 Chloride 111 H Glucose Lactate FiO2 Potassium 3.8 Carbon Dioxide 18 L Anion Gap 19 BUN 30 H Creatinine 2.0 H Est GFR ( Amer) 44 Est GFR (Non-Af Amer) 36 POC Glucose (mg/dL) Random Glucose 124 H Calcium 8.6 Total Bilirubin 0.9 AST 29 ALT 18 L D Alkaline Phosphatase 95 Lactate Dehydrogenase Total Protein 9.1 H Albumin 4.2 Globulin 5.0 H Albumin/Globulin Ratio 0.8 L Arterial Blood Potassium Urine Color Yellow Urine Clarity Slighty-cloudy Urine pH 6.0 Ur Specific [place] 1.021 Urine Protein 100 Urine Glucose (UA) Neg Urine Ketones 20 Urine Blood Small Urine Nitrate Negative Urine Bilirubin Negative Urine Urobilinogen 4.0 Ur Leukocyte Esterase Trace Urine RBC (Auto) 4 H Urine Microscopic WBC 27 H Ur Squamous Epith Cells 1 04/30/18 05/01/18 05/01/18 15:38 05:55 05:55 WBC 16.3 H RBC 3.20 L Hgb 9.2 L Hct 27.6 L MCV 86.3 MCH 28.9 MCHC 33.5 RDW 13.7 Plt Count 195 MPV Neut % (Auto) Lymph % (Auto) Kern % (Auto) Eos % (Auto) Baso % (Auto) Neut # (Auto) Lymph # (Auto) Kern # (Auto) Eos # (Auto) Baso # (Auto) Neutrophils % (Manual) Band Neutrophils % Lymphocytes % (Manual) Monocytes % (Manual) Platelet Estimate Hypochromasia (manual) PT INR APTT pCO2 pO2 HCO3 ABG pH ABG Total CO2 ABG O2 Saturation ABG Base Excess Paolo Test ABG Potassium A-a O2 Difference Sodium 144 Chloride 115 H Glucose Lactate FiO2 Potassium 3.6 Carbon Dioxide 16 L Anion Gap 17 BUN 26 H Creatinine 2.3 H Est GFR ( Amer) 37 Est GFR (Non-Af Amer) 31 POC Glucose (mg/dL) Random Glucose 92 Calcium 7.5 L Total Bilirubin 0.9 AST 27 ALT 19 L Alkaline Phosphatase 74 Lactate Dehydrogenase 523 Total Protein 7.2 Albumin 3.4 L Globulin 3.9 Albumin/Globulin Ratio 0.9 L Arterial Blood Potassium Urine Color Urine Clarity Urine pH Ur Specific [place] Urine Protein Urine Glucose (UA) Urine Ketones Urine Blood Urine Nitrate Urine Bilirubin Urine Urobilinogen Ur Leukocyte Esterase Urine RBC (Auto) Urine Microscopic WBC Ur Squamous Epith Cells Microbiology 04/30/18 15:45 Blood-Venous S.aureus & Coag-Neg Staph PNA FISH - Final 04/30/18 15:45 Blood-Venous Gram Stain - Final 04/30/18 17:31 Urine,Clean Catch Urine Culture - Preliminary Gram Positive Cocci Accession No. : [id number] Patient Name / ID : KING MARTY Ryan / [id number] Exam Date : 04/30/2018 14:09:16 ( Approved ) Study Comment : Sex / Age : M / 47Y Creator : Vel Manuel MD Dictator : Vel Manuel MD Cubing Machine Tender : Faceter : Vel Manuel MD Approver2 : Report Date : 04/30/2018 14:40:39 My Comment : PROCEDURE: CT Abdomen and Pelvis without intravenous contrast HISTORY: Abd pain COMPARISON: CT scan of the abdomen and pelvis dated 11/16/2017. TECHNIQUE: Contiguous images were obtained from the domes of the diaphragms to the upper thighs without the administration of intravenous contrast. Oral contrast was not administered. Radiation dose: Total exam DLP = 333.8 mGy-cm. This CT exam was performed using one or more of the following dose reduction techniques: Automated exposure control, adjustment of the mA and/or kV according to patient size, and/or use of iterative reconstruction technique. FINDINGS: LOWER THORAX: Scattered ground-glass opacities in the right middle lobe, medial right lower lobe and posterior left lower lobe. LIVER: Mild hepatic steatosis. No gross lesion or ductal dilatation. GALLBLADDER AND BILE DUCTS: Unremarkable. PANCREAS: Unremarkable. No gross lesion or ductal dilatation. SPLEEN: Unremarkable. ADRENALS: Unremarkable. No mass. KIDNEYS AND URETERS: Obstructive 4 x 3 mm proximal left ureteral calculus causing mild hydroureteronephrosis, mild nephromegaly with perinephric stranding. Additional bilateral nonobstructive nephrolithiasis, the largest calculus on the right is in the lower pole and measures 8 x 4 mm. No hydronephrosis. No solid mass. VASCULATURE: Unremarkable. No aortic aneurysm. BOWEL: Small hiatal hernia. No obstruction. No gross mural thickening. APPENDIX: Unremarkable. Normal appendix. PERITONEUM: Unremarkable. No free fluid. No free air. LYMPH NODES: Unremarkable. No enlarged lymph nodes. BLADDER: Unremarkable. REPRODUCTIVE: Unremarkable. BONES: No acute fracture. OTHER FINDINGS: None. IMPRESSION: Obstructive 4 x 3 mm proximal left ureteral calculus causing mild hydroureteronephrosis, mild nephromegaly and perinephric stranding. Additional bilateral nonobstructive nephrolithiasis as described above. Scattered patchy ground-glass opacities is in the right middle lobe, medial right lower lobe and posterior left lower lobe which may be infectious/ inflammatory in etiology. Accession No. : [id number] Patient Name / ID : KING MARTY Ryan / [id number] Exam Date : 04/30/2018 09:15:12 ( Approved ) Study Comment : Sex / Age : M / 47Y Creator : Torres Plummer MD Dictator : Torres Plummer MD Cubing Machine Tender : Faceter : Torres Plummer MD Approver2 : Report Date : 04/30/2018 12:13:09 My Comment : HISTORY: Abd pain COMPARISON: 12/25/2017 TECHNIQUE: Chest PA and lateral FINDINGS: LUNGS: No active pulmonary disease. PLEURA: No significant pleural effusion identified. No pneumothorax apparent. CARDIOVASCULAR: Normal. OSSEOUS STRUCTURES: No significant abnormalities. VISUALIZED UPPER ABDOMEN: Normal. OTHER FINDINGS: None. IMPRESSION: No active disease. Microbiology 04/30/18 15:45 Blood-Venous S.aureus & Coag-Neg Staph PNA FISH - Final 04/30/18 15:45 Blood-Venous Gram Stain - Final 12/26/17 06:15 Sacral Gram Stain - Final 12/26/17 06:15 Sacral Wound Culture - Final Staphylococcus Aureus 12/26/17 06:15 Head Gram Stain - Final 12/26/17 06:15 Head Wound Culture - Final Staphylococcus Aureus 12/25/17 23:55 Blood-Venous Blood Culture - Final 12/25/17 23:55 Blood-Venous Gram Stain - Final NO GROWTH AFTER 5 DAYS TEST NOT PERFORMED 12/25/17 23:55 Blood-Venous Blood Culture - Final 12/25/17 23:55 Blood-Venous Gram Stain - Final NO GROWTH AFTER 5 DAYS TEST NOT PERFORMED 11/18/17 04:25 Blood S.aureus & Coag-Neg Staph PNA FISH - Final 11/18/17 04:25 Blood Gram Stain - Final Staphylococcus Aureus 11/16/17 20:30 Blood Blood Culture - Final 11/16/17 20:30 Blood Gram Stain - Final Staphylococcus Aureus 11/16/17 17:42 Blood Blood Culture - Final 11/16/17 17:42 Blood Gram Stain - Final Staphylococcus Aureus 11/16/17 04:20 Urine,Clean Catch Urine Culture - Final Staphylococcus Aureus 04/30/18 17:31 Urine,Clean Catch Urine Culture - Preliminary Gram Positive Cocci Assessment & Plan (1) Pyelonephritis Status: Acute (2) SIRS (systemic inflammatory response syndrome) Status: Acute (3) AIDS Status: Chronic (4) Ureteral stone Status: Acute (5) Renal insufficiency Status: Acute - Assessment and Plan (Free Text) Assessment: A/P- 47 year old male with multiple medical conditions icnlduing HIV/AIDS, h/o nephrolithiasis and hydronephrosis adn UTI and uretearl stents in place now admitted with lower abd pain, high wbc, + UA and acute renal insufficiency found to have on CT report- Obstructive 4 x 3 mm proximal left ureteral calculus causing mild hydroureteronephrosis, mild nephromegaly and perinephric stranding. + UA- left obstructing kidney stone causing hydro and acute renal insufficiency. plan- check CD4 and VL. advise to get his records from [facility] to see if there is genotype results. advise for now to hold his HAART sicne he is ain acute renal insufficiency as well . advise urology consult . advise to also check blood cx x 2. await ID and sensitivity of the GPC in prelim urien cx. has h/o MSSA UTI And bacteremia in past ( has been treated). in light of his acute on chronic renal insufficiency advise to start pt. on doxycycline since the mSSA is sensitive to tetracycline and onc erenal function improved can start him on IV vancomycin. can continue with mepron for PCP prophyalxis if cd4 is <200. All above d/w patient at length and he verbalizes full understanding of all above. Thank you for allowing me to take part in the care of this patient.
[2018-05-01] MEDS: Atovaquone 750 mg/5 ml Susp UD PO SCH ×2 (12:41→17:37)
[2018-05-02] MEDS: Enoxaparin 40 mg Syringe SC SCH ×2 (09:21→09:35)
[2018-05-02] MEDS: Atovaquone 750 mg/5 ml Susp UD PO SCH ×2 (09:22→19:11)
[2018-05-02] MEDS: Sodium Chloride 0.9% 1,000 ML IV SCH ×4 (09:22→21:35)
[2018-05-02 10:11] LABS: MEAN CELL VOLUME 84.8 fl (80.0-94.0); MEAN CORPUSCULAR HEMOGLOBIN 29.9 pg (27.0-31.0); MEAN CORPUSCULAR HGB CONC 35.3 g/dL (33.0-37.0); RBC 3.02 Mil/uL (4.40-5.90); WHITE BLOOD COUNT 12.8 K/uL (4.8-10.8)
--- NOTE | 2018-05-02 10:41 | CP.PCM.PN ---
Subjective - Date & Time of Evaluation Date of Evaluation: 05/02/18 Time of Evaluation: 10:40 - Subjective Subjective: ID Note- Pt. seen and examined today . pt. febrile . states he still has some lower abd . pain. Objective - Vital Signs/Intake and Output Vital Signs (last 24 hours): Temp Pulse Resp BP Pulse Ox 98.9 F 78 20 110/66 98 05/02/18 08:26 05/02/18 08:26 05/02/18 08:26 05/02/18 08:26 05/02/18 08:26 - Medications Medications: Current Medications Acetaminophen (Tylenol 325mg Tab) 650 mg PO Q6 PRN PRN Reason: Fever >100.4 F Last Admin: 05/01/18 23:04 Dose: 650 mg Atovaquone (Mepron) 750 mg PO BIDWM [facility] PRN Reason: Protocol Last Admin: 05/02/18 09:22 Dose: 750 mg Enoxaparin Sodium (Lovenox) 40 mg SC DAILY [facility] PRN Reason: Protocol Last Admin: 05/02/18 09:35 Dose: Not Given Piperacillin Sod/Tazobactam (Sod 2.25 gm/ Sodium Chloride) 100 mls @ 100 mls/ hr IVPB Q12 [facility] PRN Reason: Protocol Last Admin: 05/02/18 09:24 Dose: 100 mls/hr Doxycycline Hyclate 100 mg/ (Sodium Chloride) 100 mls @ 100 mls/hr IVPB Q12 [facility] PRN Reason: Protocol Last Admin: 05/02/18 09:25 Dose: 100 mls/hr Sodium Chloride (Sodium Chloride 0.9%) 1,000 mls @ 150 mls/hr IV .Q6H40M [facility] Stop: 05/03/18 07:32 Last Admin: 05/02/18 09:22 Dose: 150 mls/hr Ondansetron HCl (Zofran Inj) 4 mg IVP Q6 PRN PRN Reason: Nausea/Vomiting Last Admin: 05/01/18 11:36 Dose: 4 mg Tamsulosin HCl (Flomax) 0.4 mg PO DAILY [facility] Last Admin: 05/02/18 09:21 Dose: 0.4 mg Tramadol HCl (Ultram) 50 mg PO Q6 PRN PRN Reason: Pain, severe (8-10) Last Admin: 05/02/18 09:45 Dose: 50 mg - Labs Labs: - Additional Findings Additional findings: Constitutional Appears: No Acute Distress - Head Exam Head Exam: ATRAUMATIC - Eye Exam Eye Exam: EOMI, PERRL - Neck Exam Neck exam: Positive for: Full Rom Additional comments: supple - Respiratory Exam Respiratory Exam: NORMAL BREATHING PATTERN Additional comments: no wheezing slightly decreased breath sounds at bases - Cardiovascular Exam Cardiovascular Exam: RRR, +S1, +S2 - GI/Abdominal Exam GI & Abdominal Exam: Normal Bowel Sounds, Soft Additional comments: no distention mild left lower abdominal pain with palpation No CVA tenderness B/L - Extremities Exam Extremities exam: Positive for: normal inspection - Neurological Exam Neurological exam: Alert, Oriented x 3 Laboratory Results - last 72 hr 04/30/18 04/30/18 04/30/18 02:54 09:24 12:44 WBC 12.4 H D RBC 3.32 L Hgb 9.6 L D Hct 28.2 L MCV 84.8 D MCH 28.8 MCHC 33.9 RDW 13.8 Plt Count 229 MPV 7.9 Neut % (Auto) 91.6 H Lymph % (Auto) 4.9 L [place] % (Auto) 3.4 Eos % (Auto) 0.0 Baso % (Auto) 0.1 Neut # (Auto) 11.3 H Lymph # (Auto) 0.6 L [place] # (Auto) 0.4 Eos # (Auto) 0.0 Baso # (Auto) 0.0 Neutrophils % (Manual) 81 H Band Neutrophils % 4 H Lymphocytes % (Manual) 8 L Monocytes % (Manual) 7 Platelet Estimate Normal Hypochromasia (manual) Slight PT INR APTT pCO2 30 L pO2 77 L HCO3 21.4 ABG pH 7.41 ABG Total CO2 19.9 L ABG O2 Saturation 98.1 H ABG Base Excess -4.5 L Paolo Test Yes ABG Potassium 3.6 A-a O2 Difference 35.0 Sodium 142.0 Chloride 113.0 H Glucose 125 H Lactate 1.1 FiO2 21.0 Potassium Carbon Dioxide Anion Gap BUN Creatinine Est GFR ( Amer) Est GFR (Non-Af Amer) POC Glucose (mg/dL) 78 Random Glucose Calcium Total Bilirubin AST ALT Alkaline Phosphatase Lactate Dehydrogenase Total Protein Albumin Globulin Albumin/Globulin Ratio Arterial Blood Potassium 3.6 Urine Color Urine Clarity Urine pH Ur Specific Hinkley Urine Protein Urine Glucose (UA) Urine Ketones Urine Blood Urine Nitrate Urine Bilirubin Urine Urobilinogen Ur Leukocyte Esterase Urine RBC (Auto) Urine Microscopic WBC Ur Squamous Epith Cells 04/30/18 04/30/18 04/30/18 12:44 12:44 14:09 WBC RBC Hgb Hct MCV MCH MCHC RDW Plt Count MPV Neut % (Auto) Lymph % (Auto) [place] % (Auto) Eos % (Auto) Baso % (Auto) Neut # (Auto) Lymph # (Auto) [place] # (Auto) Eos # (Auto) Baso # (Auto) Neutrophils % (Manual) Band Neutrophils % Lymphocytes % (Manual) Monocytes % (Manual) Platelet Estimate Hypochromasia (manual) PT 12.7 INR 1.1 APTT 27.4 pCO2 pO2 HCO3 ABG pH ABG Total CO2 ABG O2 Saturation ABG Base Excess Paolo Test ABG Potassium A-a O2 Difference Sodium 144 Chloride 111 H Glucose Lactate FiO2 Potassium 3.8 Carbon Dioxide 18 L Anion Gap 19 BUN 30 H Creatinine 2.0 H Est GFR ( Amer) 44 Est GFR (Non-Af Amer) 36 POC Glucose (mg/dL) Random Glucose 124 H Calcium 8.6 Total Bilirubin 0.9 AST 29 ALT 18 L D Alkaline Phosphatase 95 Lactate Dehydrogenase Total Protein 9.1 H Albumin 4.2 Globulin 5.0 H Albumin/Globulin Ratio 0.8 L Arterial Blood Potassium Urine Color Yellow Urine Clarity Slighty-cloudy Urine pH 6.0 Ur Specific Hinkley 1.021 Urine Protein 100 Urine Glucose (UA) Neg Urine Ketones 20 Urine Blood Small Urine Nitrate Negative Urine Bilirubin Negative Urine Urobilinogen 4.0 Ur Leukocyte Esterase Trace Urine RBC (Auto) 4 H Urine Microscopic WBC 27 H Ur Squamous Epith Cells 1 04/30/18 05/01/18 05/01/18 15:38 05:55 05:55 WBC 16.3 H RBC 3.20 L Hgb 9.2 L Hct 27.6 L MCV 86.3 MCH 28.9 MCHC 33.5 RDW 13.7 Plt Count 195 MPV Neut % (Auto) Lymph % (Auto) [place] % (Auto) Eos % (Auto) Baso % (Auto) Neut # (Auto) Lymph # (Auto) [place] # (Auto) Eos # (Auto) Baso # (Auto) Neutrophils % (Manual) Band Neutrophils % Lymphocytes % (Manual) Monocytes % (Manual) Platelet Estimate Hypochromasia (manual) PT INR APTT pCO2 pO2 HCO3 ABG pH ABG Total CO2 ABG O2 Saturation ABG Base Excess Paolo Test ABG Potassium A-a O2 Difference Sodium 144 Chloride 115 H Glucose Lactate FiO2 Potassium 3.6 Carbon Dioxide 16 L Anion Gap 17 BUN 26 H Creatinine 2.3 H Est GFR ( Amer) 37 Est GFR (Non-Af Amer) 31 POC Glucose (mg/dL) Random Glucose 92 Calcium 7.5 L Total Bilirubin 0.9 AST 27 ALT 19 L Alkaline Phosphatase 74 Lactate Dehydrogenase 523 Total Protein 7.2 Albumin 3.4 L Globulin 3.9 Albumin/Globulin Ratio 0.9 L Arterial Blood Potassium Urine Color Urine Clarity Urine pH Ur Specific Hinkley Urine Protein Urine Glucose (UA) Urine Ketones Urine Blood Urine Nitrate Urine Bilirubin Urine Urobilinogen Ur Leukocyte Esterase Urine RBC (Auto) Urine Microscopic WBC Ur Squamous Epith Cells 05/02/18 05/02/18 09:52 09:52 WBC 12.8 H RBC 3.02 L Hgb 9.0 L Hct 25.6 L MCV 84.8 MCH 29.9 MCHC 35.3 RDW 14.0 Plt Count 184 MPV Neut % (Auto) Lymph % (Auto) [place] % (Auto) Eos % (Auto) Baso % (Auto) Neut # (Auto) Lymph # (Auto) [place] # (Auto) Eos # (Auto) Baso # (Auto) Neutrophils % (Manual) Band Neutrophils % Lymphocytes % (Manual) Monocytes % (Manual) Platelet Estimate Hypochromasia (manual) PT INR APTT pCO2 pO2 HCO3 ABG pH ABG Total CO2 ABG O2 Saturation ABG Base Excess Paolo Test ABG Potassium A-a O2 Difference Sodium 142 Chloride 113 H Glucose Lactate FiO2 Potassium 3.5 L Carbon Dioxide 18 L Anion Gap 15 BUN 22 H Creatinine 2.8 H Est GFR ( Amer) 30 Est GFR (Non-Af Amer) 25 POC Glucose (mg/dL) Random Glucose 114 H Calcium 8.3 L Total Bilirubin 0.9 AST 35 ALT 22 Alkaline Phosphatase 104 Lactate Dehydrogenase Total Protein 7.3 Albumin 3.3 L Globulin 4.0 H Albumin/Globulin Ratio 0.8 L Arterial Blood Potassium Urine Color Urine Clarity Urine pH Ur Specific Hinkley Urine Protein Urine Glucose (UA) Urine Ketones Urine Blood Urine Nitrate Urine Bilirubin Urine Urobilinogen Ur Leukocyte Esterase Urine RBC (Auto) Urine Microscopic WBC Ur Squamous Epith Cells Microbiology 04/30/18 17:31 Urine,Clean Catch Urine Culture - Final Staphylococcus Aureus 04/30/18 15:38 Blood-Venous Blood Culture - Preliminary Gram Positive Cocci 04/30/18 15:38 Blood-Venous Gram Stain - Final 04/30/18 15:45 Blood-Venous S.aureus & Coag-Neg Staph PNA FISH - Final 04/30/18 15:45 Blood-Venous Blood Culture - Preliminary Gram Positive Cocci 04/30/18 15:45 Blood-Venous Gram Stain - Final Assessment and Plan (1) Pyelonephritis Status: Acute (2) SIRS (systemic inflammatory response syndrome) Status: Acute (3) AIDS Status: Chronic (4) Ureteral stone Status: Acute (5) Renal insufficiency Status: Acute - Assessment and Plan (Free Text) Assessment: A/P- 47 year old male with multiple medical conditions icnlduing HIV/AIDS, h/o nephrolithiasis and hydronephrosis adn UTI and uretearl stents in place now admitted with lower abd pain, high wbc, + UA and acute renal insufficiency found to have on CT report- Obstructive 4 x 3 mm proximal left ureteral calculus causing mild hydroureteronephrosis, mild nephromegaly and perinephric stranding. febrile today low grade leukocytosis blood cx- GPC x 2 + UA- urine cx- MSSA left obstructing kidney stone causing hydro and acute renal insufficiency. plan- check CD4 and VL. advise to get his records from [facility] to see if there is genotype results. advise for now to hold his HAART sicne he is ain acute renal insufficiency as well . advise urology consult as soon as possible with stone extraction as renal function is worsening and sepsis secondary to UTI and to obstructive uropathy. advise to also check blood cx x 2. has h/o MSSA UTI And bacteremia in past ( has been treated). advise since pt. still spiking temps on the doxy to d/c doxy and start pt. on IV teflaro (renal dose) for the staph bacteremia and UTI and once renal function improved he can be started on IV vancomycin. check TTE r/o endocarditis. can continue with mepron for PCP prophyalxis if cd4 is <200. All above d/w patient at length and he verbalizes full understanding of all above.
[2018-05-02 10:43] LABS: ALB/GLOB RATIO 0.8 (1.0-2.1); ALBUMIN 3.3 g/dL (3.5-5.0); CALCIUM 8.3 mg/dL (8.4-10.2)
[2018-05-02] MEDS ORDERED: Potassium Chloride 20 mEq/15 ml LIQ UD PO ONE (11:03)
--- NOTE | 2018-05-02 11:08 | CP.PCM.PN ---
Subjective - Date & Time of Evaluation Date of Evaluation: 05/02/18 Time of Evaluation: 11:05 - Subjective Subjective: 47 y/o male w/ pmh significant for AIDs admitted for suspected PCP and complicated UTI. Patient seen and examined at bedside. C/O of lower abdominal pain 2-3/10 in severity and labored breathing. Denies nausea, vomiting, chest pain, shortness of breath. No acute events overnight. Objective - Vital Signs/Intake and Output Vital Signs (last 24 hours): Temp Pulse Resp BP Pulse Ox 98.9 F 78 20 110/66 98 05/02/18 08:26 05/02/18 08:26 05/02/18 08:26 05/02/18 08:26 05/02/18 08:26 - Medications Medications: Current Medications Acetaminophen (Tylenol 325mg Tab) 650 mg PO Q6 PRN PRN Reason: Fever >100.4 F Last Admin: 05/01/18 23:04 Dose: 650 mg Atovaquone (Mepron) 750 mg PO BIDWM [facility] PRN Reason: Protocol Last Admin: 05/02/18 09:22 Dose: 750 mg Enoxaparin Sodium (Lovenox) 40 mg SC DAILY [facility] PRN Reason: Protocol Last Admin: 05/02/18 09:35 Dose: Not Given Piperacillin Sod/Tazobactam (Sod 2.25 gm/ Sodium Chloride) 100 mls @ 100 mls/ hr IVPB Q12 [facility] PRN Reason: Protocol Last Admin: 05/02/18 09:24 Dose: 100 mls/hr Doxycycline Hyclate 100 mg/ (Sodium Chloride) 100 mls @ 100 mls/hr IVPB Q12 [facility] PRN Reason: Protocol Last Admin: 05/02/18 09:25 Dose: 100 mls/hr Sodium Chloride (Sodium Chloride 0.9%) 1,000 mls @ 150 mls/hr IV .Q6H40M [facility] Stop: 05/03/18 07:32 Last Admin: 05/02/18 09:22 Dose: 150 mls/hr Ondansetron HCl (Zofran Inj) 4 mg IVP Q6 PRN PRN Reason: Nausea/Vomiting Last Admin: 05/01/18 11:36 Dose: 4 mg Potassium Chloride (Potassium Chloride Oral Soln) 40 meq PO ONCE ONE Stop: 05/02/18 11:04 Tamsulosin HCl (Flomax) 0.4 mg PO DAILY [facility] Last Admin: 05/02/18 09:21 Dose: 0.4 mg Tramadol HCl (Ultram) 50 mg PO Q6 PRN PRN Reason: Pain, severe (8-10) Last Admin: 05/02/18 09:45 Dose: 50 mg - Labs Labs: 05/02/18 09:52 05/02/18 09:52 PT 12.7 Seconds (9.8-13.1) 04/30/18 12:44 INR 1.1 (0.9-1.2) 04/30/18 12:44 APTT 27.4 Seconds (25.6-37.1) 04/30/18 12:44 - Constitutional Appears: No Acute Distress - ENT Exam ENT Exam: Mucous Membranes Moist - Respiratory Exam Respiratory Exam: Clear to Ausculation Bilateral, NORMAL BREATHING PATTERN - Cardiovascular Exam Cardiovascular Exam: REGULAR RHYTHM, +S1, +S2 - GI/Abdominal Exam GI & Abdominal Exam: Soft, Tenderness, Normal Bowel Sounds - Extremities Exam Extremities Exam: absent: Pedal Edema - Neurological Exam Neurological Exam: Alert, Awake, Oriented x3 - Skin Skin Exam: Dry, Warm Assessment and Plan - Assessment and Plan (Free Text) Assessment: 47 y/o male w/ pmh significant for AIDs admitted for suspected PCP and complicated UTI 1. Bacteraemia -blood cultures + for staph X2 -on Zosyn - will check echo 2. Shortness of breath -improved -adding incentive spirometry -Abdominal/pelvic CT showed lung ground glass opacities -denies chest pain, EKG normal -CXR PA/LAT: no signs of active disease -r/o PCP -LDH 523, a-a gradient 35, PaO2 98.1 -On Mepron 3. Abdominal Pain -probably 2/2 nephrolithiasis -Abdominal/pelvic CT shows obstructive 4X3 mm proximal left uretral calculus -Tramadol 50 mg for pain mgmt -hx of nephrolithiasis, complicated with infection -UA: hematuria RBC 4, WBC 27, trace Leuk esterase -Zofran PRN for nausea -Urology consulted, appreciate recs 4. Complicated UTI -hx of complicated UTI in the past esterase -started on Zosyn and doxycycline -Rocephin d/c -urine and blood cultures positive for staph -ID, Dr. Arechiga is following; appreciate recs 5. MARILYNN on chronic kidney disease -likely 2/2 nephrolithiasis -hx of Stage 2 Chronic Renal Disease -Cr: 2.8 -avoid nephrotoxic agents and renally dose meds - aggressive fluid hydration, s/p 3L bolus NS in the ER -maintenance 150 mL NS -follow up BUN and Cr next day -will consult [employer] 6. Hypokalemia -K+ 3.5 -replaced w/ KCl- 40 meq PO 7. Leuokocytosis -likely secondary to complicated UTI -improving, 12.8 -febrile on admission -Acetaminophen 650 mg PO 8. Anemia -likely secondary 2/2 AIDs suppression 9. Symptomatic AIDS -Hx of non-adherence w/ ART -CD4 pending (02/19 level: 135) -on Mepron 10. Diet -Liquid, advance as tolerated 11. Prophylaxis -Ambulation/SCDs -Lovenox 40 mg SC 12. Code Status -full code
[2018-05-02] MEDS ORDERED: Chlorhexidine Gluconate 1 APPL/PKT TP ONE (15:58)
--- NOTE | 2018-05-02 23:38 | CP.PCM.CON ---
History of Present Illness - History of Present Illness History of Present Illness: REASONS FOR CONSULT : A ON CKD .. eGFR GOING DOWN H/O MYKEL RENAL STONES L MILD HYDRONEPHROSIS WITH 4 X 3 MM OBSTRUCTING URETERAL STONE UTI WITH L URETERAL OBS OLD CHARETS ALL REVIEWED . CURRENT CHART REVIEWED .. LABS REVIEWED .. PT WAS SEEN AND EXAMINED "My stomach hurt and I felt lightheaded and short of breath this morning.' 47 y/o male w/ pmh significant for AIDs who drove himself to [facility] today 04/30/18 c /o sharp left lower sided abdominal pain, diarrhea X1, nausea, shortness of breath, sweats, and dry heaving. He was found laying down on the floor on the parking bridge at [facility], an RESIDENTIAL CAREGIVER was called and he was taken to the ER for evaluation. He denies denies fever, cough, bloody stool, vomiting, and chest pain. He is non-adhering to HIV rx and states that he has difficulty obtaining refills. PMD: Dr. Medrano PMHx: HIV+, Kidney stones, UTIs, hx of RPR+, CKD stage II Surgical hx: cystoscopy stent insertion 12/2017 PHos hx: multiple inpatient visits w/ multiple complaints Social hx: non-smoker, etoh x1/wk. Denies recreational drug use. Lives in [facility]. Family hx: mother and father are . Denies sign. fam hx. Home Meds: none Allergies: Azithromycin, Sulfas, Sulfamethoxazole, trimethoprim Next of Kin: None Code status: patient states that he is full code. However, he states that he does not want further intervention if initial resuscitation measures are futile ED Course: VS: T 103.2, HR 105, BP 134/89, RR 20, O2 Sat 98 Labs: CMP. BMP, ABGs (WBC 12.4 Hgb 9.6, Cr 2.0, ABG pH 7.41 pCO2 30, Po2 77 Imaging: Abdominal and pelvic CT w/ contrast: Lungs: ground glass opacities in right middle lobe, medial right lower lobe and posterior left lower lobe. Kidneys: obstructive 4x3 mm proximal left ureteral calculus causing hydroureteronephrosis. Mild nephromegaly w/ perinephric stranding & bilateral nonobstructive nephrolithiasis w/ 8X4 mm calculi on the right lower pole being the largest. no hydronephrosis. no solid masses. CXR PA/LAT no signs of active disease. EKG: normal. HR 71 normal sinus rhythm U/A: pH 6.0, urine WBC 27, RBC 5, trace leukocyte esterase NaCl- 0.9% 3L bolus + 150mL/hr maintenance Morphine for pain Acetaminophen 650 mg PO Ibuprofen 600 mg PO Zofran 4 mg iVP Q6 PRN Flomax 0.4mg PO Lovenox 40 mg SC Present on Admission - Present on Admission Any Indicators Present on Admission: No History of DVT/PE: No History of Uncontrolled Diabetes: No Urinary Catheter: No Decubitus Ulcer Present: No History Surgical Site Infection Following: None Review of Systems - Constitutional Constitutional: Chills, Fatigue. absent: Night Sweats, Weight Loss - EENT Eyes: absent: Blurred Vision, Change in Vision, Diplopia, Pain Ears: absent: Decreased Hearing, Ear Pain Nose/Mouth/Throat: absent: Epistaxis, Dysphagia, Mouth Pain, Sore Throat, Facial Pain, Neck Pain - Cardiovascular Cardiovascular: Diaphoresis. absent: Chest Pain, Chest Pain at Rest, Chest Pain with Activity, Edema, Leg Edema, Palpitations, Pedal Edema - Respiratory Respiratory: Dyspnea. absent: Cough, Hemoptysis, Wheezing, Pain on Inspiration - Gastrointestinal Gastrointestinal: Abdominal Pain, Diarrhea, Nausea. absent: Bloating, Constipation, Dysphagia, Heartburn, Hematemesis, Hematochezia Additional comments: nonbloody, X1 - Genitourinary Genitourinary: absent: Difficulty Urinating, Dysuria, Flank Pain, Hematuria, Urinary Incontinence, Urinary Frequency, Urinary Urgency - Musculoskeletal Musculoskeletal: absent: Joint Swelling, Muscle Weakness, Myalgias, Numbness - Integumentary Integumentary: absent: Unusual Bruising - Neurological Neurological: absent: Confusion, Numbness, Headaches, Loss of Vision, Memory Loss - Endocrine Endocrine: absent: Palpitations - Hematologic/Lymphatic Hematologic: absent: Easy Bleeding, Easy Bruising Past Patient History - Past Medical History & Family History Past Medical History?: Yes - Past Social History Smoking Status: Never Smoked - CARDIAC Hx Cardiac Disorders: No - PULMONARY Hx Respiratory Disorders: No - NEUROLOGICAL Hx Neurological Disorder: No - HEENT Hx HEENT Problems: No - RENAL Hx Chronic Kidney Disease: Yes Hx Dialysis: No Hx Kidney Stones: Yes - ENDOCRINE/METABOLIC Hx Endocrine Disorders: No - HEMATOLOGICAL/ONCOLOGICAL Hx Human Immunodeficiency Virus (HIV): Yes (On meds) - INTEGUMENTARY Hx Dermatological Problems: Yes (acne) Other/Comment: dry skin - MUSCULOSKELETAL/RHEUMATOLOGICAL Hx Musculoskeletal Disorders: No Hx Falls: No - GASTROINTESTINAL Hx Gastrointestinal Disorders: No - GENITOURINARY/GYNECOLOGICAL Hx Genitourinary Disorders: Yes (dysuria) Hx Bladder Stone: Yes Hx Sexually Transmitted Disorders: Yes - PSYCHIATRIC Hx Psychophysiologic Disorder: No Hx Substance Use: No - SURGICAL HISTORY Other/Comment: PICC LINE cystoscopy stent insertion - ANESTHESIA Hx Anesthesia: Yes Hx Anesthesia Reactions: No Hx Malignant Hyperthermia: No Meds Allergies/Adverse Reactions: Allergies Past Patient History - Infectious Disease Hx of Infectious Diseases: None - Past Medical History & Family History Past Medical History?: Yes - Past Social History Smoking Status: Never Smoked - CARDIAC Hx Cardiac Disorders: No - PULMONARY Hx Respiratory Disorders: No - NEUROLOGICAL Hx Neurological Disorder: No - HEENT Hx HEENT Problems: No - RENAL Hx Chronic Kidney Disease: Yes Hx Dialysis: No Hx Kidney Stones: Yes - ENDOCRINE/METABOLIC Hx Endocrine Disorders: No - HEMATOLOGICAL/ONCOLOGICAL Hx AIDS: Yes Hx Human Immunodeficiency Virus (HIV): Yes - INTEGUMENTARY Hx Dermatological Problems: Yes (acne) Other/Comment: dry skin - MUSCULOSKELETAL/RHEUMATOLOGICAL Hx Falls: No - GASTROINTESTINAL Hx Gastrointestinal Disorders: No - GENITOURINARY/GYNECOLOGICAL Hx Genitourinary Disorders: Yes (dysuria) Hx Bladder Stone: Yes Hx Sexually Transmitted Disorders: Yes - PSYCHIATRIC Hx Substance Use: No - SURGICAL HISTORY Other/Comment: PICC LINE cystoscopy stent insertion - ANESTHESIA Hx Anesthesia: Yes Hx Anesthesia Reactions: No Hx Malignant Hyperthermia: No Meds Allergies/Adverse Reactions: Allergies Allergy/AdvReac Type Severity Reaction Status Date / Time azithromycin [From Zithromax] Allergy RASH Verified 12/25/17 21:25 Sulfa (Sulfonamide Allergy NAUSEA Verified 12/25/17 21:25 Antibiotics) sulfamethoxazole Allergy NAUSEA Verified 12/25/17 21:25 [From Bactrim] trimethoprim [From Bactrim] Allergy NAUSEA Verified 12/25/17 21:25 - Medications Medications: Current Medications Acetaminophen (Tylenol 325mg Tab) 650 mg PO Q6 PRN PRN Reason: Fever >100.4 F Last Admin: 05/02/18 12:14 Dose: 650 mg Atovaquone (Mepron) 750 mg PO BIDWM [facility] PRN Reason: Protocol Last Admin: 05/02/18 19:11 Dose: 750 mg Enoxaparin Sodium (Lovenox) 40 mg SC DAILY [facility] PRN Reason: Protocol Last Admin: 05/02/18 09:35 Dose: Not Given Sodium Chloride (Sodium Chloride 0.9%) 1,000 mls @ 150 mls/hr IV .Q6H40M [facility] Stop: 05/03/18 07:32 Last Admin: 05/02/18 21:35 Dose: 150 mls/hr Ceftaroline Fosamil 400 mg/ (Sodium Chloride) 100 mls @ 100 mls/hr IVPB Q12 [facility] PRN Reason: Protocol Last Admin: 05/02/18 21:28 Dose: 100 mls/hr Ondansetron HCl (Zofran Inj) 4 mg IVP Q6 PRN PRN Reason: Nausea/Vomiting Last Admin: 05/01/18 11:36 Dose: 4 mg Tamsulosin HCl (Flomax) 0.4 mg PO DAILY [facility] Last Admin: 05/02/18 09:21 Dose: 0.4 mg Tramadol HCl (Ultram) 50 mg PO Q6 PRN PRN Reason: Pain, severe (8-10) Last Admin: 05/02/18 09:45 Dose: 50 mg Results - Vital Signs Recent Vital Signs: Last Vital Signs Temp 100.0 F H 05/02/18 15:40 Pulse 103 H 05/02/18 15:40 Resp 19 05/02/18 15:40 BP 93/52 L 05/02/18 15:40 Pulse Ox 97 05/02/18 15:40 - Labs Result Diagrams: 05/02/18 09:52 05/02/18 09:52 Labs: Laboratory Results - last 24 hr 05/02/18 05/02/18 09:52 09:52 WBC 12.8 H RBC 3.02 L Hgb 9.0 L Hct 25.6 L MCV 84.8 MCH 29.9 MCHC 35.3 RDW 14.0 Plt Count 184 Sodium 142 Potassium 3.5 L Chloride 113 H Carbon Dioxide 18 L Anion Gap 15 BUN 22 H Creatinine 2.8 H Est GFR ( Amer) 30 Est GFR (Non-Af Amer) 25 Random Glucose 114 H Calcium 8.3 L Total Bilirubin 0.9 AST 35 ALT 22 Alkaline Phosphatase 104 Total Protein 7.3 Albumin 3.3 L Globulin 4.0 H Albumin/Globulin Ratio 0.8 L Assessment & Plan - Assessment and Plan (Free Text) Assessment: A ON CKD .. RENAL FUNCTION GETTING WORSE SLOWLY .. R/O 2/2 L OBS AND HYDRO R/O ATN .. R/O 2/2 SEPSIS .. B/C + VE COMPLICATED UTI .. PROBABLY 2/2 L URETERAL OBS MYKEL NEPHROLITHIASIS .. MILD L HYDRO 2/2 L URETERAL STONE .. 4X3 MM MMP P: C/O WITH NS AT 150 CC/H C/O WITH FLOWMAX C/O WITH IVAB C/O TRAMADOL FOR PAIN TO SEE PT WILL F/U CLOSELY - Date & Time Date: 05/02/18 Time: 15:00
[2018-05-03] MEDS: Sodium Chloride 0.9% 1,000 ML IV SCH ×3 (03:45→17:19)
[2018-05-03 05:29] LABS: % CD4 (T HELPER CELL) 2 Percent (30-61); % CD8 (SUPPRESSOR T CELL) 44 Percent (12-42); ABSOLUTE CD4 CELLS <20 Cells/mcL (490-1740); ABSOLUTE CD8 CELLS 358 Cells/mcL (180-1170); ABSOLUTE LYMPHOCYTES 815 Cells/mcL (850-3900); HELPER/SUPPRESSOR RATIO 0.04 Ratio (0.86-5.00)
[2018-05-03 07:47] LABS: HEMOGLOBIN 7.9 g/dL (12.0-18.0); MEAN CELL VOLUME 84.2 fl (80.0-94.0); MEAN CORPUSCULAR HEMOGLOBIN 28.8 pg (27.0-31.0); MEAN CORPUSCULAR HGB CONC 34.2 g/dL (33.0-37.0); RBC 2.74 Mil/uL (4.40-5.90); RED CELL DISTRIBUTION WIDTH 13.8 % (11.5-14.5); WHITE BLOOD COUNT 8.2 K/uL (4.8-10.8)
[2018-05-03 08:01] LABS: ALB/GLOB RATIO 0.8 (1.0-2.1); ALBUMIN 2.9 g/dL (3.5-5.0)
--- NOTE | 2018-05-03 09:14 | CP.PCM.PN ---
Subjective - Date & Time of Evaluation Date of Evaluation: 05/03/18 Time of Evaluation: 09:14 - Subjective Subjective: pt seen and examined at bedside. No acute events overnight. Remains febrile. Reports pain has resolved. Denies appetite. Reports still feeling ill and tired even though he slept through the night. Denies any N/V/D/C. No urinary symptoms. Denies passing renal stone. Labs/vitals/consults/imaging reviewed. Objective - Vital Signs/Intake and Output Vital Signs (last 24 hours): Temp Pulse Resp BP Pulse Ox 98.9 F 100 H 19 112/75 100 05/03/18 07:49 05/03/18 07:49 05/03/18 07:49 05/03/18 07:49 05/03/18 07:49 Intake and Output: 05/03/18 05/03/18 06:59 18:59 Intake Total 1999 Balance 1999 - Medications Medications: Current Medications Acetaminophen (Tylenol 325mg Tab) 650 mg PO Q6 PRN PRN Reason: Fever >100.4 F Last Admin: 05/03/18 00:16 Dose: 650 mg Atovaquone (Mepron) 750 mg PO BIDWM ELIZABETH PRN Reason: Protocol Last Admin: 05/02/18 19:11 Dose: 750 mg Enoxaparin Sodium (Lovenox) 40 mg SC DAILY ELIZABETH PRN Reason: Protocol Last Admin: 05/02/18 09:35 Dose: Not Given Ceftaroline Fosamil 400 mg/ (Sodium Chloride) 100 mls @ 100 mls/hr IVPB Q12 ELIZABETH PRN Reason: Protocol Last Admin: 05/02/18 21:28 Dose: 100 mls/hr Ondansetron HCl (Zofran Inj) 4 mg IVP Q6 PRN PRN Reason: Nausea/Vomiting Last Admin: 05/01/18 11:36 Dose: 4 mg Tamsulosin HCl (Flomax) 0.4 mg PO DAILY [facility]ETH Last Admin: 05/02/18 09:21 Dose: 0.4 mg Tramadol HCl (Ultram) 50 mg PO Q6 PRN PRN Reason: Pain, severe (8-10) Last Admin: 05/02/18 09:45 Dose: 50 mg - Labs Labs: 05/03/18 05:30 05/03/18 05:30 PT 12.7 Seconds (9.8-13.1) 04/30/18 12:44 INR 1.1 (0.9-1.2) 04/30/18 12:44 APTT 27.4 Seconds (25.6-37.1) 04/30/18 12:44 - Constitutional Appears: Non-toxic, No Acute Distress, Other (uncomfortable, ill appearing ) - Head Exam Head Exam: ATRAUMATIC, NORMOCEPHALIC - Eye Exam Eye Exam: EOMI, PERRL Pupil Exam: NORMAL ACCOMODATION - ENT Exam ENT Exam: Mucous Membranes Moist - Neck Exam Neck Exam: absent: Lymphadenopathy, Meningismus - Respiratory Exam Respiratory Exam: Clear to Ausculation Bilateral, NORMAL BREATHING PATTERN. absent: Accessory Muscle Use, Decreased Breath Sounds, Rales, Rhonchi, Wheezes - Cardiovascular Exam Cardiovascular Exam: Tachycardia, REGULAR RHYTHM, RRR, +S1, +S2. absent: JVD, Murmur - GI/Abdominal Exam GI & Abdominal Exam: Soft, Normal Bowel Sounds. absent: Distended, Firm, Guarding, Rigid, Tenderness - Back Exam Back Exam: absent: CVA tenderness (L), CVA tenderness (R) - Neurological Exam Neurological Exam: Alert, Awake, CN II-XII Intact, Normal Gait, Oriented x3 - Psychiatric Exam Psychiatric exam: Flat Affect - Skin Skin Exam: Dry, Warm Assessment and Plan - Assessment and Plan (Free Text) Assessment: 47 y/o male with a PMHx significant for AIDs admitted for suspected PCP and complicated UTI with urolithiasis. Plan 1. Bacteremia 2/2 to UTI/Urolithiasis -remains febrile -blood cultures + for staph X2 -TTE echo pending -Abdominal/pelvic CT shows obstructive 4X3 mm proximal left uretral calculus -ABD flat plate shows 1.1cm calculus in proximal ureter -UA: hematuria RBC 4, WBC 27, trace LE -Urology consulted: possible stenting -started on Zosyn and doxycycline -ID on board, will continue to follow up recommendations 2) Acute on Chronic Renal Insufficiency -likely 2/2 nephrolithiasis -hx of Stage 2 Chronic Renal Disease -BUN/Cr: 20/2.7 -avoid nephrotoxic agents and renally dose meds -maintenance 150 mL NS -Nephrology: c/w with IV fluid hydration, Flomax, trend BUN/Cr, manage calculus as per Urology 3) Shortness of breath -resolved -incentive spirometry -Abdominal/pelvic CT showed lung ground glass opacities -denies chest pain, EKG normal -CXR PA/LAT: no signs of active disease -r/o PCP -LDH 523, a-a gradient 35, PaO2 98.1 -Mepron 750 BID 4) Hypokalemia -resolved -K+ 3.8 -replaced w/ KCl- 40 meq PO 6) Leukocytosis -improving, 8.2 today, however pt remains febrile -likely secondary to complicated UTI -febrile on admission -Acetaminophen 650 mg PO 7) Acute on Chronic Anemia of Chronic Disease -Hb: 7.9 today, likely hemodilutional -secondary 2/2 AIDs suppression 8) Symptomatic AIDS -Hx of non-adherence w/ ART -CD4: <20 -CD4 ratio: 2 -on Mepron 9) Diet -NPO for possible ureteral stenting 10) DVT Prophylaxis -Ambulation/SCDs -Lovenox 40 mg SC 11) Code Status -full code
--- NOTE | 2018-05-03 09:28 | RAD ---
HISTORY: LEFT PROXIMAL URETERAL STONE ON CT COMPARISON: CT scan of the abdomen pelvis dated 04/30/2018 FINDINGS: BOWEL: Normal. No obstruction. No free air. BONES: Normal. OTHER FINDINGS: 1.1 cm calcification overlying the proximal left ureter. IMPRESSION: No significant change in position of proximal left ureteral calculus.
[2018-05-03] MEDS: Atovaquone 750 mg/5 ml Susp UD PO SCH ×2 (09:33→17:19)
[2018-05-03] MEDS: Enoxaparin 40 mg Syringe SC SCH (09:33)
[2018-05-03 16:24] LABS: SQUAMOUS EPITHIAL < 1 /hpf (0-5); URINE BILIRUBIN NEGATIVE (NEGATIVE); URINE BLOOD NEGATIVE (NEGATIVE); URINE CLARITY CLEAR (Clear); URINE COLOR YELLOW (YELLOW); URINE GLUCOSE (UA) NEG (Normal); URINE LEUKOCYTE ESTERASE NEG Leu/uL (Negative); URINE PROTEIN 30 mg/dL (NEGATIVE)
--- NOTE | 2018-05-03 21:02 | PN ---
DATE: 05/03/2018 FOLLOWUP NOTE The patient is completely asymptomatic today, 05/03/2018, regarding his proximal left ureteral stone. However, there is a discrepancy between the reading of the CAT scan showing a 4 x 3 mm proximal ureteral stone versus the KUB which now says it is a 1.1 cm proximal ureteral stone. The patient is voiding katalina urine well. No dysuria, gross hematuria, renal colic, or abdominal pain at this hour. However, the patient did spike a temperature to 102.1. He is now 98.6. His CBC shows improvement in his white count today, 05/03/2018 with a decrease in his WBC count from 12.8 down to 8.2 today. Hemoglobin is 7.9 and hematocrit is 23.1 indicating a severe anemia. Platelet count is 168,000. His chem profile also shows mild improvement with a BUN of 20 and his creatinine of 2.7 with a GFR of 26 up from 25 on 05/02/2018. It was decided at this time as discussed with the resident team that we would watch the patient at this time and see if his condition continues to improve without a left ureteral stent, which the patient prefers. We will repeat a urinalysis and culture and sensitivity. PHYSICAL EXAMINATION: Today: ABDOMEN: Soft, not distended or tender, no CVA tenderness, and no suprapubic tenderness. The patient does not require any pain medication at this time. DIAGNOSTIC IMPRESSION: 1. Left pyelonephritis. 2. Left proximal obstructing ureteral stone. PLAN: To review the CAT scan and KUB with the radiology team. Arturo Lin MD
[2018-05-04] MEDS: Sodium Chloride 0.9% 1,000 ML IV SCH ×4 (03:05→18:50)
[2018-05-04 06:21] LABS: HEMOGLOBIN 7.2 g/dL (12.0-18.0); MEAN CELL VOLUME 83.8 fl (80.0-94.0); MEAN CORPUSCULAR HEMOGLOBIN 29.1 pg (27.0-31.0); MEAN CORPUSCULAR HGB CONC 34.7 g/dL (33.0-37.0); RBC 2.48 Mil/uL (4.40-5.90); RED CELL DISTRIBUTION WIDTH 14.3 % (11.5-14.5); WHITE BLOOD COUNT 6.7 K/uL (4.8-10.8)
[2018-05-04 06:25] LABS: ALB/GLOB RATIO 0.8 (1.0-2.1); ALBUMIN 2.9 g/dL (3.5-5.0); CALCIUM 7.9 mg/dL (8.4-10.2)
[2018-05-04] MEDS ORDERED: Potassium Chloride 20 mEq/15 ml LIQ UD PO ONE (07:08)
--- NOTE | 2018-05-04 09:42 | CARD ---
APPROVED REPORT EXAM: Two-dimensional and M-mode echocardiogram with Doppler and color Doppler. Other Information Quality : AverageRhythm : Tachycardia INDICATION Infection: 2D DIMENSIONS IVSd0.81 (0.7-1.1cm)LVDd4.06 (3.9-5.9cm) LVOT Diameter1.81 (1.8-2.4cm)PWd1.00 (0.7-1.1cm) IVSs1.25 (0.8-1.2cm)LVDs2.15 (2.5-4.0cm) FS (%) 47.1 %PWs1.33 (0.8-1.2cm) M-Mode DIMENSIONS Left Atrium (MM)3.83 (2.5-4.0cm)IVSd1.10 (0.7-1.1cm) Aortic Root2.70 (2.2-3.7cm)LVDd4.52 (4.0-5.6cm) Aortic Cusp Exc.1.79 (1.5-2.0cm)PWd0.94 (0.7-1.1cm) IVSs1.19 cmFS (%) 34 % LVDs3.01 (2.0-3.8cm)PWs1.43 cm Aortic Valve AoV Peak Iafeoqul217.8cm/sAoV VTI28.9cmAO Peak GR.13mmHg LVOT Peak Rpzbqotp888.3cm/sLVOT VTI18.47cmAO Mean GR.8mmHg KINJAL (VMAX)0.10fs4XHC (VTI)0.89cm2 Mitral Valve MV E Bolpttqz69.0cm/sMV DECEL [id number] A Eihtcbob29.2cm/s MV BJZ38bcQ/A ratio1.1MVA (PHT)4.16cm2 TDI Lateral E' Peak V14.67cm/sMedial E' Peak V11.81cm/sE/Lateral E'5.0 E/Medial E'6.3 Pulmonary Valve PV Peak Pyuyvuhd877.2cm/s Tricuspid Valve TR Peak Ysryphwe373lk/sRAP QQPBDDCO79auRwXN Peak Gr.5mmHg [id number] LEFT VENTRICLE The left ventricle is normal size. There is normal left ventricular wall thickness. The left ventricular function is normal. The left ventricular ejection fraction is within the normal range. The Ejection Fraction is >70%. There is normal LV segmental wall motion. The left ventricular diastolic function is normal. RIGHT VENTRICLE The right ventricle is normal size. The right ventricular systolic function is normal. ATRIA The left atrium is borderline dilated. The right atrium size is normal. AORTIC VALVE The aortic valve is normal in structure. No aortic regurgitation is present. There is no aortic valvular stenosis. MITRAL VALVE The mitral valve is normal in structure. There is no mitral valve stenosis. Mitral regurgitation is trace to mild. TRICUSPID VALVE The tricuspid valve is normal in structure. There is trace to mild tricuspid regurgitation. PULMONIC VALVE The pulmonic valve is not well visualized. There is no pulmonic valvular regurgitation. GREAT VESSELS The aortic root is normal in size. The IVC is normal in size and collapses >50% with inspiration. PERICARDIAL EFFUSION The pericardium appears normal. <Conclusion> The left ventricular function is normal. The left ventricular ejection fraction is within the normal range. The Ejection Fraction is >70%. There is trace to mild tricuspid regurgitation.
--- NOTE | 2018-05-04 10:47 | CON ---
DATE: 05/02/2018 TIME OF CONSULTATION: Roughly 5:15 p.m. BRIEF HISTORY: The patient is a 47-year-old black male, HIV positive, who presents to [facility] with a history of a syncopal episode, found to have pneumonia and also abdominopelvic CT done on 04/30/2018. His admission date shows a partially obstructing 4 x 3 mm proximal ureteral stone causing mild left hydronephrosis. The patient did have some renal colic and was also noted to have a possible left pyelonephritis, which has improved relatively rapidly on IV Zosyn. His white count on 05/01/2018 was 15.3, and today 05/02/2018 on IV Zosyn is 12.8 and the patient is currently relatively pain free. The patient also seems to be in no respiratory distress at this hour. The patient does have a prior history of a left kidney stone in 11/2017 requiring cystoscopy and insertion of a left ureteral stent and the stent was eventually removed and the patient passed the stone. The abdominopelvic CT done on 04/30/2018 also shows bilateral nonobstructing stones, the largest in the lower pole of the right kidney measuring 8 x 4 mm. The patient denies any other surgical history. The patient also may be noncompliant with his HIV medications. SOCIAL HISTORY: He is a nonsmoker, and just consumes alcohol socially. ALLERGIES: HE DOES HAVE ALLERGIES TO SULFA, INCLUDING BACTRIM AND AZITHROMYCIN. FAMILY HISTORY: His mother from pancreatic cancer. PHYSICAL EXAMINATION GENERAL: Today, the patient is a well-developed, well-nourished, black male. He is alert and oriented. HEENT: Grossly within normal limits. NECK: Supple. Thyroid not palpable. ABDOMEN: Currently soft, not distended, nontender , no CVA tenderness. No suprapubic tenderness. GENITALIA: The patient is circumcised with normal glans and meatus without any rashes or lesions visualized. Testes are down bilaterally and are relatively small, nontender without nodules or without any masses. RECTAL EXAMINATION: Normal rectal tone without fluctuance or masses. Prostate is average size, smooth, symmetrical, nontender without nodules or indurations with a palpable median sulcus. NEUROLOGIC: The patient has full range of motion of both upper and lower extremities. LABORATORY EVALUATION: On 05/02/2018 shows a CBC with WBC count of 12.8 , down from 16.3 on 05/01/2018. Hemoglobin of 9, hematocrit of 25.6, with the platelet count of 184,000 indicating a relatively severe anemia. His chem profile shows a sodium of 142, potassium 3.5, chloride 113, BUN and creatinine of 22 and 2.8 respectively, with the GFR of 30 indicating chronic kidney disease stage 3. His random glucose was 114. Calcium was 8.3. Total bilirubin 0.9. AST 35, ALT 22. Urinalysis: Color was yellow, clarity was cloudy, pH 6, specific gravity 1.021. Protein 100, glucose negative. Ketones 20. Blood small. Nitrites negative. Bilirubin negative. Urobilinogen 4. Leukocyte esterase trace, 4 rbc's , 27 wbc's per high-powered field. DIAGNOSTIC IMPRESSION: 1. A 4 x 3 mm proximal obstructing ureteral stone with left pyelonephritis. 2. Chronic kidney disease stage 3. 3. The patient's previous admitting chem profile shows a BUN and creatinine of 30 and 2 respectively with the GFR of 44 indicating a possible worsening of his kidney function. If this progresses, the patient may need a cystoscopy with insertion of a left ureteral stent. Arturo Lin MD MTDAngel
[2018-05-04] MEDS: Enoxaparin 40 mg Syringe SC SCH (11:00)
[2018-05-04] MEDS: Atovaquone 750 mg/5 ml Susp UD PO SCH ×2 (11:01→17:35)
--- NOTE | 2018-05-04 13:00 | CP.PCM.PN ---
Subjective - Date & Time of Evaluation Date of Evaluation: 05/04/18 Time of Evaluation: 12:59 - Subjective Subjective: 47 y/o male w/ pmh significant for AIDs admitted for suspected PCP and complicated UTI. Patient was seen and examined at bedside. No acute events overnight. C/o non- bloody diarrhea today. Denies any N/V. No urinary symptoms. Denies passing renal stone. Objective - Vital Signs/Intake and Output Vital Signs (last 24 hours): Temp Pulse Resp BP Pulse Ox 98.4 F 87 20 112/69 100 05/04/18 12:13 05/04/18 08:03 05/04/18 08:03 05/04/18 08:03 05/04/18 08:03 Intake and Output: 05/04/18 05/04/18 06:59 18:59 Intake Total 1900 Output Total 700 Balance 1200 - Medications Medications: Current Medications Acetaminophen (Tylenol 325mg Tab) 650 mg PO Q6 PRN PRN Reason: Fever >100.4 F Last Admin: 05/04/18 11:13 Dose: 650 mg Atovaquone (Mepron) 750 mg PO BIDWM ELIZABETH PRN Reason: Protocol Last Admin: 05/04/18 11:01 Dose: 750 mg Enoxaparin Sodium (Lovenox) 40 mg SC DAILY ELIZABETH PRN Reason: Protocol Last Admin: 05/04/18 11:00 Dose: Not Given Ceftaroline Fosamil 400 mg/ (Sodium Chloride) 100 mls @ 100 mls/hr IVPB Q12 ELIZABETH PRN Reason: Protocol Last Admin: 05/04/18 11:01 Dose: 100 mls/hr Sodium Chloride (Sodium Chloride 0.9%) 1,000 mls @ 100 mls/hr IV .Q10H [facility] Stop: 05/04/18 16:57 Last Admin: 05/04/18 05:01 Dose: 100 mls/hr Ondansetron HCl (Zofran Inj) 4 mg IVP Q6 PRN PRN Reason: Nausea/Vomiting Last Admin: 05/04/18 03:10 Dose: 4 mg Tamsulosin HCl (Flomax) 0.4 mg PO DAILY [facility] Last Admin: 05/04/18 11:01 Dose: 0.4 mg Tramadol HCl (Ultram) 50 mg PO Q6 PRN PRN Reason: Pain, severe (8-10) Last Admin: 05/02/18 09:45 Dose: 50 mg - Labs Labs: 05/04/18 06:02 05/04/18 06:02 PT 12.7 Seconds (9.8-13.1) 04/30/18 12:44 INR 1.1 (0.9-1.2) 04/30/18 12:44 APTT 27.4 Seconds (25.6-37.1) 04/30/18 12:44 - Constitutional Appears: No Acute Distress - ENT Exam ENT Exam: Mucous Membranes Moist - Respiratory Exam Respiratory Exam: Clear to Ausculation Bilateral, NORMAL BREATHING PATTERN - Cardiovascular Exam Cardiovascular Exam: REGULAR RHYTHM, +S1, +S2 - GI/Abdominal Exam GI & Abdominal Exam: Soft, Normal Bowel Sounds. absent: Tenderness - Extremities Exam Extremities Exam: Normal Inspection. absent: Pedal Edema - Back Exam Back Exam: absent: CVA tenderness (L), CVA tenderness (R) - Neurological Exam Neurological Exam: Alert, Awake, Oriented x3 - Psychiatric Exam Psychiatric exam: Normal Affect - Skin Skin Exam: Dry, Intact, Warm Assessment and Plan - Assessment and Plan (Free Text) Assessment: 47 y/o male with a PMHx significant for AIDs admitted for suspected PCP and complicated UTI with urolithiasis. Plan 1. Bacteremia 2/2 to UTI/Urolithiasis -remains febrile -blood cultures + for staph X2 -TTE echo pending -Abdominal/pelvic CT shows obstructive 4X3 mm proximal left uretral calculus -ABD flat plate shows 1.1cm calculus in proximal ureter -UA: hematuria RBC 4, WBC 27, trace LE -Urology consulted: possible stenting -Zosyn and doxycycline d/c, switched to Ceftaroline 400mg per ID -ID on board, will continue to follow up recommendations 2) Acute on Chronic Renal Insufficiency -likely 2/2 nephrolithiasis -hx of Stage 2 Chronic Renal Disease -BUN/Cr: 20/2.7 -avoid nephrotoxic agents and renally dose meds -maintenance 150 mL NS -Nephrology: c/w with IV fluid hydration, Flomax, trend BUN/Cr, manage calculus as per Urology 3) Shortness of breath -resolved -incentive spirometry -Abdominal/pelvic CT showed lung ground glass opacities -denies chest pain, EKG normal -CXR PA/LAT: no signs of active disease -r/o PCP -LDH 523, a-a gradient 35, PaO2 98.1 -Mepron 750 BID 4) Hypokalemia -K+ 3.4 -replaced w/ KCl- 40 meq PO 6) Leukocytosis -improving, 6.7 today, however pt remains febrile -likely secondary to complicated UTI -febrile on admission -Acetaminophen 650 mg 7) Acute on Chronic Anemia of Chronic Disease -Hb: 7.2 today, likely hemodilutional -secondary 2/2 AIDs suppression -SPEP, UPEP ordered 8) Symptomatic AIDS -Hx of non-adherence w/ ART -CD4: <20 -CD4 ratio: 2 -on Mepron 9) Diet -PO Regular diet 10) DVT Prophylaxis -Ambulation/SCDs -Lovenox 40 mg SC 11) Code Status -full code
--- NOTE | 2018-05-04 13:02 | CP.PCM.PN ---
Subjective - Date & Time of Evaluation Date of Evaluation: 05/04/18 Time of Evaluation: 13:02 - Subjective Subjective: ID Note- Pt. seen and examined today. Pt. states he is feeling slightly better today. denies any chills. and states his lower abd discomfort is less. awaiting decision regarding stone removal. Objective - Vital Signs/Intake and Output Vital Signs (last 24 hours): Temp Pulse Resp BP Pulse Ox 98.4 F 87 20 112/69 100 05/04/18 12:13 05/04/18 08:03 05/04/18 08:03 05/04/18 08:03 05/04/18 08:03 Intake and Output: 05/04/18 05/04/18 06:59 18:59 Intake Total 1900 Output Total 700 Balance 1200 - Medications Medications: Current Medications Acetaminophen (Tylenol 325mg Tab) 650 mg PO Q6 PRN PRN Reason: Fever >100.4 F Last Admin: 05/04/18 11:13 Dose: 650 mg Atovaquone (Mepron) 750 mg PO BIDWM ELIZABETH PRN Reason: Protocol Last Admin: 05/04/18 11:01 Dose: 750 mg Enoxaparin Sodium (Lovenox) 40 mg SC DAILY ELIZABETH PRN Reason: Protocol Last Admin: 05/04/18 11:00 Dose: Not Given Ceftaroline Fosamil 400 mg/ (Sodium Chloride) 100 mls @ 100 mls/hr IVPB Q12 ELIZABETH PRN Reason: Protocol Last Admin: 05/04/18 11:01 Dose: 100 mls/hr Sodium Chloride (Sodium Chloride 0.9%) 1,000 mls @ 100 mls/hr IV .Q10H [facility] Stop: 05/04/18 16:57 Last Admin: 05/04/18 13:01 Dose: Not Given Ondansetron HCl (Zofran Inj) 4 mg IVP Q6 PRN PRN Reason: Nausea/Vomiting Last Admin: 05/04/18 03:10 Dose: 4 mg Tamsulosin HCl (Flomax) 0.4 mg PO DAILY [facility] Last Admin: 05/04/18 11:01 Dose: 0.4 mg Tramadol HCl (Ultram) 50 mg PO Q6 PRN PRN Reason: Pain, severe (8-10) Last Admin: 05/02/18 09:45 Dose: 50 mg - Labs Labs: - Additional Findings Additional findings: Constitutional Appears: No Acute Distress - Head Exam Head Exam: ATRAUMATIC - Eye Exam Eye Exam: EOMI, PERRL - Neck Exam Neck exam: Positive for: Full Rom Additional comments: supple - Respiratory Exam Respiratory Exam: NORMAL BREATHING PATTERN Additional comments: no wheezing slightly decreased breath sounds at bases - Cardiovascular Exam Cardiovascular Exam: RRR, +S1, +S2 - GI/Abdominal Exam GI & Abdominal Exam: Normal Bowel Sounds, Soft Additional comments: no distention mild left lower abdominal pain with palpation No CVA tenderness B/L - Extremities Exam Extremities exam: Positive for: normal inspection - Neurological Exam Neurological exam: Alert, Oriented x 3 Laboratory Results - last 72 hr 05/01/18 05/02/18 05/02/18 05:55 09:52 09:52 WBC 12.8 H RBC 3.02 L Hgb 9.0 L Hct 25.6 L MCV 84.8 MCH 29.9 MCHC 35.3 RDW 14.0 Plt Count 184 Sodium 142 Potassium 3.5 L Chloride 113 H Carbon Dioxide 18 L Anion Gap 15 BUN 22 H Creatinine 2.8 H Est GFR ( Amer) 30 Est GFR (Non-Af Amer) 25 Random Glucose 114 H Calcium 8.3 L Total Bilirubin 0.9 AST 35 ALT 22 Alkaline Phosphatase 104 Total Protein 7.3 Albumin 3.3 L Globulin 4.0 H Albumin/Globulin Ratio 0.8 L Urine Color Urine Clarity Urine pH Ur Specific [place] Urine Protein Urine Glucose (UA) Urine Ketones Urine Blood Urine Nitrate Urine Bilirubin Urine Urobilinogen Ur Leukocyte Esterase Urine RBC (Auto) Urine Microscopic WBC Ur Squamous Epith Cells Absolute Lymphs (Flow) 815 L % CD4 Cells 2 L Absolute CD4 Count <20 L T-Help/Suppress Ratio 0.04 L % CD8 Cells 44 H Absolute CD8 Count 358 T-Lymph Analys Comment See note 05/03/18 05/03/18 05/03/18 05:30 05:30 16:12 WBC 8.2 RBC 2.74 L Hgb 7.9 L Hct 23.1 L MCV 84.2 MCH 28.8 MCHC 34.2 RDW 13.8 Plt Count 168 Sodium 143 Potassium 3.8 Chloride 116 H Carbon Dioxide 16 L Anion Gap 15 BUN 20 Creatinine 2.7 H Est GFR ( Amer) 31 Est GFR (Non-Af Amer) 26 Random Glucose 85 Calcium 8.0 L Total Bilirubin 1.2 AST 38 ALT 24 Alkaline Phosphatase 103 Total Protein 6.7 Albumin 2.9 L Globulin 3.8 Albumin/Globulin Ratio 0.8 L Urine Color Yellow Urine Clarity Clear Urine pH 6.0 Ur Specific [place] 1.013 Urine Protein 30 Urine Glucose (UA) Neg Urine Ketones Trace Urine Blood Negative Urine Nitrate Negative Urine Bilirubin Negative Urine Urobilinogen 4.0 Ur Leukocyte Esterase Neg Urine RBC (Auto) 4 H Urine Microscopic WBC 3 Ur Squamous Epith Cells < 1 Absolute Lymphs (Flow) % CD4 Cells Absolute CD4 Count T-Help/Suppress Ratio % CD8 Cells Absolute CD8 Count T-Lymph Analys Comment 05/04/18 05/04/18 06:02 06:02 WBC 6.7 RBC 2.48 L Hgb 7.2 L Hct 20.8 L MCV 83.8 MCH 29.1 MCHC 34.7 RDW 14.3 Plt Count 184 Sodium 142 Potassium 3.4 L Chloride 116 H Carbon Dioxide 15 L Anion Gap 14 BUN 18 Creatinine 2.8 H Est GFR ( Amer) 30 Est GFR (Non-Af Amer) 25 Random Glucose 95 Calcium 7.9 L Total Bilirubin 1.1 AST 54 ALT 24 Alkaline Phosphatase 110 Total Protein 6.5 Albumin 2.9 L Globulin 3.6 Albumin/Globulin Ratio 0.8 L Urine Color Urine Clarity Urine pH Ur Specific [place] Urine Protein Urine Glucose (UA) Urine Ketones Urine Blood Urine Nitrate Urine Bilirubin Urine Urobilinogen Ur Leukocyte Esterase Urine RBC (Auto) Urine Microscopic WBC Ur Squamous Epith Cells Absolute Lymphs (Flow) % CD4 Cells Absolute CD4 Count T-Help/Suppress Ratio % CD8 Cells Absolute CD8 Count T-Lymph Analys Comment Microbiology 05/03/18 05:30 Blood-Venous Blood Culture - Preliminary NO GROWTH AFTER 24 HOURS 05/01/18 13:48 Blood Blood Culture - Preliminary NO GROWTH AFTER 48 HOURS 04/30/18 15:38 Blood-Venous Blood Culture - Final Staphylococcus Aureus 04/30/18 15:38 Blood-Venous Gram Stain - Final 04/30/18 15:45 Blood-Venous S.aureus & Coag-Neg Staph PNA FISH - Final 04/30/18 15:45 Blood-Venous Blood Culture - Final Staphylococcus Aureus 04/30/18 15:45 Blood-Venous Gram Stain - Final 04/30/18 17:31 Urine,Clean Catch Urine Culture - Final Staphylococcus Aureus Assessment and Plan (1) Pyelonephritis Status: Acute (2) SIRS (systemic inflammatory response syndrome) Status: Acute (3) AIDS Status: Chronic (4) Ureteral stone Status: Acute (5) Renal insufficiency Status: Acute - Assessment and Plan (Free Text) Assessment: A/P- 47 year old male with multiple medical conditions icnlduing HIV/AIDS, h/o nephrolithiasis and hydronephrosis adn UTI and uretearl stents in place now admitted with lower abd pain, high wbc, + UA and acute renal insufficiency found to have on CT report- Obstructive 4 x 3 mm proximal left ureteral calculus causing mild hydroureteronephrosis, mild nephromegaly and perinephric stranding. fever are trending down low grade leukocytosis has resolved. blood cx- MSSA x 2 + UA- urine cx- MSSA left obstructing kidney stone causing hydro and acute renal insufficiency. TTE- no mention of vegetations on the report. repeat blood cx- neg x 2 plan- advise urology consult as soon as possible with stone extraction as renal function is worsening and sepsis secondary to UTI and to obstructive uropathy. advise sto continue with IV teflaro (renal dose) day #3, for the staph bacteremia and UTI and once renal function improved he can be started on IV vancomycin. can continue with mepron for PCP prophyalxis . All above d/w patient at length and he verbalizes full understanding of all above.
--- NOTE | 2018-05-05 00:01 | CP.PCM.PN ---
Subjective - Date & Time of Evaluation Date of Evaluation: 05/04/18 Time of Evaluation: 16:00 - Subjective Subjective: SEEN ON RENAL F/U AROUND 4.00 PM ..C/O SEVERE SHAKINESS AND RIGOR TEMP WAS CHECKED TWICE AND WAS NORMAL NO HEADACKS .. NO NAUSEA OR VOMITTING NO ABDO PAIN .. NO PAIN WHATSOEVER .. ONLY RIGOR RENAL FUNCTION STILL STABLE e GFR AROUND 30 ML/M Objective - Vital Signs/Intake and Output Vital Signs (last 24 hours): Temp Pulse Resp BP Pulse Ox 98.3 F 91 H 18 101/58 L 100 05/04/18 16:21 05/04/18 16:21 05/04/18 16:21 05/04/18 16:21 05/04/18 16:21 - Medications Medications: Current Medications Acetaminophen (Tylenol 325mg Tab) 650 mg PO Q6 PRN PRN Reason: Fever >100.4 F Last Admin: 05/04/18 11:13 Dose: 650 mg Atovaquone (Mepron) 750 mg PO BIDWM [facility] PRN Reason: Protocol Last Admin: 05/04/18 17:35 Dose: 750 mg Enoxaparin Sodium (Lovenox) 40 mg SC DAILY [facility] PRN Reason: Protocol Last Admin: 05/04/18 11:00 Dose: Not Given Ceftaroline Fosamil 400 mg/ (Sodium Chloride) 100 mls @ 100 mls/hr IVPB Q12 [facility] PRN Reason: Protocol Last Admin: 05/04/18 21:44 Dose: 100 mls/hr Sodium Chloride (Sodium Chloride 0.9%) 1,000 mls @ 100 mls/hr IV .Q10H [facility] Stop: 05/05/18 17:37 Last Admin: 05/04/18 18:50 Dose: 100 mls/hr Ondansetron HCl (Zofran Inj) 4 mg IVP Q6 PRN PRN Reason: Nausea/Vomiting Last Admin: 05/04/18 19:04 Dose: 4 mg Tamsulosin HCl (Flomax) 0.4 mg PO DAILY [facility] Last Admin: 05/04/18 11:01 Dose: 0.4 mg Tramadol HCl (Ultram) 50 mg PO Q6 PRN PRN Reason: Pain, severe (8-10) Last Admin: 05/02/18 09:45 Dose: 50 mg - Labs Labs: 05/04/18 06:02 05/04/18 06:02 PT 12.7 Seconds (9.8-13.1) 04/30/18 12:44 INR 1.1 (0.9-1.2) 04/30/18 12:44 APTT 27.4 Seconds (25.6-37.1) 04/30/18 12:44 Assessment and Plan - Assessment and Plan (Free Text) Assessment: A ON CKD .. RENAL FUNCTION STABILIZED MYKEL NEPHROLITHIASIS L URETERAL STONE AND L MILD TO MODERATE HYDRO UTI .. REPEAT U/A CLEAR MMP P : C/O IVF NS AT 100 CC/H C/O IVAB C/O PRESENT MANAGEMENT F/U
--- NOTE | 2018-05-05 01:02 | PN ---
DATE: 05/04/2018 FOLLOWUP NOTE TIME OF FOLLOWUP: 7:30 p.m. SUBJECTIVE: The patient is currently resting comfortably tonight with no complaint of pain. The patient has been afebrile for 12 hours. His current temperature is 98.3. He did have two vomiting episodes and is currently on Zofran for nausea. No complaints of any abdominal pain or renal colic. His CAT scan and KUB were reviewed with Dr. Westfall from [facility] Radiology Department today, and the patient does not have a 1.1 cm stone on KUB. His stone size on CAT scan roughly is about 4.6 x 4.6 mm on KUB, it measures around also about 4 mm. So, this is basically a 4 x 4 mm proximal ureteral obstructing stone. The patient still prefers not to have a ureteral stent placed. LABORATORY DATA: His laboratory evaluation today, 05/04/2018, shows continued dropping of his WBC count, it is now 6.7 and his hemoglobin is 7.2 and his hematocrit is 20.8 indicating severe anemia. His platelet count is 184,000. His chem profile shows a sodium of 142, potassium 3.4, chloride 116, CO2 of 15. BUN and creatinine of 18 and 2.8 respectively, which is up from his initial creatinine of 2.3. His GFR is currently at 25 indicating chronic kidney disease stage IV, which is down from his admission GFR of 31. His calcium is 7.9. Alk phosphatase is 110. AST is 54. ALT is 24. His urinalysis on 05/03/2018 showed the color was yellow, clarity was clear, pH was 6, specific gravity 1.013, protein 30, glucose negative, trace ketones. Blood, nitrite, bilirubin all negative. Urobilinogen 4, leukocyte esterase negative, 4 rbc's, and 3 wbc's per high-power field. Urine culture on 04/30/2018 showed Staphylococcus aureus, and blood cultures on 05/03/2018 showed gram-positive cocci. DIAGNOSTIC IMPRESSION: For this patient, 1. Sepsis. 2. A 4 x 5 mm obstructing left proximal ureteral stone. 3. Chronic kidney disease, stage 4. PLAN: For this patient at this time is, 1. To treat his septicemia. 2. Discussed again the possibility of a cystoscopy with insertion of a left ureteral stent which the patient really does not want at this time since he is pain free. Arturo Lin MD MTDD
[2018-05-05] MEDS: Sodium Chloride 0.9% 1,000 ML IV SCH ×2 (03:54→16:03)
[2018-05-05 06:25] LABS: HEMOGLOBIN 6.9 g/dL (12.0-18.0); MEAN CELL VOLUME 82.2 fl (80.0-94.0); MEAN CORPUSCULAR HEMOGLOBIN 29.8 pg (27.0-31.0); MEAN CORPUSCULAR HGB CONC 36.3 g/dL (33.0-37.0); RBC 2.31 Mil/uL (4.40-5.90); RED CELL DISTRIBUTION WIDTH 14.2 % (11.5-14.5); WHITE BLOOD COUNT 4.4 K/uL (4.8-10.8)
[2018-05-05 06:37] LABS: INR 1.3 (0.9-1.2); PROTHROMBIN TIME 13.9 Seconds (9.8-13.1)
[2018-05-05 06:45] LABS: CALCIUM 7.8 mg/dL (8.4-10.2)
[2018-05-05] MEDS ORDERED: Potassium Chloride 20 mEq/15 ml LIQ UD PO ONE (07:18)
[2018-05-05] MEDS: Enoxaparin 40 mg Syringe SC SCH (08:31)
[2018-05-05] MEDS: Atovaquone 750 mg/5 ml Susp UD PO SCH ×2 (08:31→18:08)
[2018-05-05] MEDS ORDERED: Alum-Mag Hydrox-Simethicone Susp (30 mL) PO ONE (09:07)
[2018-05-05] MEDS ORDERED: Potassium Chloride 20 mEq ER Tab PO ONE (09:20)
--- NOTE | 2018-05-05 09:36 | CP.PCM.CON ---
History of Present Illness - History of Present Illness History of Present Illness: Psychiatry consult note CC: "I'm depressed." HPI: 47 y/o male w/ pmh significant for AIDs, CKD, depression admitted w/ c/o sharp left lower sided abdominal pain, diarrhea X1, nausea, shortness of breath , sweats, and dry heaving. Patient reports that he has been feeling depressed due to his chronic medical problems. +Sleep/appetite disturbances. No AH/VH/SI /HI/paranoia/delusions. PPHx: Previously in outpatient tx w/ Larry Bateman; not compliant with treatment or previously prescribed Remeron; no h/o psychiatric admissions. PMD: Dr. Medrano PMHx: HIV+, Kidney stones, UTIs, hx of RPR+, CKD stage II Surgical hx: cystoscopy stent insertion 12/2017 PHos hx: multiple inpatient visits w/ multiple complaints Social hx: non-smoker, etoh x1/wk. Denies recreational drug use. Lives in [facility]. Family hx: mother and father are . Denies sign. fam hx. Home Meds: none Allergies: Azithromycin, Sulfas, Sulfamethoxazole, trimethoprim MSE: A + O x 3, calm, cooperative, mood/affect- depressed, thought process- linear/coherent, thought content- no delusions, no AH/VH/paranoia, fair I/J, no SI/HI; good impulse control Impression: 47 yo male w/ depressive disorder (MDD vs Adjustment disorder w/ depressed mood). No acute inpatient psychiatric admission indicated at this time. -Restart Remeron 15 mg PO HS Past Patient History - Infectious Disease Hx of Infectious Diseases: None - Past Medical History & Family History Past Medical History?: Yes - Past Social History Smoking Status: Never Smoked - CARDIAC Hx Cardiac Disorders: No - PULMONARY Hx Respiratory Disorders: No - NEUROLOGICAL Hx Neurological Disorder: No - HEENT Hx HEENT Problems: No - RENAL Hx Chronic Kidney Disease: Yes Hx Dialysis: No Hx Kidney Stones: Yes - ENDOCRINE/METABOLIC Hx Endocrine Disorders: No - HEMATOLOGICAL/ONCOLOGICAL Hx AIDS: Yes Hx Human Immunodeficiency Virus (HIV): Yes - INTEGUMENTARY Hx Dermatological Problems: Yes (acne) Other/Comment: dry skin - MUSCULOSKELETAL/RHEUMATOLOGICAL Hx Falls: No - GASTROINTESTINAL Hx Gastrointestinal Disorders: No - GENITOURINARY/GYNECOLOGICAL Hx Genitourinary Disorders: Yes (dysuria) Hx Bladder Stone: Yes Hx Sexually Transmitted Disorders: Yes - PSYCHIATRIC Hx Substance Use: No - SURGICAL HISTORY Other/Comment: PICC LINE cystoscopy stent insertion - ANESTHESIA Hx Anesthesia: Yes Hx Anesthesia Reactions: No Hx Malignant Hyperthermia: No Meds Allergies/Adverse Reactions: Allergies Allergy/AdvReac Type Severity Reaction Status Date / Time azithromycin [From Zithromax] Allergy RASH Verified 12/25/17 21:25 Sulfa (Sulfonamide Allergy NAUSEA Verified 12/25/17 21:25 Antibiotics) sulfamethoxazole Allergy NAUSEA Verified 12/25/17 21:25 [From Bactrim] trimethoprim [From Bactrim] Allergy NAUSEA Verified 12/25/17 21:25 - Medications Medications: Current Medications Acetaminophen (Tylenol 325mg Tab) 650 mg PO Q6 PRN PRN Reason: Fever >100.4 F Last Admin: 05/05/18 07:14 Dose: 650 mg Atovaquone (Mepron) 750 mg PO BIDWM ELIZABETH PRN Reason: Protocol Last Admin: 05/05/18 08:31 Dose: 750 mg Enoxaparin Sodium (Lovenox) 40 mg SC DAILY [facility] PRN Reason: Protocol Last Admin: 05/05/18 08:31 Dose: Not Given Ceftaroline Fosamil 400 mg/ (Sodium Chloride) 100 mls @ 100 mls/hr IVPB Q12 [facility] PRN Reason: Protocol Last Admin: 05/05/18 08:31 Dose: 100 mls/hr Sodium Chloride (Sodium Chloride 0.9%) 1,000 mls @ 100 mls/hr IV .Q10H [facility] Stop: 05/05/18 17:37 Last Admin: 05/05/18 03:54 Dose: 100 mls/hr Ondansetron HCl (Zofran Inj) 4 mg IVP Q6 PRN PRN Reason: Nausea/Vomiting Last Admin: 05/04/18 19:04 Dose: 4 mg Tamsulosin HCl (Flomax) 0.4 mg PO DAILY [facility] Last Admin: 05/05/18 08:31 Dose: 0.4 mg Tramadol HCl (Ultram) 50 mg PO Q6 PRN PRN Reason: Pain, severe (8-10) Last Admin: 05/02/18 09:45 Dose: 50 mg Results - Vital Signs Recent Vital Signs: Last Vital Signs Temp 102 F H 05/05/18 08:14 Pulse 114 H 05/05/18 08:12 Resp 19 05/05/18 08:12 BP 120/73 05/05/18 08:12 Pulse Ox 98 05/05/18 08:12 - Labs Result Diagrams: 05/05/18 05:45 05/05/18 05:45 Labs: Laboratory Results - last 24 hr 05/05/18 05/05/18 05/05/18 05:45 05:45 05:45 WBC 4.4 L RBC 2.31 L Hgb 6.9 L Hct 18.9 L MCV 82.2 MCH 29.8 MCHC 36.3 RDW 14.2 Plt Count 184 PT 13.9 H INR 1.3 H Sodium 142 Potassium 3.4 L Chloride 114 H Carbon Dioxide 16 L Anion Gap 15 BUN 18 Creatinine 2.7 H Est GFR ( Amer) 31 Est GFR (Non-Af Amer) 26 Random Glucose 90 Calcium 7.8 L
--- NOTE | 2018-05-05 10:31 | CP.PCM.PN ---
Subjective - Date & Time of Evaluation Date of Evaluation: 05/05/18 Time of Evaluation: 10:30 - Subjective Subjective: ID note- Pt. seen and examined today. pt. continues to have high fever spikes despite being on IV abx. is urinating w/o any difficulty but his creatinine remains high. Pt. was seen by and he is expected tp have ureteral stent placement to resolve the hydronephrosis secondary to obstructive uropathy. Objective - Vital Signs/Intake and Output Vital Signs (last 24 hours): Temp Pulse Resp BP Pulse Ox 102 F H 114 H 19 120/73 98 05/05/18 08:14 05/05/18 08:12 05/05/18 08:12 05/05/18 08:12 05/05/18 08:12 - Medications Medications: Current Medications Acetaminophen (Tylenol 325mg Tab) 650 mg PO Q6 PRN PRN Reason: Fever >100.4 F Last Admin: 05/05/18 07:14 Dose: 650 mg Atovaquone (Mepron) 750 mg PO BIDWM [facility]IZABETH PRN Reason: Protocol Last Admin: 05/05/18 08:31 Dose: 750 mg Enoxaparin Sodium (Lovenox) 40 mg SC DAILY [facility] PRN Reason: Protocol Last Admin: 05/05/18 08:31 Dose: Not Given Ceftaroline Fosamil 400 mg/ (Sodium Chloride) 100 mls @ 100 mls/hr IVPB Q12 [facility] PRN Reason: Protocol Last Admin: 05/05/18 08:31 Dose: 100 mls/hr Sodium Chloride (Sodium Chloride 0.9%) 1,000 mls @ 100 mls/hr IV .Q10H [facility] Stop: 05/05/18 17:37 Last Admin: 05/05/18 03:54 Dose: 100 mls/hr Mirtazapine (Remeron) 15 mg PO HS [facility] Ondansetron HCl (Zofran Inj) 4 mg IVP Q6 PRN PRN Reason: Nausea/Vomiting Last Admin: 05/04/18 19:04 Dose: 4 mg Tamsulosin HCl (Flomax) 0.4 mg PO DAILY [facility] Last Admin: 05/05/18 08:31 Dose: 0.4 mg Tramadol HCl (Ultram) 50 mg PO Q6 PRN PRN Reason: Pain, severe (8-10) Last Admin: 05/02/18 09:45 Dose: 50 mg - Labs Labs: - Additional Findings Additional findings: Constitutional Appears: No Acute Distress - Head Exam Head Exam: ATRAUMATIC - Eye Exam Eye Exam: EOMI, PERRL - Neck Exam Neck exam: Positive for: Full Rom Additional comments: supple - Respiratory Exam Respiratory Exam: NORMAL BREATHING PATTERN Additional comments: no wheezing - Cardiovascular Exam Cardiovascular Exam: RRR, +S1, +S2 - GI/Abdominal Exam GI & Abdominal Exam: Normal Bowel Sounds, Soft Additional comments: no distention no tenderness No CVA tenderness B/L - Extremities Exam Extremities exam: Positive for: normal inspection - Neurological Exam Neurological exam: Alert, Oriented x 3 Laboratory Results - last 72 hr 05/01/18 05/03/18 05/03/18 05:55 05:30 05:30 WBC 8.2 RBC 2.74 L Hgb 7.9 L Hct 23.1 L MCV 84.2 MCH 28.8 MCHC 34.2 RDW 13.8 Plt Count 168 PT INR Sodium 143 Potassium 3.8 Chloride 116 H Carbon Dioxide 16 L Anion Gap 15 BUN 20 Creatinine 2.7 H Est GFR ( Amer) 31 Est GFR (Non-Af Amer) 26 Random Glucose 85 Calcium 8.0 L Total Bilirubin 1.2 AST 38 ALT 24 Alkaline Phosphatase 103 Total Protein 6.7 Albumin 2.9 L Globulin 3.8 Albumin/Globulin Ratio 0.8 L Urine Color Urine Clarity Urine pH Ur Specific [place] Urine Protein Urine Glucose (UA) Urine Ketones Urine Blood Urine Nitrate Urine Bilirubin Urine Urobilinogen Ur Leukocyte Esterase Urine RBC (Auto) Urine Microscopic WBC Ur Squamous Epith Cells Absolute Lymphs (Flow) 815 L % CD4 Cells 2 L Absolute CD4 Count <20 L T-Help/Suppress Ratio 0.04 L % CD8 Cells 44 H Absolute CD8 Count 358 T-Lymph Analys Comment See note Blood Type Antibody Screen Crossmatch BBK History Checked 05/03/18 05/04/18 05/04/18 16:12 06:02 06:02 WBC 6.7 RBC 2.48 L Hgb 7.2 L Hct 20.8 L MCV 83.8 MCH 29.1 MCHC 34.7 RDW 14.3 Plt Count 184 PT INR Sodium 142 Potassium 3.4 L Chloride 116 H Carbon Dioxide 15 L Anion Gap 14 BUN 18 Creatinine 2.8 H Est GFR ( Amer) 30 Est GFR (Non-Af Amer) 25 Random Glucose 95 Calcium 7.9 L Total Bilirubin 1.1 AST 54 ALT 24 Alkaline Phosphatase 110 Total Protein 6.5 Albumin 2.9 L Globulin 3.6 Albumin/Globulin Ratio 0.8 L Urine Color Yellow Urine Clarity Clear Urine pH 6.0 Ur Specific [place] 1.013 Urine Protein 30 Urine Glucose (UA) Neg Urine Ketones Trace Urine Blood Negative Urine Nitrate Negative Urine Bilirubin Negative Urine Urobilinogen 4.0 Ur Leukocyte Esterase Neg Urine RBC (Auto) 4 H Urine Microscopic WBC 3 Ur Squamous Epith Cells < 1 Absolute Lymphs (Flow) % CD4 Cells Absolute CD4 Count T-Help/Suppress Ratio % CD8 Cells Absolute CD8 Count T-Lymph Analys Comment Blood Type Antibody Screen Crossmatch BBK History Checked 05/05/18 05/05/18 05/05/18 05:45 05:45 05:45 WBC 4.4 L RBC 2.31 L Hgb 6.9 L Hct 18.9 L MCV 82.2 MCH 29.8 MCHC 36.3 RDW 14.2 Plt Count 184 PT 13.9 H INR 1.3 H Sodium 142 Potassium 3.4 L Chloride 114 H Carbon Dioxide 16 L Anion Gap 15 BUN 18 Creatinine 2.7 H Est GFR ( Amer) 31 Est GFR (Non-Af Amer) 26 Random Glucose 90 Calcium 7.8 L Total Bilirubin AST ALT Alkaline Phosphatase Total Protein Albumin Globulin Albumin/Globulin Ratio Urine Color Urine Clarity Urine pH Ur Specific [place] Urine Protein Urine Glucose (UA) Urine Ketones Urine Blood Urine Nitrate Urine Bilirubin Urine Urobilinogen Ur Leukocyte Esterase Urine RBC (Auto) Urine Microscopic WBC Ur Squamous Epith Cells Absolute Lymphs (Flow) % CD4 Cells Absolute CD4 Count T-Help/Suppress Ratio % CD8 Cells Absolute CD8 Count T-Lymph Analys Comment Blood Type Antibody Screen Crossmatch BBK History Checked 05/05/18 10:05 WBC RBC Hgb Hct MCV MCH MCHC RDW Plt Count PT INR Sodium Potassium Chloride Carbon Dioxide Anion Gap BUN Creatinine Est GFR ( Amer) Est GFR (Non-Af Amer) Random Glucose Calcium Total Bilirubin AST ALT Alkaline Phosphatase Total Protein Albumin Globulin Albumin/Globulin Ratio Urine Color Urine Clarity Urine pH Ur Specific [place] Urine Protein Urine Glucose (UA) Urine Ketones Urine Blood Urine Nitrate Urine Bilirubin Urine Urobilinogen Ur Leukocyte Esterase Urine RBC (Auto) Urine Microscopic WBC Ur Squamous Epith Cells Absolute Lymphs (Flow) % CD4 Cells Absolute CD4 Count T-Help/Suppress Ratio % CD8 Cells Absolute CD8 Count T-Lymph Analys Comment Blood Type O POSITIVE Antibody Screen Negative Crossmatch See Detail BBK History Checked Patient has bt Microbiology 05/03/18 05:30 Blood-Venous S.aureus & Coag-Neg Staph PNA FISH - Final 05/03/18 05:30 Blood-Venous Blood Culture - Preliminary Gram Positive Cocci 05/03/18 05:30 Blood-Venous Gram Stain - Final 05/01/18 13:48 Blood Blood Culture - Preliminary NO GROWTH AFTER 4 DAYS 05/03/18 16:12 Urine,Clean Catch Urine Culture - Final No Growth (<1,000 CFU/ML) 04/30/18 15:38 Blood-Venous Blood Culture - Final Staphylococcus Aureus 04/30/18 15:38 Blood-Venous Gram Stain - Final 04/30/18 15:45 Blood-Venous S.aureus & Coag-Neg Staph PNA FISH - Final 04/30/18 15:45 Blood-Venous Blood Culture - Final Staphylococcus Aureus 04/30/18 15:45 Blood-Venous Gram Stain - Final 04/30/18 17:31 Urine,Clean Catch Urine Culture - Final Staphylococcus Aureus Assessment and Plan (1) Pyelonephritis Status: Acute (2) SIRS (systemic inflammatory response syndrome) Status: Acute (3) AIDS Status: Chronic (4) Ureteral stone Status: Acute (5) Renal insufficiency Status: Acute - Assessment and Plan (Free Text) Assessment: A/P- 47 year old male with multiple medical conditions icnlduing HIV/AIDS, h/o nephrolithiasis and hydronephrosis adn UTI and uretearl stents in place now admitted with lower abd pain, high wbc, + UA and acute renal insufficiency found to have on CT report- Obstructive 4 x 3 mm proximal left ureteral calculus causing mild hydroureteronephrosis, mild nephromegaly and perinephric stranding. high fevers again today up to 103 low grade leukocytosis has resolved. blood cx- MSSA x 4 + UA- urine cx- MSSA left obstructing kidney stone causing hydro and acute renal insufficiency. TTE- no mention of vegetations on the report. plan- advise urology consult as soon as possible with stone extraction as renal function is worsening and sepsis secondary to UTI and to obstructive uropathy. pt. has been on 4 days of IV teflaro adn prior to that 2 days of IV doxy 9 because has renal insufficiency due to obstructive uropathy) and he still continues to have fever spikes and positive blood xc with MSSA. advise to get cardiology evaluation and get KEVIN to r/o endocarditis , specially since also 2 months ago pt. had this MSSA bacteremia and was treated with 3 weeks of IV vancomycin and had negative blood cx after that but again same pathogen has grown in blood cx and urine cx. vancomycin 1 gram Iv x once today. once renal function improves will place on full dose Iv vancomyicn . check 2 more blood cx. All above d/w patient at length and he verbalizes full understanding of all above. All above also d/w Dr.Pierre Adams.
--- NOTE | 2018-05-05 11:28 | CP.PCM.PN ---
Subjective - Date & Time of Evaluation Date of Evaluation: 05/05/18 Time of Evaluation: 11:26 - Subjective Subjective: 47 y/o male w/ pmh significant for AIDs admitted for suspected PCP and complicated UTI. Patient was seen and examined at bedside. He states that he is feeling depressed and fatigued today, denies suicidal ideation. Denies passing renal stone, no urinary symptoms. Objective - Vital Signs/Intake and Output Vital Signs (last 24 hours): Temp Pulse Resp BP Pulse Ox 102 F H 114 H 19 120/73 98 05/05/18 08:14 05/05/18 08:12 05/05/18 08:12 05/05/18 08:12 05/05/18 08:12 - Medications Medications: Current Medications Acetaminophen (Tylenol 325mg Tab) 650 mg PO Q6 PRN PRN Reason: Fever >100.4 F Last Admin: 05/05/18 07:14 Dose: 650 mg Atovaquone (Mepron) 750 mg PO BIDWM [facility] PRN Reason: Protocol Last Admin: 05/05/18 08:31 Dose: 750 mg Enoxaparin Sodium (Lovenox) 40 mg SC DAILY [facility] PRN Reason: Protocol Last Admin: 05/05/18 08:31 Dose: Not Given Ceftaroline Fosamil 400 mg/ (Sodium Chloride) 100 mls @ 100 mls/hr IVPB Q12 [facility] PRN Reason: Protocol Last Admin: 05/05/18 08:31 Dose: 100 mls/hr Sodium Chloride (Sodium Chloride 0.9%) 1,000 mls @ 100 mls/hr IV .Q10H [facility] Stop: 05/05/18 17:37 Last Admin: 05/05/18 03:54 Dose: 100 mls/hr Vancomycin HCl 1 gm/ Sodium (Chloride) 250 mls @ 166.667 mls/hr IVPB ONCE ONE PRN Reason: Protocol Stop: 05/05/18 12:06 Mirtazapine (Remeron) 15 mg PO HS [facility] Ondansetron HCl (Zofran Inj) 4 mg IVP Q6 PRN PRN Reason: Nausea/Vomiting Last Admin: 05/04/18 19:04 Dose: 4 mg Tamsulosin HCl (Flomax) 0.4 mg PO DAILY [facility] Last Admin: 05/05/18 08:31 Dose: 0.4 mg Tramadol HCl (Ultram) 50 mg PO Q6 PRN PRN Reason: Pain, severe (8-10) Last Admin: 05/02/18 09:45 Dose: 50 mg - Labs Labs: 05/05/18 05:45 05/05/18 05:45 PT 13.9 Seconds (9.8-13.1) H 05/05/18 05:45 INR 1.3 (0.9-1.2) H 05/05/18 05:45 APTT 27.4 Seconds (25.6-37.1) 04/30/18 12:44 - Constitutional Appears: No Acute Distress - Respiratory Exam Respiratory Exam: Clear to Ausculation Bilateral, NORMAL BREATHING PATTERN - Cardiovascular Exam Cardiovascular Exam: REGULAR RHYTHM, +S1, +S2 - GI/Abdominal Exam GI & Abdominal Exam: Soft, Normal Bowel Sounds. absent: Tenderness - Extremities Exam Extremities Exam: absent: Pedal Edema - Neurological Exam Neurological Exam: Alert, Awake, Oriented x3 - Psychiatric Exam Psychiatric exam: Depressed. absent: Suicidal Ideation - Skin Skin Exam: Dry, Intact, Warm Assessment and Plan - Assessment and Plan (Free Text) Assessment: 47 y/o male with a PMHx significant for AIDs admitted for suspected PCP and complicated UTI with urolithiasis. Plan 1. Bacteremia 2/2 to UTI/Urolithiasis -remains febrile 102.6 -blood cultures + for staph X2, repeat 05/03 is positive -Abdominal/pelvic CT shows obstructive 4X3 mm proximal left uretral calculus -TTE shows no vegetations, possible f/u w/ KEVIN -ABD flat plate shows 1.1cm calculus in proximal ureter -UA: hematuria RBC 4, WBC 27, trace LE -Urology consulted: possible cystoscopy -Switched to Ceftaroline 400mg per ID, Vanc 1 gm added -Zosyn and doxycycline d/c, -ID on board, will continue to follow up recommendations 2) Acute on Chronic Renal Insufficiency -Cr. 2.7 -likely 2/2 nephrolithiasis -hx of Stage 2 Chronic Renal Disease -BUN/Cr: 20/2.7 -avoid nephrotoxic agents and renally dose meds -maintenance 150 mL NS -Nephrology: c/w with IV fluid hydration, Flomax, trend BUN/Cr, manage calculus as per Urology 3) Shortness of breath -resolved -Abdominal/pelvic CT showed lung ground glass opacities -denies chest pain, EKG normal -CXR PA/LAT: no signs of active disease -r/o PCP -LDH 523, a-a gradient 35, PaO2 98.1 -Mepron 750 BID 4) Hypokalemia -K+ 3.4 -replaced w/ KCl- 40 meq PO 5) Leukocytosis -improving, 4.4 today, however pt remains febrile -likely secondary to complicated UTI -febrile on admission -Acetaminophen 650 mg 6) Acute on Chronic Anemia of Chronic Disease -Hb: 6.9 today -ordered 2 units of PRBC, consent signed -secondary 2/2 AIDs suppression -SPEP, UPEP ordered 7) Symptomatic AIDS -Hx of non-adherence w/ ART -CD4: <20 -CD4 ratio: 2 -on Mepron 8) Depression -previously on Mirtazapine -Denies suicidal ideation -psych following; no indication for acute inpatient psychiatric admission at this time -Remron 15 mg PO ordered per psych -Seen previously by Larry Bateman 9) Diet -PO Regular diet 10) DVT Prophylaxis -Ambulation/SCDs -Lovenox 40 mg SC 11) Code Status -full code
--- NOTE | 2018-05-05 14:47 | PQF ---
PROVIDER RESPONSE TEXT: Pt has Bacteremia with Sepsis (temp 103.2 and P105) REVIEWER QUERY TEXT: Bacteremia Underlying Cause Bacteremia is documented in the Medical Record. 1) Please specify if this is Bacteremia With or Without Sepsis. The patient's Clinical Indicators include: 47 y/o male w/ pmh significant for AIDs admitted for suspected PCP and complicated UTI . PN 05/01 resident: Bacteremia 05/02 ID: advise urology consult as soon as possible with stone extraction as renal function is worseni ng and sepsis secondary to UTI and to obstructive uropathy. Staph bacteremia. WBC 12.4 L shift and 4% BANDS, Lactate 1.1, BLOOD and URINE CS :Staph Aureus TEMP: 98.2, 103.2, 103.2, 101, 99.5, 98.8 still spiking on 05/05/18 HR: 76, 105, 87, 91, 91, 77, 91, 91, 90, 111, intermittent tachycardia until 05/05/18 BP: 124/75, 134/81, 113/62, 122/72, 104/63, 102/64 Treated with IVAB Query created by: Xena Wakefield on 05/05/2018 1:39 PM Electronically signed by: Xochilt Villeda MD 05/05/2018 2:44 PM
--- NOTE | 2018-05-05 18:08 | CP.PCM.CON ---
History of Present Illness - History of Present Illness History of Present Illness: Consultation for evaluation of endocarditis ,persistent bacteremia HPI: 47-year-old male with past medical history significant for HV who was admitted on April 30 with complaint of abdominal discomfort and episode of nonbloody diarrhea patient apparently had stopped taking his HIV medications a month prior to presentation and on the time of presentation was not taking any of his HIV pills patient on initial presentation showed renal failure with metabolic acidosis abdomen pelvic CT showed groundglass opacities in the right middle lobe medial right lower lobe and posterior left lower lobe there was obstructive 4 x 3 mm left ureteral calculus causing a mild hydro-ureteral nephrosis additionally there were bilateral nonobstructive nephrolithiasis. Patient was admitted with diagnosis of possible possible ureteral stone pyelonephritis possible PCP and systemic inflammatory response syndrome. He clinically denied having any fevers, bloody stool vomiting or chest pain on initial presentation apparently he was found laying down on the floor in the parking bridge for which [employer] was called and he was taken to the emergency room. Past medical history stable significant for HIV renal stones UTI history of RPR positive CKD stage II surgical history significant for cystoscopy and stent insertion back in December 2017 hospitalization multiple inpatient visits secondary to multiple complaints social history alcohol once a week no recreational drug use patient lives in [place] family history mother and father home medications refusing any medication at home allergies allergic to erythromycin and sulfa trimethoprim on initial presentation he was noted to be febrile tachycardic imaging found him to have as noted above no white count patient was given morphine Tylenol ibuprofen Zofran Flomax and Lovenox was given 3 L of normal saline bolus and was maintained on 150 mL's per hour of IV fluid hydration. Patient apparently was admitted a few months ago with MSSA bacteremia underwent repeat cultures on this admission shows to have grown MSSA bacteremia for which she is being treated with antibiotics by ID. Cardiology has been called for further evaluation of possible endocarditis transthoracic echocardiogram does not show any valvular heart disease but the windows were very poor and precludes definitive comments on valvular heart disease or vegetations. Patient was initiated on ceftriaxone for complicated UTI. Review of Systems - Review of Systems Systems not reviewed;Unavailable: Acuity of Condition - Constitutional Constitutional: As Per HPI - EENT Eyes: As Per HPI Ears: As Per HPI - Cardiovascular Cardiovascular: As Per HPI - Respiratory Respiratory: As Per HPI - Gastrointestinal Gastrointestinal: As Per HPI - Genitourinary Genitourinary: As Per HPI - Reproductive: Male Reproductive:Male: As Per HPI - Musculoskeletal Musculoskeletal: As Per HPI - Integumentary Integumentary: As Per HPI - Neurological Neurological: As Per HPI - Psychiatric Psychiatric: As Per HPI - Endocrine Endocrine: As Per HPI - Hematologic/Lymphatic Hematologic: As Per HPI Past Patient History - Infectious Disease Hx of Infectious Diseases: None - Past Medical History & Family History Past Medical History?: Yes - Past Social History Smoking Status: Never Smoked - CARDIAC Hx Cardiac Disorders: No - PULMONARY Hx Respiratory Disorders: No - NEUROLOGICAL Hx Neurological Disorder: No - HEENT Hx HEENT Problems: No - RENAL Hx Chronic Kidney Disease: Yes Hx Dialysis: No Hx Kidney Stones: Yes - ENDOCRINE/METABOLIC Hx Endocrine Disorders: No - HEMATOLOGICAL/ONCOLOGICAL Hx AIDS: Yes Hx Human Immunodeficiency Virus (HIV): Yes - INTEGUMENTARY Hx Dermatological Problems: Yes (acne) Other/Comment: dry skin - MUSCULOSKELETAL/RHEUMATOLOGICAL Hx Falls: No - GASTROINTESTINAL Hx Gastrointestinal Disorders: No - GENITOURINARY/GYNECOLOGICAL Hx Genitourinary Disorders: Yes (dysuria) Hx Bladder Stone: Yes Hx Sexually Transmitted Disorders: Yes - PSYCHIATRIC Hx Substance Use: No - SURGICAL HISTORY Other/Comment: PICC LINE cystoscopy stent insertion - ANESTHESIA Hx Anesthesia: Yes Hx Anesthesia Reactions: No Hx Malignant Hyperthermia: No Meds Allergies/Adverse Reactions: Allergies Allergy/AdvReac Type Severity Reaction Status Date / Time azithromycin [From Zithromax] Allergy RASH Verified 12/25/17 21:25 Sulfa (Sulfonamide Allergy NAUSEA Verified 12/25/17 21:25 Antibiotics) sulfamethoxazole Allergy NAUSEA Verified 12/25/17 21:25 [From Bactrim] trimethoprim [From Bactrim] Allergy NAUSEA Verified 12/25/17 21:25 - Medications Medications: Current Medications Acetaminophen (Tylenol 325mg Tab) 650 mg PO Q6 PRN PRN Reason: Fever >100.4 F Last Admin: 05/05/18 16:06 Dose: 650 mg Atovaquone (Mepron) 750 mg PO BIDWM [facility] PRN Reason: Protocol Last Admin: 05/05/18 08:31 Dose: 750 mg Enoxaparin Sodium (Lovenox) 40 mg SC DAILY [facility] PRN Reason: Protocol Last Admin: 05/05/18 08:31 Dose: Not Given Cefazolin Sodium/Dextrose (Ancef Iv 1 Gm Duplex) 1 gm in 50 mls @ 50 mls/hr IVPB Q12 [facility] PRN Reason: Protocol Mirtazapine (Remeron) 15 mg PO HS [facility] Ondansetron HCl (Zofran Inj) 4 mg IVP Q6 PRN PRN Reason: Nausea/Vomiting Last Admin: 05/04/18 19:04 Dose: 4 mg Tamsulosin HCl (Flomax) 0.4 mg PO DAILY [facility] Last Admin: 05/05/18 08:31 Dose: 0.4 mg Tramadol HCl (Ultram) 50 mg PO Q6 PRN PRN Reason: Pain, severe (8-10) Last Admin: 05/02/18 09:45 Dose: 50 mg Physical Exam - Constitutional Appears: Well - Head Exam Head Exam: ATRAUMATIC, NORMAL INSPECTION, NORMOCEPHALIC - Eye Exam Eye Exam: EOMI, Normal appearance, PERRL Pupil Exam: NORMAL ACCOMODATION, PERRL - ENT Exam ENT Exam: Mucous Membranes Moist, Normal Exam - Neck Exam Neck exam: Positive for: Normal Inspection - Respiratory Exam Respiratory Exam: Clear to Auscultation Bilateral, NORMAL BREATHING PATTERN - Cardiovascular Exam Cardiovascular Exam: REGULAR RHYTHM - GI/Abdominal Exam GI & Abdominal Exam: Normal Bowel Sounds, Soft. absent: Tenderness - Extremities Exam Extremities exam: Positive for: normal inspection - Back Exam Back exam: NORMAL INSPECTION - Neurological Exam Neurological exam: Alert, CN II-XII Intact, Normal Gait, Oriented x3, Reflexes Normal - Psychiatric Exam Psychiatric exam: Normal Affect, Normal Mood - Skin Skin Exam: Dry, Intact, Normal Color, Warm Results - Vital Signs Recent Vital Signs: Last Vital Signs Temp 98.8 F 05/05/18 17:31 Pulse 94 H 05/05/18 17:31 Resp 17 05/05/18 17:31 BP 104/65 05/05/18 17:31 Pulse Ox 97 05/05/18 16:10 - Labs Result Diagrams: 05/05/18 05:45 05/05/18 05:45 Labs: Laboratory Results - last 24 hr 05/05/18 05/05/18 05/05/18 05:45 05:45 05:45 WBC 4.4 L RBC 2.31 L Hgb 6.9 L Hct 18.9 L MCV 82.2 MCH 29.8 MCHC 36.3 RDW 14.2 Plt Count 184 PT 13.9 H INR 1.3 H Sodium 142 Potassium 3.4 L Chloride 114 H Carbon Dioxide 16 L Anion Gap 15 BUN 18 Creatinine 2.7 H Est GFR ( Amer) 31 Est GFR (Non-Af Amer) 26 Random Glucose 90 Calcium 7.8 L Blood Type Antibody Screen Crossmatch BBK History Checked 05/05/18 10:05 WBC RBC Hgb Hct MCV MCH MCHC RDW Plt Count PT INR Sodium Potassium Chloride Carbon Dioxide Anion Gap BUN Creatinine Est GFR ( Amer) Est GFR (Non-Af Amer) Random Glucose Calcium Blood Type O POSITIVE Antibody Screen Negative Crossmatch See Detail BBK History Checked Patient has bt Assessment & Plan (1) Endocarditis Assessment and Plan: plan for KEVIN once hgb stable cont abx per ID TTE windows very poor to comment on endocarditis or valvular involvement Status: Acute (2) SIRS (systemic inflammatory response syndrome) Status: Acute (3) Bacteremia Status: Acute (4) Immunocompromised patient Status: Acute (5) Kidney stone Status: Acute (6) Obstructive uropathy Status: Acute
[2018-05-05] MEDS: ceFAZolin IV 1 gm in Dextrose 1 GM/50 ML BAG IVPB SCH (21:39)
[2018-05-06 06:58] LABS: BASO % 0.1 % (0.0-2.0); EOS # 0.4 K/uL (0.0-0.7); EOS % 7.1 % (0.0-4.0); HEMOGLOBIN 8.9 g/dL (12.0-18.0); LYMPH # 0.6 K/uL (1.0-4.3); LYMPH % 11.5 % (20.0-40.0); MEAN CELL VOLUME 83.1 fl (80.0-94.0); MEAN CORPUSCULAR HEMOGLOBIN 29.5 pg (27.0-31.0); MEAN CORPUSCULAR HGB CONC 35.5 g/dL (33.0-37.0); MEAN PLATELET VOLUME 8.5 fl (7.2-11.7); MONO # 0.4 K/uL (0.0-0.8); MONO % 7.6 % (0.0-10.0); NEUT # 3.9 K/uL (1.8-7.0); NEUT % 73.7 % (50.0-75.0); NRBC % 0.2 % (0.0-0.0); RBC 3.02 Mil/uL (4.40-5.90); RED CELL DISTRIBUTION WIDTH 14.1 % (11.5-14.5); WHITE BLOOD COUNT 5.3 K/uL (4.8-10.8)
[2018-05-06] MEDS: Atovaquone 750 mg/5 ml Susp UD PO SCH ×2 (08:34→17:25)
--- NOTE | 2018-05-06 08:38 | CP.PCM.PN ---
Subjective - Date & Time of Evaluation Date of Evaluation: 05/06/18 Time of Evaluation: 08:37 - Subjective Subjective: Patient was seen and examined at bedside. He states that he is no longer feeling depressed today. Denies passing renal stone, no urinary symptoms. Denies abdominal pain n/v/c/d. Objective - Vital Signs/Intake and Output Vital Signs (last 24 hours): Temp Pulse Resp BP Pulse Ox 98.4 F 84 19 121/68 99 05/06/18 08:24 05/06/18 08:24 05/06/18 08:24 05/06/18 08:24 05/06/18 08:24 Intake and Output: 05/06/18 05/06/18 06:59 18:59 Intake Total 281 Balance 281 - Medications Medications: Current Medications Acetaminophen (Tylenol 325mg Tab) 650 mg PO Q6 PRN PRN Reason: Fever >100.4 F Last Admin: 05/05/18 16:06 Dose: 650 mg Atovaquone (Mepron) 750 mg PO BIDWM [facility] PRN Reason: Protocol Last Admin: 05/06/18 08:34 Dose: Not Given Enoxaparin Sodium (Lovenox) 40 mg SC DAILY [facility] PRN Reason: Protocol Last Admin: 05/05/18 08:31 Dose: Not Given Cefazolin Sodium/Dextrose (Ancef Iv 1 Gm Duplex) 1 gm in 50 mls @ 50 mls/hr IVPB Q12 [facility] PRN Reason: Protocol Last Admin: 05/05/18 21:39 Dose: 50 mls/hr Mirtazapine (Remeron) 15 mg PO HS [facility] Last Admin: 05/05/18 21:39 Dose: 15 mg Ondansetron HCl (Zofran Inj) 4 mg IVP Q6 PRN PRN Reason: Nausea/Vomiting Last Admin: 05/04/18 19:04 Dose: 4 mg Tamsulosin HCl (Flomax) 0.4 mg PO DAILY [facility] Last Admin: 05/05/18 08:31 Dose: 0.4 mg Tramadol HCl (Ultram) 50 mg PO Q6 PRN PRN Reason: Pain, severe (8-10) Last Admin: 05/02/18 09:45 Dose: 50 mg - Labs Labs: 05/06/18 06:10 05/06/18 06:10 PT 13.9 Seconds (9.8-13.1) H 05/05/18 05:45 INR 1.3 (0.9-1.2) H 05/05/18 05:45 APTT 27.4 Seconds (25.6-37.1) 04/30/18 12:44 - Constitutional Appears: Well, No Acute Distress - ENT Exam ENT Exam: Mucous Membranes Moist - Respiratory Exam Respiratory Exam: Clear to Ausculation Bilateral, NORMAL BREATHING PATTERN - Cardiovascular Exam Cardiovascular Exam: REGULAR RHYTHM, +S1, +S2 - GI/Abdominal Exam GI & Abdominal Exam: Soft, Normal Bowel Sounds. absent: Tenderness - Extremities Exam Extremities Exam: Normal Inspection. absent: Pedal Edema - Back Exam Back Exam: absent: CVA tenderness (L), CVA tenderness (R) - Neurological Exam Neurological Exam: Alert, Awake, Oriented x3 - Psychiatric Exam Psychiatric exam: Normal Mood. absent: Depressed - Skin Skin Exam: Dry, Intact, Warm Assessment and Plan - Assessment and Plan (Free Text) Assessment: Assessment: 47 y/o male with a PMHx significant for non-adherent AIDs admitted for S. aureus bacteraemia, UTI, urolightiasis, s/p left uretral stenting 05/06. Plan 1. Staph Aureus Bacteremia 2/2 to UTI/Urolithiasis -afebrile today, on Cefazoline 1gm -Abdominal/pelvic CT shows obstructive 4X3 mm proximal left uretral calculus s/ p left uretral stenting 05/06 -As per urologist, copious purulent drainage during cystoscopy, will f/u culture -blood cultures + for staph X2, repeat 05/03 is positive, repeat 05/05 negative x2 -TTE shows no vegetations, possible f/u w/ KEVIN -ABD flat plate showed 1.1cm calculus in proximal ureter -UA: hematuria RBC 4, WBC 27, trace LE -medically optimized for surgery -ID on board, will continue to follow up recommendations 2) Acute on Chronic Renal Insufficiency -Cr. 2.7 -likely 2/2 nephrolithiasis -hx of Stage 2 Chronic Renal Disease -BUN/Cr: 20/2.7 -avoid nephrotoxic agents and renally dose meds -maintenance 150 mL NS -Nephrology: c/w with IV fluid hydration, Flomax, trend BUN/Cr, manage calculus as per Urology 3) Shortness of breath -resolved -Abdominal/pelvic CT showed lung ground glass opacities -denies chest pain, EKG normal -CXR PA/LAT: no signs of active disease -r/o PCP -LDH 523, a-a gradient 35, PaO2 98.1 -Mepron 750 BID 4) Hypokalemia -K+ 3.6 -replaced w/ KCl- 40 meq PO -cont to monitor 5) Leukocytosis -improving, 5.3 today -likely secondary to complicated UTI -febrile on admission -Acetaminophen 650 mg 6) Acute on Chronic Anemia of Chronic Disease -hgb 8.9 -s/p 2 units of PRBC transfusion 05/05/18 -secondary 2/2 AIDs suppression -SPEP, UPEP pending 7) Symptomatic AIDS -Hx of non-adherence w/ ART -CD4: <20 -CD4 ratio: 2 -on Mepron 8) Depression -mood improving -Denies suicidal ideation -psych following; no indication for acute inpatient psychiatric admission at this time -Remron 15 mg PO ordered per psych -Seen previously by Larry Bateman 9) Diet -PO Regular diet 10) DVT Prophylaxis -Ambulation/SCDs -Lovenox 40 mg SC 11) Code Status -full code
[2018-05-06] MEDS ORDERED: Lactated Ringer's 1,000 ML IV ONE (08:50)
[2018-05-06] MEDS ORDERED: Midazolam 2 MG/2 ML VIAL ONE (08:59)
[2018-05-06] MEDS ORDERED: Propofol 10 mg/ml Inj (20 ML) ONE (08:59)
[2018-05-06] MEDS ORDERED: Lidocaine 2% Jelly (Uro-Jet) ONE (09:04)
[2018-05-06] MEDS ORDERED: Lidocaine 2% Jelly (Uro-Jet) TOP ONE (09:15)
[2018-05-06] MEDS: Sodium Chloride 0.9% 1,000 ML IV SCH ×2 (09:40→21:43)
[2018-05-06] MEDS ORDERED: HYDROmorphone 0.5 mg/0.5 ml ISec IVP PRN (09:56)
[2018-05-06] MEDS: ceFAZolin IV 1 gm in Dextrose 1 GM/50 ML BAG IVPB SCH ×2 (10:29→21:40)
--- NOTE | 2018-05-06 10:55 | RAD ---
Date of service: 05/06/2018 PROCEDURE: Intraoperative Fluoroscopy. HISTORY: CYSTO/STENT PLACEMENT FINDINGS: Fluoroscopic assistance was provided. 0.1 minute fluoroscopy time. The Please refer to the operative report for additional details.
--- NOTE | 2018-05-06 13:11 | CP.PCM.PN ---
Subjective - Date & Time of Evaluation Date of Evaluation: 05/06/18 Time of Evaluation: 13:11 - Subjective Subjective: ID Note- pt. seen and examined. denies any lower bad pain or any dysurea. s/p ureteral stent placement and as per dr.Pierre abreu she was told by doc that pus came out. stone still not out. Objective - Vital Signs/Intake and Output Vital Signs (last 24 hours): Temp Pulse Resp BP Pulse Ox 98.5 F 78 19 109/66 96 05/06/18 12:33 05/06/18 12:33 05/06/18 12:33 05/06/18 12:33 05/06/18 12:33 Intake and Output: 05/06/18 05/06/18 06:59 18:59 Intake Total 281 100 Output Total 200 Balance 281 -100 - Medications Medications: Current Medications Acetaminophen (Tylenol 325mg Tab) 650 mg PO Q6 PRN PRN Reason: Fever >100.4 F Last Admin: 05/05/18 16:06 Dose: 650 mg Atovaquone (Mepron) 750 mg PO BIDWM [facility] PRN Reason: Protocol Last Admin: 05/06/18 08:34 Dose: Not Given Enoxaparin Sodium (Lovenox) 40 mg SC DAILY [facility] PRN Reason: Protocol Last Admin: 05/05/18 08:31 Dose: Not Given Cefazolin Sodium/Dextrose (Ancef Iv 1 Gm Duplex) 1 gm in 50 mls @ 50 mls/hr IVPB Q12 [facility] PRN Reason: Protocol Last Admin: 05/06/18 10:29 Dose: Not Given Sodium Chloride (Sodium Chloride 0.9%) 1,000 mls @ 100 mls/hr IV .Q10H [facility] Last Admin: 05/06/18 09:40 Dose: 100 mls Mirtazapine (Remeron) 15 mg PO HS [facility] Last Admin: 05/05/18 21:39 Dose: 15 mg Ondansetron HCl (Zofran Inj) 4 mg IVP Q6 PRN PRN Reason: Nausea/Vomiting Last Admin: 05/04/18 19:04 Dose: 4 mg Tamsulosin HCl (Flomax) 0.4 mg PO DAILY [facility] Last Admin: 05/06/18 10:27 Dose: Not Given Tramadol HCl (Ultram) 50 mg PO Q6 PRN PRN Reason: Pain, severe (8-10) Last Admin: 05/02/18 09:45 Dose: 50 mg - Labs Labs: - Additional Findings Additional findings: Constitutional Appears: No Acute Distress - Head Exam Head Exam: ATRAUMATIC - Eye Exam Eye Exam: EOMI, PERRL - Neck Exam Neck exam: Positive for: Full Rom Additional comments: supple - Respiratory Exam Respiratory Exam: NORMAL BREATHING PATTERN Additional comments: no wheezing - Cardiovascular Exam Cardiovascular Exam: RRR, +S1, +S2 - GI/Abdominal Exam GI & Abdominal Exam: Normal Bowel Sounds, Soft Additional comments: no distention no tenderness No CVA tenderness B/L - Extremities Exam Extremities exam: Positive for: normal inspection - Neurological Exam Neurological exam: Alert, Oriented x 3 Laboratory Results - last 72 hr 05/01/18 05/03/18 05/04/18 05:55 16:12 06:02 WBC 6.7 RBC 2.48 L Hgb 7.2 L Hct 20.8 L MCV 83.8 MCH 29.1 MCHC 34.7 RDW 14.3 Plt Count 184 MPV Neut % (Auto) Lymph % (Auto) [place] % (Auto) Eos % (Auto) Baso % (Auto) Neut # (Auto) Lymph # (Auto) Kend[place] # (Auto) Eos # (Auto) Baso # (Auto) PT INR Sodium Potassium Chloride Carbon Dioxide Anion Gap BUN Creatinine Est GFR ( Amer) Est GFR (Non-Af Amer) Random Glucose Calcium Total Bilirubin AST ALT Alkaline Phosphatase Total Protein Albumin Globulin Albumin/Globulin Ratio Urine Color Yellow Urine Clarity Clear Urine pH 6.0 Ur Specific [place] 1.013 Urine Protein 30 Urine Glucose (UA) Neg Urine Ketones Trace Urine Blood Negative Urine Nitrate Negative Urine Bilirubin Negative Urine Urobilinogen 4.0 Ur Leukocyte Esterase Neg Urine RBC (Auto) 4 H Urine Microscopic WBC 3 Ur Squamous Epith Cells < 1 Ur Random Creatinine U Random Total Protein HIV-1 RNA Qnt (RT-PCR) 5.43 H Blood Type Antibody Screen Crossmatch BBK History Checked 05/04/18 05/05/18 05/05/18 06:02 05:45 05:45 WBC 4.4 L RBC 2.31 L Hgb 6.9 L Hct 18.9 L MCV 82.2 MCH 29.8 MCHC 36.3 RDW 14.2 Plt Count 184 MPV Neut % (Auto) Lymph % (Auto) [place] % (Auto) Eos % (Auto) Baso % (Auto) Neut # (Auto) Lymph # (Auto) Kendall # (Auto) Eos # (Auto) Baso # (Auto) PT INR Sodium 142 142 Potassium 3.4 L 3.4 L Chloride 116 H 114 H Carbon Dioxide 15 L 16 L Anion Gap 14 15 BUN 18 18 Creatinine 2.8 H 2.7 H Est GFR ( Amer) 30 31 Est GFR (Non-Af Amer) 25 26 Random Glucose 95 90 Calcium 7.9 L 7.8 L Total Bilirubin 1.1 AST 54 ALT 24 Alkaline Phosphatase 110 Total Protein 6.5 Albumin 2.9 L Globulin 3.6 Albumin/Globulin Ratio 0.8 L Urine Color Urine Clarity Urine pH Ur Specific [place] Urine Protein Urine Glucose (UA) Urine Ketones Urine Blood Urine Nitrate Urine Bilirubin Urine Urobilinogen Ur Leukocyte Esterase Urine RBC (Auto) Urine Microscopic WBC Ur Squamous Epith Cells Ur Random Creatinine U Random Total Protein HIV-1 RNA Qnt (RT-PCR) Blood Type Antibody Screen Crossmatch BBK History Checked 05/05/18 05/05/18 05/05/18 05:45 09:00 10:05 WBC RBC Hgb Hct MCV MCH MCHC RDW Plt Count MPV Neut % (Auto) Lymph % (Auto) [place] % (Auto) Eos % (Auto) Baso % (Auto) Neut # (Auto) Lymph # (Auto) [place] # (Auto) Eos # (Auto) Baso # (Auto) PT 13.9 H INR 1.3 H Sodium Potassium Chloride Carbon Dioxide Anion Gap BUN Creatinine Est GFR ( Amer) Est GFR (Non-Af Amer) Random Glucose Calcium Total Bilirubin AST ALT Alkaline Phosphatase Total Protein Albumin Globulin Albumin/Globulin Ratio Urine Color Urine Clarity Urine pH Ur Specific [place] Urine Protein Urine Glucose (UA) Urine Ketones Urine Blood Urine Nitrate Urine Bilirubin Urine Urobilinogen Ur Leukocyte Esterase Urine RBC (Auto) Urine Microscopic WBC Ur Squamous Epith Cells Ur Random Creatinine 95 U Random Total Protein 1075 H HIV-1 RNA Qnt (RT-PCR) Blood Type O POSITIVE Antibody Screen Negative Crossmatch See Detail BBK History Checked Patient has bt 05/06/18 05/06/18 06:10 06:10 WBC 5.3 RBC 3.02 L Hgb 8.9 L D Hct 25.1 L MCV 83.1 MCH 29.5 MCHC 35.5 RDW 14.1 Plt Count 210 MPV 8.5 Neut % (Auto) 73.7 Lymph % (Auto) 11.5 L Kendall % (Auto) 7.6 Eos % (Auto) 7.1 H Baso % (Auto) 0.1 Neut # (Auto) 3.9 Lymph # (Auto) 0.6 L [place] # (Auto) 0.4 Eos # (Auto) 0.4 Baso # (Auto) 0.0 PT INR Sodium 144 Potassium 3.6 Chloride 116 H Carbon Dioxide 16 L Anion Gap 16 BUN 19 Creatinine 2.7 H Est GFR ( Amer) 31 Est GFR (Non-Af Amer) 26 Random Glucose 88 Calcium 8.0 L Total Bilirubin AST ALT Alkaline Phosphatase Total Protein Albumin Globulin Albumin/Globulin Ratio Urine Color Urine Clarity Urine pH Ur Specific [place] Urine Protein Urine Glucose (UA) Urine Ketones Urine Blood Urine Nitrate Urine Bilirubin Urine Urobilinogen Ur Leukocyte Esterase Urine RBC (Auto) Urine Microscopic WBC Ur Squamous Epith Cells Ur Random Creatinine U Random Total Protein HIV-1 RNA Qnt (RT-PCR) Blood Type Antibody Screen Crossmatch BBK History Checked Microbiology 05/01/18 13:48 Blood Blood Culture - Final NO GROWTH AFTER 5 DAYS 05/05/18 11:10 Blood-Venous Blood Culture - Preliminary Gram Positive Cocci 05/05/18 11:10 Blood-Venous Gram Stain - Final 05/05/18 11:10 Blood-Venous Blood Culture - Preliminary Gram Positive Cocci 05/05/18 11:10 Blood-Venous Gram Stain - Final 05/03/18 05:30 Blood-Venous S.aureus & Coag-Neg Staph PNA FISH - Final 05/03/18 05:30 Blood-Venous Blood Culture - Final Staphylococcus Aureus 05/03/18 05:30 Blood-Venous Gram Stain - Final 05/03/18 16:12 Urine,Clean Catch Urine Culture - Final No Growth (<1,000 CFU/ML) 04/30/18 15:38 Blood-Venous Blood Culture - Final Staphylococcus Aureus 04/30/18 15:38 Blood-Venous Gram Stain - Final 04/30/18 15:45 Blood-Venous S.aureus & Coag-Neg Staph PNA FISH - Final 04/30/18 15:45 Blood-Venous Blood Culture - Final Staphylococcus Aureus 04/30/18 15:45 Blood-Venous Gram Stain - Final 04/30/18 17:31 Urine,Clean Catch Urine Culture - Final Staphylococcus Aureus Assessment and Plan (1) Pyelonephritis Status: Acute (2) SIRS (systemic inflammatory response syndrome) Status: Acute (3) AIDS Status: Chronic (4) Ureteral stone Status: Acute (5) Renal insufficiency Status: Acute (6) Fever Status: Acute (7) MSSA bacteremia Status: Acute - Assessment and Plan (Free Text) Assessment: A/P- 47 year old male with multiple medical conditions icnlduing HIV/AIDS, h/o nephrolithiasis and hydronephrosis adn UTI and uretearl stents in place now admitted with lower abd pain, high wbc, + UA and acute renal insufficiency found to have on CT report- Obstructive 4 x 3 mm proximal left ureteral calculus causing mild hydroureteronephrosis, mild nephromegaly and perinephric stranding. remaisn febrile but t-max lower today low grade leukocytosis has resolved. blood cx- MSSA x 6 + UA- urine cx- MSSA left obstructing kidney stone causing hydro and acute renal insufficiency. s/p ureteral stent placement by today TTE- no mention of vegetations on the report. plan- had completed 4 days of IV teflaro and 2 days of IV doxy prior to that and has been given 1 dose vanco as well for MSSA bacteremia. antibiotic changed to nafcillin yesterday for MSSA bacteremia (perisstent). will give 1 more dose of IV vanco today. advise to get cardiology evaluation and get KEVIN to r/o endocarditis since pt. continues to have positive blood cx and fever despite being on antibiotics. vancomycin 1 gram Iv x once today. once renal function improves will place on full dose Iv vancomyicn . check 2 more blood cx again . All above d/w patient at length and he verbalizes full understanding of all above. All above also d/w Dr.Pierre Abreu.
--- NOTE | 2018-05-06 20:41 | OP ---
PROCEDURE DATE: 05/06/2018 TIME: Roughly 9:35 p.m. PROCEDURE: Cystoscopy and insertion of left ureteral stent under fluoroscopic control. PREOPERATIVE DIAGNOSIS: Obstructing left 4 x 4 mm proximal ureteral stone. POSTOPERATIVE DIAGNOSIS: Obstructing left 4 x 4 mm proximal ureteral stone. DESCRIPTION OF PROCEDURE: Patient was placed on a cystoscopy table in the dorsal lithotomy position, prepped and draped in the usual sterile fashion with Betadine solution under local and laryngeal mask anesthesia with Dr. Caldwell. Approximately 10 mL of 2% Xylocaine jelly was injected intraurethral and allowed to be maintained for a few minutes followed by insertion of a #22 [place] Olympus cystoscope into the bladder under direct vision using the 30-degree lens. Sterile water was used as the irrigating solution throughout the entire procedure. The anterior urethra was completely normal without any stricture formation, foreign bodies or suspicious lesions seen. Posterior urethra showed a nonobstructing prosthetic fossa with a total prosthetic length of about 3 cm and a bladder neck to veru measurement of about 2 cm. The bladder was examined in all 4 quadrants. The right ureteral orifice was completely normal on the trigone and normal configuration with clear efflux. The left ureteral orifice showed erythema around the left orifice, but normal location and normal configuration on the trigone with diminished efflux. Next, a Microvasive 35 thousandth inch Sensor wire was inserted into the left ureteral orifice and as it was being advanced up to the left renal pelvis, immediately white purulent exudate was seen gushing from the left ureteral orifice and filling up the bladder. Next, a Microvasive [employer] scientific stent Percuflex 6-[place] multilength stent was then passed over the Sensor wire into the left ureteral orifice under direct vision and fluoroscopic control. The stent was then advanced towards the left renal pelvis and with at least two coils seen in the left renal pelvis and at the end of the stent seen in the bladder, the Sensor wire was removed, and at least one coil was seen in the bladder. The bladder was then emptied and a specimen was sent for culture and sensitivity. The patient tolerated the procedure well without any blood loss and was brought to the recovery area in satisfactory condition. Arturo Lin MD [facility]
[2018-05-07 06:00] LABS: HEMOGLOBIN 8.8 g/dL (12.0-18.0); MEAN CELL VOLUME 84.1 fl (80.0-94.0); MEAN CORPUSCULAR HEMOGLOBIN 29.6 pg (27.0-31.0); MEAN CORPUSCULAR HGB CONC 35.2 g/dL (33.0-37.0); RBC 2.96 Mil/uL (4.40-5.90); RED CELL DISTRIBUTION WIDTH 13.9 % (11.5-14.5)
[2018-05-07 06:13] LABS: CALCIUM 7.5 mg/dL (8.4-10.2)
[2018-05-07] MEDS: Atovaquone 750 mg/5 ml Susp UD PO SCH ×2 (09:11→16:52)
[2018-05-07] MEDS: ceFAZolin IV 1 gm in Dextrose 1 GM/50 ML BAG IVPB SCH (09:20)
[2018-05-07] MEDS: Enoxaparin 40 mg Syringe SC SCH (09:23)
[2018-05-07] MEDS ORDERED: Sodium Chloride 0.9% 1,000 ML IV SCH (09:45)
--- NOTE | 2018-05-07 11:09 | CP.PCM.PN ---
Subjective - Date & Time of Evaluation Date of Evaluation: 05/07/18 Time of Evaluation: 11:06 - Subjective Subjective: Patient seen and examined at bedside. He states that his mood is elevated. He is smiling and laughing today. Appetite improved. Denies pain, n/v. Has not passed stone. Objective - Vital Signs/Intake and Output Vital Signs (last 24 hours): Temp Pulse Resp BP Pulse Ox 98.2 F 68 18 112/74 100 05/07/18 08:49 05/07/18 08:49 05/07/18 08:49 05/07/18 08:49 05/07/18 08:49 Intake and Output: 05/07/18 05/07/18 06:59 18:59 Output Total 900 Balance -900 - Medications Medications: Current Medications Acetaminophen (Tylenol 325mg Tab) 650 mg PO Q6 PRN PRN Reason: Fever >100.4 F Last Admin: 05/05/18 16:06 Dose: 650 mg Atovaquone (Mepron) 750 mg PO BIDWM [facility]IZABETH PRN Reason: Protocol Last Admin: 05/07/18 09:11 Dose: Not Given Enoxaparin Sodium (Lovenox) 40 mg SC DAILY [facility] PRN Reason: Protocol Last Admin: 05/07/18 09:23 Dose: Not Given Cefazolin Sodium/Dextrose (Ancef Iv 1 Gm Duplex) 1 gm in 50 mls @ 50 mls/hr IVPB Q12 [facility]ETH PRN Reason: Protocol Last Admin: 05/07/18 09:20 Dose: 50 mls/hr Sodium Chloride (Sodium Chloride 0.45%) 1,000 mls @ 100 mls/hr IV .Q10H [facility] Stop: 05/08/18 09:47 Mirtazapine (Remeron) 15 mg PO HS [facility]ETH Last Admin: 05/06/18 21:42 Dose: 15 mg Ondansetron HCl (Zofran Inj) 4 mg IVP Q6 PRN PRN Reason: Nausea/Vomiting Last Admin: 05/04/18 19:04 Dose: 4 mg Tamsulosin HCl (Flomax) 0.4 mg PO DAILY [facility] Last Admin: 05/07/18 09:11 Dose: Not Given Tramadol HCl (Ultram) 50 mg PO Q6 PRN PRN Reason: Pain, severe (8-10) Last Admin: 05/02/18 09:45 Dose: 50 mg - Labs Labs: 05/07/18 05:35 05/07/18 05:35 PT 13.9 Seconds (9.8-13.1) H 05/05/18 05:45 INR 1.3 (0.9-1.2) H 05/05/18 05:45 APTT 27.4 Seconds (25.6-37.1) 04/30/18 12:44 - Constitutional Appears: Well, No Acute Distress - ENT Exam ENT Exam: Mucous Membranes Moist - Respiratory Exam Respiratory Exam: Clear to Ausculation Bilateral, NORMAL BREATHING PATTERN - Cardiovascular Exam Cardiovascular Exam: REGULAR RHYTHM, RRR, +S1, +S2 - GI/Abdominal Exam GI & Abdominal Exam: Soft, Normal Bowel Sounds. absent: Tenderness - Back Exam Back Exam: NORMAL INSPECTION. absent: CVA tenderness (L), CVA tenderness (R) - Neurological Exam Neurological Exam: Alert, Awake, Oriented x3 - Psychiatric Exam Psychiatric exam: Normal Affect, Normal Mood. absent: Depressed, Suicidal Ideation - Skin Skin Exam: Dry, Intact, Warm Assessment and Plan - Assessment and Plan (Free Text) Assessment: 47 y/o male with a PMHx significant for non-adherent AIDs admitted for S. aureus bacteraemia, UTI, urolightiasis, s/p left uretral stenting 05/06. Plan 1. Staph Aureus Bacteremia w/ sepsis 2/2 to UTI/Urolithiasis -afebrile today, on Cefazoline 1gm -WBC 5.0 today -Abdominal/pelvic CT shows obstructive 4X3 mm proximal left uretral calculus s/ p left uretral stenting 05/06 -As per urologist, copious purulent drainage during cystoscopy, will f/u culture -blood cultures + for staph X2, repeat 05/03 is positive, repeat 05/05 positive x2 -TTE shows no vegetations, f/u w/ [facility] possible tomorrow -ABD flat plate showed 1.1cm calculus in proximal ureter -UA: hematuria RBC 4, WBC 27, trace LE -ID on board, will continue to follow up recommendations -on Cefazolin 1gm, received another vanc 1gm dose yesterday 2) MARILYNN on CKD -Cr. improved post cystoscopy, from 2.7 yesterday to 1.6 today, and GFR 57 today from yesterday's 31 -likely 2/2 nephrolithiasis -hx of Stage 2 Chronic Renal Disease w/ baseline GFR 50s/60s -BUN/Cr: 20/2.7 -avoid nephrotoxic agents and renally dose meds -maintenance NaCl 100mL/hr -Nephrology: c/w with IV fluid hydration, Flomax, trend BUN/Cr, manage calculus as per Urology 3) Shortness of breath -resolved -Abdominal/pelvic CT showed lung ground glass opacities -denies chest pain, EKG normal -CXR PA/LAT: no signs of active disease -r/o PCP -LDH 523, a-a gradient 35, PaO2 98.1 -Mepron 750 BID 4) Hypokalemia -K+ 3.6 -replaced w/ KCl -cont to monitor 5) Leukocytosis -improving, 5.0 today -likely secondary to complicated UTI -febrile on admission -Acetaminophen 650 mg 6) Acute on Chronic Anemia of Chronic Disease -hgb 8.8 -s/p 2 units of PRBC transfusion 05/05/18 -secondary 2/2 AIDs suppression -SPEP, UPEP pending 7) Symptomatic AIDS -Hx of non-adherence w/ ART -CD4: <20 -CD4 ratio: 2 -on Mepron 8) Depression -mood continues to improve -Denies suicidal ideation -psych following; no indication for acute inpatient psychiatric admission at this time -Remron 15 mg PO ordered per psych -Seen previously by Larry Bateman 9) Diet -NPO after mid night 10) DVT Prophylaxis -Ambulation/SCDs -Lovenox 40 mg SC 11) Code Status -full code
--- NOTE | 2018-05-07 11:15 | CP.PCM.PN ---
Subjective - Date & Time of Evaluation Date of Evaluation: 05/07/18 Time of Evaluation: 11:15 - Subjective Subjective: ID Note- Pt. seen and examined today. states he is feeling better. denies any dysurea post stent. denies any fevers today. Objective - Vital Signs/Intake and Output Vital Signs (last 24 hours): Temp Pulse Resp BP Pulse Ox 98.2 F 68 18 112/74 100 05/07/18 08:49 05/07/18 08:49 05/07/18 08:49 05/07/18 08:49 05/07/18 08:49 Intake and Output: 05/07/18 05/07/18 06:59 18:59 Output Total 900 Balance -900 - Medications Medications: Current Medications Acetaminophen (Tylenol 325mg Tab) 650 mg PO Q6 PRN PRN Reason: Fever >100.4 F Last Admin: 05/05/18 16:06 Dose: 650 mg Atovaquone (Mepron) 750 mg PO BIDWM ELIZABETH PRN Reason: Protocol Last Admin: 05/07/18 09:11 Dose: Not Given Enoxaparin Sodium (Lovenox) 40 mg SC DAILY [facility] PRN Reason: Protocol Last Admin: 05/07/18 09:23 Dose: Not Given Cefazolin Sodium/Dextrose (Ancef Iv 1 Gm Duplex) 1 gm in 50 mls @ 50 mls/hr IVPB Q12 [facility] PRN Reason: Protocol Last Admin: 05/07/18 09:20 Dose: 50 mls/hr Sodium Chloride (Sodium Chloride 0.45%) 1,000 mls @ 100 mls/hr IV .Q10H [facility] Stop: 05/08/18 09:47 Mirtazapine (Remeron) 15 mg PO HS [facility] Last Admin: 05/06/18 21:42 Dose: 15 mg Ondansetron HCl (Zofran Inj) 4 mg IVP Q6 PRN PRN Reason: Nausea/Vomiting Last Admin: 05/04/18 19:04 Dose: 4 mg Tamsulosin HCl (Flomax) 0.4 mg PO DAILY [facility] Last Admin: 05/07/18 09:11 Dose: Not Given Tramadol HCl (Ultram) 50 mg PO Q6 PRN PRN Reason: Pain, severe (8-10) Last Admin: 05/02/18 09:45 Dose: 50 mg - Labs Labs: - Additional Findings Additional findings: Constitutional Appears: No Acute Distress - Head Exam Head Exam: ATRAUMATIC - Eye Exam Eye Exam: EOMI, PERRL - Neck Exam Neck exam: Positive for: Full Rom Additional comments: supple - Respiratory Exam Respiratory Exam: NORMAL BREATHING PATTERN Additional comments: no wheezing - Cardiovascular Exam Cardiovascular Exam: RRR, +S1, +S2 - GI/Abdominal Exam GI & Abdominal Exam: Normal Bowel Sounds, Soft Additional comments: no distention no tenderness No CVA tenderness B/L - Extremities Exam Extremities exam: Positive for: normal inspection - Neurological Exam Neurological exam: Alert, Oriented x 3 Laboratory Results - last 72 hr 05/01/18 05/05/18 05/05/18 05:55 05:45 05:45 WBC 4.4 L RBC 2.31 L Hgb 6.9 L Hct 18.9 L MCV 82.2 MCH 29.8 MCHC 36.3 RDW 14.2 Plt Count 184 MPV Neut % (Auto) Lymph % (Auto) [place] % (Auto) Eos % (Auto) Baso % (Auto) Neut # (Auto) Lymph # (Auto) [place] # (Auto) Eos # (Auto) Baso # (Auto) PT INR Sodium 142 Potassium 3.4 L Chloride 114 H Carbon Dioxide 16 L Anion Gap 15 BUN 18 Creatinine 2.7 H Est GFR ( Amer) 31 Est GFR (Non-Af Amer) 26 Random Glucose 90 Calcium 7.8 L Ur Random Creatinine U Random Total Protein HIV-1 RNA Qnt (RT-PCR) 5.43 H Blood Type Antibody Screen Crossmatch BBK History Checked 05/05/18 05/05/18 05/05/18 05:45 09:00 10:05 WBC RBC Hgb Hct MCV MCH MCHC RDW Plt Count MPV Neut % (Auto) Lymph % (Auto) [place] % (Auto) Eos % (Auto) Baso % (Auto) Neut # (Auto) Lymph # (Auto) [place] # (Auto) Eos # (Auto) Baso # (Auto) PT 13.9 H INR 1.3 H Sodium Potassium Chloride Carbon Dioxide Anion Gap BUN Creatinine Est GFR ( Amer) Est GFR (Non-Af Amer) Random Glucose Calcium Ur Random Creatinine 95 U Random Total Protein 1075 H HIV-1 RNA Qnt (RT-PCR) Blood Type O POSITIVE Antibody Screen Negative Crossmatch See Detail BBK History Checked Patient has bt 05/06/18 05/06/18 05/07/18 06:10 06:10 05:35 WBC 5.3 5.0 RBC 3.02 L 2.96 L Hgb 8.9 L D 8.8 L Hct 25.1 L 24.8 L MCV 83.1 84.1 MCH 29.5 29.6 MCHC 35.5 35.2 RDW 14.1 13.9 Plt Count 210 213 MPV 8.5 Neut % (Auto) 73.7 Lymph % (Auto) 11.5 L [place] % (Auto) 7.6 Eos % (Auto) 7.1 H Baso % (Auto) 0.1 Neut # (Auto) 3.9 Lymph # (Auto) 0.6 L [place] # (Auto) 0.4 Eos # (Auto) 0.4 Baso # (Auto) 0.0 PT INR Sodium 144 Potassium 3.6 Chloride 116 H Carbon Dioxide 16 L Anion Gap 16 BUN 19 Creatinine 2.7 H Est GFR ( Amer) 31 Est GFR (Non-Af Amer) 26 Random Glucose 88 Calcium 8.0 L Ur Random Creatinine U Random Total Protein HIV-1 RNA Qnt (RT-PCR) Blood Type Antibody Screen Crossmatch BBK History Checked 05/07/18 05:35 WBC RBC Hgb Hct MCV MCH MCHC RDW Plt Count MPV Neut % (Auto) Lymph % (Auto) [place] % (Auto) Eos % (Auto) Baso % (Auto) Neut # (Auto) Lymph # (Auto) [place] # (Auto) Eos # (Auto) Baso # (Auto) PT INR Sodium 144 Potassium 3.6 Chloride 115 H Carbon Dioxide 18 L Anion Gap 15 BUN 16 Creatinine 1.6 H Est GFR ( Amer) 57 Est GFR (Non-Af Amer) 47 Random Glucose 90 Calcium 7.5 L Ur Random Creatinine U Random Total Protein HIV-1 RNA Qnt (RT-PCR) Blood Type Antibody Screen Crossmatch BBK History Checked Microbiology 05/06/18 12:16 Blood-Venous Blood Culture - Preliminary NO GROWTH AFTER 24 HOURS 05/05/18 11:10 Blood-Venous S.aureus & Coag-Neg Staph PNA FISH - Final 05/05/18 11:10 Blood-Venous Blood Culture - Preliminary Gram Positive Cocci 05/05/18 11:10 Blood-Venous Gram Stain - Final 05/06/18 13:00 Urine Urine Culture - Final No Growth (<1,000 CFU/ML) 05/01/18 13:48 Blood Blood Culture - Final NO GROWTH AFTER 5 DAYS 05/05/18 11:10 Blood-Venous Blood Culture - Preliminary Gram Positive Cocci 05/05/18 11:10 Blood-Venous Gram Stain - Final 05/03/18 05:30 Blood-Venous S.aureus & Coag-Neg Staph PNA FISH - Final 05/03/18 05:30 Blood-Venous Blood Culture - Final Staphylococcus Aureus 05/03/18 05:30 Blood-Venous Gram Stain - Final 05/03/18 16:12 Urine,Clean Catch Urine Culture - Final No Growth (<1,000 CFU/ML) 04/30/18 15:38 Blood-Venous Blood Culture - Final Staphylococcus Aureus 04/30/18 15:38 Blood-Venous Gram Stain - Final 04/30/18 15:45 Blood-Venous S.aureus & Coag-Neg Staph PNA FISH - Final 04/30/18 15:45 Blood-Venous Blood Culture - Final Staphylococcus Aureus 04/30/18 15:45 Blood-Venous Gram Stain - Final 04/30/18 17:31 Urine,Clean Catch Urine Culture - Final Staphylococcus Aureus Assessment and Plan (1) Pyelonephritis Status: Acute (2) SIRS (systemic inflammatory response syndrome) Status: Acute (3) AIDS Status: Chronic (4) Ureteral stone Status: Acute (5) Renal insufficiency Status: Acute (6) Fever Status: Acute (7) MSSA bacteremia Status: Acute - Assessment and Plan (Free Text) Assessment: A/P- 47 year old male with multiple medical conditions icnlduing HIV/AIDS, h/o nephrolithiasis and hydronephrosis adn UTI and uretearl stents in place now admitted with lower abd pain, high wbc, + UA and acute renal insufficiency found to have on CT report- Obstructive 4 x 3 mm proximal left ureteral calculus causing mild hydroureteronephrosis, mild nephromegaly and perinephric stranding. afebrile today so far low grade leukocytosis has resolved. blood cx- MSSA x 6 + UA- urine cx- MSSA left obstructing kidney stone causing hydro and acute renal insufficiency. s/p ureteral stent placement by yesterday. TTE- no mention of vegetations on the report. repeat blood cx from 05/06/2018- neg so far creatinine much improved today post stent. plan- had completed 4 days of IV teflaro and 2 days of IV doxy prior to that and has been given 2 doses of vanco as well for MSSA bacteremia. antibiotic changed to nafcillin 2 days ago for MSSA bacteremia . now that renal function has improved will increase the dose to q8 hours. once renal function improves will place on full dose Iv vancomyicn or continue cefazolin if repeat cx remain negative. check 2 more blood cx again . All above d/w patient at length and he verbalizes full understanding of all above. All above also d/w Dr.Pierre Adams.
--- NOTE | 2018-05-07 16:33 | CP.PCM.PN ---
Subjective - Date & Time of Evaluation Date of Evaluation: 05/07/18 Time of Evaluation: 16:00 - Subjective Subjective: SEEN ON RENAL F/U FEELS MUCH IMPROVED NO MORE CHILLS S/P L URETERAL STENTING RENAL FUNCTION BETTER .. eGFR UP TO 57 ML /M ON IVAB FOR PEYLO Objective - Vital Signs/Intake and Output Vital Signs (last 24 hours): Temp Pulse Resp BP Pulse Ox 98.9 F 66 20 103/64 100 05/07/18 16:07 05/07/18 16:07 05/07/18 16:07 05/07/18 16:07 05/07/18 16:07 Intake and Output: 05/07/18 05/07/18 06:59 18:59 Output Total 900 Balance -900 - Medications Medications: Current Medications Acetaminophen (Tylenol 325mg Tab) 650 mg PO Q6 PRN PRN Reason: Fever >100.4 F Last Admin: 05/05/18 16:06 Dose: 650 mg Atovaquone (Mepron) 750 mg PO BIDWM ELIZABETH PRN Reason: Protocol Last Admin: 05/07/18 09:11 Dose: Not Given Enoxaparin Sodium (Lovenox) 40 mg SC DAILY EL[facility]ETH PRN Reason: Protocol Last Admin: 05/07/18 09:23 Dose: Not Given Cefazolin Sodium/Dextrose (Ancef Iv 1 Gm Duplex) 1 gm in 50 mls @ 50 mls/hr IVPB Q12 [facility]ETH PRN Reason: Protocol Last Admin: 05/07/18 09:20 Dose: 50 mls/hr Sodium Chloride (Sodium Chloride 0.45%) 1,000 mls @ 100 mls/hr IV .Q10H [facility]ETH Stop: 05/08/18 09:47 Mirtazapine (Remeron) 15 mg PO HS [facility] Last Admin: 05/06/18 21:42 Dose: 15 mg Ondansetron HCl (Zofran Inj) 4 mg IVP Q6 PRN PRN Reason: Nausea/Vomiting Last Admin: 05/04/18 19:04 Dose: 4 mg Tamsulosin HCl (Flomax) 0.4 mg PO DAILY [facility] Last Admin: 05/07/18 09:11 Dose: Not Given Tramadol HCl (Ultram) 50 mg PO Q6 PRN PRN Reason: Pain, severe (8-10) Last Admin: 05/02/18 09:45 Dose: 50 mg - Labs Labs: 05/07/18 05:35 05/07/18 05:35 PT 13.9 Seconds (9.8-13.1) H 05/05/18 05:45 INR 1.3 (0.9-1.2) H 05/05/18 05:45 APTT 27.4 Seconds (25.6-37.1) 04/30/18 12:44 Assessment and Plan - Assessment and Plan (Free Text) Assessment: A ON CKD .. RENAL FUNCTION MUCH BETTER L OBS STONE .. S/P STENT PEYLONEPHRITIS ON IVAB MMP P : C/O IVF C/O IVAB C/O PRESENT CARE
[2018-05-07] MEDS: Sodium Chloride 0.45% 1,000 ML IV SCH ×2 (17:13→20:41)
[2018-05-08] MEDS: ceFAZolin IV 1 gm in Dextrose 1 GM/50 ML BAG IVPB SCH ×3 (00:22→17:04)
[2018-05-08] MEDS: Sodium Chloride 0.45% 1,000 ML IV SCH ×2 (03:47→06:48)
[2018-05-08 06:06] LABS: HEMOGLOBIN 8.9 g/dL (12.0-18.0); MEAN CELL VOLUME 84.1 fl (80.0-94.0); MEAN CORPUSCULAR HEMOGLOBIN 29.5 pg (27.0-31.0); MEAN CORPUSCULAR HGB CONC 35.1 g/dL (33.0-37.0); RED CELL DISTRIBUTION WIDTH 14.7 % (11.5-14.5)
[2018-05-08 06:29] LABS: ALB/GLOB RATIO 0.7 (1.0-2.1); ALT/SGPT 36 U/L (21-72); AST/SGOT 50 U/L (17-59); BLOOD UREA NITROGEN 15 mg/dl (9-20); CALCIUM 7.5 mg/dL (8.4-10.2); GFR AFRICAN-AMERICAN > 60; GFR NON-AFRICAN AMERICAN 55
[2018-05-08] MEDS: Enoxaparin 40 mg Syringe SC SCH (09:08)
[2018-05-08] MEDS: Atovaquone 750 mg/5 ml Susp UD PO SCH ×3 (09:09→17:03)
--- NOTE | 2018-05-08 14:03 | CP.PCM.PN ---
Subjective - Date & Time of Evaluation Date of Evaluation: 05/08/18 Time of Evaluation: 13:52 - Subjective Subjective: Patient seen and examined at bedside. Denies pain, n/v. Has not passed stone. Denies urinary symptoms. Objective - Vital Signs/Intake and Output Vital Signs (last 24 hours): Temp Pulse Resp BP Pulse Ox 98.3 F 55 L 20 115/73 100 05/08/18 08:27 05/08/18 08:27 05/08/18 08:27 05/08/18 08:27 05/08/18 08:27 Intake and Output: 05/08/18 05/08/18 06:59 18:59 Intake Total 1600 Output Total 1200 Balance 400 - Medications Medications: Current Medications Acetaminophen (Tylenol 325mg Tab) 650 mg PO Q6 PRN PRN Reason: Fever >100.4 F Last Admin: 05/05/18 16:06 Dose: 650 mg Atovaquone (Mepron) 750 mg PO BIDWM ELIZABETH PRN Reason: Protocol Last Admin: 05/08/18 13:04 Dose: 750 mg Enoxaparin Sodium (Lovenox) 40 mg SC DAILY EL[facility]ETH PRN Reason: Protocol Last Admin: 05/08/18 09:08 Dose: Not Given Cefazolin Sodium/Dextrose (Ancef Iv 1 Gm Duplex) 1 gm in 50 mls @ 50 mls/hr IVPB Q8 [facility]ETH PRN Reason: Protocol Last Admin: 05/08/18 09:09 Dose: 50 mls/hr Mirtazapine (Remeron) 15 mg PO HS [facility]ETH Last Admin: 05/07/18 21:10 Dose: 15 mg Ondansetron HCl (Zofran Inj) 4 mg IVP Q6 PRN PRN Reason: Nausea/Vomiting Last Admin: 05/04/18 19:04 Dose: 4 mg Tamsulosin HCl (Flomax) 0.4 mg PO DAILY [facility]ETH Last Admin: 05/08/18 13:05 Dose: 0.4 mg Tramadol HCl (Ultram) 50 mg PO Q6 PRN PRN Reason: Pain, severe (8-10) Last Admin: 05/02/18 09:45 Dose: 50 mg - Labs Labs: 05/08/18 05:40 05/08/18 05:40 PT 13.9 Seconds (9.8-13.1) H 05/05/18 05:45 INR 1.3 (0.9-1.2) H 05/05/18 05:45 APTT 27.4 Seconds (25.6-37.1) 04/30/18 12:44 - Constitutional Appears: Well, No Acute Distress - ENT Exam ENT Exam: Mucous Membranes Moist - Respiratory Exam Respiratory Exam: Clear to Ausculation Bilateral, NORMAL BREATHING PATTERN - Cardiovascular Exam Cardiovascular Exam: REGULAR RHYTHM, RRR, +S1, +S2 - GI/Abdominal Exam GI & Abdominal Exam: Soft, Normal Bowel Sounds. absent: Tenderness - Extremities Exam Extremities Exam: Normal Inspection. absent: Pedal Edema - Back Exam Back Exam: NORMAL INSPECTION. absent: CVA tenderness (L), CVA tenderness (R), tenderness - Psychiatric Exam Psychiatric exam: Normal Affect, Normal Mood - Skin Skin Exam: Dry, Intact, Warm Assessment and Plan - Assessment and Plan (Free Text) Assessment: 47 y/o male with a PMHx significant for non-adherent AIDs admitted for S. aureus bacteraemia, UTI, urolightiasis, s/p left uretral stenting 05/06. Plan 1. Staph Aureus Bacteremia w/ sepsis 2/2 to UTI/Urolithiasis -afebrile today, on Cefazoline 1gm -wbc 5 -Abdominal/pelvic CT shows obstructive 4X3 mm proximal left uretral calculus s/ p left uretral stenting 05/06 -As per urologist, copious purulent drainage during cystoscopy, will f/u culture -blood cultures + for staph X2, repeat 05/03 is positive, repeat 05/05 positive x2 -TTE shows no vegetations -ABD flat plate showed 1.1cm calculus in proximal ureter -UA: hematuria RBC 4, WBC 27, trace LE -ID on board, will continue to follow up recommendations -on Cefazolin 1gm, received another vanc 1gm dose yesterday 2) MARILYNN on CKD -Cr. improving post cystoscopy, back to baseline -likely 2/2 nephrolithiasis -hx of Stage 2 Chronic Renal Disease w/ baseline GFR 50s/60s -avoid nephrotoxic agents and renally dose meds -maintenance NaCl 100mL/hr -Nephrology: c/w with IV fluid hydration, Flomax, trend BUN/Cr, manage calculus as per Urology 3) Shortness of breath -resolved -Abdominal/pelvic CT showed lung ground glass opacities -denies chest pain, EKG normal -CXR PA/LAT: no signs of active disease -r/o PCP -LDH 523, a-a gradient 35, PaO2 98.1 -Mepron 750 BID 4) Hypokalemia -K+ 3.7 -replaced w/ KCl -cont to monitor 5) Leukocytosis -improving, 5.0 today -likely secondary to complicated UTI -febrile on admission -Acetaminophen 650 mg 6) Acute on Chronic Anemia of Chronic Disease -hgb 8.9 -s/p 2 units of PRBC transfusion 05/05/18 -secondary 2/2 AIDs suppression -SPEP, UPEP pending 7) Symptomatic AIDS -Hx of non-adherence w/ ART -CD4: <20 -CD4 ratio: 2 -on Mepron 8) Depression -mood continues to improve -Denies suicidal ideation -psych following; no indication for acute inpatient psychiatric admission at this time -Remron 15 mg PO ordered per psych -Seen previously by Larry Bateman 9) Diet -regular diet 10) DVT Prophylaxis -Ambulation/SCDs -Lovenox 40 mg SC 11) Code Status -full code
--- NOTE | 2018-05-08 16:26 | CP.PCM.PN ---
Subjective - Date & Time of Evaluation Date of Evaluation: 05/08/18 Time of Evaluation: 16:26 - Subjective Subjective: Id Note- Pt. seen and examined today. pt. feels much better. he is in good spirits and smiles. denies any fever or chills. denies any dysurea. Objective - Vital Signs/Intake and Output Vital Signs (last 24 hours): Temp Pulse Resp BP Pulse Ox 98.3 F 55 L 20 115/73 100 05/08/18 08:27 05/08/18 08:27 05/08/18 08:27 05/08/18 08:27 05/08/18 08:27 Intake and Output: 05/08/18 05/08/18 06:59 18:59 Intake Total 1600 Output Total 1200 Balance 400 - Medications Medications: Current Medications Acetaminophen (Tylenol 325mg Tab) 650 mg PO Q6 PRN PRN Reason: Fever >100.4 F Last Admin: 05/05/18 16:06 Dose: 650 mg Atovaquone (Mepron) 750 mg PO BIDWM [facility] PRN Reason: Protocol Last Admin: 05/08/18 13:04 Dose: 750 mg Enoxaparin Sodium (Lovenox) 40 mg SC DAILY [facility] PRN Reason: Protocol Last Admin: 05/08/18 09:08 Dose: Not Given Cefazolin Sodium/Dextrose (Ancef Iv 1 Gm Duplex) 1 gm in 50 mls @ 50 mls/hr IVPB Q8 [facility] PRN Reason: Protocol Last Admin: 05/08/18 09:09 Dose: 50 mls/hr Mirtazapine (Remeron) 15 mg PO HS [facility] Last Admin: 05/07/18 21:10 Dose: 15 mg Ondansetron HCl (Zofran Inj) 4 mg IVP Q6 PRN PRN Reason: Nausea/Vomiting Last Admin: 05/04/18 19:04 Dose: 4 mg Tamsulosin HCl (Flomax) 0.4 mg PO DAILY [facility] Last Admin: 05/08/18 13:05 Dose: 0.4 mg Tramadol HCl (Ultram) 50 mg PO Q6 PRN PRN Reason: Pain, severe (8-10) Last Admin: 05/02/18 09:45 Dose: 50 mg - Labs Labs: - Additional Findings Additional findings: Constitutional Appears: No Acute Distress - Head Exam Head Exam: ATRAUMATIC - Eye Exam Eye Exam: EOMI, PERRL - Neck Exam Neck exam: Positive for: Full Rom Additional comments: supple - Respiratory Exam Respiratory Exam: NORMAL BREATHING PATTERN Additional comments: no wheezing - Cardiovascular Exam Cardiovascular Exam: RRR, +S1, +S2 - GI/Abdominal Exam GI & Abdominal Exam: Normal Bowel Sounds, Soft Additional comments: no distention no tenderness No CVA tenderness B/L - Extremities Exam Extremities exam: Positive for: normal inspection - Neurological Exam Neurological exam: Alert, Oriented x 3 Laboratory Results - last 72 hr 05/01/18 05/05/18 05/05/18 05:55 09:00 10:05 WBC RBC Hgb Hct MCV MCH MCHC RDW Plt Count MPV Neut % (Auto) Lymph % (Auto) [place] % (Auto) Eos % (Auto) Baso % (Auto) Neut # (Auto) Lymph # (Auto) [place] # (Auto) Eos # (Auto) Baso # (Auto) Sodium Potassium Chloride Carbon Dioxide Anion Gap BUN Creatinine Est GFR ( Amer) Est GFR (Non-Af Amer) Random Glucose Calcium Total Bilirubin AST ALT Alkaline Phosphatase Total Protein Albumin Globulin Albumin/Globulin Ratio Ur Random Creatinine 95 U Random Total Protein 1075 H HIV-1 RNA Qnt (RT-PCR) 5.43 H Blood Type O POSITIVE Antibody Screen Negative Crossmatch See Detail BBK History Checked Patient has bt 05/06/18 05/06/18 05/07/18 06:10 06:10 05:35 WBC 5.3 5.0 RBC 3.02 L 2.96 L Hgb 8.9 L D 8.8 L Hct 25.1 L 24.8 L MCV 83.1 84.1 MCH 29.5 29.6 MCHC 35.5 35.2 RDW 14.1 13.9 Plt Count 210 213 MPV 8.5 Neut % (Auto) 73.7 Lymph % (Auto) 11.5 L [place] % (Auto) 7.6 Eos % (Auto) 7.1 H Baso % (Auto) 0.1 Neut # (Auto) 3.9 Lymph # (Auto) 0.6 L [place] # (Auto) 0.4 Eos # (Auto) 0.4 Baso # (Auto) 0.0 Sodium 144 Potassium 3.6 Chloride 116 H Carbon Dioxide 16 L Anion Gap 16 BUN 19 Creatinine 2.7 H Est GFR ( Amer) 31 Est GFR (Non-Af Amer) 26 Random Glucose 88 Calcium 8.0 L Total Bilirubin AST ALT Alkaline Phosphatase Total Protein Albumin Globulin Albumin/Globulin Ratio Ur Random Creatinine U Random Total Protein HIV-1 RNA Qnt (RT-PCR) Blood Type Antibody Screen Crossmatch BBK History Checked 05/07/18 05/08/18 05/08/18 05:35 05:40 05:40 WBC 5.0 RBC 3.00 L Hgb 8.9 L Hct 25.2 L MCV 84.1 MCH 29.5 MCHC 35.1 RDW 14.7 H Plt Count 251 MPV Neut % (Auto) Lymph % (Auto) [place] % (Auto) Eos % (Auto) Baso % (Auto) Neut # (Auto) Lymph # (Auto) [place] # (Auto) Eos # (Auto) Baso # (Auto) Sodium 144 142 Potassium 3.6 3.7 Chloride 115 H 112 H Carbon Dioxide 18 L 20 L Anion Gap 15 14 BUN 16 15 Creatinine 1.6 H 1.4 Est GFR ( Amer) 57 > 60 Est GFR (Non-Af Amer) 47 55 Random Glucose 90 94 Calcium 7.5 L 7.5 L Total Bilirubin 0.7 AST 50 ALT 36 Alkaline Phosphatase 115 Total Protein 7.3 Albumin 3.0 L Globulin 4.3 H Albumin/Globulin Ratio 0.7 L Ur Random Creatinine U Random Total Protein HIV-1 RNA Qnt (RT-PCR) Blood Type Antibody Screen Crossmatch BBK History Checked Microbiology 05/06/18 12:16 Blood-Venous Blood Culture - Preliminary NO GROWTH AFTER 48 HOURS 05/05/18 11:10 Blood-Venous Blood Culture - Final Staphylococcus Aureus 05/05/18 11:10 Blood-Venous Gram Stain - Final 05/05/18 11:10 Blood-Venous S.aureus & Coag-Neg Staph PNA FISH - Final 05/05/18 11:10 Blood-Venous Blood Culture - Final Staphylococcus Aureus 05/05/18 11:10 Blood-Venous Gram Stain - Final 05/06/18 13:00 Urine Urine Culture - Final No Growth (<1,000 CFU/ML) 05/01/18 13:48 Blood Blood Culture - Final NO GROWTH AFTER 5 DAYS 05/03/18 05:30 Blood-Venous S.aureus & Coag-Neg Staph PNA FISH - Final 05/03/18 05:30 Blood-Venous Blood Culture - Final Staphylococcus Aureus 05/03/18 05:30 Blood-Venous Gram Stain - Final 05/03/18 16:12 Urine,Clean Catch Urine Culture - Final No Growth (<1,000 CFU/ML) 04/30/18 15:38 Blood-Venous Blood Culture - Final Staphylococcus Aureus 04/30/18 15:38 Blood-Venous Gram Stain - Final 04/30/18 15:45 Blood-Venous S.aureus & Coag-Neg Staph PNA FISH - Final 04/30/18 15:45 Blood-Venous Blood Culture - Final Staphylococcus Aureus 04/30/18 15:45 Blood-Venous Gram Stain - Final 04/30/18 17:31 Urine,Clean Catch Urine Culture - Final Staphylococcus Aureus Assessment and Plan (1) Pyelonephritis Status: Acute (2) SIRS (systemic inflammatory response syndrome) Status: Acute (3) AIDS Status: Chronic (4) Ureteral stone Status: Acute (5) Renal insufficiency Status: Acute (6) Fever Status: Acute (7) MSSA bacteremia Status: Acute - Assessment and Plan (Free Text) Assessment: A/P- 47 year old male with multiple medical conditions icnlduing HIV/AIDS, h/o nephrolithiasis and hydronephrosis adn UTI and uretearl stents in place now admitted with lower abd pain, high wbc, + UA and acute renal insufficiency found to have on CT report- Obstructive 4 x 3 mm proximal left ureteral calculus causing mild hydroureteronephrosis, mild nephromegaly and perinephric stranding. afebrile past 2 days low grade leukocytosis has resolved. blood cx- MSSA x 6 + UA- urine cx- MSSA left obstructing kidney stone causing hydro and acute renal insufficiency. s/p ureteral stent placement by yesterday. TTE- no mention of vegetations on the report. repeat blood cx from 05/06/2018- neg so far creatinine much improved today post stent. renal function much improved . plan- had completed 4 days of IV teflaro and 2 days of IV doxy prior to that and has been given 2 doses of vanco as well for MSSA bacteremia. antibiotic changed to cefazolin 3 days ago for MSSA bacteremia . check 2 more blood cx again . All above d/w patient at length and he verbalizes full understanding of all above. All above also d/w Dr.Pierre Adams.
--- NOTE | 2018-05-08 23:17 | CP.PCM.PN ---
Subjective - Date & Time of Evaluation Date of Evaluation: 05/08/18 Time of Evaluation: 16:00 - Subjective Subjective: SEEN ON RENAL F/U FEELS MUCH IMPROVED RENAL FUNCTION BACK TO WNL ALL PREVIOUS EMR REVIEWED Objective - Vital Signs/Intake and Output Vital Signs (last 24 hours): Temp Pulse Resp BP Pulse Ox 97.9 F 62 18 101/65 100 05/08/18 16:26 05/08/18 16:26 05/08/18 16:26 05/08/18 16:26 05/08/18 16:26 - Medications Medications: Current Medications Acetaminophen (Tylenol 325mg Tab) 650 mg PO Q6 PRN PRN Reason: Fever >100.4 F Last Admin: 05/05/18 16:06 Dose: 650 mg Atovaquone (Mepron) 750 mg PO BIDWM [facility] PRN Reason: Protocol Last Admin: 05/08/18 17:03 Dose: 750 mg Enoxaparin Sodium (Lovenox) 40 mg SC DAILY [facility] PRN Reason: Protocol Last Admin: 05/08/18 09:08 Dose: Not Given Cefazolin Sodium/Dextrose (Ancef Iv 1 Gm Duplex) 1 gm in 50 mls @ 50 mls/hr IVPB Q8 [facility] PRN Reason: Protocol Last Admin: 05/08/18 17:04 Dose: 50 mls/hr Mirtazapine (Remeron) 15 mg PO HS [facility] Last Admin: 05/08/18 21:54 Dose: 15 mg Ondansetron HCl (Zofran Inj) 4 mg IVP Q6 PRN PRN Reason: Nausea/Vomiting Last Admin: 05/04/18 19:04 Dose: 4 mg Tamsulosin HCl (Flomax) 0.4 mg PO DAILY [facility] Last Admin: 05/08/18 13:05 Dose: 0.4 mg Tramadol HCl (Ultram) 50 mg PO Q6 PRN PRN Reason: Pain, severe (8-10) Last Admin: 05/02/18 09:45 Dose: 50 mg - Labs Labs: 05/08/18 05:40 05/08/18 05:40 PT 13.9 Seconds (9.8-13.1) H 05/05/18 05:45 INR 1.3 (0.9-1.2) H 05/05/18 05:45 APTT 27.4 Seconds (25.6-37.1) 04/30/18 12:44 Assessment and Plan - Assessment and Plan (Free Text) Assessment: AKD .. RENAL FUNCTION BACK TO WNL L URETERAL OBSTRUCTING STONE .. S/P MARINO NORRISO .. ON IVAB MMP P : C/O IVF C/O IVAB C/O PRESENT MANAGEMENT
[2018-05-09] MEDS: ceFAZolin IV 1 gm in Dextrose 1 GM/50 ML BAG IVPB SCH ×3 (00:25→17:26)
[2018-05-09 07:15] LABS: BASO # 0.1 K/uL (0.0-0.2); BASO % 1.5 % (0.0-2.0); EOS # 0.4 K/uL (0.0-0.7); EOS % 7.3 % (0.0-4.0); HEMOGLOBIN 9.1 g/dL (12.0-18.0); LYMPH # 1.9 K/uL (1.0-4.3); LYMPH % 35.7 % (20.0-40.0); MEAN CELL VOLUME 83.7 fl (80.0-94.0); MEAN CORPUSCULAR HEMOGLOBIN 29.1 pg (27.0-31.0); MEAN CORPUSCULAR HGB CONC 34.7 g/dL (33.0-37.0); MONO # 0.2 K/uL (0.0-0.8); MONO % 4.5 % (0.0-10.0); NEUT # 2.7 K/uL (1.8-7.0); NRBC % 0.1 % (0.0-0.0); RBC 3.14 Mil/uL (4.40-5.90); RED CELL DISTRIBUTION WIDTH 14.7 % (11.5-14.5); WHITE BLOOD COUNT 5.3 K/uL (4.8-10.8)
[2018-05-09 07:24] LABS: CALCIUM 7.8 mg/dL (8.4-10.2); GFR AFRICAN-AMERICAN > 60; GFR NON-AFRICAN AMERICAN 59
[2018-05-09] MEDS ORDERED: Sodium Chloride 0.45% 1,000 ML IV SCH (07:30)
[2018-05-09 07:34] LABS: BLOOD UREA NITROGEN 16 mg/dl (9-20)
[2018-05-09] MEDS: Atovaquone 750 mg/5 ml Susp UD PO SCH ×2 (09:48→17:26)
[2018-05-09] MEDS: Enoxaparin 40 mg Syringe SC SCH (09:49)
--- NOTE | 2018-05-09 09:56 | CP.PCM.PN ---
Subjective - Date & Time of Evaluation Date of Evaluation: 05/09/18 Time of Evaluation: 09:53 - Subjective Subjective: Patient seen and examined at bedside, with improved mood. Denies abdominal pain/ urinary symptoms/n/v. Objective - Vital Signs/Intake and Output Vital Signs (last 24 hours): Temp Pulse Resp BP Pulse Ox 98.4 F 78 20 122/73 97 05/09/18 08:56 05/09/18 08:56 05/09/18 08:56 05/09/18 08:56 05/09/18 08:56 - Medications Medications: Current Medications Acetaminophen (Tylenol 325mg Tab) 650 mg PO Q6 PRN PRN Reason: Fever >100.4 F Last Admin: 05/05/18 16:06 Dose: 650 mg Atovaquone (Mepron) 750 mg PO BIDWM [facility] PRN Reason: Protocol Last Admin: 05/09/18 09:48 Dose: 750 mg Enoxaparin Sodium (Lovenox) 40 mg SC DAILY [facility] PRN Reason: Protocol Last Admin: 05/09/18 09:49 Dose: 40 mg Cefazolin Sodium/Dextrose (Ancef Iv 1 Gm Duplex) 1 gm in 50 mls @ 50 mls/hr IVPB Q8 [facility] PRN Reason: Protocol Last Admin: 05/09/18 09:50 Dose: 50 mls/hr Mirtazapine (Remeron) 15 mg PO HS [facility] Last Admin: 05/08/18 21:54 Dose: 15 mg Ondansetron HCl (Zofran Inj) 4 mg IVP Q6 PRN PRN Reason: Nausea/Vomiting Last Admin: 05/04/18 19:04 Dose: 4 mg Tamsulosin HCl (Flomax) 0.4 mg PO DAILY [facility] Last Admin: 05/09/18 09:48 Dose: 0.4 mg Tramadol HCl (Ultram) 50 mg PO Q6 PRN PRN Reason: Pain, severe (8-10) Last Admin: 05/02/18 09:45 Dose: 50 mg - Labs Labs: 05/09/18 05:30 05/09/18 05:30 PT 13.9 Seconds (9.8-13.1) H 05/05/18 05:45 INR 1.3 (0.9-1.2) H 05/05/18 05:45 APTT 27.4 Seconds (25.6-37.1) 04/30/18 12:44 Assessment and Plan - Assessment and Plan (Free Text) Assessment: 47 y/o male with a PMHx significant for non-adherent AIDs admitted for S. aureus bacteraemia, UTI, urolightiasis, s/p left uretral stenting 05/06. Plan 1. Staph Aureus Bacteremia w/ sepsis 2/2 to UTI/Urolithiasis -afebrile today, on Cefazoline 1gm -wbc 5.3 -Abdominal/pelvic CT shows obstructive 4X3 mm proximal left uretral calculus s/ p left uretral stenting 05/06 -As per urologist, copious purulent drainage during cystoscopy, will f/u culture -blood cultures + for staph X2, repeat 05/03 is positive, repeat 05/05 positive x2 , repeat 05/07 X2 pending -TTE shows no vegetations, repeat echo ordered -ABD flat plate showed 1.1cm calculus in proximal ureter -UA: hematuria RBC 4, WBC 27, trace LE -ID on board, will continue to follow up recommendations 2) MARILYNN on CKD -Cr. improving post cystoscopy, back to baseline -likely 2/2 nephrolithiasis -hx of Stage 2 Chronic Renal Disease w/ baseline GFR 50s/60s -avoid nephrotoxic agents and renally dose meds -Nephrology: c/w with IV fluid hydration, Flomax, trend BUN/Cr, manage calculus as per Urology 3) Shortness of breath -possibly 2/2 PCP, currently being treated w/ Mepron 750 BID -Abdominal/pelvic CT showed lung ground glass opacities -denies chest pain, EKG normal -CXR PA/LAT: no signs of active disease -LDH 523, a-a gradient 35, PaO2 98.1 4) Hypokalemia -K+ 4.1 today -replaced w/ KCl -cont to monitor 5) Leukocytosis -improving, 5.0 today -likely secondary to complicated UTI -febrile on admission -Acetaminophen 650 mg 6) Acute on Chronic Anemia of Chronic Disease -hgb 9.1 -s/p 2 units of PRBC transfusion 05/05/18 -secondary 2/2 AIDs suppression -SPEP, UPEP pending 7) Symptomatic AIDS -Hx of non-adherence w/ ART -CD4: <20 -CD4 ratio: 2 -on Mepron 8) Depression -mood continues to improve -Denies suicidal ideation -psych following; no indication for acute inpatient psychiatric admission at this time -Remron 15 mg PO ordered per psych -Seen previously by Larry Bateman 9) Diet -regular diet 10) DVT Prophylaxis -Ambulation/SCDs -Lovenox 40 mg SC 11) Code Status -full code
--- NOTE | 2018-05-09 11:13 | PQF ---
PROVIDER RESPONSE TEXT: Pt is receiving treatment for PCP REVIEWER QUERY TEXT: Rule Out Condition Clarification Pt has documented R/O PCP noted as ?rule out? or similar terminology such as suspected, probable, et c. Please clarify status of this condition: -Patient has condition -Condition was ruled out Please provide corresponding diagnosis for patient's clinical picture and associated treatment -Patient had condition which is now resolved -Other (please specify) -Clinically unable to determine -Unknown The patient's Clinical Indicators include: Documentation of SOB--resolved--Abdominal/pelvic CT: showed lung ground glass opacities--- CXR no sig ns of active disease--treated with Mepron . Query created by: Xena Wakefield on 05/08/2018 10:40 AM Electronically signed by: Xochilt Villeda MD 05/09/2018 11:11 AM
--- NOTE | 2018-05-10 00:33 | CP.PCM.PN ---
Subjective - Date & Time of Evaluation Date of Evaluation: 05/09/18 Time of Evaluation: 16:00 - Subjective Subjective: FEELS MUCH BETTER RENAL FUNCTION BACH TO WNL ELECTROLYTES OK ANEMIA GETTING BETTER Objective - Vital Signs/Intake and Output Vital Signs (last 24 hours): Temp Pulse Resp BP Pulse Ox 98.2 F 60 20 111/73 100 05/09/18 17:12 05/09/18 17:12 05/09/18 17:12 05/09/18 17:12 05/09/18 17:12 - Medications Medications: Current Medications Acetaminophen (Tylenol 325mg Tab) 650 mg PO Q6 PRN PRN Reason: Fever >100.4 F Last Admin: 05/05/18 16:06 Dose: 650 mg Atovaquone (Mepron) 750 mg PO BIDWM [facility] PRN Reason: Protocol Last Admin: 05/09/18 17:26 Dose: 750 mg Enoxaparin Sodium (Lovenox) 40 mg SC DAILY [facility] PRN Reason: Protocol Last Admin: 05/09/18 09:49 Dose: 40 mg Cefazolin Sodium/Dextrose (Ancef Iv 1 Gm Duplex) 1 gm in 50 mls @ 50 mls/hr IVPB Q8 [facility] PRN Reason: Protocol Last Admin: 05/09/18 17:26 Dose: 50 mls/hr Mirtazapine (Remeron) 15 mg PO HS [facility] Last Admin: 05/09/18 20:59 Dose: 15 mg Ondansetron HCl (Zofran Inj) 4 mg IVP Q6 PRN PRN Reason: Nausea/Vomiting Last Admin: 05/04/18 19:04 Dose: 4 mg Tamsulosin HCl (Flomax) 0.4 mg PO DAILY [facility] Last Admin: 05/09/18 09:48 Dose: 0.4 mg Tramadol HCl (Ultram) 50 mg PO Q6 PRN PRN Reason: Pain, severe (8-10) Last Admin: 05/02/18 09:45 Dose: 50 mg - Labs Labs: 05/09/18 05:30 05/09/18 05:30 PT 13.9 Seconds (9.8-13.1) H 05/05/18 05:45 INR 1.3 (0.9-1.2) H 05/05/18 05:45 APTT 27.4 Seconds (25.6-37.1) 04/30/18 12:44 Assessment and Plan - Assessment and Plan (Free Text) Assessment: MARILYNN .. PROBABLY 2/2 L RENAL OBS .. RENAL FUNCTION BACK TO WNL ANEMIA IMPROVING ELECTROLYTES ARE OK L URETERAL STONE .. OBSTRUCTING .. S/P L URETERAL STENT L PEYLO .. ON IVAB P:C/O CURRENT IVF C/O IVAB C/O PRESENR CARE
[2018-05-10] MEDS: ceFAZolin IV 1 gm in Dextrose 1 GM/50 ML BAG IVPB SCH ×3 (00:38→17:40)
--- NOTE | 2018-05-10 08:34 | CP.PCM.PN ---
Subjective - Date & Time of Evaluation Date of Evaluation: 05/10/18 Time of Evaluation: 08:34 - Subjective Subjective: Patient seen and examined today, NAD, denies N/V/D, no abdominal pain, renal function back to normal, no leukocytosis, patient states feeling well today and has no complains. Objective - Vital Signs/Intake and Output Vital Signs (last 24 hours): Temp Pulse Resp BP Pulse Ox 98.2 F 102 H 18 94/65 L 97 05/10/18 08:26 05/10/18 08:26 05/10/18 08:26 05/10/18 08:26 05/10/18 08:26 - Medications Medications: Current Medications Acetaminophen (Tylenol 325mg Tab) 650 mg PO Q6 PRN PRN Reason: Fever >100.4 F Last Admin: 05/05/18 16:06 Dose: 650 mg Atovaquone (Mepron) 750 mg PO BIDWM [facility] PRN Reason: Protocol Last Admin: 05/09/18 17:26 Dose: 750 mg Enoxaparin Sodium (Lovenox) 40 mg SC DAILY [facility] PRN Reason: Protocol Last Admin: 05/09/18 09:49 Dose: 40 mg Cefazolin Sodium/Dextrose (Ancef Iv 1 Gm Duplex) 1 gm in 50 mls @ 50 mls/hr IVPB Q8 [facility] PRN Reason: Protocol Last Admin: 05/10/18 00:38 Dose: 50 mls/hr Mirtazapine (Remeron) 15 mg PO HS [facility] Last Admin: 05/09/18 20:59 Dose: 15 mg Ondansetron HCl (Zofran Inj) 4 mg IVP Q6 PRN PRN Reason: Nausea/Vomiting Last Admin: 05/04/18 19:04 Dose: 4 mg Tamsulosin HCl (Flomax) 0.4 mg PO DAILY [facility] Last Admin: 05/09/18 09:48 Dose: 0.4 mg Tramadol HCl (Ultram) 50 mg PO Q6 PRN PRN Reason: Pain, severe (8-10) Last Admin: 05/02/18 09:45 Dose: 50 mg - Labs Labs: 05/09/18 05:30 05/09/18 05:30 PT 13.9 Seconds (9.8-13.1) H 05/05/18 05:45 INR 1.3 (0.9-1.2) H 05/05/18 05:45 APTT 27.4 Seconds (25.6-37.1) 04/30/18 12:44 - Constitutional Appears: No Acute Distress - Head Exam Head Exam: ATRAUMATIC, NORMOCEPHALIC - Eye Exam Eye Exam: Normal appearance - ENT Exam ENT Exam: Mucous Membranes Moist - Respiratory Exam Respiratory Exam: Clear to Ausculation Bilateral - Cardiovascular Exam Cardiovascular Exam: REGULAR RHYTHM, +S1, +S2 - GI/Abdominal Exam GI & Abdominal Exam: Soft, Normal Bowel Sounds - Extremities Exam Extremities Exam: absent: Pedal Edema - Neurological Exam Neurological Exam: Alert, Awake, Oriented x3 - Psychiatric Exam Psychiatric exam: Normal Affect, Normal Mood - Skin Skin Exam: Normal Color, Warm Assessment and Plan - Assessment and Plan (Free Text) Assessment: 47 y/o male with a PMHx significant for non-adherent AIDs admitted for S. aureus bacteremia, UTI, urolihtiasis, s/p left ureteral stentting on 05/06. Plan: 1. Staph Aureus Bacteremia w/ sepsis 2/2 to complicated UTI Urolithiasis -afebrile today, on CEFAZOLIN 1gm TODAY DAY 5 -wbc 5.3 on 05/09 -Abdominal/pelvic CT shows obstructive 4X3 mm proximal left uretral calculus s/ p left ureteral stenting 05/06 -blood cultures + for staph X2, repeat 05/03 is positive, repeat 05/05 positive x2 , repeat 05/07 X2, no growth, pending FINAL RESULT -TTE shows no vegetations, repeat echo TTE done pending report -ID on board, will f/u recomm 2) MARILYNN on CKD, likely 2/2 nephrolithiasis -resolved -Cr, bun: back to baseline -hx of Stage 2 Chronic Renal Disease w/ baseline GFR 50s/60s -avoid nephrotoxic agents and renally dose meds -Nephrology: Flomax, F/u BUN/Cr, manage calculus as per Urology 3) Shortness of breath -improving, denies SOB today -possibly 2/2 PCP: Mepron 750 BID -Abdominal/pelvic CT showed lung ground glass opacities -denies chest pain, EKG normal -CXR PA/LAT: no signs of active disease -LDH 523, a-a gradient 35, PaO2 98.1 4) Hypokalemia -resolved -K+ 4.1 05/09 -f/u labs 5) Leukocytosis likely 2/2 to complicated UTI -resolved at this point -afebrile -today CEFAZOLIN 1GM IV Q8 x5 DAYS -ID consult on board 6) Acute on Chronic Anemia of Chronic Disease -hgb 9.1 -s/p 2 units of PRBC transfusion 05/05/18 -secondary 2/2 AIDs suppression -SPEP, UPEP pending 7) Symptomatic AIDS -Hx of non-adherence w/ ART -CD4: <20 -CD4 ratio: 2 -on Mepron 8) Depression -mood continues to improve -Denies suicidal ideation -psych following; no indication for acute inpatient psychiatric admission at this time -Remron 15 mg PO ordered per psych -Seen previously by Larry Bateman 9) Diet -regular diet 10) DVT Prophylaxis -Ambulation/SCDs -Lovenox 40 mg SC 11) Code Status -full code
[2018-05-10] MEDS: Atovaquone 750 mg/5 ml Susp UD PO SCH ×2 (09:07→17:41)
[2018-05-10] MEDS: Enoxaparin 40 mg Syringe SC SCH (09:07)
[2018-05-10 18:44] LABS: SQUAMOUS EPITHIAL < 1 /hpf (0-5); URINE BACTERIA RARE (<OCC); URINE BILIRUBIN NEGATIVE (NEGATIVE); URINE BLOOD MODERATE (NEGATIVE); URINE CLARITY SLIGHTY-CLOUDY (Clear); URINE COLOR YELLOW (YELLOW); URINE GLUCOSE (UA) NEG (Normal); URINE HYALINE CAST 0-2 /hpf (0-2); URINE LEUKOCYTE ESTERASE SMALL Leu/uL (Negative); URINE PROTEIN 30 mg/dL (NEGATIVE); URINE UROBILINOGEN 0.2-1.0 mg/dL (0.2-1.0)
--- NOTE | 2018-05-10 22:10 | CP.PCM.PN ---
Subjective - Date & Time of Evaluation Date of Evaluation: 05/10/18 Time of Evaluation: 16:00 - Subjective Subjective: SEEN ON RENAL F/U FEELS MUCH BETTER RENAL FUNCTION BACK TO WNL U/A STILL WITH WBC ALTHOUGH BETTER BP IS RUNNING ON THE LOW SIDE .. PT IS ASYMPTOMATIC .. NOT ON MEDS Objective - Vital Signs/Intake and Output Vital Signs (last 24 hours): Temp Pulse Resp BP Pulse Ox 98.6 F 63 18 116/70 100 05/10/18 17:24 05/10/18 17:24 05/10/18 17:24 05/10/18 17:24 05/10/18 17:24 - Medications Medications: Current Medications Acetaminophen (Tylenol 325mg Tab) 650 mg PO Q6 PRN PRN Reason: Fever >100.4 F Last Admin: 05/05/18 16:06 Dose: 650 mg Atovaquone (Mepron) 750 mg PO BIDWM [facility] PRN Reason: Protocol Last Admin: 05/10/18 17:41 Dose: 750 mg Enoxaparin Sodium (Lovenox) 40 mg SC DAILY [facility] PRN Reason: Protocol Last Admin: 05/10/18 09:07 Dose: Not Given Cefazolin Sodium/Dextrose (Ancef Iv 1 Gm Duplex) 1 gm in 50 mls @ 50 mls/hr IVPB Q8 [facility] PRN Reason: Protocol Last Admin: 05/10/18 17:40 Dose: 50 mls/hr Mirtazapine (Remeron) 15 mg PO HS [facility] Last Admin: 05/10/18 21:55 Dose: 15 mg Ondansetron HCl (Zofran Inj) 4 mg IVP Q6 PRN PRN Reason: Nausea/Vomiting Last Admin: 05/04/18 19:04 Dose: 4 mg Tamsulosin HCl (Flomax) 0.4 mg PO DAILY [facility] Last Admin: 05/10/18 09:06 Dose: 0.4 mg Tramadol HCl (Ultram) 50 mg PO Q6 PRN PRN Reason: Pain, severe (8-10) Last Admin: 05/02/18 09:45 Dose: 50 mg - Labs Labs: 05/09/18 05:30 05/09/18 05:30 PT 13.9 Seconds (9.8-13.1) H 05/05/18 05:45 INR 1.3 (0.9-1.2) H 05/05/18 05:45 APTT 27.4 Seconds (25.6-37.1) 04/30/18 12:44 Assessment and Plan - Assessment and Plan (Free Text) Assessment: MARILYNN .. 2/2 L OBSTRUCTING URETERAL STONE RENAL FUNCTION BACK TO NORMAL ANEMIA .. GETTING BETER L URETERAL STONE .. S/P L URETERAL STENT L PEYLONEPHRITIS .. PURULANT DRAINAGE UPON INSERTION OF THE STENT P : C/O IVAB C/O IVF C/O FLOMAX C/O PRESENT CARE
--- NOTE | 2018-05-10 22:24 | PN ---
DATE: 05/10/2018 FOLLOWUP NOTE TIME OF FOLLOWUP: Roughly 4:30 p.m. SUBJECTIVE: The patient is 400% improved since insertion of the left ureteral stent. He has been also afebrile since insertion of the left ureteral stent. The patient is ambulatory without complaints. He has no complaint of pain at all especially with insertion of the left ureteral stent. He is voiding katalina urine well without complaints. No dysuria, gross hematuria, renal colic or abdominal pain. PHYSICAL EXAMINATION: VITAL SIGNS: His temperature today on 05/10/2018 is 98.2, pulse rate is 102, blood pressure is 94/65, and his O2 sat on room air is 97%. ABDOMEN: Soft,nondistended, nontender. No CVA tenderness. No suprapubic tenderness. LABORATORY DATA: His previous blood cultures show Staphylococcus aureus, and the patient is currently on Ancef IV. His laboratory evaluation on 05/09/2018 showed a CBC with a WBC count of 5.3, hemoglobin of 9.1 and hematocrit of 26.3 with a platelet count of 308,000. His chem profile shows a sodium of 142, potassium 4.1, chloride 109, CO2 of 22, BUN and creatinine 16 and 1.3 respectively with a GFR of greater than 60. His random glucose is 93. Calcium is 7.8. DIAGNOSTIC IMPRESSION: For this patient was, 1. Left proximal 4 x 4 mm ureteral stone, causing left ureteral obstruction. 2. Urosepsis, most likely secondary to pyelonephritis. PLAN: Plan for this patient will be eventually to discharge patient home on oral antibiotics. The patient could be seen in office followup in about two weeks when we will schedule the patient for left proximal ureteral ESWL at [facility] [place], [place]. Arturo Lin MD [facility]
[2018-05-11] MEDS: ceFAZolin IV 1 gm in Dextrose 1 GM/50 ML BAG IVPB SCH ×3 (00:41→16:36)
[2018-05-11] MEDS: Atovaquone 750 mg/5 ml Susp UD PO SCH ×2 (08:59→16:36)
[2018-05-11] MEDS: Enoxaparin 40 mg Syringe SC SCH (08:59)
--- NOTE | 2018-05-11 09:17 | CP.PCM.PN ---
Subjective - Date & Time of Evaluation Date of Evaluation: 05/11/18 Time of Evaluation: 08:45 - Subjective Subjective: Pt is seen and examined at bedside. No acute distress. Denies back pain, fever, chills, headache, N/V/D, CP or SOB. Objective - Vital Signs/Intake and Output Vital Signs (last 24 hours): Temp Pulse Resp BP Pulse Ox 98.8 F 55 L 18 112/71 99 05/11/18 07:52 05/11/18 07:52 05/11/18 07:52 05/11/18 07:52 05/11/18 07:52 Intake and Output: 05/11/18 05/11/18 06:59 18:59 Output Total 600 Balance -600 - Medications Medications: Current Medications Acetaminophen (Tylenol 325mg Tab) 650 mg PO Q6 PRN PRN Reason: Fever >100.4 F Last Admin: 05/05/18 16:06 Dose: 650 mg Atovaquone (Mepron) 750 mg PO BIDWM [facility]IZABETH PRN Reason: Protocol Last Admin: 05/11/18 08:59 Dose: 750 mg Enoxaparin Sodium (Lovenox) 40 mg SC DAILY [facility]ETH PRN Reason: Protocol Last Admin: 05/11/18 08:59 Dose: 40 mg Cefazolin Sodium/Dextrose (Ancef Iv 1 Gm Duplex) 1 gm in 50 mls @ 50 mls/hr IVPB Q8 [facility]ETH PRN Reason: Protocol Last Admin: 05/11/18 08:58 Dose: 50 mls/hr Mirtazapine (Remeron) 15 mg PO HS [facility]ETH Last Admin: 05/10/18 21:55 Dose: 15 mg Ondansetron HCl (Zofran Inj) 4 mg IVP Q6 PRN PRN Reason: Nausea/Vomiting Last Admin: 05/04/18 19:04 Dose: 4 mg Tamsulosin HCl (Flomax) 0.4 mg PO DAILY [facility]TE[facility] Last Admin: 05/11/18 08:59 Dose: 0.4 mg Tramadol HCl (Ultram) 50 mg PO Q6 PRN PRN Reason: Pain, severe (8-10) Last Admin: 05/02/18 09:45 Dose: 50 mg - Labs Labs: 05/09/18 05:30 05/09/18 05:30 PT 13.9 Seconds (9.8-13.1) H 05/05/18 05:45 INR 1.3 (0.9-1.2) H 05/05/18 05:45 APTT 27.4 Seconds (25.6-37.1) 04/30/18 12:44 - Constitutional Appears: Well, Non-toxic, No Acute Distress - Head Exam Head Exam: ATRAUMATIC, NORMAL INSPECTION, NORMOCEPHALIC - Eye Exam Eye Exam: EOMI, Normal appearance, PERRL - ENT Exam ENT Exam: Mucous Membranes Moist, Normal Exam - Neck Exam Neck Exam: Full ROM - Respiratory Exam Respiratory Exam: Clear to Ausculation Bilateral, NORMAL BREATHING PATTERN. absent: Decreased Breath Sounds, Rales, Rhonchi, Wheezes - Cardiovascular Exam Cardiovascular Exam: REGULAR RHYTHM, +S1, +S2. absent: Murmur - GI/Abdominal Exam GI & Abdominal Exam: Soft, Normal Bowel Sounds. absent: Tenderness - Extremities Exam Extremities Exam: absent: Pedal Edema, Tenderness - Back Exam Back Exam: NORMAL INSPECTION. absent: CVA tenderness (L), CVA tenderness (R), muscle spasm, tenderness - Neurological Exam Neurological Exam: Alert, Awake, Oriented x3 - Psychiatric Exam Psychiatric exam: Normal Affect, Normal Mood - Skin Skin Exam: Dry, Intact, Warm Assessment and Plan - Assessment and Plan (Free Text) Plan: 1. Staph Aureus Bacteremia w/ sepsis 2/2 to complicated UTI Urolithiasis -afebrile today, on CEFAZOLIN 1gm TODAY DAY 6 -wbc 5.3 on 05/09 -Abdominal/pelvic CT shows obstructive 4X3 mm proximal left uretral calculus s/ p left ureteral stenting 05/06 -blood cultures + for staph X2, repeat 05/03 is positive, repeat 05/05 positive x2 , repeat 05/07 X2, no growth, pending FINAL RESULT -TTE shows no vegetations, repeat echo TTE done pending report -ID on board, will f/u recomm 2) MARILYNN on CKD, likely 2/2 nephrolithiasis -resolved -Cr, bun: back to baseline, UA positive for RBC 73 and WBC 13 -hx of Stage 2 Chronic Renal Disease w/ baseline GFR 50s/60s -avoid nephrotoxic agents and renally dose meds -Nephrology: Flomax, F/u BUN/Cr, manage calculus as per Urology 3) Shortness of breath -denies SOB today -possibly 2/2 PCP: Mepron 750 BID -Abdominal/pelvic CT showed lung ground glass opacities -denies chest pain, EKG normal -CXR PA/LAT: no signs of active disease -LDH 523, a-a gradient 35, PaO2 98.1 4) Leukocytosis likely 2/2 to complicated UTI -resolved at this point, Afebrile -today CEFAZOLIN 1GM IV Q8 x6 DAYS -ID consult on board 5) Acute on Chronic Anemia of Chronic Disease -hgb 9.1 -s/p 2 units of PRBC transfusion 05/05/18 -secondary 2/2 AIDs suppression -SPEP, UPEP pending 6) Symptomatic AIDS -Hx of non-adherence w/ ART -CD4: <20 -CD4 ratio: 2 -on Mepron 7) Depression -mood continues to improve -Denies suicidal ideation -psych following; no indication for acute inpatient psychiatric admission at this time -Remron 15 mg PO ordered per psych -Seen previously by Larry Bateman 8) Diet -regular diet 9) DVT Prophylaxis -Ambulation/SCDs -Lovenox 40 mg SC 10) Code Status -full code
--- NOTE | 2018-05-11 10:33 | CARD ---
APPROVED REPORT Date of service: 05/09/2018 EXAM: Two-dimensional and M-mode echocardiogram with Doppler and color Doppler. Other Information Quality : GoodRhythm : NSR INDICATION Infection:Subacute bacterial endocarditis 2D DIMENSIONS IVSd0.73 (0.7-1.1cm)LVDd4.61 (3.9-5.9cm) PWd0.88 (0.7-1.1cm)IVSs1.13 (0.8-1.2cm) LVDs2.90 (2.5-4.0cm)FS (%) 37.1 % PWs1.34 (0.8-1.2cm) M-Mode DIMENSIONS Left Atrium (MM)4.17 (2.5-4.0cm)IVSd1.18 (0.7-1.1cm) Aortic Root2.65 (2.2-3.7cm)LVDd5.74 (4.0-5.6cm) Aortic Cusp Exc.1.96 (1.5-2.0cm)PWd0.95 (0.7-1.1cm) IVSs1.83 cmFS (%) 40 % LVDs3.42 (2.0-3.8cm)PWs1.54 cm Aortic Valve AoV Peak Dafyfuod426.1cm/sAoV VTI38.7cmAO Peak GR.15mmHg LVOT Peak Zoqlloxs95.9cm/sLVOT VTI19.07cmAO Mean GR.8mmHg Mitral Valve MV E Fixghpjf74.9cm/sMV DECEL [id number] A Omdixejd90.1cm/s MV YSH73sfF/A ratio2.1MVA (PHT)3.21cm2 TDI Lateral E' Peak V15.89cm/sMedial E' Peak V12.47cm/sE/Lateral E'5.2 E/Medial E'6.6 Pulmonary Valve PV Peak Tdgrilxq464.2cm/s Tricuspid Valve TR Peak Ogybtjkv378ir/sRAP SGZQNVXL93eqNuTP Peak Gr.22mmHg IPMI77vjJa LEFT VENTRICLE The left ventricle is normal size. There is borderline concentric left ventricular hypertrophy. The left ventricular function is normal. The left ventricular ejection fraction is within the normal range. The Ejection Fraction is 60-65%. There is normal LV segmental wall motion. The left ventricular diastolic function is normal. RIGHT VENTRICLE The right ventricle is normal size. There is normal right ventricular wall thickness. The right ventricular systolic function is normal. ATRIA The left atrium is borderline dilated. The right atrium size is normal. AORTIC VALVE The aortic valve is normal in structure. No aortic regurgitation is present. There is no aortic valvular stenosis. There is no aortic, mitral, tricuspid or pulmonic valvular vegetation. MITRAL VALVE The mitral valve is normal in structure. There is no mitral valve stenosis. Mitral regurgitation is trace. TRICUSPID VALVE The tricuspid valve is normal in structure. There is mild tricuspid regurgitation. PULMONIC VALVE The pulmonary valve is normal in structure. There is no pulmonic valvular regurgitation. GREAT VESSELS The aortic root is normal in size. The IVC is normal in size and collapses >50% with inspiration. PERICARDIAL EFFUSION The pericardium appears normal. <Conclusion> The left ventricular function is normal. The left ventricular ejection fraction is within the normal range. The Ejection Fraction is 60-65%. There is no aortic, mitral, tricuspid or pulmonic valvular vegetation. Mitral regurgitation is trace.
--- NOTE | 2018-05-11 12:24 | CP.PCM.PN ---
Subjective - Date & Time of Evaluation Date of Evaluation: 05/11/18 Time of Evaluation: 12:24 - Subjective Subjective: ID Note- Pt. seen and examined today. Pt. states he feels much better and is eating well and denies any fevre or chills, denies any dysurea. he states he wants to go home. advised pt. that since he ahd serious bacteremia and has ureteral stent in place I advise for him to go to [facility] or TCU to complete the rest of his antibiotic IV regimen as it will be safer . Objective - Vital Signs/Intake and Output Vital Signs (last 24 hours): Temp Pulse Resp BP Pulse Ox 98.8 F 55 L 18 112/71 99 05/11/18 07:52 05/11/18 07:52 05/11/18 07:52 05/11/18 07:52 05/11/18 07:52 Intake and Output: 05/11/18 05/11/18 06:59 18:59 Output Total 600 Balance -600 - Medications Medications: Current Medications Acetaminophen (Tylenol 325mg Tab) 650 mg PO Q6 PRN PRN Reason: Fever >100.4 F Last Admin: 05/05/18 16:06 Dose: 650 mg Atovaquone (Mepron) 750 mg PO BIDWM ELIZABETH PRN Reason: Protocol Last Admin: 05/11/18 08:59 Dose: 750 mg Enoxaparin Sodium (Lovenox) 40 mg SC DAILY ELIZABETH PRN Reason: Protocol Last Admin: 05/11/18 08:59 Dose: 40 mg Cefazolin Sodium/Dextrose (Ancef Iv 1 Gm Duplex) 1 gm in 50 mls @ 50 mls/hr IVPB Q8 [facility]ETH PRN Reason: Protocol Last Admin: 05/11/18 08:58 Dose: 50 mls/hr Mirtazapine (Remeron) 15 mg PO HS [facility]ETH Last Admin: 05/10/18 21:55 Dose: 15 mg Ondansetron HCl (Zofran Inj) 4 mg IVP Q6 PRN PRN Reason: Nausea/Vomiting Last Admin: 05/04/18 19:04 Dose: 4 mg Tamsulosin HCl (Flomax) 0.4 mg PO DAILY [facility] Last Admin: 05/11/18 08:59 Dose: 0.4 mg Tramadol HCl (Ultram) 50 mg PO Q6 PRN PRN Reason: Pain, severe (8-10) Last Admin: 05/02/18 09:45 Dose: 50 mg - Labs Labs: - Additional Findings Additional findings: Constitutional Appears: No Acute Distress - Head Exam Head Exam: ATRAUMATIC - Eye Exam Eye Exam: EOMI, PERRL - Neck Exam Neck exam: Positive for: Full Rom Additional comments: supple - Respiratory Exam Respiratory Exam: NORMAL BREATHING PATTERN Additional comments: no wheezing - Cardiovascular Exam Cardiovascular Exam: RRR, +S1, +S2 - GI/Abdominal Exam GI & Abdominal Exam: Normal Bowel Sounds, Soft Additional comments: no distention no tenderness No CVA tenderness B/L - Extremities Exam Extremities exam: Positive for: normal inspection - Neurological Exam Neurological exam: Alert, Oriented x 3 Laboratory Results - last 72 hr 05/09/18 05/09/18 05/10/18 05:30 05:30 18:19 WBC 5.3 RBC 3.14 L Hgb 9.1 L Hct 26.3 L MCV 83.7 MCH 29.1 MCHC 34.7 RDW 14.7 H Plt Count 308 MPV 9.0 Neut % (Auto) 51.0 Lymph % (Auto) 35.7 Colbert % (Auto) 4.5 Eos % (Auto) 7.3 H Baso % (Auto) 1.5 Neut # (Auto) 2.7 Lymph # (Auto) 1.9 Colbert # (Auto) 0.2 Eos # (Auto) 0.4 Baso # (Auto) 0.1 Sodium 142 Potassium 4.1 Chloride 109 H Carbon Dioxide 22 Anion Gap 15 BUN 16 Creatinine 1.3 Est GFR ( Amer) > 60 Est GFR (Non-Af Amer) 59 Random Glucose 93 Calcium 7.8 L Urine Color Yellow Urine Clarity Slighty-cloudy Urine pH 7.0 Ur Specific [place] 1.014 Urine Protein 30 Urine Glucose (UA) Neg Urine Ketones Negative Urine Blood Moderate Urine Nitrate Negative Urine Bilirubin Negative Urine Urobilinogen 0.2-1.0 Ur Leukocyte Esterase Small Urine RBC (Auto) 73 H Urine Microscopic WBC 13 H Ur Squamous Epith Cells < 1 Urine Bacteria Rare Hyaline Casts 0-2 Microbiology 05/06/18 12:16 Blood-Venous Blood Culture - Final NO GROWTH AFTER 5 DAYS 05/07/18 19:47 Blood-Venous Blood Culture - Preliminary NO GROWTH AFTER 3 DAYS 05/07/18 19:37 Blood-Venous Blood Culture - Preliminary NO GROWTH AFTER 3 DAYS 05/05/18 11:10 Blood-Venous Blood Culture - Final Staphylococcus Aureus 05/05/18 11:10 Blood-Venous Gram Stain - Final 05/05/18 11:10 Blood-Venous S.aureus & Coag-Neg Staph PNA FISH - Final 05/05/18 11:10 Blood-Venous Blood Culture - Final Staphylococcus Aureus 05/05/18 11:10 Blood-Venous Gram Stain - Final 05/06/18 13:00 Urine Urine Culture - Final No Growth (<1,000 CFU/ML) 05/01/18 13:48 Blood Blood Culture - Final NO GROWTH AFTER 5 DAYS 05/03/18 05:30 Blood-Venous S.aureus & Coag-Neg Staph PNA FISH - Final 05/03/18 05:30 Blood-Venous Blood Culture - Final Staphylococcus Aureus 05/03/18 05:30 Blood-Venous Gram Stain - Final 05/03/18 16:12 Urine,Clean Catch Urine Culture - Final No Growth (<1,000 CFU/ML) 04/30/18 15:38 Blood-Venous Blood Culture - Final Staphylococcus Aureus 04/30/18 15:38 Blood-Venous Gram Stain - Final 04/30/18 15:45 Blood-Venous S.aureus & Coag-Neg Staph PNA FISH - Final 04/30/18 15:45 Blood-Venous Blood Culture - Final Staphylococcus Aureus 04/30/18 15:45 Blood-Venous Gram Stain - Final 04/30/18 17:31 Urine,Clean Catch Urine Culture - Final Staphylococcus Aureus Assessment and Plan (1) Pyelonephritis Status: Acute (2) SIRS (systemic inflammatory response syndrome) Status: Acute (3) AIDS Status: Chronic (4) Ureteral stone Status: Acute (5) Renal insufficiency Status: Acute (6) Fever Status: Acute (7) MSSA bacteremia Status: Acute - Assessment and Plan (Free Text) Assessment: A/P- 47 year old male with multiple medical conditions icnlduing HIV/AIDS, h/o nephrolithiasis and hydronephrosis adn UTI and uretearl stents in place now admitted with lower abd pain, high wbc, + UA and acute renal insufficiency found to have on CT report- Obstructive 4 x 3 mm proximal left ureteral calculus causing mild hydroureteronephrosis, mild nephromegaly and perinephric stranding. afebrile past 5 days low grade leukocytosis has resolved. blood cx- MSSA x 6 + UA- urine cx- MSSA left obstructing kidney stone causing hydro and acute renal insufficiency. s/p ureteral stent placement by SONIYA yesterday. TTE- no mention of vegetations on the report. repeat blood cx from 05/06/2018 and 05/07/2018- neg x 3 creatinine much improved today post stent. renal function much improved back to baseline. TTE from 05/09/2018- no vegetation as per report read by . plan- had completed 4 days of IV teflaro and 2 days of IV doxy prior to that and has been given 2 doses of vanco as well for MSSA bacteremia. antibiotic changed to cefazolin 6 days ago for MSSA bacteremia . advise to continue with IV cefazolin for another 10-12 days to complete total of 21 days of IV abx for MSSA treatment. advised pt. would be safer for him to complete his abx treatment at either [facility] or TCU since he would be under nurse supervision . advised to have repeat blood cx x 2. pt. advised at length to take his HAART meds as prescribed by his HIV doctor as outpatietn. he was also advised to f/u closely with . All above d/w patient at length and he verbalizes full understanding of all above. All above also d/w Dr.Pierre Adams as well and plan discussed at length.
[2018-05-12] MEDS: ceFAZolin IV 1 gm in Dextrose 1 GM/50 ML BAG IVPB SCH ×3 (00:06→15:01)
[2018-05-12 00:26] VITALS: O2SAT 100
[2018-05-12 06:43] LABS: HEMOGLOBIN 10.5 g/dL (12.0-18.0); MEAN CELL VOLUME 84.1 fl (80.0-94.0); MEAN CORPUSCULAR HEMOGLOBIN 29.3 pg (27.0-31.0); MEAN CORPUSCULAR HGB CONC 34.8 g/dL (33.0-37.0); RBC 3.57 Mil/uL (4.40-5.90); RED CELL DISTRIBUTION WIDTH 14.5 % (11.5-14.5); WHITE BLOOD COUNT 4.5 K/uL (4.8-10.8)
[2018-05-12 07:02] LABS: BLOOD UREA NITROGEN 22 mg/dl (9-20); CALCIUM 8.6 mg/dL (8.4-10.2); GFR AFRICAN-AMERICAN > 60; GFR NON-AFRICAN AMERICAN 59
--- NOTE | 2018-05-12 07:35 | CP.PCM.PN ---
Subjective - Date & Time of Evaluation Date of Evaluation: 05/12/18 Time of Evaluation: 07:30 - Subjective Subjective: Pt evaluated and examined at beside this morning. No acute distress. Patient talked to Dr. Arechiga yesterday regarding TCU vs [facility]. Pt reports he wants to go home and complete Abx from home. He reports he feels completely fine. Denies any CP, SOB, N/V/D, back pain, fever, or chills. Tolerating solid and liquid diet well. Objective - Vital Signs/Intake and Output Vital Signs (last 24 hours): Temp Pulse Resp BP Pulse Ox 97.8 F 67 19 97/62 L 100 05/12/18 01:00 05/12/18 01:00 05/12/18 01:00 05/12/18 01:00 05/12/18 01:00 - Medications Medications: Current Medications Acetaminophen (Tylenol 325mg Tab) 650 mg PO Q6 PRN PRN Reason: Fever >100.4 F Last Admin: 05/05/18 16:06 Dose: 650 mg Atovaquone (Mepron) 750 mg PO BIDWM ELIZABETH PRN Reason: Protocol Last Admin: 05/11/18 16:36 Dose: 750 mg Enoxaparin Sodium (Lovenox) 40 mg SC DAILY ELIZABETH PRN Reason: Protocol Last Admin: 05/11/18 08:59 Dose: 40 mg Cefazolin Sodium/Dextrose (Ancef Iv 1 Gm Duplex) 1 gm in 50 mls @ 50 mls/hr IVPB Q8 [facility]ETH PRN Reason: Protocol Last Admin: 05/12/18 00:06 Dose: 50 mls/hr Mirtazapine (Remeron) 15 mg PO HS [facility] Last Admin: 05/11/18 21:41 Dose: 15 mg Ondansetron HCl (Zofran Inj) 4 mg IVP Q6 PRN PRN Reason: Nausea/Vomiting Last Admin: 05/04/18 19:04 Dose: 4 mg Tamsulosin HCl (Flomax) 0.4 mg PO DAILY [facility] Last Admin: 05/11/18 08:59 Dose: 0.4 mg Tramadol HCl (Ultram) 50 mg PO Q6 PRN PRN Reason: Pain, severe (8-10) Last Admin: 05/02/18 09:45 Dose: 50 mg - Labs Labs: 05/12/18 05:55 05/12/18 05:55 PT 13.9 Seconds (9.8-13.1) H 05/05/18 05:45 INR 1.3 (0.9-1.2) H 05/05/18 05:45 APTT 27.4 Seconds (25.6-37.1) 04/30/18 12:44 - Constitutional Appears: Well, Non-toxic, No Acute Distress - Head Exam Head Exam: ATRAUMATIC, NORMAL INSPECTION, NORMOCEPHALIC - Eye Exam Eye Exam: EOMI, Normal appearance, PERRL Pupil Exam: NORMAL ACCOMODATION - ENT Exam ENT Exam: Mucous Membranes Moist, Normal Exam - Respiratory Exam Respiratory Exam: Clear to Ausculation Bilateral, NORMAL BREATHING PATTERN. absent: Rales, Rhonchi, Wheezes, Respiratory Distress - Cardiovascular Exam Cardiovascular Exam: REGULAR RHYTHM, +S1, +S2. absent: Murmur - GI/Abdominal Exam GI & Abdominal Exam: Soft, Normal Bowel Sounds. absent: Tenderness - Neurological Exam Neurological Exam: Alert, Awake, Oriented x3 - Psychiatric Exam Psychiatric exam: Normal Affect, Normal Mood - Skin Skin Exam: Dry, Intact, Normal Color Assessment and Plan - Assessment and Plan (Free Text) Assessment: 47 y/o male with a PMHx significant for HIV/AIDS, h/o nephrolithiasis, hydronephrosis, UTI and ureteral stents. Plan: 1. Staph Aureus Bacteremia w/ sepsis 2/2 to complicated UTI Urolithiasis -afebrile today, on CEFAZOLIN 1gm TODAY DAY 7 -Abdominal/pelvic CT shows obstructive 4X3 mm proximal left uretral calculus s/ p left ureteral stenting 05/06 -TTE shows no vegetations -Consulted Dr. Arechiga regarding [facility] vs TCU vs Discharge. F/U today -ID on board, will f/u recomm 2) MARILYNN on CKD, likely 2/2 nephrolithiasis -resolved -Cr, bun: back to baseline, UA positive for RBC 73 and WBC 13 -Nephrology: Flomax, F/u BUN/Cr, manage calculus as per Urology 3) Shortness of breath -denies SOB today -Abdominal/pelvic CT showed lung ground glass opacities -denies chest pain, EKG normal -CXR PA/LAT: no signs of active disease -LDH 523, a-a gradient 35, PaO2 98.1 4) Leukocytosis likely 2/2 to complicated UTI -Resolved at this point, Afebrile -ID consult on board 5) Acute on Chronic Anemia of Chronic Disease -hgb 9.1 -s/p 2 units of PRBC transfusion 05/05/18 -secondary 2/2 AIDs suppression 6) Symptomatic AIDS -Hx of non-adherence w/ ART -CD4: <20 -CD4 ratio: 2 -on Mepron 7) Depression -mood continues to improve -Denies suicidal ideation -psych following; no indication for acute inpatient psychiatric admission at this time -Remron 15 mg PO ordered per psych -Seen previously by Larry Bateman 8) Diet -regular diet 9) DVT Prophylaxis -Ambulation/SCDs -Lovenox 40 mg SC 10) Code Status -full code
[2018-05-12 07:36] LABS: ALBUMIN 22.3 Relative %; ALPHA-1 GLOBULIN 6.7 Relative %
[2018-05-12] MEDS: Atovaquone 750 mg/5 ml Susp UD PO SCH (08:35)
[2018-05-12] MEDS: Enoxaparin 40 mg Syringe SC SCH ×2 (08:35→09:07)
[2018-05-12] MEDS ORDERED: LIDOCAINE 2% 10ML 20 MG/ML VIAL IJ ONE (12:04)
[2018-05-12 12:10] VITALS: BP 103/65; PULSE 76; RESP 18; TEMP 97.4
--- NOTE | 2018-05-12 12:22 | PCM.SURG1 ---
Surgeon's Initial Post Op Note - Surgeon's Notes Surgeon: Pascual Gallardo MD Electron Beam Operator: NONE Type of Anesthesia: Local Pre-Operative Diagnosis: Poor venous access Operative Findings: US showed a patent right basilic vein. Post-Operative Diagnosis: Poor venous access Operation Performed: Single lumen picc right basilic vein, 37 cm. Tip is in the SVC. Specimen/Specimens Removed: NOne Estimated Blood Loss: EBL {In ML}: 2 Blood Products Given: N/A Drains Used: No Drains Post-Op Condition: Fair Date of Surgery/Procedure: 05/12/18 Time of Surgery/Procedure: 12:20
--- NOTE | 2018-05-12 13:43 | CP.PCM.DIS ---
Provider - Provider Date of Admission: 04/30/18 14:54 Attending physician: Xochilt Villeda MD Time Spent in preparation of Discharge (in minutes): 15 Diagnosis - Discharge Diagnosis (1) Nephrolithiasis Status: Acute (2) AIDS (acquired immunodeficiency syndrome), CD4 <=200 Status: Chronic (3) MSSA bacteremia Status: Acute Hospital Course - Lab Results Lab Results: Micro Results 05/10/18 18:19 Urine Urine Culture - Final No Growth (<1,000 CFU/ML) 05/07/18 19:47 Blood-Venous Blood Culture - Preliminary NO GROWTH AFTER 4 DAYS 05/07/18 19:37 Blood-Venous Blood Culture - Preliminary NO GROWTH AFTER 4 DAYS 05/06/18 12:16 Blood-Venous Blood Culture - Final NO GROWTH AFTER 5 DAYS 05/05/18 11:10 Blood-Venous Blood Culture - Final Staphylococcus Aureus 05/05/18 11:10 Blood-Venous Gram Stain - Final 05/05/18 11:10 Blood-Venous S.aureus & Coag-Neg Staph PNA FISH - Final 05/05/18 11:10 Blood-Venous Blood Culture - Final Staphylococcus Aureus 05/05/18 11:10 Blood-Venous Gram Stain - Final 05/06/18 13:00 Urine Urine Culture - Final No Growth (<1,000 CFU/ML) 05/01/18 13:48 Blood Blood Culture - Final NO GROWTH AFTER 5 DAYS 05/03/18 05:30 Blood-Venous S.aureus & Coag-Neg Staph PNA FISH - Final 05/03/18 05:30 Blood-Venous Blood Culture - Final Staphylococcus Aureus 05/03/18 05:30 Blood-Venous Gram Stain - Final 05/03/18 16:12 Urine,Clean Catch Urine Culture - Final No Growth (<1,000 CFU/ML) 04/30/18 15:38 Blood-Venous Blood Culture - Final Staphylococcus Aureus 04/30/18 15:38 Blood-Venous Gram Stain - Final 04/30/18 15:45 Blood-Venous S.aureus & Coag-Neg Staph PNA FISH - Final 04/30/18 15:45 Blood-Venous Blood Culture - Final Staphylococcus Aureus 04/30/18 15:45 Blood-Venous Gram Stain - Final 04/30/18 17:31 Urine,Clean Catch Urine Culture - Final Staphylococcus Aureus Most Recent Lab Values WBC 4.5 K/uL (4.8-10.8) L 05/12/18 05:55 RBC 3.57 Mil/uL (4.40-5.90) L 05/12/18 05:55 Hgb 10.5 g/dL (12.0-18.0) L 05/12/18 05:55 Hct 30.0 % (35.0-51.0) L 05/12/18 05:55 MCV 84.1 fl (80.0-94.0) 05/12/18 05:55 MCH 29.3 pg (27.0-31.0) 05/12/18 05:55 MCHC 34.8 g/dL (33.0-37.0) 05/12/18 05:55 RDW 14.5 % (11.5-14.5) 05/12/18 05:55 Plt Count 334 K/uL (130-400) 05/12/18 05:55 MPV 9.0 fl (7.2-11.7) 05/09/18 05:30 Neut % (Auto) 51.0 % (50.0-75.0) 05/09/18 05:30 Lymph % (Auto) 35.7 % (20.0-40.0) 05/09/18 05:30 [place] % (Auto) 4.5 % (0.0-10.0) 05/09/18 05:30 Eos % (Auto) 7.3 % (0.0-4.0) H 05/09/18 05:30 Baso % (Auto) 1.5 % (0.0-2.0) 05/09/18 05:30 Neut # (Auto) 2.7 K/uL (1.8-7.0) 05/09/18 05:30 Lymph # (Auto) 1.9 K/uL (1.0-4.3) 05/09/18 05:30 [place] # (Auto) 0.2 K/uL (0.0-0.8) 05/09/18 05:30 Eos # (Auto) 0.4 K/uL (0.0-0.7) 05/09/18 05:30 Baso # (Auto) 0.1 K/uL (0.0-0.2) 05/09/18 05:30 Neutrophils % (Manual) 81 % (42-75) H 04/30/18 12:44 Band Neutrophils % 4 % (0-2) H 04/30/18 12:44 Lymphocytes % (Manual) 8 % (20-50) L 04/30/18 12:44 Monocytes % (Manual) 7 % (0-10) 04/30/18 12:44 Platelet Estimate Normal (NORMAL) 04/30/18 12:44 Hypochromasia (manual) Slight 04/30/18 12:44 PT 13.9 Seconds (9.8-13.1) H 05/05/18 05:45 INR 1.3 (0.9-1.2) H 05/05/18 05:45 APTT 27.4 Seconds (25.6-37.1) 04/30/18 12:44 pCO2 30 mm/Hg (35-45) L 04/30/18 02:54 pO2 77 mm/Hg (80-100) L 04/30/18 02:54 HCO3 21.4 mmol/L (21-28) 04/30/18 02:54 ABG pH 7.41 (7.35-7.45) 04/30/18 02:54 ABG Total CO2 19.9 mmol/L (22-28) L 04/30/18 02:54 ABG O2 Saturation 98.1 % (95-98) H 04/30/18 02:54 ABG Base Excess -4.5 mmol/L (-2.0-3.0) L 04/30/18 02:54 Paolo Test Yes 04/30/18 02:54 ABG Potassium 3.6 mmol/L (3.6-5.2) 04/30/18 02:54 A-a O2 Difference 35.0 mm/Hg 04/30/18 02:54 Sodium 142.0 mmol/L (132-148) 04/30/18 02:54 Chloride 113.0 mmol/L (98-107) H 04/30/18 02:54 Glucose 125 mg/dL (75-110) H 04/30/18 02:54 Lactate 1.1 mmol/L (0.7-2.1) 04/30/18 02:54 FiO2 21.0 % 04/30/18 02:54 Sodium 143 mmol/l (132-148) 05/12/18 05:55 Potassium 4.1 MMOL/L (3.6-5.0) 05/12/18 05:55 Chloride 107 mmol/L (98-107) 05/12/18 05:55 Carbon Dioxide 23 mmol/L (22-30) 05/12/18 05:55 Anion Gap 17 (10-20) 05/12/18 05:55 BUN 22 mg/dl (9-20) H 05/12/18 05:55 Creatinine 1.3 mg/dl (0.8-1.5) 05/12/18 05:55 Est GFR ( Amer) > 60 05/12/18 05:55 Est GFR (Non-Af Amer) 59 05/12/18 05:55 POC Glucose (mg/dL) 78 mg/dL (65-110) 04/30/18 09:24 Random Glucose 100 mg/dL (75-110) 05/12/18 05:55 Calcium 8.6 mg/dL (8.4-10.2) 05/12/18 05:55 Total Bilirubin 0.7 mg/dl (0.2-1.3) 05/08/18 05:40 AST 50 U/L (17-59) 05/08/18 05:40 ALT 36 U/L (21-72) 05/08/18 05:40 Alkaline Phosphatase 115 U/L (38-126) 05/08/18 05:40 Lactate Dehydrogenase 523 U/L (313-618) 04/30/18 15:38 Total Protein 7.3 G/DL (6.3-8.2) 05/08/18 05:40 Albumin 3.0 g/dL (3.5-5.0) L 05/08/18 05:40 Globulin 4.3 gm/dL (2.2-3.9) H 05/08/18 05:40 Albumin/Globulin Ratio 0.7 (1.0-2.1) L 05/08/18 05:40 [id number] 6.7 Relative % 05/05/18 09:00 [id number] 20.3 Relative % 05/05/18 09:00 Beta Globulins 21.1 Relative % 05/05/18 09:00 Gamma Globulins 29.6 Relative % 05/05/18 09:00 Arterial Blood Potassium 3.6 mmol/L (3.6-5.2) 04/30/18 02:54 Urine Color Yellow (YELLOW) 05/10/18 18: Urine Clarity Slighty-cloudy (Clear) 05/10/18 18: Urine pH 7.0 (5.0-8.0) 05/10/18 18:19 Ur Specific [place] 1.014 (1.003-1.030) 05/10/18 18: Urine Protein 30 mg/dL (NEGATIVE) 05/10/18 18: Urine Glucose (UA) Neg mg/dL (Normal) 05/10/18 18: Urine Ketones Negative mg/dL (NEGATIVE) 05/10/18 18: Urine Blood Moderate (NEGATIVE) 05/10/18 18: Urine Nitrate Negative (NEGATIVE) 05/10/18 18: Urine Bilirubin Negative (NEGATIVE) 05/10/18 18: Urine Urobilinogen 0.2-1.0 mg/dL (0.2-1.0) 05/10/18 18:19 Ur Leukocyte Esterase Small Cher/uL (Negative) 05/10/18 18:19 Urine RBC (Auto) 73 /hpf (0-3) H 05/10/18 18:19 Urine Microscopic WBC 13 /hpf (0-5) H 05/10/18 18:19 Ur Squamous Epith Cells < 1 /hpf (0-5) 05/10/18 18:19 Urine Bacteria Rare (<OCC) 05/10/18 18: Hyaline Casts 0-2 /hpf (0-2) 05/10/18 18:19 Ur Random Creatinine 95 mg/dL (20-370) 05/05/18 09:00 U Random Total Protein 1075 mg/g creat (22-128) H 05/05/18 09:00 Urine Albumin (PEP) 22.3 Relative % 05/05/18 09:00 Ur Protein Fractions See note 05/05/18 09:00 Absolute Lymphs (Flow) 815 Cells/mcL (850-3900) L 05/01/18 05:55 % CD4 Cells 2 Percent (30-61) L 05/01/18 05:55 Absolute CD4 Count <20 Cells/mcL (490-1740) L 05/01/18 05:55 T-Help/Suppress Ratio 0.04 Ratio (0.86-5.00) L 05/01/18 05:55 % CD8 Cells 44 Percent (12-42) H 05/01/18 05:55 Absolute CD8 Count 358 Cells/mcL (180-1170) 05/01/18 05:55 T-Lymph Analys Comment See note 05/01/18 05:55 HIV-1 RNA Qnt (RT-PCR) 5.43 (Not Detected) H 05/01/18 05:55 Blood Type O POSITIVE 05/05/18 10:05 Antibody Screen Negative 05/05/18 10:05 Crossmatch See Detail 05/05/18 10:05 BBK History Checked Patient has bt 05/05/18 10:05 - Hospital Course Hospital Course: 47 y/o male w/ pmh significant for HIV/AIDS(noncompliant) and depression presented with sharp left lower sided abdominal pain, nausea, sweating, diarrhea and shortness of breath. Patient's CXR, abdomen XR, abd/pelvis CT, EKG , echocardiography, labs and cultures were done. Patient diagnosed with MSSA bacterimia, nephrolithiasis and AIDS. Patient was started on Cefazolin IV and Mepron(PCP) with improvement in symptoms. Nephrology, urology and ID consulted. PICC line insterted. Homecare servicies for Cefazolin 2g Q8hr infusion x 14 days. Mepron 1500 mg PO daily for PCP prophylaxis. F/U with Jesús Ho. Discharge Exam - Head Exam Head Exam: ATRAUMATIC, NORMAL INSPECTION, NORMOCEPHALIC - Eye Exam Eye Exam: EOMI, Normal appearance, PERRL Pupil Exam: NORMAL ACCOMODATION, PERRL - ENT Exam ENT Exam: Mucous Membranes Moist, Normal Oropharynx - Neck Exam Neck exam: Full Rom - Respiratory Exam Respiratory Exam: Clear to PA & Lateral, NORMAL BREATHING PATTERN - Cardiovascular Exam Cardiovascular Exam: REGULAR RHYTHM, +S1, +S2 - GI/Abdominal Exam GI & Abdominal Exam: Normal Bowel Sounds, Soft. absent: Distended, Guarding, Tenderness - Back Exam Back exam: NORMAL INSPECTION. absent: CVA tenderness (L), CVA tenderness (R) - Neurological Exam Neurological exam: Alert, Normal Gait, Oriented x3 - Psychiatric Exam Psychiatric exam: Normal Affect, Normal Mood - Skin Skin Exam: Dry, Intact, Normal Color Discharge Plan - Discharge Medications Prescriptions: Atovaquone [Mepron] 1,500 mg PO DAILY #30 packet - Follow Up Plan Condition: FAIR Patient education suggested?: Yes Instructions: Urinary Obstruction (DC), Peripherally-Inserted Central Catheter (DC), Urinary Tract Infection in Men (DC), Sepsis (DC), Sepsis (GEN) Additional Instructions: follow up with primary MD 1 week homecare services/[facility] [phone] Cefazolin infusion Referrals: Arturo Lin MD [Staff Provider] - Michael Colon MD [Staff Provider] -
== END 2018-05-12 16:20 | disposition home health service (06) | DRG 975 ==
LOC: H.ER 09:10 → H.ERHOLD 14:54 → H.MEDSURG1 05-01 01:08
PROVIDERS: ADMIT Family Medicine Geriatric Medicine; ATTEND Family Medicine Geriatric Medicine
PROC: 30233N1 Transfusion of Nonautologous Red Blood Cells into Peripheral Vein, Percutaneous Approach (ICD-10-PCS; 2018-05-05)
PROC: 0T778DZ Dilation of Left Ureter with Intraluminal Device, Via Natural or Artificial Opening Endoscopic (ICD-10-PCS; principal; 2018-05-06 08:30)
PROC: 02HV33Z Insertion of Infusion Device into Superior Vena Cava, Percutaneous Approach (ICD-10-PCS; 2018-05-12)
PROC: B548ZZA Ultrasonography of Superior Vena Cava, Guidance (ICD-10-PCS; 2018-05-12)
PROC: 3E04329 Introduction of Other Anti-infective into Central Vein, Percutaneous Approach (ICD-10-PCS; 2018-05-12)
DX: A41.01 Sepsis due to Methicillin susceptible Staphylococcus aureus (principal); B20 Human immunodeficiency virus [HIV] disease; N13.2 Hydronephrosis with renal and ureteral calculous obstruction; B59 Pneumocystosis; N17.9 Acute kidney failure, unspecified; N39.0 Urinary tract infection, site not specified; D63.8 Anemia in other chronic diseases classified elsewhere; N18.2 Chronic kidney disease, stage 2 (mild); E87.6 Hypokalemia; F32.9 Major depressive disorder, single episode, unspecified; Z91.19 Patient's noncompliance with other medical treatment and regimen; Z87.440 Personal history of urinary (tract) infections; Z87.442 Personal history of urinary calculi; Z88.1 Allergy status to other antibiotic agents; Z88.2 Allergy status to sulfonamides